=== PATIENT | male | born 1955 | race African-American/Black ===

== ENCOUNTER 2016-08-24 07:17 | Emergency (ER) | payer BC ==
[~2016-08-24 07:17] MED LIST: ZOFR8TAB4 SL
[2016-08-24 07:21] VITALS: BP 137/89; PULSE 130; RESP 24; TEMP 99.8; O2SAT 94
[2016-08-24 07:42] VITALS: BP 185/85; PULSE 98; RESP 18; O2SAT 99
[2016-08-24 07:59] VITALS: RESP 18; O2SAT 98
--- NOTE | 2016-08-24 08:03 | PD ---
HPI Chief Complaint: GI Complaint Time Seen by Provider: 07:42 Travel History International Travel<30 days: No Contact w/Intl Traveler<30days: No Traveled to known affect area: No History of Present Illness HPI The patient was seen and examined in the presence of the nurse. This patient's chief complaint is pain in the right testicle area. Duration 2 days. Symptoms are moderately severe. No injury. He has a temp of 99.8 but denies known fever. He reports that he was getting dialyzed in [place] up to 1 month ago when he just quit on his own. He does produce a reasonable amount of urine through self-catheterization for the last 2 months. He says due to insurance changes he could continue dialyzing. No alleviating factors. PFSH Past Medical History Anemia: Yes Cardiovascular Problems: Yes Dialysis: Yes (PT STATES STOP TREATMENT IN JULY FOR ISSUES WITH INSURANCE) Diminished Hearing: No Hypertension: Yes Medical other: Yes (ESRD ) Tetanus Vaccination: < 5 Years Influenza Vaccination: Yes Past Surgical History Abdominal Surgery: Yes (HERNIA REPAIR) Other Surgery: Yes (DYALISIS CATHETER RIGHT SIDE OF CHEST) Social History Alcohol Use: No Tobacco Use: No Substance Use: No Allergies-Medications (Allergen,Severity, Reaction): Coded Allergies: No Known Allergies (Unverified , 08/24/16) Reported Meds & Prescriptions Reported Meds & Active Scripts Active Cipro (Ciprofloxacin HCl) 250 Mg Tab 750 Mg PO BID 5 Days Review of Systems General / Constitutional: Positive: Fever Eyes: No: Visual changes HENT: No: Headaches Cardiovascular: Positive: Tachycardia, No: Chest Pain or Discomfort Respiratory: No: Shortness of Breath Gastrointestinal: Positive: Nausea, Vomiting, No: Abdominal Pain Genitourinary: No: Dysuria Musculoskeletal: Positive: Pain Skin: No Rash Neurologic: No: Weakness Psychiatric: No: Depression Endocrine: No: Polydipsia Hematologic/Lymphatic: No: Easy Bruising Physical Exam Narrative GENERAL: Thin well-developed patient with low-grade temperature and tachycardia and right testicular pain. SKIN: Focused skin assessment reveals no rash and nodules. Skin is Warm and dry. HEAD: Atraumatic. Normocephalic. EYES: Pupils equal and round. No scleral icterus. No injection or drainage. ENT: No nasal bleeding or discharge. Mucous membranes pink and moist. Throat clear NECK: Trachea midline. No JVD. No meningeal signs CARDIOVASCULAR: Regular rate and rhythm. No murmur appreciated. RESPIRATORY: No accessory muscle use. Clear to auscultation. Breath sounds equal bilaterally. GASTROINTESTINAL: Abdomen soft, non-tender, nondistended. Hepatic and splenic margins not palpable. MUSCULOSKELETAL: No obvious deformities. No clubbing. No cyanosis. No edema. Has a Vas-Cath in right upper chest NEUROLOGICAL: Awake and alert. No obvious cranial nerve deficits. Motor grossly within normal limits. Normal speech. PSYCHIATRIC: Appropriate mood and affect; insight and judgment normal. : Has large tender right scrotal masslike area. No warmth or erythema. No obvious hernia noted. Data Data Last Documented VS Vital Signs Date Time Temp Pulse Resp B/P Pulse Ox O2 Delivery O2 Flow Rate FiO2 08/24/16 07:59 18 98 Room Air 08/24/16 07:42 98 185/85 08/24/16 07:21 99.8 Orders Complete Blood Count With Diff (08/24/16 07:53) Comprehensive Metabolic Panel (08/24/16 07:53) Urinalysis - C+S If Indicated (08/24/16 07:53) Blood Culture (08/24/16 07:53) Chest, Single Ap (08/24/16 07:53) Ecg Monitoring (08/24/16 07:53) Iv Access Insert/Monitor (08/24/16 07:53) Cath For Specimen (08/24/16 07:53) Oximetry (08/24/16 07:53) Us Testicles W Doppler (08/24/16 ) Arterial Blood Gas (Abg) (08/24/16 ) Urine Culture (08/24/16 08:05) Labs Laboratory Tests Test 08/24/16 08/24/16 08:05 09:05 White Blood Count 20.1 TH/MM3 Red Blood Count 3.23 MIL/MM3 Hemoglobin 10.0 GM/DL Hematocrit 29.6 % Mean Corpuscular Volume 91.6 FL Mean Corpuscular Hemoglobin 31.1 PG Mean Corpuscular Hemoglobin 34.0 % Concent Red Cell Distribution Width 13.8 % Platelet Count 249 TH/MM3 Mean Platelet Volume 7.5 FL Neutrophils (%) (Auto) 87.4 % Lymphocytes (%) (Auto) 3.9 % Monocytes (%) (Auto) 7.9 % Eosinophils (%) (Auto) 0.5 % Basophils (%) (Auto) 0.3 % Neutrophils # (Auto) 17.5 TH/MM3 Lymphocytes # (Auto) 0.8 TH/MM3 Monocytes # (Auto) 1.6 TH/MM3 Eosinophils # (Auto) 0.1 TH/MM3 Basophils # (Auto) 0.1 TH/MM3 CBC Comment DIFF FINAL Differential Comment Urine Color LIGHT-YELLOW Urine Turbidity HAZY Urine pH 5.5 Urine Specific [place] 1.011 Urine Protein 30 mg/dL Urine Glucose (UA) NEG mg/dL Urine Ketones NEG mg/dL Urine Occult Blood SMALL Urine Nitrite NEG Urine Bilirubin NEG Urine Urobilinogen LESS THAN 2.0 MG/DL Urine Leukocyte Esterase LARGE Urine RBC 5 /hpf Urine WBC 123 /hpf Urine WBC Clumps FEW Urine Bacteria MOD /hpf Urine Mucus FEW /lpf Microscopic Urinalysis Comment CATH-CULTURE IND Sodium Level 131 MEQ/L Potassium Level 5.5 MEQ/L Chloride Level 105 MEQ/L Carbon Dioxide Level 17.0 MEQ/L Anion Gap 9 MEQ/L Blood Urea Nitrogen 76 MG/DL Creatinine 5.75 MG/DL Estimat Glomerular Filtration 12 ML/MIN Rate Random Glucose 135 MG/DL Calcium Level 8.4 MG/DL Total Bilirubin 0.3 MG/DL Aspartate Amino Transf 6 U/L (AST/SGOT) Alanine Aminotransferase 25 U/L (ALT/SGPT) Alkaline Phosphatase 67 U/L Total Protein 9.0 GM/DL Albumin 3.0 GM/DL Blood Gas Puncture Site RT RADIAL Blood Gas Patient Temperature 98.6 Blood Gas HCO3 13 mmol/L Blood Gas Base Excess -11.1 mmol/L Blood Gas Oxygen Saturation 96 % Arterial Blood pH 7.38 Arterial Blood Partial 23 mmHg Pressure CO2 Arterial Blood Partial 99 mmHG Pressure O2 Arterial Blood Oxygen Content 12.6 Vol % Arterial Blood 1.4 % Carboxyhemoglobin Arterial Blood Methemoglobin 0.6 % Blood Gas Hemoglobin 9.2 G/DL Oxygen Delivery Device ROOM AIR Blood Gas Inspired Oxygen 21 % [facility] Medical Decision Making Medical Screen Exam Complete: Yes Emergency Medical Condition: Yes Medical Record Reviewed: Yes Differential Diagnosis Torsion, varicocele, scrotal mass, acidemia, sepsis Narrative Course I have reviewed the patient's electronic medical record. Reviewed an outpatient visit from May 2016. There are no inpatient stays or ER visits IV placed Blood cultures obtained 2 CBC shows leukocytosis of 20,000 Metabolic profile shows a lot of abnormalities with creatinine of 5.75 and potassium of 5.5 LFTs are normal ABG shows pH is reasonably normal Catheterized urine shows infection with a lot of pyuria and leukocyte esterase I reviewed his chest x-ray which is negative Ultrasound of the testicles was done revealing hydrocele but no evidence of torsion or solid mass Patient decided he wanted to sign out AGAINST MEDICAL ADVICE. Instead I suggested he may need dialyzing today and started to discuss my rationale but he spoke over many normal and didn't want to listen. He says he just wanted to leave. He said he would take a prescription for antibiotics but nothing else. He was already pulling off his leads and getting dressed when I got to the room. His mental status was normal but he was very frustrated and adamant. He was not confused at all. I advised him to return if he worsens or changes his mind. He was advised that he can get very sick and due to cardiac arrhythmia from hyperkalemia or other things. He may also have some degree of sepsis. He has low-grade temp but is tachycardic and has urinary infection. Patient has critical illness but normal mental status and signing out against advice Critical Care Narrative Aggregate critical care time was 32 minutes. Time to perform other separately billable procedures was not included in the critical care time. My time did not include minutes spent treating any other patients simultaneously or on activities that did not directly contribute to the patient's treatment. The services I provided to this patient were to treat and/or prevent clinically significant deterioration that could result in: Cardiac arrhythmia, cardiopulmonary arrest, septic shock I provided critical care services requiring my management, as noted below: Chart data review, documentation time, medication orders and management, vital sign assessments/reviewing monitor data, ordering and reviewing lab tests, ordering and interpreting/reviewing x-rays and diagnostic studies, care of the patient and discussion of the patient with the admitting physicians. Sepsis Criteria SIRS Criteria (2 or more): Heart rate over 90, WBC > 67950, < 4000 or > 10% bands Sepsis Criteria (SIRS+source): Infect source susp/known Severe Sepsis (+one): Acute Oliguria/Renal Failure Criteria Outcome: Meets severe sepsis criteria Diagnosis Primary Impression: Renal failure Qualified Code: N17.9 - Acute renal failure superimposed on chronic kidney disease, unspecified CKD stage, unspecified acute renal failure type Additional Impressions: Hyperkalemia Cystitis Sepsis Qualified Code: A41.9 - Sepsis, due to unspecified organism Med/Other Pt SpecificInfo: Prescription(s) given Scripts Ciprofloxacin (Cipro)250 Mg [id number] Mg PO BID 5 Days Ref 0 Prov:Iron Reynoso MD 08/24/16 Disposition: 07 AGAINST MEDICAL ADVICE Condition: Serious Iron Reynoso MD August 24, 2016 08:03
--- NOTE | 2016-08-24 08:13 | RADRPT ---
EXAM DATE/TIME: 08/24/2016 08:00 [facility] COMPARISON: No previous studies available for comparison. INDICATIONS : Fever MEDICAL HISTORY : None. SURGICAL HISTORY : Infusaport ENCOUNTER: Initial ACUITY: 1 day PAIN SCORE: 0/10 LOCATION: Bilateral chest FINDINGS: A single view of the chest demonstrates the lungs to be symmetrically aerated without evidence of mas s, infiltrate or effusion. The cardiomediastinal contours are unremarkable. Osseous structures are intact. There is a right-sided double lumen central venous catheter with the tip projected over the v jenelle cava. CONCLUSION: 1. Right-sided double-lumen central venous catheter in place. 2. The lungs are clear with no evidence of pneumonia. Rodrigo Paris MD on August 24, 2016 at 8:10 Board Certified Radiologist. This report was verified electronically.
[2016-08-24 08:22] LABS: AUTOMATED NEUTROPHIL # 17.5 TH/MM3 (1.8-7.7); BASOPHIL # 0.1 TH/MM3 (0-0.2); BASOPHIL % 0.3 % (0.0-2.0); EOSINOPHIL # 0.1 TH/MM3 (0-0.4); EOSINOPHIL % 0.5 % (0.0-4.0); HEMATOCRIT 29.6 % (39.0-51.0); HEMO FLAGS DIFF FINAL; LYMPH % 3.9 % (9.0-44.0); LYMPHOCYTE # 0.8 TH/MM3 (1.0-4.8); MEAN CELL VOLUME 91.6 FL (80.0-100.0); MEAN CORPUSCULAR HEMOGLOBIN 31.1 PG (27.0-34.0); MONO % 7.9 % (0.0-8.0); NEUT % 87.4 % (16.0-70.0); PLATELET COUNT 249 TH/MM3 (150-450); RED BLOOD COUNT 3.23 MIL/MM3 (4.50-5.90); RED CELL DISTRIBUTION WIDTH 13.8 % (11.6-17.2); WHITE BLOOD COUNT 20.1 TH/MM3 (4.0-11.0)
[2016-08-24 08:26] LABS: BACTERIA, URINE MOD /hpf; BLOOD, URINE SMALL (NEG); COMMENT (UR) CATH-CULTURE IND; CULTURE IF INDICATED CATH CULTURE IND; GLUCOSE,URINE NEG (NEG); KETONE, URINE NEG (NEG); MUCUS URINE FEW /lpf (OCC); NITRITE,URINE NEG (NEG); PH, URINE 5.5 (5.0-8.5); URINE COLOR LIGHT-YELLOW (YELLW/STRAW)
[2016-08-24 09:10] LABS: BLOOD GAS BASE EXCESS -11.1 mmol/L (-2-2); BLOOD GAS CARBOXYHEMOGLOBIN 1.4 % (0-4); BLOOD GAS HCO3 13 mmol/L (22-26); BLOOD GAS METHEMOGLOBIN 0.6 % (0-2); BLOOD GAS O2 HGB SATURATION 96 % (90-100); BLOOD GAS OXYGEN CONTENT 12.6 Vol % (12.0-20.0); BLOOD GAS PCO2 23 mmHg (38-42); BLOOD GAS PO2 99 mmHG (61-120); BLOOD GAS TOTAL HGB 9.2 G/DL (12.0-16.0); TEMP CORR TO 98.6
[2016-08-24 09:11] LABS: CRITICAL VALUE YES; DRAW SITE RT RADIAL; FIO2 21 %; NUMBER OF ARTERIAL PUNCTURES 2; OXYGEN DEVICE ROOM AIR; STAT YES; ULNAR PULSE Y
[2016-08-24 09:24] LABS: ANION GAP 9 MEQ/L (5-15); AST (GOT) 6 U/L (15-37); BLOOD UREA NITROGEN 76 MG/DL (7-18); CHLORIDE 105 MEQ/L (98-107); GLOMERULAR FILTRATION RATE 12 ML/MIN (>89); POTASSIUM 5.5 MEQ/L (3.5-5.1); SODIUM (NA) 131 MEQ/L (136-145)
[2016-08-24 09:27] LABS: ALKALINE PHOSPHATASE 67 U/L (45-117); ALT (GPT) 25 U/L (12-78); TOTAL BILIRUBIN ADULT 0.3 MG/DL (0.2-1.0)
--- NOTE | 2016-08-24 09:55 | RADRPT ---
EXAM DATE/TIME: 08/24/2016 09:13 [facility] COMPARISON: No previous studies available for comparison. INDICATIONS : Testicular pain. MEDICAL HISTORY : Cardiac disorders. HTN. Anemia. ESRD. SURGICAL HISTORY : Hernia repair. Dialysis. ENCOUNTER: Initial ACUITY: 3 days PAIN SCORE: 10/10 LOCATION: Bilateral scrotum. MEASUREMENTS: RIGHT TESTICLE: 3.5 x 3.1 x 2.4cm LEFT TESTICLE: 2.3 x 3.5 x 2.0cm FINDINGS: RIGHT TESTICLE: Homogeneous echotexture without intra or extratesticular mass. There are multiple small echogenic foc i throughout the testicle without shadowing. Blood flow is symmetric and within normal limits. There is a complex small to moderate size hydrocele containing multiple septations. No varicocele. Echogen ic material is visualized extending into the right inguinal canal. Epididymis is within normal limits . LEFT TESTICLE: Homogeneous echotexture without intra or extratesticular mass. There are multiple small echogenic fo ci throughout the testicle without shadowing. Blood flow is symmetric and within normal limits. No h ydrocele or varicocele. Epididymis is within normal limits. SCROTUM: Within normal limits. CONCLUSION: 1. No definite abnormality is identified to explain the patient's pain. There is a complex small-to-m oderate size right hydrocele. 2. Possible right inguinal hernia is identified. 3. Bilateral testicular microlithiasis. Luc Angel MD on August 24, 2016 at 9:50 Board Certified Radiologist. This report was verified electronically.
[2016-08-24] MEDS ORDERED: CIPR250T52 PO (10:08)
== END 2016-08-24 10:30 | disposition left against medical advice (07) ==
LOC: NEPC 07:17
DX: N17.9 Acute kidney failure, unspecified (principal); E87.5 Hyperkalemia; N30.90 Cystitis, unspecified without hematuria; A41.9 Sepsis, unspecified organism; B96.5 Pseudomonas (aeruginosa) (mallei) (pseudomallei) as the cause of diseases classified elsewhere; B96.89 Other specified bacterial agents as the cause of diseases classified elsewhere; I12.0 Hypertensive chronic kidney disease with stage 5 chronic kidney disease or end stage renal disease
CPT/HCPCS: 36600; 71010; 76870; 80053; 81001; 82805; 85025; 87040; 87077; 87086; 87186; 93975; 99291; P9612

== ENCOUNTER 2016-08-28 05:11 | Inpatient (IN) | payer BC ==
[~2016-08-28] VITALS: Ht 175.3 cm; Wt 57.1 kg
[2016-08-28] VITALS (11 sets, daily range): BP systolic 100–137; BP diastolic 59–79; PULSE 88–109; RESP 18–24; TEMP 97.6–99.3; O2SAT 91–100
[~2016-08-28 05:11] MED LIST changes: +CIPR250T52 PO; -ZOFR8TAB4 SL
[2016-08-28] MEDS ORDERED: SODIUM CHLORIDE 0.9% FLUSH 5 ML FLUSH IV FLUSH PRN (05:30)
--- NOTE | 2016-08-28 05:32 | PD ---
HPI Chief Complaint: General Weakness Time Seen by Provider: 05:14 Travel History International Travel<30 days: No Contact w/Intl Traveler<30days: No Traveled to known affect area: No History of Present Illness HPI The patient is a 61-year-old [place] male who presents to the emergency department for generalized malaise. According to EMS the patient called because he was having generalized malaise and generalized weakness. The patient was seen in the emergency department several days ago, June 24, bruise noted at acute renal failure. It was recommended that the patient be admitted, however, he signed out AGAINST MEDICAL ADVICE. The patient has a permacath located in the right internal jugular, states he was receiving dialysis in [place], however, cannot give me the name of his comb capper. The patient states he recently moved back to the area and does not have a local primary physician. The patient appears somewhat confused, cannot give me a straight story in regards to his history of dialysis, reason for dialysis, or previous place where he received dialysis. The patient appears confused and is a somewhat poor historian. PFSH Past Medical History Anemia: Yes Cardiovascular Problems: Yes Dialysis: Yes (PT STATES STOP TREATMENT IN JULY FOR ISSUES WITH INSURANCE) Diminished Hearing: No Hypertension: Yes Past Surgical History Abdominal Surgery: Yes (HERNIA REPAIR) Other Surgery: Yes (DYALISIS CATHETER RIGHT SIDE OF CHEST) Social History Alcohol Use: No Tobacco Use: No Substance Use: No Allergies-Medications (Allergen,Severity, Reaction): Coded Allergies: No Known Allergies (Unverified , 08/28/16) Reported Meds & Prescriptions Reported Meds & Active Scripts Active Cipro (Ciprofloxacin HCl) 250 Mg Tab 750 Mg PO BID 5 Days Review of Systems ROS Limitations: Altered Mental Status Except as stated in HPI: all other systems reviewed are Neg HENT: No: Lightheadedness Cardiovascular: No: Chest Pain or Discomfort Respiratory: No: Shortness of Breath Gastrointestinal: No: Nausea, Vomiting, Abdominal Pain Genitourinary: Positive: Decreased Urinary Output Musculoskeletal: Positive: Weakness Neurologic: Positive: Weakness, Change in Mentation Physical Exam Narrative GENERAL: Awake, alert, somewhat confused 61-year-old male who appears his stated age and is in no acute respiratory distress. SKIN: Focused skin assessment warm/dry. HEAD: Atraumatic. Normocephalic. EYES: Pupils equal and round. No scleral icterus. No injection or drainage. ENT: No nasal bleeding or discharge. Mucous membranes pink and moist. NECK: Trachea midline. No JVD. Permacath in place right internal jugular. CARDIOVASCULAR: Regular rate and rhythm. No murmur appreciated. RESPIRATORY: No accessory muscle use. Clear to auscultation. Breath sounds equal bilaterally. GASTROINTESTINAL: Abdomen soft, non-tender, nondistended. MUSCULOSKELETAL: No obvious deformities. No clubbing. No cyanosis. No edema. NEUROLOGICAL: Awake and alert. No obvious cranial nerve deficits. Motor grossly within normal limits. Normal speech. Nonfocal. Patient is oriented to year, president [employer], took him several gases to get the correct month. PSYCHIATRIC: Odd affect. Data Data Last Documented VS Vital Signs Date Time Temp Pulse Resp B/P Pulse Ox O2 Delivery O2 Flow Rate FiO2 08/28/16 05:28 18 100 Nasal Cannula 2 08/28/16 05:26 102 08/28/16 05:22 97.6 131/79 Orders Electrocardiogram (08/28/16 05:25) Complete Blood Count With Diff (08/28/16 05:25) Comprehensive Metabolic Panel (08/28/16 05:25) Creatine Kinase (Cpk) (08/28/16 05:25) Prothrombin Time / Inr (Pt) (08/28/16 05:25) Act Partial Throm Time (Ptt) (08/28/16 05:25) Thyroid Stimulating Hormone (08/28/16 05:25) Urinalysis - C+S If Indicated (08/28/16 05:25) Chest, Single Ap (08/28/16 05:25) Blood Glucose (08/28/16 05:25) Ecg Monitoring (08/28/16 05:25) Iv Access Insert/Monitor (08/28/16 05:25) Oximetry (08/28/16 05:25) Sodium Chloride 0.9% Flush (Ns Flush) (08/28/16 05:30) Sodium Chlor 0.9% 1000 Ml Inj (Ns 1000 M (08/28/16 05:25) Magnesium (Mg) (08/28/16 05:25) Phosphorus (Po4) (08/28/16 05:25) Cefepime Inj (Maxipime Inj) (08/28/16 06:00) Blood Culture (08/28/16 06:01) Lactic Acid (08/28/16 06:01) Piperacil-Tazo 4.5 Gm Premix (Zosyn 4.5 (08/28/16 06:15) Potassium, Serum (K) (08/28/16 09:17) Insulin Human Regular Inj (Novolin R Inj (08/28/16 06:30) Dextrose 50% In Gadiel (Vial) Inj (D50w (Vi (08/28/16 06:30) Sodium Bicarbonate 8.4% Inj (Sodium Bica (08/28/16 06:30) Sodium Chlor 0.9% 1000 Ml Inj (Ns 1000 M (08/28/16 06:30) Consult Nephrology (08/28/16 ) (Hub Use Only)Inp Phy Cons/Ref (08/28/16 ) Labs Laboratory Tests Test 08/28/16 05:15 White Blood Count 31.9 TH/MM3 Red Blood Count 2.76 MIL/MM3 Hemoglobin 8.2 GM/DL Hematocrit 25.3 % Mean Corpuscular Volume 91.6 FL Mean Corpuscular Hemoglobin 29.9 PG Mean Corpuscular Hemoglobin 32.6 % Concent Red Cell Distribution Width 14.1 % Platelet Count 129 TH/MM3 Mean Platelet Volume 8.6 FL Neutrophils (%) (Auto) 89.7 % Lymphocytes (%) (Auto) 4.0 % Monocytes (%) (Auto) 5.2 % Eosinophils (%) (Auto) 0.7 % Basophils (%) (Auto) 0.4 % Neutrophils # (Auto) 28.6 TH/MM3 Lymphocytes # (Auto) 1.3 TH/MM3 Monocytes # (Auto) 1.7 TH/MM3 Eosinophils # (Auto) 0.2 TH/MM3 Basophils # (Auto) 0.1 TH/MM3 CBC Comment AUTO DIFF Prothrombin Time 12.8 SEC Prothromb Time International 1.2 RATIO Ratio Activated Partial 22.0 SEC Thromboplast Time Sodium Level 128 MEQ/L Potassium Level 6.8 MEQ/L Chloride Level 95 MEQ/L Carbon Dioxide Level 15.4 MEQ/L Anion Gap 18 MEQ/L Blood Urea Nitrogen 130 MG/DL Creatinine 7.19 MG/DL Estimat Glomerular Filtration 9 ML/MIN Rate Random Glucose 85 MG/DL Calcium Level 9.1 MG/DL Phosphorus Level 5.0 MG/DL Magnesium Level 2.2 MG/DL Total Bilirubin 0.4 MG/DL Aspartate Amino Transf 20 U/L (AST/SGOT) Alanine Aminotransferase 20 U/L (ALT/SGPT) Alkaline Phosphatase 77 U/L Total Creatine Kinase 206 U/L Total Protein 9.4 GM/DL Albumin 3.2 GM/DL Thyroid Stimulating Hormone 1.730 uIU/ML 3rd Gen [facility] Medical Decision Making Medical Screen Exam Complete: Yes Emergency Medical Condition: Yes Medical Record Reviewed: Yes Interpretation(s) EKG reveals sinus tachycardia with a heart rate of 108. Left ventricular hypertrophy. Laboratory Tests Test 08/28/16 05:15 White Blood Count 31.9 TH/MM3 Red Blood Count 2.76 MIL/MM3 Hemoglobin 8.2 GM/DL Hematocrit 25.3 % Mean Corpuscular Volume 91.6 FL Mean Corpuscular Hemoglobin 29.9 PG Mean Corpuscular Hemoglobin 32.6 % Concent Red Cell Distribution Width 14.1 % Platelet Count 129 TH/MM3 Mean Platelet Volume 8.6 FL Neutrophils (%) (Auto) 89.7 % Lymphocytes (%) (Auto) 4.0 % Monocytes (%) (Auto) 5.2 % Eosinophils (%) (Auto) 0.7 % Basophils (%) (Auto) 0.4 % Neutrophils # (Auto) 28.6 TH/MM3 Lymphocytes # (Auto) 1.3 TH/MM3 Monocytes # (Auto) 1.7 TH/MM3 Eosinophils # (Auto) 0.2 TH/MM3 Basophils # (Auto) 0.1 TH/MM3 CBC Comment AUTO DIFF Prothrombin Time 12.8 SEC Prothromb Time International 1.2 RATIO Ratio Activated Partial 22.0 SEC Thromboplast Time Sodium Level 128 MEQ/L Potassium Level 6.8 MEQ/L Chloride Level 95 MEQ/L Carbon Dioxide Level 15.4 MEQ/L Anion Gap 18 MEQ/L Blood Urea Nitrogen 130 MG/DL Creatinine 7.19 MG/DL Estimat Glomerular Filtration 9 ML/MIN Rate Random Glucose 85 MG/DL Calcium Level 9.1 MG/DL Phosphorus Level 5.0 MG/DL Magnesium Level 2.2 MG/DL Total Bilirubin 0.4 MG/DL Aspartate Amino Transf 20 U/L (AST/SGOT) Alanine Aminotransferase 20 U/L (ALT/SGPT) Alkaline Phosphatase 77 U/L Total Creatine Kinase 206 U/L Total Protein 9.4 GM/DL Albumin 3.2 GM/DL Thyroid Stimulating Hormone 1.730 uIU/ML 3rd Gen Chest x-ray reveals central line catheter placement in place, no significant oral effusion or edema. Differential Diagnosis Differential diagnosis includes acute renal failure, chronic renal failure, hyperkalemia, electrolyte abnormality, encephalopathy, uremia, UTI, sepsis. Narrative Course IV was established, labs are drawn and sent, and the patient was placed on cardiac telemetry monitoring and continuous pulse oximetry monitoring. EKG was ordered and interpreted. IV fluids were started. Chest x-ray was obtained. The patient's white count was noted be 31.8, higher than a white count from 5 days ago that was 20.1. The patient was noted to have a UTI at that time, therefore, was administered Zosyn intravenously, after I evaluated his culture results from the UA that was performed on the . Lactic acid and blood cultures were ordered. The patient was not immediately administered 30 ML's per kilogram of IV fluids as he is a dialysis patient that is no longer getting a dialysis and makes very little urine, via straight catheter. The patient appears to have sepsis, ongoing chronic renal failure and may need dialysis. Lab called at 6:15 AM stated the patient's potassium was 6.8, therefore, patient was treated with insulin, amp of D50, bicarbonate, and 1 L of IV fluids. The on-call decision support analyst and comb capper were paged for admission. I discussed the patient the decision support analyst who also recommends 1 g of calcium gluconate, therefore, 1 g of calcium gluconate was ordered. The patient will be [place] [facility] and will need dialysis. A consult was placed to the on-call comb capper. Critical Care Narrative Aggregate critical care time was 40 minutes. Time to perform other separately billable procedures was not included in the critical care time. My time did not include minutes spent treating any other patients simultaneously or on activities that did not directly contribute to the patient's treatment. The services I provided to this patient were to treat and/or prevent clinically significant deterioration that could result in: Arrhythmia, acute on chronic renal failure, pulmonary edema, . I provided critical care services requiring my management, as noted below: Chart data review, documentation time, medication orders and management, vital sign assessments/reviewing monitor data, ordering and reviewing lab tests, ordering and interpreting/reviewing x-rays and diagnostic studies, care of the patient and discussion of the patient with the admitting physicians. Sepsis Criteria SIRS Criteria (2 or more): Heart rate over 90, WBC > 20469, < 4000 or > 10% bands Sepsis Criteria (SIRS+source): Infect source susp/known Physician Communication Physician Communication The on-call decision support analyst was paged for admission. I discussed the patient with Dr. Velasquez who agrees with admission. Diagnosis Primary Impression: Renal failure Qualified Code: N17.9 - Acute renal failure superimposed on chronic kidney disease, unspecified CKD stage, unspecified acute renal failure type Additional Impressions: Hyperkalemia Sepsis Qualified Code: A41.52 - Sepsis due to Pseudomonas species Admitting Information Admitting Physician Requests: Admit Condition: Serious Nilson Vee MD August 28, 2016 05:32
[2016-08-28 05:39] LABS: AUTOMATED NEUTROPHIL # 28.6 TH/MM3 (1.8-7.7); BASOPHIL # 0.1 TH/MM3 (0-0.2); BASOPHIL % 0.4 % (0.0-2.0); EOSINOPHIL # 0.2 TH/MM3 (0-0.4); EOSINOPHIL % 0.7 % (0.0-4.0); HEMATOCRIT 25.3 % (39.0-51.0); LYMPHOCYTE # 1.3 TH/MM3 (1.0-4.8); MEAN CELL VOLUME 91.6 FL (80.0-100.0); MEAN CORPUSCULAR HEMOGLOBIN 29.9 PG (27.0-34.0); MEAN CORPUSCULAR HGB CONC 32.6 % (32.0-36.0); MONO % 5.2 % (0.0-8.0); NEUT % 89.7 % (16.0-70.0); PLATELET COUNT 129 TH/MM3 (150-450); RED BLOOD COUNT 2.76 MIL/MM3 (4.50-5.90); RED CELL DISTRIBUTION WIDTH 14.1 % (11.6-17.2); WHITE BLOOD COUNT 31.9 TH/MM3 (4.0-11.0)
[2016-08-28 05:42] LABS: HEMO FLAGS AUTO DIFF
[2016-08-28 05:53] LABS: INTERNATIONAL NORMALIZED RATIO 1.2 RATIO; PROTHROMBIN TIME - PATIENT 12.8 SEC (9.8-11.6)
[2016-08-28] MEDS ORDERED: CEFEPIME INJ 2,000 MG in SODIUM CHLORIDE 0.9% INJ 100 ML IV ONE (06:00)
[2016-08-28] MEDS: SODIUM CHLOR 0.9% 1000 ML INJ 1,000 ML IV SCH ×2 (06:04→08:40)
[2016-08-28 06:13] LABS: ALT (GPT) 20 U/L (12-78); ANION GAP 18 MEQ/L (5-15); AST (GOT) 20 U/L (15-37); BICARBONATE 15.4 MEQ/L (21.0-32.0); BLOOD UREA NITROGEN 130 MG/DL (7-18); CHLORIDE 95 MEQ/L (98-107); GLOMERULAR FILTRATION RATE 9 ML/MIN (>89); MAGNESIUM 2.2 MG/DL (1.5-2.5); SODIUM (NA) 128 MEQ/L (136-145)
[2016-08-28 06:15] LABS: POTASSIUM 6.8 MEQ/L (3.5-5.1)
[2016-08-28] MEDS ORDERED: PIPERACIL-TAZO 4.5 GM PREMIX 100 ML IV ONE (06:15)
[2016-08-28 06:23] LABS: ALKALINE PHOSPHATASE 77 U/L (45-117); CREATINE KINASE 206 U/L (39-308); TOTAL BILIRUBIN ADULT 0.4 MG/DL (0.2-1.0)
[2016-08-28] MEDS ORDERED: SODIUM CHLOR 0.9% 1000 ML INJ 1,000 ML IV ONE (06:30)
[2016-08-28] MEDS ORDERED: INSULIN HUMAN REGULAR 1,000 UNITS/10 ML VIAL IV PUSH ONE (06:30)
[2016-08-28] MEDS ORDERED: DEXTROSE 50% IN WATER 50 ML VIAL(D50) IV PUSH ONE (06:30)
[2016-08-28] MEDS ORDERED: SODIUM BICARBONATE 8.4% SOLN 50 MEQ/50 ML VIAL SLOW IVP ONE (06:30)
--- NOTE | 2016-08-28 06:39 | RADRPT ---
EXAM DATE/TIME: 08/28/2016 06:03 [facility] COMPARISON: CHEST SINGLE AP, August 24, 2016, 8:00. INDICATIONS : Short of breath. MEDICAL HISTORY : Hypertension. SURGICAL HISTORY : Hernia repair. Dialysis port. ENCOUNTER: Subsequent ACUITY: 1 day PAIN SCORE: 0/10 LOCATION: Bilateral chest FINDINGS: Right chest dialysis catheters present in satisfactory position. Lungs are clear. No pleural effusion evident. Cardiac contours are satisfactory. CONCLUSION: No acute disease Luc Obando MD on August 28, 2016 at 6:37 Board Certified Radiologist. This report was verified electronically.
[2016-08-28] MEDS ORDERED: CALCIUM GLUCONATE INJ 1 GM in DEXTROSE 5% IN WATER 100ML INJ 100 ML IV ONE ×2 (06:45)
[2016-08-28 06:55] LABS: BANDS 2 % (0-6); METAMYELOCYTES 1 % (0-1); POLYS (SEG NEUTROPHILS) 88 % (16-70); WBC DIFF SAMPLE 100
[2016-08-28 06:56] LABS: PLATELET ESTIMATE SMEAR LOW (NORMAL); PLATELET MORPHOLOGY NORMAL (NORMAL); ROULEAUX PRESENT (NORMAL)
[2016-08-28 06:57] LABS: SCAN/DIFF FINAL DIFF MANUAL
[2016-08-28 07:03] LABS: BACTERIA, URINE MANY /hpf; BLOOD, URINE SMALL (NEG); GLUCOSE,URINE NEG (NEG); HYALINE CAST, URINE 2 /lpf (RARE); KETONE, URINE NEG (NEG); NITRITE,URINE NEG (NEG); PH, URINE 5.5 (5.0-8.5); SQUAMOUS EPITHELIAL CELL URINE <1 /hpf (0-5); URINE COLOR YELLOW (YELLW/STRAW)
[2016-08-28 07:11] LABS: COMMENT (UR) CATH-CULTURE IND; CULTURE IF INDICATED CATH CULTURE IND
[2016-08-28] MEDS ORDERED: MISCELLANEOUS NURSING INFORMATION XX SCH (07:30)
[2016-08-28] MEDS ORDERED: MAGNESIUM HYDROXIDE SUSP 30 ML CUP PO PRN (07:30)
[2016-08-28] MEDS ORDERED: PIPERACIL-TAZO 2.25 GM PREMIX 50 ML IV SCH (07:30)
[2016-08-28] MEDS ORDERED: SENNOSIDES 8.6 MG TAB PO PRN (07:30)
[2016-08-28] MEDS ORDERED: CHLORHEXIDINE GLUCONATE 2 % 1 PACK (2 CLOTHS) TOP PRN (07:30)
[2016-08-28] MEDS ORDERED: MORPHINE SULFATE 4 MG/ML INJ IV PUSH PRN (08:00)
[2016-08-28] MEDS ORDERED: BISACODYL 10 MG SUPP RECTAL PRN (08:00)
[2016-08-28] MEDS ORDERED: LACTULOSE SYRUP 20 GM/30 ML CUP PO PRN (08:00)
--- NOTE | 2016-08-28 08:09 | HHI.HP ---
HPI Service Critical Care Medicine Primary Care Physician Unknown Admission Diagnosis acute on chronic renal failure, uremia, hyperkalemia, UTI, sepsis Diagnosis: Chief Complaint: Bladder pain Travel History International Travel<30 Days: No Contact w/Intl Traveler <30 Da: No Traveled to Known Affected Are: No History of Present Illness 61 y/o noncompliant man presents again having missed dialysis for several days. He was seen several days ago in our ED with the same complaint of bladder spasm and missed dialysis. Arrangements were made for HD and antibiotics, neither of which he complied with and left AMA. He presents today with worse leukocytosis and dehydration. Urine grew Pseudomonas and Enterobacter. Admitted now for treatment of sepsis and hyperkalemia 6.8. He takes no medicine. Review of Systems Constitutional: COMPLAINS OF: Fatigue Endocrine: DENIES: Heat/cold intolerance, Polydipsia, Polyuria, Polyphagia Ears, nose, mouth, throat: DENIES: Tinnitus, Hearing loss, Vertigo, Nasal discharge, Oral lesions, Throat pain, Hoarseness, Ear Pain, Running Nose, Epistaxis, Sinus Pain, Toothache, Odynophagia Respiratory: DENIES: Apneas, Cough, Snoring, Wheezing, Hemoptysis, Sputum production, Shortness of breath Cardiovascular: DENIES: Chest pain, Palpitations, Syncope, Dyspnea on Exertion , PND, Lower Extremity Edema, Orthopnea, Claudication Genitourinary: COMPLAINS OF: Urgency Immunologic/allergic: DENIES: Eczema, Urticaria Neurologic: DENIES: Abnormal gait, Headache, Localized weakness, Paresthesias, Seizures, Speech Problems, Tremor, Poor Balance Past Family Social History Allergies: Coded Allergies: No Known Allergies (Unverified , 08/28/16) Past Medical History Past Medical History Anemia: Yes Cardiovascular Problems: Yes Dialysis: Yes (PT STATES STOP TREATMENT IN JULY FOR ISSUES WITH INSURANCE) Diminished Hearing: No Hypertension: Yes Past Surgical History Abdominal Surgery: Yes (HERNIA REPAIR) Other Surgery: Yes (DYALISIS CATHETER RIGHT SIDE OF CHEST) Social History Alcohol Use: No Tobacco Use: No Substance Use: No Allergies-Medications Allergies-Medications (Allergen,Severity, Reaction): Coded Allergies: No Known Allergies (Unverified , 08/28/16) Reported Meds & Prescriptions Reported Meds & Active Scripts Active Cipro (Ciprofloxacin HCl) 250 Mg Tab 750 Mg PO BID 5 Days Physical Exam Vital Signs Vital Signs Date Time Temp Pulse Resp B/P Pulse Ox O2 Delivery O2 Flow Rate FiO2 08/28/16 05:28 18 100 Nasal Cannula 2 08/28/16 05:26 102 18 99 Nasal Cannula 2 08/28/16 05:22 97.6 102 18 131/79 91 Physical Exam P 102, BP 136/77, R 17, T 99.0, sats 100% Head: Normal. Neck: Supple. Lungs: Clear, no wheezes or crackles. Heart: RRR, NL S1S2, freq PMB. Neck veins are flat. Abdomen: Soft, no guarding, BS active. Extremities: Warm, well perfused. Neuro: Talkative, O X 3, alert. M/S grossly intact. Laboratory Laboratory Tests Test 08/28/16 08/28/16 08/28/16 05:15 06:16 06:35 White Blood Count 31.9 Red Blood Count 2.76 Hemoglobin 8.2 Hematocrit 25.3 Mean Corpuscular Volume 91.6 Mean Corpuscular Hemoglobin 29.9 Mean Corpuscular Hemoglobin 32.6 Concent Red Cell Distribution Width 14.1 Platelet Count 129 Mean Platelet Volume 8.6 Neutrophils (%) (Auto) 89.7 Lymphocytes (%) (Auto) 4.0 Monocytes (%) (Auto) 5.2 Eosinophils (%) (Auto) 0.7 Basophils (%) (Auto) 0.4 Neutrophils # (Auto) 28.6 Lymphocytes # (Auto) 1.3 Monocytes # (Auto) 1.7 Eosinophils # (Auto) 0.2 Basophils # (Auto) 0.1 CBC Comment AUTO DIFF Differential Total Cells 100 Counted Neutrophils % (Manual) 88 Band Neutrophils % 2 Lymphocytes % 5 Monocytes % 4 Neutrophils # (Manual) 29.0 Metamyelocytes 1 Differential Comment FINAL DIFF MANUAL Platelet Estimate LOW Platelet Morphology Comment NORMAL Rouleau PRESENT Prothrombin Time 12.8 Prothromb Time International 1.2 Ratio Activated Partial 22.0 Thromboplast Time Sodium Level 128 Potassium Level 6.8 Chloride Level 95 Carbon Dioxide Level 15.4 Anion Gap 18 Blood Urea Nitrogen 130 Creatinine 7.19 Estimat Glomerular Filtration 9 Rate Random Glucose 85 Calcium Level 9.1 Phosphorus Level 5.0 Magnesium Level 2.2 Total Bilirubin 0.4 Aspartate Amino Transf 20 (AST/SGOT) Alanine Aminotransferase 20 (ALT/SGPT) Alkaline Phosphatase 77 Total Creatine Kinase 206 Total Protein 9.4 Albumin 3.2 Thyroid Stimulating Hormone 1.730 3rd Gen Lactic Acid Level 1.3 Urine Color YELLOW Urine Turbidity HAZY Urine pH 5.5 Urine Specific [place] 1.012 Urine Protein 30 Urine Glucose (UA) NEG Urine Ketones NEG Urine Occult Blood SMALL Urine Nitrite NEG Urine Bilirubin NEG Urine Urobilinogen LESS THAN 2.0 Urine Leukocyte Esterase LARGE Urine RBC 3 Urine WBC Urine WBC Clumps FEW Urine Squamous Epithelial <1 Cells Urine Bacteria MANY Urine Hyaline Casts 2 Microscopic Urinalysis Comment CATH-CULTURE IND Date/Time Procedure Status Source Growth 08/28/16 06:35 Urine Culture Received Urine Catheterized Urine Pending 08/28/16 06:10 Aerobic Blood Culture Received Blood Peripheral Pending 08/28/16 06:10 Anaerobic Blood Culture Received Blood Peripheral Pending Result Diagram: 08/28/1615 08/28/1615 Imaging CXR clear 08/28 Assessment and Plan Assessment and Plan Assessment: 1. Hyperkalemia. 2. Dehydration. 3. Severe sepsis with UTI (Pseudomonas, Enterobacter) 4. Chronic noncompliance. Plan: 1. Calcium, bicarb stat. 2. Levaquin. 3. Gentamicin X 1. 4. Pepcid. 5. Heparin sq bid. 6. Urgent dialysis. 7. Education re HD compliance. Overall impression: This man presents critically ill with two potentially life- threatening illnesses. He is unstable and requires immediate correction of his electrolyte disarray and treatment for sepsis. Critical Care 40 mins Reginaldo Umanzor MD August 28, 2016 08:09
--- NOTE | 2016-08-28 08:11 | EKG ---
Date Performed: 08/28/2016 Time Performed: 05:25:43 PTAGE: 61 years EKG: Baseline artifact is present. SINUS TACHYCARDIA MINIMAL VOLTAGE CRITERIA FOR LVH, CONSIDER NORMAL VARIANT ABNORMAL RHYTHM ECG NO PREVIOUS TRACING DOCTOR: Antelmo Edwards Interpretating Date/Time 08/28/2016 08:11:09
[2016-08-28] MEDS ORDERED: SODIUM CHLOR 0.9% 1000 ML INJ 1,000 ML IV PRN ×2 (08:20)
[2016-08-28] MEDS ORDERED: HEPARIN SODIUM - IV 10,000 UNITS/10 ML VIAL IVF PRN (08:30)
[2016-08-28] MEDS ORDERED: ACETAMINOPHEN 325 MG TAB PO PRN (08:30)
[2016-08-28] MEDS ORDERED: GELATIN 12 MM/7 MM FOAM TOP PRN (08:30)
[2016-08-28] MEDS ORDERED: cloNIDine HCL 0.1 MG TAB PO PRN (08:30)
[2016-08-28] MEDS ORDERED: ALBUMIN HUMAN 25% 25 GM/100 ML BAGP IV PRN (08:30)
[2016-08-28] MEDS ORDERED: ONDANSETRON HCL 4 MG/2 ML VIAL IV PRN (08:30)
[2016-08-28] MEDS ORDERED: NITROGLYCERIN 0.4 MG SL 25 TABS/BTL SL PRN (08:30)
[2016-08-28] MEDS ORDERED: MANNITOL 12.5 GM/50 ML VIAL IV PRN (08:30)
[2016-08-28] MEDS ORDERED: diphenhydrAMINE HCL 25 MG CAP PO PRN (08:30)
[2016-08-28] MEDS: HEPARIN SODIUM - SQ 10,000 UNITS/ML VIAL SQ SCH ×2 (09:00→15:16)
[2016-08-28] MEDS: DOCUSATE SODIUM 50 MG/SENNA 8.6 MG TAB PO SCH ×2 (09:00→21:35)
[2016-08-28] MEDS: LEVOFLOXACIN 500 MG PREMIX INJ 100 ML IV SCH ×2 (09:00→15:15)
--- NOTE | 2016-08-28 10:39 | PD.CONS ---
HPI Service Nephrology Consult Requested By Dr. Vee Reason for Consult ESRD need hemodialysis Primary Care Physician Unknown History of Present Illness Patient is a 61-year-old black male with history of end-stage renal disease, he stated he started dialysis about a month ago at [facility], he had only PermCath on the right side of the chest but he states he got suspicious as he had good urine output and the facility did not provide information why he was on dialysis, he stopped going to the dialysis center end july, he presented earlier to the emergency on 24 of August he was advised to do dialysis and they were concerned about urinary tract infection, he decided to leave AGAINST MEDICAL ADVICE, and again he had similar symptoms with nausea, vomiting, confusion and this time he had worsening of his creatinine along with the hyperkalemia 6.8 he states that he has taken orange juice . He was growing Pseudomonas and Enterobacter in the urine. Review of Systems Constitutional: COMPLAINS OF: Fatigue Gastrointestinal: COMPLAINS OF: Nausea, Vomiting Psychiatric: COMPLAINS OF: Anxiety, Confusion Past Family Social History Allergies: Coded Allergies: No Known Allergies (Unverified , 08/28/16) Past Medical History History of hypertension recently diagnosed in May Acute renal failure in May End-stage renal disease Benign prostatic enlargement Anemia self catheterization UTI Past Surgical History He has a PermCath on the right side Hernia repair Reported Medications Reported Meds & Active Scripts Active Cipro (Ciprofloxacin HCl) 250 Mg Tab 750 Mg PO BID 5 Days Active Ordered Medications Current Medications Medications (Trade) Dose Ordered Sig/Tiffany Route Start Time Stop Time Status Last Admin IV Flush 2 ml 2 ml UNSCH PRN IV FLUSH 08/28/16 05:30 (NS 1000 ml Inj) 1,000 ml @ 50 mls/hr Q20H IV 08/28/16 05:25 08/28/16 08:40 Miscellaneous Information 1 Q361D XX 08/28/16 07:30 08/28/16 07:30 (Chlorhexidine 2% Cloth) 3 pack Taper DAILY@04 TOP 08/29/16 04:00 08/25/17 03:59 (Chlorhexidine 2% Cloth) 3 pack UNSCH PRN TOP 08/28/16 07:30 (Charissa-Colace) 1 tab BID PO 08/28/16 09:00 (Milk Of Magnesia Liq) 30 ml Q12H PRN PO 08/28/16 07:30 (Senokot) 17.2 mg Q12H PRN PO 08/28/16 07:30 (Dulcolax Supp) 10 mg DAILY PRN RECTAL 08/28/16 08:00 (Lactulose Liq) 30 ml DAILY PRN PO 08/28/16 08:00 (Morphine Inj) 2 mg Q3H PRN IV PUSH 08/28/16 08:00 Famotidine 20 mg 20 mg HS PO 08/28/16 21:00 (Levaquin 500 Mg Premix Inj) 100 ml @ 100 mls/hr Q48H IV 08/28/16 09:00 Heparin Sodium (Porcine) 5000 units 5,000 units Q12HR SQ 08/28/16 09:00 (NS 1000 ml Inj) 1,000 ml @ 0 mls/hr Q0M PRN IV 08/28/16 08:20 Heparin Sodium (Porcine) 8000 units 8,000 units UNSCH PRN IVF 08/28/16 08:30 Sodium Chloride 1,000 ml @ 200 mls/hr Q5H PRN IV 08/28/16 08:20 (NS 1000 ml Inj) 1,000 ml @ 0 mls/hr Q0M PRN IV 08/28/16 08:20 (Mannitol Inj) 12.5 gm UNSCH PRN IV 08/28/16 08:30 (Albumin 25% Inj) 25 gm UNSCH PRN IV 08/28/16 08:30 (NS Flush) 5 ml UNSCH PRN IV FLUSH 08/28/16 08:30 (Heparin Inj) UNSCH PRN .XX 08/28/16 08:30 (Gentamicin (Dialysis) Inj) 20 mg UNSCH PRN IV 08/28/16 08:30 (Zofran Inj) 4 mg UNSCH PRN IV 08/28/16 08:30 (Tylenol) 650 mg UNSCH PRN PO 08/28/16 08:30 (Benadryl) 25 mg UNSCH PRN PO 08/28/16 08:30 (Nitrostat Sl) 0.4 mg UNSCH PRN SL 08/28/16 08:30 (Catapres) 0.1 mg UNSCH PRN PO 08/28/16 08:30 (Epogen Inj) 10,000 units UNSCH PRN IV 08/28/16 08:30 (Gelfoam 12 Mm/7 Mm Top) 1 foam UNSCH PRN TOP 08/28/16 08:30 Family History Noncontributory Social History He denies smoking or alcohol use Physical Exam Vital Signs Vital Signs Date Time Temp Pulse Resp B/P Pulse Ox O2 Delivery O2 Flow Rate FiO2 08/28/16 08:50 100 Nasal Cannula 2.00 08/28/16 08:00 98.2 98 24 137/79 100 08/28/16 08:00 100 08/28/16 05:28 18 100 Nasal Cannula 2 08/28/16 05:26 102 18 99 Nasal Cannula 2 08/28/16 05:22 97.6 102 18 131/79 91 Physical Exam GENERAL: Well-nourished, well-developed patient. SKIN: Warm and dry. HEAD: Normocephalic. EYES: No scleral icterus. No injection or drainage. NECK: Supple, trachea midline. No JVD or lymphadenopathy. CARDIOVASCULAR: Tachycardia RESPIRATORY: Breath sounds equal bilaterally. No accessory muscle use. GASTROINTESTINAL: Abdomen soft, non-tender, nondistended. EXTREMITIES: No cyanosis, or edema. NEUROLOGICAL: Awake, alert, and oriented x 3. Non-focal. Laboratory Laboratory Tests Test 08/28/16 08/28/16 08/28/16 08/28/16 05:15 06:16 06:35 09:20 White Blood Count 31.9 Red Blood Count 2.76 Hemoglobin 8.2 Hematocrit 25.3 Mean Corpuscular Volume 91.6 Mean Corpuscular Hemoglobin 29.9 Mean Corpuscular Hemoglobin 32.6 Concent Red Cell Distribution Width 14.1 Platelet Count 129 Mean Platelet Volume 8.6 Neutrophils (%) (Auto) 89.7 Lymphocytes (%) (Auto) 4.0 Monocytes (%) (Auto) 5.2 Eosinophils (%) (Auto) 0.7 Basophils (%) (Auto) 0.4 Neutrophils # (Auto) 28.6 Lymphocytes # (Auto) 1.3 Monocytes # (Auto) 1.7 Eosinophils # (Auto) 0.2 Basophils # (Auto) 0.1 CBC Comment AUTO DIFF Differential Total Cells 100 Counted Neutrophils % (Manual) 88 Band Neutrophils % 2 Lymphocytes % 5 Monocytes % 4 Neutrophils # (Manual) 29.0 Metamyelocytes 1 Differential Comment FINAL DIFF MANUAL Platelet Estimate LOW Platelet Morphology Comment NORMAL Rouleau PRESENT Prothrombin Time 12.8 Prothromb Time International 1.2 Ratio Activated Partial 22.0 Thromboplast Time Sodium Level 128 Potassium Level 6.8 5.0 Chloride Level 95 Carbon Dioxide Level 15.4 Anion Gap 18 Blood Urea Nitrogen 130 Creatinine 7.19 Estimat Glomerular Filtration 9 Rate Random Glucose 85 Calcium Level 9.1 Phosphorus Level 5.0 Magnesium Level 2.2 Total Bilirubin 0.4 Aspartate Amino Transf 20 (AST/SGOT) Alanine Aminotransferase 20 (ALT/SGPT) Alkaline Phosphatase 77 Total Creatine Kinase 206 Total Protein 9.4 Albumin 3.2 Thyroid Stimulating Hormone 1.730 3rd Gen Lactic Acid Level 1.3 Urine Color YELLOW Urine Turbidity HAZY Urine pH 5.5 Urine Specific [place] 1.012 Urine Protein 30 Urine Glucose (UA) NEG Urine Ketones NEG Urine Occult Blood SMALL Urine Nitrite NEG Urine Bilirubin NEG Urine Urobilinogen LESS THAN 2.0 Urine Leukocyte Esterase LARGE Urine RBC 3 Urine WBC Urine WBC Clumps FEW Urine Squamous Epithelial <1 Cells Urine Bacteria MANY Urine Hyaline Casts 2 Microscopic Urinalysis Comment CATH-CULTURE IND Date/Time Procedure Status Source Growth 08/28/16 06:35 Urine Culture Received Urine Catheterized Urine Pending 08/28/16 06:10 Aerobic Blood Culture Received Blood Peripheral Pending 08/28/16 06:10 Anaerobic Blood Culture Received Blood Peripheral Pending Result Diagram: 08/28/16 0515 08/28/16 0920 Assessment and Plan Problem List: (1) ESRD (end stage renal disease) on dialysis Plan: Patient has a PermCath which has not been used and it is difficult to maintain blood flow, dialysis was tried the and I have ordered Activase to see if the blood flow gets better and reattempt dialysis later on His potassium was treated then latest potassium is 5 He has uremia from lack of dialysis It is unclear whether long-term plan for dialysis has been made according to the patient he used to live in [facility] and he came back as he has social issues. 1448 PM seen at hemodialysis via Rt groin Vascath tolerating it UF 2 L (2) Hyperkalemia Plan: This has been treated medically and dialysis will be attempted (3) Sepsis Plan: On Levaquin has received Zosyn. (4) UTI (lower urinary tract infection) Plan: obtain renal U/S as has BPH possible hydronephrosis Problem Qualifiers (1) Sepsis: Qualified Code: A41.52 - Sepsis due to Pseudomonas species Charles Fong MD August 28, 2016 10:39
[2016-08-28] MEDS ORDERED: ALTEPLASE RECOMBINANT 2 MG VIAL INTRACATH ONE (11:00)
[2016-08-28] MEDS ORDERED: ALTEPLASE RECOMBINANT 2 MG VIAL INTRACATH SCH (11:00)
[2016-08-28] MEDS ORDERED: VITAMIN B CMPLX/VITC/FOLIC AC CAP PO ONE (12:00)
--- NOTE | 2016-08-28 12:37 | RADRPT ---
EXAM DATE/TIME: 08/28/2016 11:23 [place] COMPARISON: No previous studies available for comparison. INDICATIONS : Increased BUN/creatinine. MEDICAL HISTORY : Hypertension. Osteoporosis. Renal disease and failure. Anemia. Anxiety. SURGICAL HISTORY : Hernia repair. Dialysis. Stents placed ureters. Catheter right side chest. ENCOUNTER: Initial ACUITY: 1 day PAIN SCORE: 2/10 LOCATION: Bilateral flank MEASUREMENTS: RIGHT KIDNEY: 9.9 x 5.7 x 4.4 cm LEFT KIDNEY: 9.8 x 5.7 x 4.1 cm FINDINGS: RIGHT KIDNEY: Renal cortex demonstrates normal echotexture but mild cortical thinning. No mass or stone is visualiz ed. There is an anechoic avascular lesion at the lower pole measuring 12 mm representing a simple cys t. There is moderate to severe hydronephrosis. LEFT KIDNEY: Renal cortex demonstrates normal echotexture with mild cortical thinning. There is moderate to severe hydronephrosis. No mass or stone is visualized. BLADDER: Urinary bladder is very distended with non-masslike wall thickening along the posterior aspect. CONCLUSION: 1. Distended urinary bladder with bilateral hydronephrosis. Question whether this could be related to bladder outlet obstruction or neurogenic bladder. 2. There is wall thickening along the posterior bladder wall but does not appear definitively masslik e. Again, this could be related to chronic change related to chronic bladder outlet obstruction or ne urogenic bladder. Depending on his clinical history, it would be reasonable to perform cross-sectiona l imaging to evaluate for an obstructing process. Luc Angel MD on August 28, 2016 at 12:32 Board Certified Radiologist. This report was verified electronically.
[2016-08-28] MEDS ORDERED: MIDAZOLAM HCL 5 MG/ML VIAL (1 ML) ONE (13:18)
--- NOTE | 2016-08-28 13:56 | PD.PROCEDR ---
Procedure Note Procedure DX: ESRD, Hyperkalemia, Poor Venous Access OP: 1. Insertion 2-lumen Hemodialysis Catheter ([id number]) 2. Insertion Triple Lumen Central Venous Line ([id number]) Procedure: A nonfunctioning HD catheter is in the right internal jugular position. I will save the left internal jugular vein for the replacement PermaCath. The right groin was prepped and drapped. The right common femoral vein was cannulated and a wire was easily advanced. A second puncture was made and a second wire advanced north as well. Both with ultrasound guidance. A 3 mm skin incision was made at the medial wire, dilators passed and the hemodialysis catheter was inserted over the wire to 24 cm. Lumens aspirated and flushed. A dilator was passed over the lateral wire next and the central venous line was passed over the wire to 18 cm. Lumens aspirated and flushed. Dressings applied. Reginaldo Umanzor MD August 28, 2016 13:56
[2016-08-28] MEDS ORDERED: MIDAZOLAM HCL 5 MG/5 ML VIAL IV ONE (14:00)
[2016-08-28] MEDS: EPOETIN ALFA 10,000 UNITS/ML VIAL IV PRN (14:25)
[2016-08-28] MEDS: CALCIUM ACETATE 667 MG CAP PO SCH ×2 (15:15→17:08)
[2016-08-28] MEDS: FAMOTIDINE 20 MG TAB PO SCH (21:35)
[2016-08-29] VITALS (11 sets, daily range): BP systolic 115–132; BP diastolic 56–82; PULSE 60–100; RESP 13–26; TEMP 97–98.2; O2SAT 90–100
[2016-08-29 03:40] LABS: AUTOMATED NEUTROPHIL # 13.4 TH/MM3 (1.8-7.7); BASOPHIL % 0.2 % (0.0-2.0); EOSINOPHIL % 0.3 % (0.0-4.0); HEMO FLAGS DIFF FINAL; LYMPHOCYTE # 1.5 TH/MM3 (1.0-4.8); MEAN CELL VOLUME 91.4 FL (80.0-100.0); MEAN CORPUSCULAR HEMOGLOBIN 29.9 PG (27.0-34.0); MEAN CORPUSCULAR HGB CONC 32.7 % (32.0-36.0); MONO % 10.7 % (0.0-8.0); NEUT % 79.8 % (16.0-70.0); PLATELET COUNT 199 TH/MM3 (150-450); RED CELL DISTRIBUTION WIDTH 13.7 % (11.6-17.2); WHITE BLOOD COUNT 16.7 TH/MM3 (4.0-11.0)
[2016-08-29 04:05] LABS: BICARBONATE 26.8 MEQ/L (21.0-32.0); POTASSIUM 4.7 MEQ/L (3.5-5.1)
[2016-08-29 04:17] LABS: CALCIUM-PROTEIN CORRECTED 7.9 MG/DL (8.5-10.1)
[2016-08-29] MEDS: CHLORHEXIDINE GLUCONATE 2 % 1 PACK (2 CLOTHS) TOP SCH (05:22)
[2016-08-29] MEDS: DOCUSATE SODIUM 50 MG/SENNA 8.6 MG TAB PO SCH ×2 (09:19→20:56)
[2016-08-29] MEDS: HEPARIN SODIUM - SQ 10,000 UNITS/ML VIAL SQ SCH ×2 (09:19→09:22)
[2016-08-29] MEDS: CALCIUM ACETATE 667 MG CAP PO SCH ×3 (09:19→16:54)
[2016-08-29] MEDS ORDERED: VANCOMYCIN INJ 1,000 MG in SODIUM CHLOR 0.9% 250 ML INJ 250 ML IV SCH (11:15)
[2016-08-29] MEDS ORDERED: ceFAZolin 2 GM PREMIX 50 ML IV SCH (11:15)
[2016-08-29] MEDS: VITAMIN B CMPLX/VITC/FOLIC AC CAP PO SCH (12:09)
--- NOTE | 2016-08-29 12:55 | HHI.NPPN ---
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 old BM with Renal failure on hemodialysis Additional Remarks bilateral hydronephrosis Objective Data Data 08/28/16 08/29/16 19:00 07:00 Intake Total 1043 ml 478 ml Output Total 3400 ml 900 ml Balance -2357 ml -422 ml Intake Oral 440 ml 240 ml IV Total 603 ml 238 ml Output Urine Total 1800 ml 900 ml Hemodialysis 1600 ml # Bowel Movements 0 Vital Signs Date Time Temp Pulse Resp B/P Pulse Ox O2 Delivery O2 Flow Rate FiO2 08/29/16 12:00 97.6 83 20 125/60 100 08/29/16 12:00 83 08/29/16 09:05 21 08/29/16 08:00 93 08/29/16 08:00 97.0 93 26 116/59 100 08/29/16 07:00 98 Room Air 08/29/16 06:00 83 08/29/16 04:00 97.9 84 13 115/56 99 08/29/16 04:00 84 08/29/16 02:00 85 08/29/16 00:00 98.2 96 23 124/60 99 08/29/16 00:00 96 08/28/16 22:00 102 08/28/16 20:00 88 08/28/16 20:00 98.3 88 19 100/59 100 08/28/16 19:00 96 Room Air 08/28/16 18:00 109 08/28/16 16:00 99.1 92 19 113/63 100 08/28/16 16:00 93 08/28/16 14:00 97 -: 08/29/16 0324 08/29/16 0324 Physical Exam General Appearance: Well Developed, Well Nourished Neck Neck Exam: Neck Supple Pulmonary Resp Exam: Clear Bilaterally, Breath Sounds Equal Cardiology CV Exam: Regular, Normal Sinus Rhythm Gastrointestinal/Abdomen GI Exam: Soft, Non-Tender Extremeties Extremities Exam: No Edema Neurologic Neuro Exam: Alert, Awake Assessment/Plan Problem List: (1) ESRD (end stage renal disease) on dialysis Plan: Patient is doing well he has bilateral Hydronephrosis moderate to severe uremia improved await Urology consult next HD in am PermCath to be changed follow Urology advice (2) Hyperkalemia Plan: This has been treated medically and dialysis will be attempted (3) Sepsis Plan: On Levaquin has received Zosyn. (4) UTI (lower urinary tract infection) Plan: BPH with hydronephrosis Problem Qualifiers (1) Sepsis: Qualified Code: A41.52 - Sepsis due to Pseudomonas species Charles Fong MD August 29, 2016 12:55
--- NOTE | 2016-08-29 13:22 | HHI.PR ---
Subjective Remarks Patient seen in follow-up for sepsis secondary to UTI, end-stage renal disease noncompliant with hemodialysis, hyperkalemia, BPH with hydronephrosis Patient reports he is feeling better. He denies any fevers or chills. He reports he has a new outlook on life and will be compliant with medical treatments. He has been doing self cath. Objective Vitals Vital Signs Date Time Temp Pulse Resp B/P Pulse Ox O2 Delivery O2 Flow Rate FiO2 08/29/16 12:00 97.6 83 20 125/60 100 08/29/16 12:00 83 08/29/16 09:05 21 08/29/16 08:00 93 08/29/16 08:00 97.0 93 26 116/59 100 08/29/16 07:00 98 Room Air 08/29/16 06:00 83 08/29/16 04:00 97.9 84 13 115/56 99 08/29/16 04:00 84 08/29/16 02:00 85 08/29/16 00:00 98.2 96 23 124/60 99 08/29/16 00:00 96 08/28/16 22:00 102 08/28/16 20:00 88 08/28/16 20:00 98.3 88 19 100/59 100 08/28/16 19:00 96 Room Air 08/28/16 18:00 109 08/28/16 16:00 99.1 92 19 113/63 100 08/28/16 16:00 93 08/28/16 14:00 97 I/O 08/28/16 08/28/16 08/28/16 08/29/16 08/29/16 08/29/16 07:00 15:00 23:00 07:00 15:00 23:00 Intake Total 506 ml 1015 ml 800 ml Output Total 1550 ml 2450 ml 300 ml Balance -1044 ml -1435 ml -300 ml 800 ml Intake Oral 240 ml 440 ml 800 ml IV Total 266 ml 575 ml Output Urine Total 1550 ml 850 ml 300 ml Hemodialysis 1600 ml # Bowel Movements 0 1 Result Diagram: 08/29/16 0324 08/29/16 0324 Imaging Last Impressions Chest X-Ray 08/28/16 0525 Signed Impressions: Service Date/Time: Sunday, August 28, 2016 06:03 - CONCLUSION: No acute disease Luc Obando MD Renal Ultrasound 08/28/16 0000 Signed Impressions: Service Date/Time: Sunday, August 28, 2016 11:23 - CONCLUSION: 1. Distended urinary bladder with bilateral hydronephrosis. Question whether this could be related to bladder outlet obstruction or neurogenic bladder. 2. There is wall thickening along the posterior bladder wall but does not appear definitively masslike. Again, this could be related to chronic change related to chronic bladder outlet obstruction or neurogenic bladder. Depending on his clinical history, it would be reasonable to perform cross-sectional imaging to evaluate for an obstructing process. Luc Angel MD Objective Remarks GENERAL: This is a well-nourished, well-developed patient, in no apparent distress. CARDIOVASCULAR: Normal rate and regular rhythm without murmurs, gallops, or rubs. RESPIRATORY: Good respiratory efforts. Breath sounds equal and clear to auscultation bilaterally. GASTROINTESTINAL: Abdomen soft, non-tender, non-distended. Normal active bowel sounds MUSCULOSKELETAL: Extremities without cyanosis, or edema. NEURO: Alert & Oriented x4 to person, place, time, situation. Moves all ext x4 PSYCH: Appropriate mood and affect. A/P Assessment and Plan 61-year-old male who has been noncompliant with medical treatment presents to the hospital after missing several dialysis sessions. He was seen several days ago in our ED prior to admission with complaint of bladder spasm and missed dialysis. Arrangements were made for HD and antibiotics, neither of which he complied with and left AMA. He presented with obvious sepsis secondary to UTI Urine grew Pseudomonas and Enterobacter. Patient also had hypokalemia and was admitted to the intensive care unit under the business objects service. He has since had dialysis and transferred to the hospitalist service. Sepsis secondary to UTI: Urine culture grew Pseudomonas and Enterobacter. Sensitive to Levaquin Continue Levaquin Patient has been doing self catheterization but still has evidence of hydronephrosis on imaging. At risk of recurrent UTI if obstruction is not properly treated. Urology consulted End-stage renal disease on dialysis: - Appreciate nephrology following. Next dialysis tomorrow morning. - Permacath to be changed. Patient has bilateral hydronephrosis. Awaiting urology consultation. Hyperkalemia: Corrected with hemodialysis. Obstructive uropathy: Renal ultrasound revealed distended urinary bladder bladder with bilateral hydronephrosis. Patient reports he was seen by a urologist in [place] but it does not appear that he never followed up. Has been doing and self catheter. Urology consulted. Follow I's/O. May need a [place] Normocytic anemia: Likely secondary to chronic disease Follow H&H. Currently asymptomatic. Transfuse for hemoglobin less than 7. Chronic noncompliance: Patient reports that for a time he did not care about leaving but now has a good outlook on life and seeking treatment.States he will be compliant. GI prophylaxis: Pepcid. Stool softener PRN constipation. DVT PPx: SCDs Discharge Planning Stable to transfer to floor. Mehreen Zeng MD August 29, 2016 13:22
[2016-08-29] MEDS: SODIUM CHLOR 0.9% 1000 ML INJ 1,000 ML IV SCH (16:54)
[2016-08-29] MEDS: FAMOTIDINE 20 MG TAB PO SCH (20:56)
[2016-08-29] MEDS: SODIUM CHLORIDE 0.9% FLUSH 10 ML FLUSH IV FLUSH PRN (20:56)
--- NOTE | 2016-08-29 21:10 | PD.CONS ---
HPI Service Urology Consult Requested By Reason for Consult Bilateral hydronephrosis Primary Care Physician Unknown Diagnosis: History of Present Illness 61-year-old gentleman with history of BPH and end-stage renal disease who was started on hemodialysis a proximally 1 month ago in [place] admitted now for management of a urinary tract infection and to resume hemodialysis. Patient reports a long-standing history of urinary retention and has been performing clean intermittent catheterization at least 4 times daily. Interestingly, he reports that since being admitted to the hospital he has been spontaneously voiding. A nephrology consult was placed and a renal ultrasound study was ordered that demonstrated severe bladder wall thickening and bilateral hydroureteronephrosis of probable long-standing nature. Urine was sent for culture which grew out Pseudomonas species. I discussed placing a leaving a Elmore catheter indwelling to facilitate bladder drainage and improve resolution of his UTI however the patient would not like to have a catheter at this time. Review of Systems Constitutional: COMPLAINS OF: Fatigue, DENIES: Fever, Night Sweats Gastrointestinal: COMPLAINS OF: Nausea, Vomiting, DENIES: Abdominal pain Genitourinary: DENIES: Hematuria Psychiatric: COMPLAINS OF: Confusion Except as stated in HPI: all other systems reviewed are Neg Past Family Social History Past Medical History End-stage renal disease BPH Anemia Past Surgical History Status post herniorrhaphy Reported Medications Refer to EMR Allergies: Coded Allergies: No Known Allergies (Unverified , 08/28/16) Active Ordered Medications Refer to EMR Family History Reviewed and noncontributory Social History Denies tobacco or alcohol abuse history Physical Exam Vital Signs Date Time Temp Pulse Resp B/P Pulse Ox O2 Delivery O2 Flow Rate FiO2 08/29/16 16:00 97.6 60 18 132/82 94 08/29/16 12:45 97.6 67 20 128/64 90 08/29/16 12:00 97.6 83 20 125/60 100 08/29/16 12:00 83 08/29/16 09:05 21 08/29/16 08:00 93 08/29/16 08:00 97.0 93 26 116/59 100 08/29/16 07:00 98 Room Air 08/29/16 06:00 83 08/29/16 04:00 97.9 84 13 115/56 99 08/29/16 04:00 84 08/29/16 02:00 85 08/29/16 00:00 98.2 96 23 124/60 99 08/29/16 00:00 96 08/28/16 22:00 102 Physical Exam GENERAL: This is a well-nourished, well-developed patient, in no apparent distress. SKIN: No rashes, ecchymoses or lesions. Cool and dry. HEAD: Atraumatic. Normocephalic. No temporal or scalp tenderness. EYES: Pupils equal round and reactive. Extraocular motions intact. No scleral icterus. No injection or drainage. ENT: Nose without bleeding, purulent drainage or septal hematoma. Throat without erythema, tonsillar hypertrophy or exudate. Uvula midline. Airway patent. NECK: Trachea midline. No JVD or lymphadenopathy. Supple, nontender, no meningeal signs. GASTROINTESTINAL: Abdomen soft, non-tender, nondistended. No hepato-splenomegaly , or palpable masses. No guarding. GENITOURINARY: No CVA tenderness MUSCULOSKELETAL: Extremities without clubbing, cyanosis, or edema. No joint tenderness, effusion, or edema noted. No calf tenderness. Negative Homans sign bilaterally. NEUROLOGICAL: Awake and alert. Cranial nerves II through XII intact. Motor and sensory grossly within normal limits. Five out of 5 muscle strength in all muscle groups. Normal speech. Laboratory Tests Test 08/29/16 03:24 White Blood Count 16.7 Red Blood Count 2.40 Hemoglobin 7.2 Hematocrit 22.0 Mean Corpuscular Volume 91.4 Mean Corpuscular Hemoglobin 29.9 Mean Corpuscular Hemoglobin 32.7 Concent Red Cell Distribution Width 13.7 Platelet Count 199 Mean Platelet Volume 7.6 Neutrophils (%) (Auto) 79.8 Lymphocytes (%) (Auto) 9.0 Monocytes (%) (Auto) 10.7 Eosinophils (%) (Auto) 0.3 Basophils (%) (Auto) 0.2 Neutrophils # (Auto) 13.4 Lymphocytes # (Auto) 1.5 Monocytes # (Auto) 1.8 Eosinophils # (Auto) 0.0 Basophils # (Auto) 0.0 CBC Comment DIFF FINAL Differential Comment Sodium Level 140 Potassium Level 4.7 Chloride Level 104 Carbon Dioxide Level 26.8 Anion Gap 9 Blood Urea Nitrogen 70 Creatinine 4.57 Estimat Glomerular Filtration 16 Rate Random Glucose 110 Calcium Level 7.4 Protein Corrected Calcium 7.9 Phosphorus Level 3.8 Total Protein 6.1 Parathyroid Hormone (Intact) 216.9 Date/Time Procedure Status Source Growth 08/28/16 06:35 Urine Culture - Preliminary Resulted Urine Catheterized Urine Pseudomonas Species 08/28/16 06:10 Aerobic Blood Culture - Preliminary Resulted Blood Peripheral NO GROWTH IN 1 DAY 08/28/16 06:10 Anaerobic Blood Culture - Preliminary Resulted Blood Peripheral NO GROWTH IN 1 DAY Result Diagram: 08/29/16 0324 08/29/16 0324 Imaging Last Impressions Chest X-Ray 08/28/16 0525 Signed Impressions: Service Date/Time: Sunday, August 28, 2016 06:03 - CONCLUSION: No acute disease Luc Obando MD Renal Ultrasound 08/28/16 0000 Signed Impressions: Service Date/Time: Sunday, August 28, 2016 11:23 - CONCLUSION: 1. Distended urinary bladder with bilateral hydronephrosis. Question whether this could be related to bladder outlet obstruction or neurogenic bladder. 2. There is wall thickening along the posterior bladder wall but does not appear definitively masslike. Again, this could be related to chronic change related to chronic bladder outlet obstruction or neurogenic bladder. Depending on his clinical history, it would be reasonable to perform cross-sectional imaging to evaluate for an obstructing process. Luc Angel MD Assessment and Plan Assessment and Plan UROLOGIC IMPRESSION: #1 ESRD on Hemodialysis #2 Bilateral Hydronephrosis / Thickened bladder wall of probable chronic nature #3 Pseudomonas UTI RECOMMENDATION: #1 Agree with present management of UTI #2 Outpatient w/u to include cystoscopy with bilateral retrograde pyelograms and urodynamics after UTI resolved. #3 Consider Elmore to gravity drainage (Pt not interested in this option at present) #4 Office f/u after hospital discharge Duke Elizondo MD August 29, 2016 21:10
[2016-08-30] VITALS (10 sets, daily range): BP systolic 103–142; BP diastolic 60–73; PULSE 55–104; RESP 16–18; TEMP 97.4–98.2; O2SAT 95–100
[2016-08-30] MEDS: SODIUM CHLOR 0.9% 1000 ML INJ 1,000 ML IV SCH (03:58)
[2016-08-30] MEDS: CHLORHEXIDINE GLUCONATE 2 % 1 PACK (2 CLOTHS) TOP SCH (04:00)
[2016-08-30] MEDS ORDERED: MIDAZOLAM HCL 5 MG/5 ML VIAL ONE (09:41)
[2016-08-30] MEDS ORDERED: fentaNYL CITRATE 250 MCG/5 ML AMP ONE (09:42)
[2016-08-30] MEDS ORDERED: LIDOCAINE 1%/EPINEPHrine 1:100,000 SOLN 20 ML VIAL ONE (10:16)
[2016-08-30] MEDS ORDERED: SODIUM CHLORIDE 0.9% FLUSH 10 ML FLUSH IVF PRN (12:00)
[2016-08-30] MEDS ORDERED: HEPARIN SODIUM - IV 2,000 UNITS/2 ML VIAL IV FLUSH PRN (12:00)
--- NOTE | 2016-08-30 13:44 | HHI.NPPN ---
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 old BM with Renal failure on hemodialysis Objective Data Data 08/29/16 08/30/16 19:00 07:00 Intake Total 1366 ml 782 ml Output Total 2100 ml Balance 1366 ml -1318 ml Intake Oral 800 ml 240 ml IV Total 566 ml 542 ml Output Urine Total 2100 ml # Voids 1 0 # Bowel Movements 2 1 Vital Signs Date Time Temp Pulse Resp B/P Pulse Ox O2 Delivery O2 Flow Rate FiO2 08/30/16 11:45 66 17 130/67 96 08/30/16 11:30 98.2 65 18 142/71 95 08/30/16 10:26 76 08/30/16 08:00 98.1 86 18 127/69 98 08/30/16 04:00 98.1 61 16 119/61 99 08/30/16 00:00 97.9 58 16 103/60 98 08/29/16 20:15 76 08/29/16 20:00 Room Air 08/29/16 20:00 98.0 81 18 116/61 98 08/29/16 16:00 97.6 60 18 132/82 94 -: 08/29/16 0324 08/29/16 0324 Physical Exam General Appearance: Well Developed, Well Nourished Neck Neck Exam: Neck Supple Pulmonary Resp Exam: Clear Bilaterally, Breath Sounds Equal Cardiology CV Exam: Regular, Normal Sinus Rhythm Gastrointestinal/Abdomen GI Exam: Soft, Non-Tender Extremeties Extremities Exam: No Edema Neurologic Neuro Exam: Alert, Awake Assessment/Plan Problem List: (1) ESRD (end stage renal disease) on dialysis Plan: Patient is doing well Urology consult appreciated out pt follow up HD proceedings noted 2 L UF PermCath Changed follow Urology advice need out pt dialysis set up [id number] called in PermCath pulling clots not running Activase order retry tomorrow (2) Hyperkalemia Plan: This has been treated medically and dialysis will be attempted (3) Sepsis Plan: On Levaquin has received Zosyn. (4) UTI (lower urinary tract infection) Plan: BPH with hydronephrosis Problem Qualifiers (1) Sepsis: Qualified Code: A41.52 - Sepsis due to Pseudomonas species Charles Fong MD August 30, 2016 13:43
--- NOTE | 2016-08-30 14:15 | HHI.PR ---
Subjective Remarks Patient seen during dialysis. He states he is feeling okay. DW RN, patient is not doing straight catheter in a sterile manner. Urine culture growing multiple organisms. Discussed possible complications and Elmore catheter with the patient, he is agreeable. Objective Vitals Vital Signs Date Time Temp Pulse Resp B/P Pulse Ox O2 Delivery O2 Flow Rate FiO2 08/30/16 11:45 66 17 130/67 96 08/30/16 11:30 98.2 65 18 142/71 95 08/30/16 10:26 76 08/30/16 08:00 98.1 86 18 127/69 98 08/30/16 04:00 98.1 61 16 119/61 99 08/30/16 00:00 97.9 58 16 103/60 98 08/29/16 20:15 76 08/29/16 20:00 Room Air 08/29/16 20:00 98.0 81 18 116/61 98 08/29/16 16:00 97.6 60 18 132/82 94 I/O 08/29/16 08/29/16 08/29/16 08/30/16 08/30/16 08/30/16 07:00 15:00 23:00 07:00 15:00 23:00 Intake Total 1366 ml 203 ml 579 ml Output Total 300 ml 950 ml 1150 ml Balance -300 ml 1366 ml -747 ml -571 ml Intake Oral 800 ml 240 ml IV Total 566 ml 203 ml 339 ml Output Urine Total 300 ml 950 ml 1150 ml # Voids 1 0 # Bowel Movements 2 1 Result Diagram: 08/29/16 0324 08/29/16 0324 Objective Remarks GENERAL: Thin appearing male in no apparent distress. CARDIOVASCULAR: Normal rate and regular rhythm without murmurs, gallops, or rubs. RESPIRATORY: Permacath on the right side of the chest. Good respiratory efforts. Breath sounds equal and clear to auscultation bilaterally. GASTROINTESTINAL: Abdomen soft, non-tender, non-distended. Normal active bowel sounds MUSCULOSKELETAL: Extremities without cyanosis, or edema. NEURO: Alert & Oriented x4 to person, place, time, situation. Moves all ext x4 PSYCH: Appropriate mood and affect. Procedures Permacath exchange A/P Assessment and Plan 61-year-old male who has been noncompliant with medical treatment presents to the hospital after missing several dialysis sessions. He was seen several days ago in our ED prior to admission with complaint of bladder spasm and missed dialysis. Arrangements were made for HD and antibiotics, neither of which he complied with and left AMA. He presented with obvious sepsis secondary to UTI, Urine grew Pseudomonas and Enterobacter. Patient also had hyperkalemia and was admitted to the intensive care unit under the vault teller service. He has since had dialysis and transferred to the hospitalist service. Sepsis secondary to UTI: Urine culture grew Pseudomonas and Enterobacter. Sensitive to Levaquin. Repeat urine culture still in multiple organisms. Patient is not practicing sterile technique for straight catheter. He was reluctant to have Elmore. Agree with urology, given obstruction he would do better with a Elmore catheter. Patient is now agreeable. Continue Levaquin Patient has been doing self catheterization but still has evidence of hydronephrosis on imaging. - Place Elmore. Will need outpatient follow up with Urology once infection is treated. End-stage renal disease on dialysis: - Appreciate nephrology following. Dialysis today. CM following for arrangement of outpatient dialysis - Permacath exchanged Hyperkalemia: Corrected with hemodialysis. Obstructive uropathy: Renal ultrasound revealed distended urinary bladder bladder with bilateral hydronephrosis. - See above. Place Elmore catheter. Normocytic anemia: Likely secondary to chronic disease Follow H&H. Currently asymptomatic. Transfuse for hemoglobin less than 7. Labs pending Chronic noncompliance: Patient reports that he will try to comply more but he appears to still questioning whether or not he will need to continue dialysis. Judgment may be clouded somewhat by uremia. The patient was counseled extensively. GI prophylaxis: Pepcid. Stool softener PRN constipation. DVT PPx: SCDs Discharge Planning Need outpatient dialysis set up. Follow urine cultures. Mehreen Zeng MD August 30, 2016 14:15
[2016-08-30] MEDS ORDERED: ALTEPLASE RECOMBINANT 2 MG VIAL INTRACATH PRN (14:45)
[2016-08-30] MEDS: LEVOFLOXACIN 500 MG PREMIX INJ 100 ML IV SCH (16:14)
[2016-08-30] MEDS: DOCUSATE SODIUM 50 MG/SENNA 8.6 MG TAB PO SCH ×2 (16:14→21:00)
[2016-08-30] MEDS: VITAMIN B CMPLX/VITC/FOLIC AC CAP PO SCH (16:14)
[2016-08-30] MEDS: CALCIUM ACETATE 667 MG CAP PO SCH (16:15)
[2016-08-30] MEDS: FAMOTIDINE 20 MG TAB PO SCH (21:00)
[2016-08-31] VITALS: BP 143/73; PULSE 91; RESP 18; TEMP 99; O2SAT 99
[2016-08-31 04:00] VITALS: BP 156/77; PULSE 62; RESP 18; TEMP 98; O2SAT 95
[2016-08-31] MEDS: CHLORHEXIDINE GLUCONATE 2 % 1 PACK (2 CLOTHS) TOP SCH (04:00)
[2016-08-31 08:00] VITALS: BP 122/68; PULSE 99; RESP 20; TEMP 98.2; O2SAT 94
[2016-08-31 09:03] LABS: HEMATOCRIT 22.5 % (39.0-51.0); MEAN CELL VOLUME 92.7 FL (80.0-100.0); MEAN CORPUSCULAR HEMOGLOBIN 29.8 PG (27.0-34.0); MEAN CORPUSCULAR HGB CONC 32.2 % (32.0-36.0); PLATELET COUNT 220 TH/MM3 (150-450); RED BLOOD COUNT 2.43 MIL/MM3 (4.50-5.90); RED CELL DISTRIBUTION WIDTH 13.7 % (11.6-17.2); REVIEW FLAG FINAL; WHITE BLOOD COUNT 17.3 TH/MM3 (4.0-11.0)
[2016-08-31] MEDS: CALCIUM ACETATE 667 MG CAP PO SCH ×3 (09:19→17:27)
[2016-08-31] MEDS: DOCUSATE SODIUM 50 MG/SENNA 8.6 MG TAB PO SCH ×2 (09:19→20:54)
[2016-08-31] MEDS: VITAMIN B CMPLX/VITC/FOLIC AC CAP PO SCH (09:19)
[2016-08-31] MEDS: SODIUM CHLORIDE 0.9% FLUSH 10 ML FLUSH IV FLUSH PRN (09:20)
[2016-08-31 09:29] LABS: BICARBONATE 25.8 MEQ/L (21.0-32.0); POTASSIUM 4.3 MEQ/L (3.5-5.1)
--- NOTE | 2016-08-31 11:08 | RADRPT ---
EXAM DATE/TIME: 08/30/2016 11:07 INDICATIONS : Patient with chronic kidney disease in need of permcath replacement. MEDICAL HISTORY : 1.Anemia 2.Chronic kidney disease 3.HTN 4.NOATAK SURGICAL HISTORY : 1.Hernia Repair 2.Dialysis catheter placement ENCOUNTER: Initial ACUITY: > 1 year PAIN SCORE: 2/10 LOCATION: Pelvic. FLUORO TIME: 2.4 minutes IMAGE SERIES: 1 SEDATION TIME: 60minutes MEDICATION(S): 1.) 2.5 mg midazolam (Versed) IV 2.) 125 mcg fentanyl (Sublimaze) IV 3.) 5000 units Heparin DEVICE(S): 1.) 15 Nepali dual lumen 27 cm Walter II Plus catheter PROCEDURE: CENTRAL VENOUS CATHETER REPLACEMENT, RT 1. Fluoroscopically guided central venous catheter exchange. The risks, benefits and alternatives to the procedure were explained and verbal and written consent w as obtained. The site was prepped in sterile fashion. Full sterile technique was used, including ca p, mask, sterile gloves and gown and a large sterile sheet. Hand hygiene and 2% chlorhexidine and/or betadine/alcohol prep was utilized per protocol for cutaneous antisepsis. The skin and subcutaneous tissues were infiltrated with local anesthetic solution. With fluoroscopic guidance the previously placed central venous catheter was exchanged for the prescr ibed catheter as above. Of note, the anchoring cuff was very deeply into the subcutaneous tunnel and a cutdown over the cuff had been performed to facilitate removal. The new catheter was a different brand from the outside placed device and had a 24 cm cuff to tip [facility]. Our devices are either 23 or 27 cm, cuff to tip. As the previous device function poorly, I fille d it was necessary to advance the catheter further into the central venous system and therefore, the 27 cm device was selected. However, the existing dermatotomy was too short to accommodate the new dev ice and the subcutaneous tunnel had to be extended peripherally. This was performed after appropriate local anesthetic. The new catheter was then advanced over the wire and into the central venous syste m. The old dermatotomy site was closed with interrupted 3-0 Vicryl sutures and Dermabond adhesive. Th e incision over the cuff was closed simply with Dermabond adhesive Post procedure image demonstrates satisfactory position of the tube. The catheter was sutured in plac e. CONCLUSION: Uncomplicated venous catheter change as above. Ry Suresh MD on August 31, 2016 at 11:02 Board Certified Radiologist. This report was verified electronically.
--- NOTE | 2016-08-31 11:21 | HHI.NPPN ---
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 old BM with Renal failure on hemodialysis Objective Data Data 08/30/16 08/31/16 19:00 07:00 Intake Total 840 ml Output Total 200 ml Balance 640 ml Intake Oral 720 ml IV Total 120 ml Output Urine Total 200 ml # Voids 1 # Bowel Movements 0 Vital Signs Date Time Temp Pulse Resp B/P Pulse Ox O2 Delivery O2 Flow Rate FiO2 08/31/16 08:00 98.2 99 20 122/68 94 08/31/16 07:25 Room Air 08/31/16 04:00 98.0 62 18 156/77 95 08/31/16 00:00 99.0 91 18 143/73 99 08/30/16 20:00 97.4 55 18 138/63 95 08/30/16 19:30 100 08/30/16 18:00 Room Air 08/30/16 17:58 99 21 08/30/16 16:00 97.6 104 18 123/73 100 08/30/16 15:30 Room Air 08/30/16 11:45 66 17 130/67 96 08/30/16 11:30 98.2 65 18 142/71 95 -: 08/31/16 0818 08/31/16 0818 Physical Exam General Appearance: Well Developed, Well Nourished Neck Neck Exam: Neck Supple Pulmonary Resp Exam: Clear Bilaterally, Breath Sounds Equal Cardiology CV Exam: Regular, Normal Sinus Rhythm Gastrointestinal/Abdomen GI Exam: Soft, Non-Tender Extremeties Extremities Exam: No Edema Neurologic Neuro Exam: Alert, Awake Assessment/Plan Problem List: (1) ESRD (end stage renal disease) on dialysis Plan: Patient is doing well Urology consult appreciated out pt follow up PermCath Changed follow Urology advice need out pt dialysis set up PermCath works well [facility] seen during Hemodialysis UF 1.5 L (2) Hyperkalemia Plan: This has been treated medically and dialysis will be attempted (3) Sepsis Plan: On Levaquin has received Zosyn. (4) UTI (lower urinary tract infection) Plan: BPH with hydronephrosis Problem Qualifiers (1) Sepsis: Qualified Code: A41.52 - Sepsis due to Pseudomonas species Charles Fong MD Aug 31, 2016 11:21
[2016-08-31] MEDS: HEPARIN SODIUM - IV 10,000 UNITS/10 ML VIAL PRN (11:53)
[2016-08-31] MEDS: SODIUM CHLOR 0.9% 1000 ML INJ 1,000 ML IV PRN (11:54)
[2016-08-31] MEDS: EPOETIN ALFA 10,000 UNITS/ML VIAL IV PRN (11:54)
[2016-08-31] MEDS: GENTAMICIN SULFATE (DIALYSIS USE ONLY) 20 MG/2 ML VIAL IV PRN (11:54)
[2016-08-31 14:20] VITALS: PULSE 107
[2016-08-31 16:00] VITALS: BP 122/66; PULSE 109; RESP 20; TEMP 100; O2SAT 98
--- NOTE | 2016-08-31 16:09 | HHI.PR ---
Subjective Remarks Patient seen in follow-up for sepsis secondary to UTI, end-stage renal disease noncompliant with hemodialysis, hyperkalemia, BPH with hydronephrosis. Pt denied fever, nausea, vomiting, body aches, chest pain. When asked about cough or shortness of breath, he did not provide a direct answer and said "I could have a cough" and alluded to events of his youth. Pt was asked about seeing or hearing things other people don't see and he said "I have done that, but I don't want to go down that road right now." Pt spoke of having an IQ of "181." Nursing reported pt has stated "he has said he is not of this planet." Pt noted urine is generally "yellowish" yet had "white coming out a few days ago." Pt questioned how long he needed to be in the hospital as "I want to leave now. " Discussed his infection and need for antibiotics. He accepted the need to stay and be treated. No other issues noted or reported. Objective Vitals Vital Signs Date Time Temp Pulse Resp B/P Pulse Ox O2 Delivery O2 Flow Rate FiO2 08/31/16 14:20 107 08/31/16 08:00 98.2 99 20 122/68 94 08/31/16 07:25 Room Air 08/31/16 04:00 98.0 62 18 156/77 95 08/31/16 00:00 99.0 91 18 143/73 99 08/30/16 20:00 97.4 55 18 138/63 95 08/30/16 19:30 100 08/30/16 18:00 Room Air 08/30/16 17:58 99 21 08/30/16 16:00 97.6 104 18 123/73 100 I/O 08/30/16 08/30/16 08/30/16 08/31/16 08/31/16 08/31/16 07:00 15:00 23:00 07:00 15:00 23:00 Intake Total 579 ml 360 ml 480 ml Output Total 1150 ml 200 ml 1000 ml Balance -571 ml 160 ml 480 ml -1000 ml Intake Oral 240 ml 240 ml 480 ml IV Total 339 ml 120 ml Output Urine Total 1150 ml 200 ml Hemodialysis 1000 ml # Voids 0 1 # Bowel Movements 1 0 Result Diagram: 08/31/1618 6/1/17 0818 Imaging Last Impressions Catheter Placement X-Ray 08/30/16 0600 Signed Impressions: Service Date/Time: Tuesday, August 30, 2016 11:07 - CONCLUSION: Uncomplicated venous catheter change as above. Ry Suresh MD Chest X-Ray 08/28/16 0525 Signed Impressions: Service Date/Time: Sunday, August 28, 2016 06:03 - CONCLUSION: No acute disease Luc Obando MD Renal Ultrasound 08/28/16 0000 Signed Impressions: Service Date/Time: Sunday, August 28, 2016 11:23 - CONCLUSION: 1. Distended urinary bladder with bilateral hydronephrosis. Question whether this could be related to bladder outlet obstruction or neurogenic bladder. 2. There is wall thickening along the posterior bladder wall but does not appear definitively masslike. Again, this could be related to chronic change related to chronic bladder outlet obstruction or neurogenic bladder. Depending on his clinical history, it would be reasonable to perform cross-sectional imaging to evaluate for an obstructing process. Luc Angel MD Objective Remarks GENERAL: Slender male encountered sitting in rolling chair at doorway to his room, wearing white gloves and hooded sweat shirt with white over his head. SKIN: Warm and dry. Port noted in upper right chest. HEAD: Normocephalic. EYES: No scleral icterus. No injection or drainage. NECK: Supple, trachea midline. No lymphadenopathy. CARDIOVASCULAR: Regular rate and rhythm without murmurs, gallops, or rubs. RESPIRATORY: Breath sounds equal bilaterally. No accessory muscle use. GASTROINTESTINAL: Abdomen soft, non-tender, nondistended. MUSCULOSKELETAL: No cyanosis, or edema. PSYCHIATRIC: Pt alert and oriented, affect flat, not evidencing overt signs of depression/anxiety. He would, at times, avoid answering questions with "That may have happened". Other comments as noted in subjective comments. Procedures Permacath exchange Medications and IVs Current Medications Medications (Trade) Dose Ordered Sig/Tiffany Route Start Time Stop Time Status Last Admin (NS Flush) 2 ml UNSCH PRN IV FLUSH 08/28/16 05:30 Miscellaneous Information 1 Q361D XX 08/28/16 07:30 08/28/16 07:30 (Chlorhexidine 2% Cloth) 3 pack Taper DAILY@04 TOP 08/29/16 04:00 08/25/17 03:59 08/30/16 04:00 (Chlorhexidine 2% Cloth) 3 pack UNSCH PRN TOP 08/28/16 07:30 (Charissa-Colace) 1 tab BID PO 08/28/16 09:00 08/31/16 09:19 (Milk Of Magnesia Liq) 30 ml Q12H PRN PO 08/28/16 07:30 (Senokot) 17.2 mg Q12H PRN PO 08/28/16 07:30 (Dulcolax Supp) 10 mg DAILY PRN RECTAL 08/28/16 08:00 (Lactulose Liq) 30 ml DAILY PRN PO 08/28/16 08:00 (Morphine Inj) 2 mg Q3H PRN IV PUSH 08/28/16 08:00 Famotidine 20 mg 20 mg HS PO 08/28/16 21:00 08/29/16 20:56 (Levaquin 500 Mg Premix Inj) 100 ml @ 100 mls/hr Q48H IV 08/28/16 09:00 08/30/16 16:14 Heparin Sodium (Porcine) 5000 units 5,000 units Q12HR SQ 08/28/16 09:00 Hold 08/28/16 15:16 (NS 1000 ml Inj) 1,000 ml @ 0 mls/hr Q0M PRN IV 08/28/16 08:20 08/31/16 11:54 Heparin Sodium (Porcine) 8000 units 8,000 units UNSCH PRN IVF 08/28/16 08:30 Sodium Chloride 1,000 ml @ 200 mls/hr Q5H PRN IV 08/28/16 08:20 (NS 1000 ml Inj) 1,000 ml @ 0 mls/hr Q0M PRN IV 08/28/16 08:20 (Mannitol Inj) 12.5 gm UNSCH PRN IV 08/28/16 08:30 (Albumin 25% Inj) 25 gm UNSCH PRN IV 08/28/16 08:30 (NS Flush) 5 ml UNSCH PRN IV FLUSH 08/28/16 08:30 08/31/16 09:20 (Heparin Inj) UNSCH PRN .XX 08/28/16 08:30 08/31/16 11:53 (Gentamicin (Dialysis) Inj) 20 mg UNSCH PRN IV 5/29/17 08:30 08/31/16 11:54 (Zofran Inj) 4 mg UNSCH PRN IV 08/28/16 08:30 (Tylenol) 650 mg UNSCH PRN PO 08/28/16 08:30 (Benadryl) 25 mg UNSCH PRN PO 08/28/16 08:30 (Nitrostat Sl) 0.4 mg UNSCH PRN SL 08/28/16 08:30 (Catapres) 0.1 mg UNSCH PRN PO 08/28/16 08:30 (Epogen Inj) 10,000 units UNSCH PRN IV 08/28/16 08:30 08/31/16 11:54 (Gelfoam 12 Mm/7 Mm Top) 1 foam UNSCH PRN TOP 08/28/16 08:30 (Phoslo) 667 mg TID PO 08/28/16 13:00 08/31/16 14:09 (Nephrocaps) 1 cap DAILY PO 08/29/16 09:00 08/31/16 09:19 (NS Flush) UNSCH PRN IVF 08/30/16 12:00 (Heparin Inj) UNSCH PRN IV FLUSH 08/30/16 12:00 (Cathflo Activase Inj) 2 mg Q2H PRN INTRACATH 08/30/16 14:45 08/30/16 15:40 Urinary Catheter: No Vascular Central Line Catheter: Yes Assessment to: Continue Line: Central Venous Catheter Side: Right Location: Subclavian Reason for Continuation dialysis A/P Assessment and Plan 61-year-old male who has been noncompliant with medical treatment presents to the hospital after missing several dialysis sessions. He was seen several days ago in our ED prior to admission with complaint of bladder spasm and missed dialysis. Arrangements were made for HD and antibiotics, neither of which he complied with and left AMA. He presented with obvious sepsis secondary to UTI, Urine grew Pseudomonas and Enterobacter. Patient also had hyperkalemia and was admitted to the intensive care unit under the cabinet installer service. He has since had dialysis and transferred to the hospitalist service. Sepsis secondary to UTI: Urine culture grew Pseudomonas and Enterobacter. Sensitive to Levaquin. Repeat urine culture still in multiple organisms. Patient is not practicing sterile technique for straight catheter. He was reluctant to have Elmore. Agree with urology, given obstruction he would do better with a Elmore catheter. Patient is now agreeable. Continue Levaquin Patient has been doing self catheterization but still has evidence of hydronephrosis on imaging. - Place Elmore. Will need outpatient follow up with Urology once infection is treated. End-stage renal disease on dialysis: - Appreciate nephrology following. Dialysis today. CM following for arrangement of outpatient dialysis - Permacath exchanged Hyperkalemia: Corrected with hemodialysis. Obstructive uropathy: Renal ultrasound revealed distended urinary bladder bladder with bilateral hydronephrosis. - See above. Place Elmore catheter. Normocytic anemia: Likely secondary to chronic disease Follow H&H. Currently asymptomatic. Transfuse for hemoglobin less than 7. Labs pending Chronic noncompliance: Patient reports that he will try to comply more but he appears to still questioning whether or not he will need to continue dialysis. Judgment may be clouded somewhat by uremia. The patient was counseled extensively. Delusions: -Psychiatric consult placed 08/31/16. GI prophylaxis: Pepcid. Stool softener PRN constipation. DVT PPx: SCDs Case discussed with pt, RN, and Dr. Garcia. Discharge Planning Need outpatient dialysis set up. Follow urine cultures. Jovanni Richter Jr. Aug 31, 2016 16:09
[2016-08-31 20:00] VITALS: BP 93/52; PULSE 83; PULSE 93; RESP 16; TEMP 98; O2SAT 98
[2016-08-31] MEDS: FAMOTIDINE 20 MG TAB PO SCH (20:54)
[2016-09-01] VITALS (9 sets, daily range): BP systolic 104–142; BP diastolic 58–70; PULSE 71–120; RESP 16–20; TEMP 97.6–99.2; O2SAT 96–100
[2016-09-01] MEDS: CHLORHEXIDINE GLUCONATE 2 % 1 PACK (2 CLOTHS) TOP SCH (04:00)
[2016-09-01 08:48] LABS: AUTOMATED NEUTROPHIL # 9.5 TH/MM3 (1.8-7.7); BASOPHIL % 0.1 % (0.0-2.0); EOSINOPHIL # 0.2 TH/MM3 (0-0.4); EOSINOPHIL % 1.7 % (0.0-4.0); LYMPH % 12.5 % (9.0-44.0); LYMPHOCYTE # 1.6 TH/MM3 (1.0-4.8); MEAN CELL VOLUME 92.5 FL (80.0-100.0); MEAN CORPUSCULAR HEMOGLOBIN 30.8 PG (27.0-34.0); MEAN CORPUSCULAR HGB CONC 33.3 % (32.0-36.0); MONO % 10.5 % (0.0-8.0); NEUT % 75.2 % (16.0-70.0); PLATELET COUNT 195 TH/MM3 (150-450); RED BLOOD COUNT 2.23 MIL/MM3 (4.50-5.90); RED CELL DISTRIBUTION WIDTH 13.8 % (11.6-17.2); WHITE BLOOD COUNT 12.6 TH/MM3 (4.0-11.0)
[2016-09-01 08:58] LABS: HEMATOCRIT 20.7 % (39.0-51.0); HEMO FLAGS AUTO DIFF
[2016-09-01] MEDS: DOCUSATE SODIUM 50 MG/SENNA 8.6 MG TAB PO SCH ×2 (09:11→21:42)
[2016-09-01] MEDS: LEVOFLOXACIN 500 MG PREMIX INJ 100 ML IV SCH (09:12)
[2016-09-01] MEDS: CALCIUM ACETATE 667 MG CAP PO SCH ×3 (09:12→17:29)
[2016-09-01] MEDS: VITAMIN B CMPLX/VITC/FOLIC AC CAP PO SCH (09:12)
[2016-09-01 09:25] LABS: BICARBONATE 30.4 MEQ/L (21.0-32.0); POTASSIUM 4.5 MEQ/L (3.5-5.1)
--- NOTE | 2016-09-01 09:33 | HHI.PR ---
Subjective Remarks Patient seen in follow-up for sepsis secondary to UTI, end-stage renal disease noncompliant with hemodialysis, hyperkalemia, BPH with hydronephrosis. 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 I thought there was a bomb under the bed. I could see a sniper on the roof over there. And I thought the medications were poison." Pt reported being "clearer today" and said he has trouble expressing how he feels, physically, emotionally, and cognitively. Pt denied fever, nausea, vomiting, body aches, chest pain. When asked about cough or shortness of breath. Nursing reported pt has been apologetic for behaviors of yesterday. No other issues noted or reported. Objective Vitals Vital Signs Date Time Temp Pulse Resp B/P Pulse Ox O2 Delivery O2 Flow Rate FiO2 09/01/16 08:59 Room Air 09/01/16 08:02 97.6 71 18 109/65 98 09/01/16 04:00 98.1 103 20 104/66 96 09/01/16 00:03 99.2 79 16 117/66 98 08/31/16 20:00 98.0 93 16 93/52 98 08/31/16 20:00 83 08/31/16 19:30 Room Air 08/31/16 16:00 100.0 109 20 122/66 98 08/31/16 14:20 107 I/O 08/31/16 08/31/16 08/31/16 09/01/16 09/01/16 09/01/16 07:00 15:00 23:00 07:00 15:00 23:00 Intake Total 480 ml 0 ml 360 ml 360 ml Output Total 1000 ml 1375 ml 1125 ml Balance 480 ml -1000 ml -1015 ml -765 ml Intake Oral 480 ml 0 ml 360 ml 360 ml Output Urine Total 0 ml 1375 ml 1125 ml Hemodialysis 1000 ml # Bowel Movements 0 0 0 Result Diagram: 09/01/16 0719 08/31/16 0818 Imaging Last Impressions Catheter Placement X-Ray 08/30/16 0600 Signed Impressions: Service Date/Time: Tuesday, August 30, 2016 11:07 - CONCLUSION: Uncomplicated venous catheter change as above. Ry Suresh MD Chest X-Ray 08/28/16 0525 Signed Impressions: Service Date/Time: Sunday, August 28, 2016 06:03 - CONCLUSION: No acute disease Luc Obando MD Renal Ultrasound 08/28/16 0000 Signed Impressions: Service Date/Time: Sunday, August 28, 2016 11:23 - CONCLUSION: 1. Distended urinary bladder with bilateral hydronephrosis. Question whether this could be related to bladder outlet obstruction or neurogenic bladder. 2. There is wall thickening along the posterior bladder wall but does not appear definitively masslike. Again, this could be related to chronic change related to chronic bladder outlet obstruction or neurogenic bladder. Depending on his clinical history, it would be reasonable to perform cross-sectional imaging to evaluate for an obstructing process. Luc Angel MD Objective Remarks GENERAL: Slender male encountered sitting in rolling chair at doorway to his room, wearing white gloves and hooded sweat shirt with white over his head. SKIN: Warm and dry. Port noted in upper right chest. HEAD: Normocephalic. EYES: No scleral icterus. No injection or drainage. NECK: Supple, trachea midline. No lymphadenopathy. CARDIOVASCULAR: Regular rate and rhythm without murmurs, gallops, or rubs. RESPIRATORY: Breath sounds equal bilaterally. No accessory muscle use. GASTROINTESTINAL: Abdomen soft, non-tender, nondistended. MUSCULOSKELETAL: No cyanosis, or edema. PSYCHIATRIC: Pt alert and oriented, affect flat, not evidencing overt signs of depression/anxiety. He would, at times, avoid answering questions with "That may have happened". Other comments as noted in subjective comments. Procedures Permacath exchange Medications and IVs Current Medications Medications (Trade) Dose Ordered Sig/Tiffany Route Start Time Stop Time Status Last Admin (NS Flush) 2 ml UNSCH PRN IV FLUSH 08/28/16 05:30 Miscellaneous Information 1 Q361D XX 08/28/16 07:30 08/28/16 07:30 (Chlorhexidine 2% Cloth) 3 pack Taper DAILY@04 TOP 08/29/16 04:00 08/25/17 03:59 08/30/16 04:00 (Chlorhexidine 2% Cloth) 3 pack UNSCH PRN TOP 08/28/16 07:30 (Charissa-Colace) 1 tab BID PO 08/28/16 09:00 09/01/16 09:11 (Milk Of Magnesia Liq) 30 ml Q12H PRN PO 08/28/16 07:30 (Senokot) 17.2 mg Q12H PRN PO 08/28/16 07:30 (Dulcolax Supp) 10 mg DAILY PRN RECTAL 08/28/16 08:00 (Lactulose Liq) 30 ml DAILY PRN PO 08/28/16 08:00 (Morphine Inj) 2 mg Q3H PRN IV PUSH 08/28/16 08:00 Famotidine 20 mg 20 mg HS PO 08/28/16 21:00 08/31/16 20:54 (Levaquin 500 Mg Premix Inj) 100 ml @ 100 mls/hr Q48H IV 08/28/16 09:00 09/01/16 09:12 Heparin Sodium (Porcine) 5000 units 5,000 units Q12HR SQ 08/28/16 09:00 Hold 08/28/16 15:16 (NS 1000 ml Inj) 1,000 ml @ 0 mls/hr Q0M PRN IV 08/28/16 08:20 08/31/16 11:54 Heparin Sodium (Porcine) 8000 units 8,000 units UNSCH PRN IVF 08/28/16 08:30 Sodium Chloride 1,000 ml @ 200 mls/hr Q5H PRN IV 08/28/16 08:20 (NS 1000 ml Inj) 1,000 ml @ 0 mls/hr Q0M PRN IV 08/28/16 08:20 (Mannitol Inj) 12.5 gm UNSCH PRN IV 08/28/16 08:30 (Albumin 25% Inj) 25 gm UNSCH PRN IV 08/28/16 08:30 (NS Flush) 5 ml UNSCH PRN IV FLUSH 08/28/16 08:30 08/31/16 09:20 (Heparin Inj) UNSCH PRN .XX 08/28/16 08:30 08/31/16 11:53 (Gentamicin (Dialysis) Inj) 20 mg UNSCH PRN IV 08/28/16 08:30 08/31/16 11:54 (Zofran Inj) 4 mg UNSCH PRN IV 08/28/16 08:30 (Tylenol) 650 mg UNSCH PRN PO 08/28/16 08:30 (Benadryl) 25 mg UNSCH PRN PO 08/28/16 08:30 (Nitrostat Sl) 0.4 mg UNSCH PRN SL 08/28/16 08:30 (Catapres) 0.1 mg UNSCH PRN PO 08/28/16 08:30 (Epogen Inj) 10,000 units UNSCH PRN IV 08/28/16 08:30 08/31/16 11:54 (Gelfoam 12 Mm/7 Mm Top) 1 foam UNSCH PRN TOP 08/28/16 08:30 (Phoslo) 667 mg TID PO 08/28/16 13:00 09/01/16 09:12 (Nephrocaps) 1 cap DAILY PO 08/29/16 09:00 09/01/16 09:12 (NS Flush) UNSCH PRN IVF 08/30/16 12:00 (Heparin Inj) UNSCH PRN IV FLUSH 08/30/16 12:00 (Cathflo Activase Inj) 2 mg Q2H PRN INTRACATH 08/30/16 14:45 08/30/16 15:40 Urinary Catheter: Yes Assessment to: Continue Vascular Central Line Catheter: Yes Assessment to: Continue Line: Central Venous Catheter Side: Right Location: Subclavian Reason for Continuation Dialysis A/P Assessment and Plan 61-year-old male who has been noncompliant with medical treatment presents to the hospital after missing several dialysis sessions. He was seen several days ago in our ED prior to admission with complaint of bladder spasm and missed dialysis. Arrangements were made for HD and antibiotics, neither of which he complied with and left AMA. He presented with obvious sepsis secondary to UTI, Urine grew Pseudomonas and Enterobacter. Patient also had hyperkalemia and was admitted to the intensive care unit under the manager food [employer] service. He has since had dialysis and transferred to the hospitalist service. Sepsis secondary to UTI: Urine culture grew Pseudomonas and Enterobacter. Sensitive to Levaquin. Repeat urine culture still in multiple organisms. Patient is not practicing sterile technique for straight catheter. He was reluctant to have Elmore. Agree with urology, given obstruction he would do better with a Elmore catheter. Patient is now agreeable. Continue Levaquin Patient has been doing self catheterization but still has evidence of hydronephrosis on imaging. - Place Elmore. Will need outpatient follow up with Urology once infection is treated. -Transition pt to oral Levaquin 500 mg q 48 hrs, to start on 09/03/16 as he received IV dosing today (09/01/16). Continue for a total of 14 doses. End-stage renal disease on dialysis: - Appreciate nephrology following. Dialysis today. CM following for arrangement of outpatient dialysis - Permacath exchanged -Pt dialysis schedule is Sunday, , Sunday. Hyperkalemia: Corrected with hemodialysis. Obstructive uropathy: Renal ultrasound revealed distended urinary bladder bladder with bilateral hydronephrosis. - See above. Place Elmore catheter. -Continue Elmore catheter. Normocytic anemia: Likely secondary to chronic disease Follow H&H. Currently asymptomatic. Transfuse for hemoglobin less than 7. Labs pending -09/01/16: hgb is 6.9. Nephrology has ordered transfusion of 1 unit. Chronic noncompliance: Patient reports that he will try to comply more but he appears to still questioning whether or not he will need to continue dialysis. Judgment may be clouded somewhat by uremia. The patient was counseled extensively. Delusions: -Psychiatric consult placed 08/31/16. -Dr. Antoine has seen pt and pt is to be discharged to med-psych after blood transfusion. Concern delusions are interfering with medical care. GI prophylaxis: Pepcid. Stool softener PRN constipation. DVT PPx: SCDs Case discussed with pt, RN, and Drs. Garcia and Arash. Discharge Planning Need outpatient dialysis set up. Follow urine cultures. Jovanni Richter Jr. Sep 01, 2016 09:33
[2016-09-01 09:42] LABS: SCAN/DIFF AUTO DIFF CONFIRMED
[2016-09-01] MEDS ORDERED: ACETAMINOPHEN 325 MG TAB PO PRN ×2 (09:45→17:00)
--- NOTE | 2016-09-01 10:32 | HHI.DS ---
Discharge Summary Admission Date August 28, 2016 at 06:42 Discharge Date: Sep 01, 2016 Admitting Diagnosis acute on chronic renal failure, uremia, hyperkalemia, UTI, sepsis (1) UTI (lower urinary tract infection) ICD Code: N39.0 Diagnosis: Principal (2) Renal failure ICD Code: N19 Diagnosis: Principal (3) Unspecified psychosis ICD Code: F29 Diagnosis: Principal (4) ESRD (end stage renal disease) on dialysis ICD Code: N18.6 Diagnosis: Secondary Procedures Permacath exchange Hemodialysis (x2) Brief History - From Admission 61 y/o noncompliant man presents again having missed dialysis for several days. He was seen several days ago in our ED with the same complaint of bladder spasm and missed dialysis. Arrangements were made for HD and antibiotics, neither of which he complied with and left AMA. He presents today with worse leukocytosis and dehydration. Urine grew Pseudomonas and Enterobacter. Admitted now for treatment of sepsis and hyperkalemia 6.8. He takes no medicine. CBC/BMP: 09/01/16 0719 09/01/16 0719 Significant Findings Laboratory Tests Test 08/31/16 09/01/16 08:18 07:19 White Blood Count 17.3 TH/MM3 12.6 TH/MM3 (4.0-11.0) (4.0-11.0) Red Blood Count 2.43 MIL/MM3 2.23 MIL/MM3 (4.50-5.90) (4.50-5.90) Hemoglobin 7.3 GM/DL 6.9 GM/DL (13.0-17.0) (13.0-17.0) Hematocrit 22.5 % 20.7 % (39.0-51.0) (39.0-51.0) Blood Urea Nitrogen 64 MG/DL (7-18) 38 MG/DL (7-18) Creatinine 5.05 MG/DL 4.13 MG/DL (0.60-1.30) (0.60-1.30) Estimat Glomerular Filtration 14 ML/MIN (>89) 18 ML/MIN (>89) Rate Random Glucose 124 MG/DL (74-106) Calcium Level 8.3 MG/DL 7.9 MG/DL (8.5-10.1) (8.5-10.1) Neutrophils (%) (Auto) 75.2 % (16.0-70.0) Monocytes (%) (Auto) 10.5 % (0.0-8.0) Neutrophils # (Auto) 9.5 TH/MM3 (1.8-7.7) Monocytes # (Auto) 1.3 TH/MM3 (0-0.9) Imaging Last Impressions Catheter Placement X-Ray 08/30/16 0600 Signed Impressions: Service Date/Time: Tuesday, August 30, 2016 11:07 - CONCLUSION: Uncomplicated venous catheter change as above. Ry Suresh MD Chest X-Ray 08/28/16 0525 Signed Impressions: Service Date/Time: Sunday, August 28, 2016 06:03 - CONCLUSION: No acute disease Luc Obando MD Renal Ultrasound 08/28/16 0000 Signed Impressions: Service Date/Time: Sunday, August 28, 2016 11:23 - CONCLUSION: 1. Distended urinary bladder with bilateral hydronephrosis. Question whether this could be related to bladder outlet obstruction or neurogenic bladder. 2. There is wall thickening along the posterior bladder wall but does not appear definitively masslike. Again, this could be related to chronic change related to chronic bladder outlet obstruction or neurogenic bladder. Depending on his clinical history, it would be reasonable to perform cross-sectional imaging to evaluate for an obstructing process. Luc Angel MD PE at Discharge GENERAL: Slender male encountered at bedside, pleasant. cooperative, apologetic for behavior of yesterday. SKIN: Warm and dry. Port noted in upper right chest. HEAD: Normocephalic. EYES: No scleral icterus. No injection or drainage. NECK: Supple, trachea midline. No lymphadenopathy. CARDIOVASCULAR: Regular rate and rhythm without murmurs, gallops, or rubs. RESPIRATORY: Breath sounds equal bilaterally. No accessory muscle use. GASTROINTESTINAL: Abdomen soft, non-tender, nondistended. Elmore catheter evident , noted to be on floor with yellow colored urine. MUSCULOSKELETAL: No cyanosis, or edema. PSYCHIATRIC: Pt alert and oriented, affect flat, not evidencing overt signs of depression/anxiety. Pt with some pressured speech. Delusional thinking evidenced. Pt update on day of discharge Pt received one unit of packed red blood cells before being transferred. Hospital Course Pt admitted to [facility] on 08/28/16 for ESRD and found to be septic with Pseudomonas and Enterobacter infection of his urine; species were sensitive to Levaquin. Dr. Fong (nephrology) was consulted and was involved in pt's care from 08/28-09/01. He oversaw pt hemodialysis needs and renal issues.Dr. Fong requested urology consult on 08/28. Dr. Elizondo (urology) saw pt on 08/29 and discussed placing indwelling Elmore catheter, which was initially declined by pt. However, pt changed his mind and one was subsequently placed. Pt was noted to have psychiatric issues on 08/31 resulting in consult being placed. Dr. Antoine saw pt on 09/01 and advised pt would benefit from psychiatric care. It was at this time pt was discharged to the care of medical-psychiatric unit. Pt had lab values that needed to be treated. Upon admission he evidenced hyperkalemia (6.8). Medication and dialysis lowered his lever; which was 4.5 upon discharge. Normocytic anemia (hgb 8.2) was noted upon admission and was trended over the course of his stay. On 09/01, his hgb 6.9. Given the downward trend it was decided to transfuse 1 unit of packed red blood cells. Discharge plan is for pt to receive concomitant medical treatment for his urinary tract infection as well as psychiatric care. Length of time for the latter is to be determined by Psychiatry. Pt Condition on Discharge: Stable Discharge Disposition: Disc to Psych Care Fac Discharge Time: > 30 minutes Discharge Instructions DIET: Follow Instructions for: Renal Failure Diet Jovanni Richter Jr. Sep 01, 2016 10:32 Reyna Garcia MD Sep 02, 2016 12:24 Sepsis secondary to UTI: Urine culture grew Pseudomonas and Enterobacter. Sensitive to ciprofloxacin. Agree with urology, given obstruction he would do better with a Elmore catheter. Continue ciprofloxacin for 10 more days. End-stage renal disease on dialysis: - Appreciate nephrology following. Dialysis today. CM following for arrangement of outpatient dialysis - Permacath exchanged -Pt dialysis schedule is Sunday, , Sunday. Hyperkalemia: Corrected with hemodialysis. Obstructive uropathy: Renal ultrasound revealed distended urinary bladder bladder with bilateral hydronephrosis. - See above. Place Elmore catheter. -Continue Elmore catheter. Normocytic anemia: Likely secondary to chronic disease Follow H&H. Currently asymptomatic. Transfuse for hemoglobin less than 7. Labs pending -09/01/16: hgb is 6.9. Nephrology has ordered transfusion of 1 unit. Chronic noncompliance: Patient reports that he will try to comply more but he appears to still questioning whether or not he will need to continue dialysis. Judgment may be clouded somewhat by uremia. The patient was counseled extensively. Delusions: -Psychiatric consult placed 08/31/16. -Dr. Antoine has seen pt and pt is to be discharged to [facility] after blood transfusion. Concern delusions are interfering with medical care. Pt Condition on Discharge: Stable Discharge Disposition: Disc to Psych Care Fac Discharge Time: > 30 minutes Discharge Instructions DIET: Follow Instructions for: Renal Failure Diet Jovanni Richter Jr. Sep 01, 2016 10:32 Reyna Garcia MD Sep 02, 2016 12:24
--- NOTE | 2016-09-01 10:39 | PD.CONS ---
Provisional Diagnosis Admission Date August 28, 2016 at 06:42 [place] I. Unspecified psychosis, delirium due to underlying medical conditions [place] II. Deferred [place] III. 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 He was seen several days ago in our ED prior to admission with complaint of bladder spasm and missed dialysis. Arrangements were made for HD and antibiotics, neither of which he complied with and left AMA. He presented with obvious sepsis secondary to UTI, Urine grew Pseudomonas and Enterobacter. Patient also had hyperkalemia and was admitted to the intensive care unit under the cigar making supervisor service. He has since had dialysis and transferred to the hospitalist service. As per previous Medical follow up note : "Pt was asked about seeing or hearing things other people don't see and he said "I have done that, but I don't want to go down that road right now." Pt spoke of having an IQ of "181." Nursing reported pt has stated "he has said he is not of this planet." Patient was consulted to psychiatry to evaluate delusions. On psychiatric evaluation today patient is found calm and cooperative and pleasant in his room. Patient says that he is happy to see a psychiatrist "because something is not going well inside my head". Patient says that yesterday he was having frequent visual and auditory hallucinations. He says that for many hours he thought that there were snipers around the hospital pointing to him to kill him. He also says that the whole day yesterday he thought the nurses were trying to poison him. He so several different people coming to his room and talking to him "and I know that they would not real". Patient says that he has been having difficulty sleeping in the last days due to vivid dreams. Sometime is difficult to him to define the reality from perceptual disturbances. Patient reports good mood, he denies suicidal or homicidal ideation, he denies current visual and auditory hallucinations. Patient is fully oriented 3, with good attention span, no fluctuation of consciousness at this moment, no gross cognitive impairment present. 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 Patient says that "I recently became legal in this country, after owning a lot of money I decided to become illegal". He sort of become disorganized and seems to lose contact with reality, but is easily redirectable, no agitated. Patient denies the use of illicit drugs and alcohol. I got some collateral information from his , Alicia Anne. She says that they're now, but she has been a little more involved in his life since he is in the hospital. She says that she is surprised about "how illogical and disorganized he is, he does not make sense to me". 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 She says that as far she knows he doesn't have any psychiatric history. As far as she knows he has been taking to care of himself. She is surprised that he has been noncompliant and self neglecting himself. She is concerned that most probably he has been "having mental problems and maybe for this reason he is not taking good care of himself". Review of Systems Constitutional: DENIES: Diaphoretic episodes, Fatigue, Fever, Weight gain, Weight loss, Chills, Dizziness, Change in appetite, Night Sweats Endocrine: DENIES: Heat/cold intolerance, Polydipsia, Polyuria, Polyphagia Eyes: DENIES: Blurred vision, Diplopia, Eye inflammation, Eye pain, Vision loss , Photosensitivity, Double Vision Ears, nose, mouth, throat: DENIES: Tinnitus, Hearing loss, Vertigo, Nasal discharge, Oral lesions, Throat pain, Hoarseness, Ear Pain, Running Nose, Epistaxis, Sinus Pain, Toothache, Odynophagia Respiratory: DENIES: Apneas, Cough, Snoring, Wheezing, Hemoptysis, Sputum production, Shortness of breath Cardiovascular: DENIES: Chest pain, Palpitations, Syncope, Dyspnea on Exertion , PND, Lower Extremity Edema, Orthopnea, Claudication Genitourinary: DENIES: Sexual dysfunction, Urinary frequency, Urinary incontinence, Urgency, Hematuria, Dysuria, Nocturia, Penile Discharge, Testicular Pain, Testicular Swelling Musculoskeletal: DENIES: Joint pain, Muscle aches, Stiffness, Joint Swelling, Back pain, Neck pain Immunologic/allergic: DENIES: Eczema, Urticaria Neurologic: DENIES: Abnormal gait, Headache, Localized weakness, Paresthesias, Seizures, Speech Problems, Tremor, Poor Balance Psychiatric: COMPLAINS OF: Confusion, Hallucinations, Delusions, DENIES: Anxiety, Mood changes, Depression, Agitation, Suicidal Ideation, Homicidal Ideation Past Family Social History Coded Allergies: No Known Allergies (Unverified , 08/28/16) Active Scripts Ciprofloxacin (Cipro)250 Mg Nsa258 Mg PO BID 5 Days Ref 0 Prov:Iron Reynoso MD 08/24/16 Current Medications Medications (Trade) Dose Ordered Sig/Tiffany Route Start Time Stop Time Status Last Admin (NS Flush) 2 ml UNSCH PRN IV FLUSH 08/28/16 05:30 Miscellaneous Information 1 Q361D XX 08/28/16 07:30 08/28/16 07:30 (Chlorhexidine 2% Cloth) 3 pack Taper DAILY@04 TOP 08/29/16 04:00 08/25/17 03:59 08/30/16 04:00 (Chlorhexidine 2% Cloth) 3 pack UNSCH PRN TOP 08/28/16 07:30 (Charissa-Colace) 1 tab BID PO 08/28/16 09:00 09/01/16 09:11 (Milk Of Magnesia Liq) 30 ml Q12H PRN PO 08/28/16 07:30 (Senokot) 17.2 mg Q12H PRN PO 08/28/16 07:30 (Dulcolax Supp) 10 mg DAILY PRN RECTAL 08/28/16 08:00 (Lactulose Liq) 30 ml DAILY PRN PO 08/28/16 08:00 (Morphine Inj) 2 mg Q3H PRN IV PUSH 08/28/16 08:00 Famotidine 20 mg 20 mg HS PO 08/28/16 21:00 08/31/16 20:54 (Levaquin 500 Mg Premix Inj) 100 ml @ 100 mls/hr Q48H IV 08/28/16 09:00 09/01/16 09:12 Heparin Sodium (Porcine) 5000 units 5,000 units Q12HR SQ 08/28/16 09:00 Hold 08/28/16 15:16 (NS 1000 ml Inj) 1,000 ml @ 0 mls/hr Q0M PRN IV 08/28/16 08:20 08/31/16 11:54 Heparin Sodium (Porcine) 8000 units 8,000 units UNSCH PRN IVF 08/28/16 08:30 Sodium Chloride 1,000 ml @ 200 mls/hr Q5H PRN IV 08/28/16 08:20 (NS 1000 ml Inj) 1,000 ml @ 0 mls/hr Q0M PRN IV 08/28/16 08:20 (Mannitol Inj) 12.5 gm UNSCH PRN IV 08/28/16 08:30 (Albumin 25% Inj) 25 gm UNSCH PRN IV 08/28/16 08:30 (NS Flush) 5 ml UNSCH PRN IV FLUSH 08/28/16 08:30 08/31/16 09:20 (Heparin Inj) UNSCH PRN .XX 08/28/16 08:30 08/31/16 11:53 (Gentamicin (Dialysis) Inj) 20 mg UNSCH PRN IV 08/28/16 08:30 08/31/16 11:54 (Zofran Inj) 4 mg UNSCH PRN IV 08/28/16 08:30 (Tylenol) 650 mg UNSCH PRN PO 08/28/16 08:30 (Benadryl) 25 mg UNSCH PRN PO 08/28/16 08:30 (Nitrostat Sl) 0.4 mg UNSCH PRN SL 08/28/16 08:30 (Catapres) 0.1 mg UNSCH PRN PO 08/28/16 08:30 (Epogen Inj) 10,000 units UNSCH PRN IV 08/28/16 08:30 08/31/16 11:54 (Gelfoam 12 Mm/7 Mm Top) 1 foam UNSCH PRN TOP 08/28/16 08:30 (Phoslo) 667 mg TID PO 08/28/16 13:00 09/01/16 09:12 (Nephrocaps) 1 cap DAILY PO 08/29/16 09:00 09/01/16 09:12 (NS Flush) UNSCH PRN IVF 08/30/16 12:00 (Heparin Inj) UNSCH PRN IV FLUSH 08/30/16 12:00 (Cathflo Activase Inj) 2 mg Q2H PRN INTRACATH 08/30/16 14:45 08/30/16 15:40 (Tylenol) 650 mg Q4H PRN PO 09/01/16 09:45 09/01/16 13:46 Family History Patient denies psychiatric family history Social History Patient was born and raised in [facility], he lived for a long time in [place], now lives in [place], he is but , his highest level of education is high school, 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 2) Insight of perceptual disturbances Physical Exam On physical examination, no psychomotor agitation or retardation, no EPS, no tremors, no stiffness, present Vital Signs Vital Signs Date Time Temp Pulse Resp B/P Pulse Ox O2 Delivery O2 Flow Rate FiO2 09/01/16 08:59 Room Air 09/01/16 08:02 97.6 71 18 109/65 98 08/30/16 17:58 21 08/28/16 08:50 2.00 I/O 08/31/16 08/31/16 09/01/16 08:00 16:00 00:00 Intake Total 480 ml 0 ml 360 ml Output Total 1000 ml 1375 ml Balance 480 ml -1000 ml -1015 ml Lab Results Imaging Last Impressions Catheter Placement X-Ray 08/30/16 0600 Signed Impressions: Service Date/Time: Tuesday, August 30, 2016 11:07 - CONCLUSION: Uncomplicated venous catheter change as above. Ry Suresh MD Chest X-Ray 08/28/16 0525 Signed Impressions: Service Date/Time: Sunday, August 28, 2016 06:03 - CONCLUSION: No acute disease Luc Obando MD Renal Ultrasound 08/28/16 0000 Signed Impressions: Service Date/Time: Sunday, August 28, 2016 11:23 - CONCLUSION: 1. Distended urinary bladder with bilateral hydronephrosis. Question whether this could be related to bladder outlet obstruction or neurogenic bladder. 2. There is wall thickening along the posterior bladder wall but does not appear definitively masslike. Again, this could be related to chronic change related to chronic bladder outlet obstruction or neurogenic bladder. Depending on his clinical history, it would be reasonable to perform cross-sectional imaging to evaluate for an obstructing process. Luc Angel MD Objective Remarks Mental Status Examination Appearance man, who appears younger than his stated age, street clothes, good hygiene, calm, cooperative and pleasant Speech: Unremarkable Orientation: x3 Memory: Impaired (describe) Thought Process: Linear, Loose Association Thought Content: Bizarre thinking, Derealization, Paranoid Language Fluent and spontaneous Fund of Knowledge Seems to be adequate for the level of education Hallucination Type: Visual Attention and Concentration: Good Suicidal Ideation: No Previous Suicide Attempts: No Homicidal Ideation: No Previous Homicide Attempts: No Insight: Good Judgment: WNL Affect: Good Mood: Appropriate Motor Activity: Normal gait Assessment & Plan Problem List: (1) Unspecified psychosis Assessment & Plan: On psychiatric evaluation today the patient is calm, cooperative, no agitation or aggressive behavior present. Patient reports episodic visual and auditory hallucinations, he has been seeing people coming inside his room, and snipers in the street trying to kill him. He also has been having paranoid ideation, yesterday he thought that the nurses wanted to poison him. Primary care team on reported that patient has been disorganized, with very bizarre ideas. Patient seems to be insightful about some of these perceptual disturbances. However, today in my evaluation even though he denies visual and auditory hallucinations, he denies paranoia, patient presents insightlesss delusions of grandiosity and loosening of associations. As per is very possible that ongoing psychosis have been interference with functionality and self-care of the patient and could be the cause of noncompliance with medication, medical decompensation, and self- neglect. There are some characteristics of current psychosis that seems to be secondary to delirium most probably related with underlying medical condition, but he is well organized and structured delusions might be secondary to an underlying, undiagnosed major primary psychiatric illness. Patient would benefit of psychiatric admission for close monitoring of psychosis and treatment. This possibility was discussed with patient and primary team. Patient agreed with been transferred to psychiatry voluntarily. We'll start Risperdal 1 mg twice a day. Continue his medical treatment as needed. Extensive support, motivation psycho education provided. ICD Code: F29 Assessment & Plan Estimated LOS: Anup Brito MD Sep 01, 2016 10:39
[2016-09-01] MEDS: risperiDONE 1 MG TAB PO SCH ×2 (10:43→21:42)
--- NOTE | 2016-09-01 12:33 | HHI.NPPN ---
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 old BM with Renal failure on hemodialysis Additional Remarks had paranoia about been killed yesterday, he states he feels better Objective Data Data 08/31/16 09/01/16 19:00 07:00 Intake Total 0 ml 720 ml Output Total 1000 ml 2500 ml Balance -1000 ml -1780 ml Intake Oral 0 ml 720 ml Output Urine Total 0 ml 2500 ml Hemodialysis 1000 ml # Bowel Movements 0 0 Vital Signs Date Time Temp Pulse Resp B/P Pulse Ox O2 Delivery O2 Flow Rate FiO2 09/01/16 12:02 98.0 103 19 109/59 98 09/01/16 08:59 Room Air 09/01/16 08:02 97.6 71 18 109/65 98 09/01/16 07:00 80 09/01/16 04:00 98.1 103 20 104/66 96 09/01/16 00:03 99.2 79 16 117/66 98 08/31/16 20:00 98.0 93 16 93/52 98 08/31/16 20:00 83 08/31/16 19:30 Room Air 08/31/16 16:00 100.0 109 20 122/66 98 08/31/16 14:20 107 -: 09/01/16 0719 09/01/16 0719 Physical Exam General Appearance: Well Developed, Well Nourished Neck Neck Exam: Neck Supple Pulmonary Resp Exam: Clear Bilaterally, Breath Sounds Equal Cardiology CV Exam: Regular, Normal Sinus Rhythm Gastrointestinal/Abdomen GI Exam: Soft, Non-Tender Extremeties Extremities Exam: No Edema Neurologic Neuro Exam: Alert, Awake Assessment/Plan Problem List: (1) ESRD (end stage renal disease) on dialysis Plan: Patient is doing well Urology consult appreciated out pt follow up PermCath Changed follow Urology advice need out pt dialysis set up has psychosis Psych recommend in patient admission H/H low 1 unit PRBC Given Epogen (2) Hyperkalemia Plan: This has been treated medically and dialysis will be attempted (3) Sepsis Plan: On Levaquin has received Zosyn. (4) UTI (lower urinary tract infection) Plan: BPH with hydronephrosis Problem Qualifiers (1) Sepsis: Qualified Code: A41.52 - Sepsis due to Pseudomonas species Charles Fong MD Sep 01, 2016 12:33
[2016-09-01] MEDS: SODIUM CHLORIDE 0.9% FLUSH 10 ML FLUSH IV FLUSH PRN (21:42)
[2016-09-01] MEDS: FAMOTIDINE 20 MG TAB PO SCH (21:42)
[2016-09-02] VITALS: BP 152/83; PULSE 68; RESP 16; TEMP 98.1; O2SAT 94
[2016-09-02 04:00] VITALS: BP 105/58; PULSE 84; RESP 16; TEMP 97.6; O2SAT 100
[2016-09-02] MEDS: CHLORHEXIDINE GLUCONATE 2 % 1 PACK (2 CLOTHS) TOP SCH (04:00)
[2016-09-02 08:03] VITALS: BP 139/77; PULSE 73; RESP 18; TEMP 98.2; O2SAT 100
[2016-09-02 09:00] VITALS: PULSE 88
[2016-09-02] MEDS: CALCIUM ACETATE 667 MG CAP PO SCH ×2 (09:00→11:45)
[2016-09-02] MEDS: DOCUSATE SODIUM 50 MG/SENNA 8.6 MG TAB PO SCH (09:00)
--- NOTE | 2016-09-02 09:02 | HHI.NPPN ---
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 Coherent. 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 On 3K, UF: 800 ml. BFR is 350 ml/min. Tolerating it well. He has right sided IJ PermCath for dialysis. Objective Data Data 09/01/16 09/02/16 19:00 07:00 Intake Total 840 ml 450 ml Output Total 1200 ml 2400 ml Balance -360 ml -1950 ml Intake Oral 840 ml 200 ml Packed Cells 250 ml Output Urine Total 1200 ml 2400 ml # Voids 2 # Bowel Movements 0 0 Vital Signs Date Time Temp Pulse Resp B/P Pulse Ox O2 Delivery O2 Flow Rate FiO2 09/02/16 08:03 98.2 73 18 139/77 100 09/02/16 04:00 97.6 84 16 105/58 100 09/02/16 00:00 98.1 68 16 152/83 94 09/01/16 20:00 120 09/01/16 20:00 97.6 79 16 106/58 100 09/01/16 19:00 98.6 87 18 117/58 100 09/01/16 18:45 98.5 100 18 142/70 100 09/01/16 16:07 98.6 97 18 120/69 99 09/01/16 15:56 Room Air 09/01/16 12:02 98.0 103 19 109/59 98 09/01/16 12:00 Room Air 09/01/16 08:59 Room Air -: 09/01/16 0719 09/01/16 0719 Physical Exam General Appearance: Well Developed, Well Nourished Neck Neck Exam: Neck Supple Pulmonary Resp Exam: Clear Bilaterally, Breath Sounds Equal Cardiology CV Exam: Regular, Normal Sinus Rhythm Gastrointestinal/Abdomen GI Exam: Soft, Non-Tender Musculoskeletal MS Exam: Joints Intact Extremeties Extremities Exam: No Edema Neurologic Neuro Exam: Alert, Awake Assessment/Plan Problem List: (1) ESRD (end stage renal disease) on dialysis Plan: Seen during dialysis. PermCath Changed He has bilateral hydronephrosis, seen by Urology, note was reviewed, outpatient cystoscopy with retrograde pyelogram has been advised. Has been seen by psychiatry as well. (2) Hyperkalemia Plan: This has been treated medically and dialysis will be attempted (3) Sepsis Plan: On Levaquin has received Zosyn. (4) UTI (lower urinary tract infection) Plan: BPH with hydronephrosis (5) Anemia Plan: patient is on Epogen. Received blood transfusion. Monitor Hemoglobin. Problem Qualifiers (1) Sepsis: Qualified Code: A41.52 - Sepsis due to Pseudomonas species Beau Cason MD Sep 02, 2016 09:02
[2016-09-02] MEDS: HEPARIN SODIUM - IV 10,000 UNITS/10 ML VIAL PRN (10:38)
[2016-09-02] MEDS: EPOETIN ALFA 10,000 UNITS/ML VIAL IV PRN (10:38)
[2016-09-02] MEDS: GENTAMICIN SULFATE (DIALYSIS USE ONLY) 20 MG/2 ML VIAL IV PRN (10:38)
[2016-09-02] MEDS: SODIUM CHLOR 0.9% 1000 ML INJ 1,000 ML IV PRN (10:39)
[2016-09-02] MEDS: risperiDONE 1 MG TAB PO SCH (11:44)
[2016-09-02] MEDS: VITAMIN B CMPLX/VITC/FOLIC AC CAP PO SCH (11:45)
[2016-09-02 12:04] VITALS: BP 131/62; PULSE 132; RESP 18; TEMP 98.4; O2SAT 100
[2016-09-02] MEDS ORDERED: CALC667C PO (12:18)
[2016-09-02] MEDS ORDERED: RISP1 PO (12:18)
[2016-09-02] MEDS ORDERED: SENN1TAB PO (12:18)
[2016-09-02] MEDS ORDERED: CIPR500T2 PO (12:18)
[2016-09-03] MEDS ORDERED: LEVOFLOXACIN 500 MG TAB PO SCH (09:00)
== END 2016-09-02 13:04 | DRG 871 ==
LOC: NEPC 05:11 → NEDA 06:42 → N03B 07:45 → N03A 20:02 → N04A 08-29 12:25 → N04B 08-30 11:57
PROVIDERS: ADMIT Family Medicine; ATTEND Hospitalist
PROC: 06HM33Z Insertion of Infusion Device into Right Femoral Vein, Percutaneous Approach (ICD-10-PCS; principal; 2016-08-28)
PROC: 5A1D60Z (ICD-10-PCS; 2016-08-28)
DX: A41.52 Sepsis due to Pseudomonas (principal); N18.6 End stage renal disease; R65.20 Severe sepsis without septic shock; F05 Delirium due to known physiological condition; N17.9 Acute kidney failure, unspecified; I12.0 Hypertensive chronic kidney disease with stage 5 chronic kidney disease or end stage renal disease; N13.30 Unspecified hydronephrosis; N39.0 Urinary tract infection, site not specified; E87.5 Hyperkalemia; Z91.14 Patient's other noncompliance with medication regimen; E86.0 Dehydration; B96.5 Pseudomonas (aeruginosa) (mallei) (pseudomallei) as the cause of diseases classified elsewhere; F29 Unspecified psychosis not due to a substance or known physiological condition; D63.8 Anemia in other chronic diseases classified elsewhere; Z91.19 Patient's noncompliance with other medical treatment and regimen; Z99.2 Dependence on renal dialysis; N40.1 Benign prostatic hyperplasia with lower urinary tract symptoms
CPT/HCPCS: 36430; 36556; 36581; 36593; 71010; 76775; 76937; 80048; 80053; 80074; 81001; 82550; 83605; 83735; 83970; 84100; 84132; 84155; 84443; 85007; 85025; 85027; 85610; 85730; 86403; 86850; 86900; 86901; 86920; 87040; 87077; 87086; 87186; 87641; 90935; 93005; 96374; 96375; 99152; 99153; C1750; C1769; C1887; J0610; J1580; J1644; J1815; J1956; J2250; J2543; J2997; J3010; J7030; P9016; Q4081

== ENCOUNTER 2016-09-02 13:38 | Inpatient (IN) | payer BC ==
[~2016-09-02] VITALS: Ht 172.7 cm; Wt 56.6 kg
[2016-09-02 13:05] VITALS: BP 116/66; PULSE 112; RESP 20; TEMP 98.6; O2SAT 98
[~2016-09-02 13:38] MED LIST changes: +CALC667C PO; +CIPR500T2 PO; +RISP1 PO; +SENN1TAB PO
[2016-09-02] MEDS ORDERED: LORazepam 2 MG/ML VIAL IM PRN (14:00)
[2016-09-02] MEDS ORDERED: diphenhydrAMINE HCL 50 MG CAP PO PRN (14:00)
[2016-09-02] MEDS ORDERED: MAGNESIUM HYDROXIDE SUSP 30 ML CUP PO PRN (14:00)
[2016-09-02] MEDS ORDERED: ACETAMINOPHEN 325 MG TAB PO PRN (14:00)
[2016-09-02] MEDS ORDERED: LORazepam 0.5 MG TAB PO PRN (14:00)
[2016-09-02] MEDS ORDERED: ALUMINUM/MAGNESIUM/SIMETH 30 ML CUP PO PRN (14:00)
[2016-09-02] MEDS ORDERED: diphenhydrAMINE HCL 50 MG/ML VIAL IM PRN (14:00)
--- NOTE | 2016-09-02 16:37 | PD.CONS ---
HPI Service [facility] Hospitalists Consult Requested By Psychiatry Reason for Consult Medical management Primary Care Physician No Primary Care Physician Diagnoses: History of Present Illness 61-year-old male with a past medical history of end-stage renal disease on hemodialysis and noncompliant with medical care was recently admitted to [facility] initially under the care of critical care medicine secondary to sepsis due to UTI- Pseudomonas and Enterobacter for which patient was treated with IV antibiotic and subsequently switched to by mouth Levaquin. Nephrology was also consulted and patient continued to receive hemodialysis scheduled Sunday and Sunday. Secondary to acute psychosis and mood disorder, psychiatry was consulted. Patient was medically stable and transferred to med/psych. [facility] has been consulted for medical management. Patien denies any chest pain or shortness of breath however he is quite delusional. He denies any suicidal or homicidal ideations. Review of Systems Except as stated in HPI: all other systems reviewed are Neg Past Family Social History Allergies: Coded Allergies: No Known Allergies (Unverified , 08/28/16) Past Medical History Anemia: Yes End-stage renal disease on hemodialysis Hypertension: Yes Past Surgical History Abdominal Surgery: Yes (HERNIA REPAIR) Other Surgery: Yes (DYALISIS CATHETER RIGHT SIDE OF CHEST) Family History Father from complication of Alcoholism Social History Alcohol Use: No Tobacco Use: No Substance Use: No Physical Exam Vital Signs Vital Signs Date Time Temp Pulse Resp B/P Pulse Ox O2 Delivery O2 Flow Rate FiO2 09/02/16 13:05 98.6 112 20 116/66 98 Physical Exam GENERAL: This is a well-nourished, well-developed patient, in no apparent distress. SKIN: No rashes, ecchymoses or lesions. Cool and dry. HEAD: Atraumatic. Normocephalic. No temporal or scalp tenderness. EYES: Pupils equal round and reactive. Extraocular motions intact. No scleral icterus. No injection or drainage. ENT: Nose without bleeding, purulent drainage or septal hematoma. Throat without erythema, tonsillar hypertrophy or exudate. Uvula midline. Airway patent. NECK: Trachea midline. No JVD or lymphadenopathy. Supple, nontender, no meningeal signs. CARDIOVASCULAR: Regular rate and rhythm with II/ PEREZ. RESPIRATORY: Clear to auscultation. Breath sounds equal bilaterally. No wheezes , rales, or rhonchi. GASTROINTESTINAL: Abdomen soft, non-tender, nondistended. No hepato-splenomegaly , or palpable masses. No guarding. MUSCULOSKELETAL: Extremities without clubbing, cyanosis, or edema. No joint tenderness, effusion, or edema noted. No calf tenderness. Negative Homans sign bilaterally. NEUROLOGICAL: Awake and alert. Cranial nerves II through XII intact. Motor and sensory grossly within normal limits. Five out of 5 muscle strength in all muscle groups. Normal speech. Assessment and Plan Assessment and Plan 61-year-old man with Acute mood disorder Acute psychosis Management per psychiatry Recent history of sepsis secondary to UTI UTI-Pseudomonas and Enterobacter To Complete oral antibiotic Cipro 500 mg by mouth twice a day 7 days Obstructive uropathy Urinary obstruction Status post evaluation by urology Continue [place] care Normocytic anemia 2/2 chronic disease Monitor H&H and transfuse accordingly GI prophylaxis: Pepcid. Stool softener PRN constipation. DVT PPx: SCDs Thank you for this consultation Code Status Full code Discussed Condition With Patient Ishmael Pearl MD Sep 02, 2016 16:37 Ishmael Pearl MD Sep 02, 2016 16:37
[2016-09-02] MEDS: CALCIUM ACETATE 667 MG CAP PO SCH (18:03)
[2016-09-02 20:00] VITALS: BP 138/73; PULSE 98; O2SAT 98
[2016-09-02] MEDS: DOCUSATE SODIUM 50 MG/SENNA 8.6 MG TAB PO SCH (21:00)
[2016-09-02] MEDS: risperiDONE 1 MG TAB PO SCH (21:00)
[2016-09-03 06:00] LABS: BLOOD UREA NITROGEN 32 MG/DL (7-18)
[2016-09-03 06:01] LABS: ANION GAP 7 MEQ/L (5-15); BICARBONATE 30.8 MEQ/L (21.0-32.0); CHLORIDE 97 MEQ/L (98-107); GLOMERULAR FILTRATION RATE 19 ML/MIN (>89); POTASSIUM 4.3 MEQ/L (3.5-5.1); SODIUM (NA) 135 MEQ/L (136-145)
[2016-09-03 06:04] LABS: HDL CHOLESTEROL 25.3 MG/DL (40.0-60.0); LDL CHOLESTEROL 67 MG/DL (0-99)
[2016-09-03 06:37] VITALS: BP 135/71; PULSE 106; RESP 18; TEMP 98.7; O2SAT 97
[2016-09-03] MEDS: CIPROFLOXACIN 500 MG TAB PO SCH (08:28)
[2016-09-03] MEDS: CALCIUM ACETATE 667 MG CAP PO SCH ×3 (08:28→17:42)
[2016-09-03] MEDS: DOCUSATE SODIUM 50 MG/SENNA 8.6 MG TAB PO SCH ×2 (08:28→20:54)
[2016-09-03] MEDS: risperiDONE 1 MG TAB PO SCH ×2 (08:28→20:53)
--- NOTE | 2016-09-03 09:01 | HHI.PR ---
Subjective Remarks Patient seen and examined Vitals stable and no acute event overnight Case discussed with PIPE Sarah Objective Vitals Vital Signs Date Time Temp Pulse Resp B/P Pulse Ox O2 Delivery O2 Flow Rate FiO2 09/03/16 06:37 98.7 106 18 135/71 97 09/02/16 20:00 98 138/73 98 09/02/16 13:05 98.6 112 20 116/66 98 I/O 09/02/16 09/02/16 09/02/16 09/03/16 09/03/16 09/03/16 07:00 15:00 23:00 07:00 15:00 23:00 Intake Total 840 ml 360 ml Output Total 900 ml 2200 ml Balance -900 ml -1360 ml 360 ml Intake Oral 840 ml 360 ml Output Urine Total 900 ml 2200 ml Result Diagram: 09/03/16 0322 Objective Remarks GENERAL: NAD SKIN: Warm and dry. HEAD: Normocephalic. EYES: No scleral icterus. No injection or drainage. NECK: Supple, trachea midline. No JVD or lymphadenopathy. CARDIOVASCULAR: Regular rate and rhythm without murmurs, gallops, or rubs. RESPIRATORY: Breath sounds equal bilaterally. No accessory muscle use. GASTROINTESTINAL: Abdomen soft, non-tender, nondistended. MUSCULOSKELETAL: No cyanosis, or edema. BACK: Nontender without obvious deformity. No CVA tenderness. A/P Assessment and Plan 61-year-old man with Acute mood disorder Acute psychosis Management per psychiatry Recent history of sepsis secondary to UTI UTI-Pseudomonas and Enterobacter To Complete oral antibiotic Cipro 500 mg by mouth twice a day 7 days total Obstructive uropathy Urinary obstruction Status post evaluation by urology Continue [place] care Normocytic anemia 2/2 chronic disease Monitor H&H and transfuse accordingly CBC pending this AM GI prophylaxis: Pepcid. Stool softener PRN constipation. DVT PPx: Encourage ambulation Ishmael Pearl MD Sep 03, 2016 09:01
[2016-09-03 09:18] LABS: AUTOMATED NEUTROPHIL # 16.8 TH/MM3 (1.8-7.7); BASOPHIL % 0.2 % (0.0-2.0); EOSINOPHIL # 0.4 TH/MM3 (0-0.4); EOSINOPHIL % 1.9 % (0.0-4.0); HEMATOCRIT 26.4 % (39.0-51.0); LYMPH % 7.1 % (9.0-44.0); LYMPHOCYTE # 1.4 TH/MM3 (1.0-4.8); MEAN CELL VOLUME 92.9 FL (80.0-100.0); MEAN CORPUSCULAR HEMOGLOBIN 29.9 PG (27.0-34.0); MEAN CORPUSCULAR HGB CONC 32.2 % (32.0-36.0); MONO % 7.3 % (0.0-8.0); NEUT % 83.5 % (16.0-70.0); PLATELET COUNT 185 TH/MM3 (150-450); RED BLOOD COUNT 2.84 MIL/MM3 (4.50-5.90); RED CELL DISTRIBUTION WIDTH 15.8 % (11.6-17.2); WHITE BLOOD COUNT 20.1 TH/MM3 (4.0-11.0)
[2016-09-03 09:22] LABS: HEMO FLAGS AUTO DIFF
[2016-09-03 10:02] LABS: BANDS 1 % (0-6); EOSINOPHILS 2 % (0-4); METAMYELOCYTES 1 % (0-1); NEUTROPHIL # MANUAL DIFF 16.7 TH/MM3 (1.8-7.7); POLYS (SEG NEUTROPHILS) 81 % (16-70); WBC DIFF SAMPLE 100
[2016-09-03 10:05] LABS: TOXIC VACUOLATION PRESENT (NONE SEEN)
[2016-09-03 10:13] LABS: HEMOGLOBIN A1a 1.3 %; HEMOGLOBIN A1b 1.8 %; HEMOGLOBIN Ao 84.6 %; HEMOGLOBIN LA1C 2.4 %; HEMOGLOBIN P3 5.8 %; SCAN/DIFF FINAL DIFF MANUAL
--- NOTE | 2016-09-03 18:52 | HHI.HP ---
Provisional Diagnosis Admission Date Sep 02, 2016 at 13:38 [place] I. Brief psychotic disorder Certification of Person's Competence To Provide Express and Informed Consent I have personally examined Héctor Anne , a person being served at [facility] on, Sep 03, 2016 18:42. Express and informed consent means consent voluntarily given in writing, by a competent person, after sufficient explanation and disclosure of the subject matter involved to enable the person to make a knowing and willful decision without any element of force, fraud, deceit, duress, or other form of constraint or coercion. This person is 18 years of age or older, is not now known to be incompetent to consent to treatment with a guardian advocate, and does not have a health care surrogate or proxy currently making medical treatment decisions. I have found this person to be one of the following: [X] Competent to provide express and informed consent, as defined above, for voluntary admission to this facility and is competent to provide express and informed consent for treatment. He/she has the consistent capacity to make well reasoned, willful, and knowing decisions concerning his or her medical or mental health treatment. The person fully and consistently understands the purpose of the admission for examination/placement and is fully capable of personally exercising all rights [place] Incompetent to provide express and informed consent to voluntary admission, and this is incompetent to provide express and informed consent to treatment. The person must be transferred to involuntary status and a petition for a guardian advocate filed with the Circuit Court. [] Refusing to provide express and informed consent to voluntary admission but is competent to provide express and informed consent for treatment. The person must be discharged or transferred to involuntary status. Form shall be completed within 24 hours of a person's arrival at the receiving facility and filed in the clinical record of each person: 1. Admitted on a voluntary basis 2. Permitted to provide express and informed consent to his/her own treatment 3. Allowed to transfer from involuntary to voluntary status 4. Prior to permitting a person to consent to his or her own treatment after having been previously found incompetent to consent to treatment. History of Present Illness Capacity: Has Capacity HPI Patient was apparently admitted to the medicine service several days ago with no previous psychiatric history, demonstrating end-stage renal disease. He had reportedly been noncompliant with medical treatment and had missed several dialysis sessions. He had also been seen in the emergency department with complaints of bladder spasms and missed dialysis. As a result, he was admitted with sepsis secondary to a urinary tract infection. He was also noted to have electrolyte disturbances. He was admitted to intensive care and eventually transferred to a hospitalist service. The patient was evaluated in consult by Dr. Stallings. During the consult he said that he had seen things and heard things that other people could not see or hear. He also reportedly described himself as having an IQ of [address]. [address] Stallings he is [place] of the [place]. He was found to be delusional and indicating that something was not right inside of his head. He admitted to thinking there were snipers around the hospital attempting to kill him and that there were different people trying to harm him or poison him. At the time of this interview, the patient is more calm and cooperative. 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 He understands he has been neglecting his medical conditions. He recognizes he has experienced auditory and visual hallucinations and he has been paranoid in the recent past. Review of Systems Except as stated in HPI: all other systems reviewed are Neg Past Psych History Psychological trauma history Patient reports he has no history of previous psychiatric illness or treatment. He denies any history of psychological trauma. Violence risk - others (6 mos) Minimal Violence risk - self (6 mos) Minimal Substance Abuse History Drugs/Alcohol past 12 months Denied for alcoholism and drug abuse. Past Family Social History Coded Allergies: No Known Allergies (Unverified , 08/28/16) Active Scripts Sennosides-Docusate Sodium (Senna Plus 8.6-50 mg)1 Tab Tab1 Tab PO BID #60 TAB Prov:Radha,Thendrex 09/02/16 Risperidone (Risperdal)1 Mg Tab1 Mg PO Q12HR #60 TAB Prov:Radha,Thendrex 09/02/16 Calcium Acetate (Phosphate Bin (Calcium Acetate)667 Mg Tis196 Mg PO TID #90 CAP Prov:Radha,Thendrex 09/02/16 Ciprofloxacin 500 Mg [id number] Mg PO DAILY #12 TAB Ref 0 After dialysis Prov:Radha,Thendrex 09/02/16 Discontinued Scripts Ciprofloxacin (Cipro)250 Mg Mpw250 Mg PO BID 5 Days Ref 0 Prov:Kocisko,Iron J. MD 08/24/16 Current Medications Medications (Trade) Dose Ordered Sig/Tiffany Route Start Time Stop Time Status Last Admin (Ativan) 0.5 mg Q12H PRN PO 09/02/16 14:00 09/03/16 02:13 (Ativan Inj) 0.5 mg Q12H PRN IM 09/02/16 14:00 (Benadryl) 25 mg Q6H PRN PO 09/02/16 14:00 (Benadryl Inj) 25 mg Q6H PRN IM 09/02/16 14:00 (Tylenol) 650 mg Q4H PRN PO 09/02/16 14:00 (Milk Of Magnesia Liq) 30 ml DAILY PRN PO 09/02/16 14:00 (Mag-Al Plus Susp Liq) 30 ml Q6H PRN PO 09/02/16 14:00 (Phoslo) 667 mg TID PO 09/02/16 18:00 09/03/16 17:42 (Cipro) 500 mg DAILY PO 09/03/16 09:00 09/03/16 08:28 (risperDAL) 1 mg Q12HR PO 09/02/16 21:00 09/03/16 08:28 (Charissa-Colace) 1 tab BID PO 09/02/16 21:00 Family History Denied for mental illness, alcoholism and drug abuse. Social History Patient is from his , Domonique nAne. Mrs. Anne indicated he did not having past history of psychiatric illness but that his comments and behavior have become strange in the last weeks. Patient's Strengths (min. 2) Verbal and resilient. Physical Exam GENERAL: SKIN: Warm and dry. HEAD: Normocephalic. EYES: No scleral icterus. No injection or drainage. NECK: Supple, trachea midline. No JVD or lymphadenopathy. CARDIOVASCULAR: Regular rate and rhythm without murmurs, gallops, or rubs. RESPIRATORY: Breath sounds equal bilaterally. No accessory muscle use. GASTROINTESTINAL: Abdomen soft, non-tender, nondistended. MUSCULOSKELETAL: No cyanosis, or edema. BACK: Nontender without obvious deformity. No CVA tenderness. Vital Signs Vital Signs Date Time Temp Pulse Resp B/P Pulse Ox O2 Delivery O2 Flow Rate FiO2 09/03/16 06:37 98.7 106 18 135/71 97 I/O 09/02/16 09/02/16 09/03/16 08:00 16:00 00:00 Output Total 900 ml Balance -900 ml Mental Status Examination Speech: Unremarkable Orientation: x3 Memory: Unremarkable Thought Process: Organized, Tangential Thought Content: Paranoid, Ideas of Reference Hallucination Type: Auditory, Visual Attention and Concentration: Good Suicidal Ideation: No Previous Suicide Attempts: No Homicidal Ideation: No Previous Homicide Attempts: No Insight: Fair Judgment: WNL Affect: Good Mood: Appropriate Motor Activity: Normal gait Assessment & Plan Problem List: (1) Brief psychotic disorder ICD Code: F23 Assessment & Plan Estimated LOS: 3-7 days patient will be evaluated for underlying psychotic disorder versus delirium. At this point it appears that his thought process and thought content difficulties are improving. He is oriented to person place and time. He is also oriented to situation. Hospitalist consult has been ordered and the patient will continue to be followed by them to entry his sepsis with antibiotics. This physician will observe and evaluate the patient over the next 24 hours. If he continues to resolve he may not need antipsychotic medication. However if he shows behavioral disturbances and psychosis he may be started on antipsychotics. At this point he remains somewhat dangerous to himself because he has demonstrated a pattern of not caring for himself with life-threatening results of sepsis and delirium. This physician spoke with the patient's nurse regarding his recent behavior, which was also described as delirious. This physician will ask the manager skilled to contact family members for future treatment options as well as past psychiatric history. Neo Cam MD Sep 03, 2016 18:52
[2016-09-03 19:12] VITALS: BP 121/69; PULSE 130; RESP 18; TEMP 98.2
[2016-09-04] MEDS: DOCUSATE SODIUM 50 MG/SENNA 8.6 MG TAB PO SCH ×2 (10:11→20:42)
[2016-09-04] MEDS: CIPROFLOXACIN 500 MG TAB PO SCH (10:11)
[2016-09-04] MEDS: CALCIUM ACETATE 667 MG CAP PO SCH ×3 (10:11→18:26)
[2016-09-04] MEDS: risperiDONE 1 MG TAB PO SCH ×2 (10:12→20:42)
[2016-09-04 13:25] LABS: AUTOMATED NEUTROPHIL # 16.6 TH/MM3 (1.8-7.7); BASOPHIL % 0.2 % (0.0-2.0); EOSINOPHIL # 0.4 TH/MM3 (0-0.4); EOSINOPHIL % 2.1 % (0.0-4.0); HEMATOCRIT 27.3 % (39.0-51.0); HEMO FLAGS DIFF FINAL; LYMPH % 9.4 % (9.0-44.0); LYMPHOCYTE # 1.9 TH/MM3 (1.0-4.8); MEAN CELL VOLUME 92.8 FL (80.0-100.0); MEAN CORPUSCULAR HEMOGLOBIN 30.7 PG (27.0-34.0); MONO % 6.2 % (0.0-8.0); NEUT % 82.1 % (16.0-70.0); PLATELET COUNT 210 TH/MM3 (150-450); RED BLOOD COUNT 2.94 MIL/MM3 (4.50-5.90); RED CELL DISTRIBUTION WIDTH 15.3 % (11.6-17.2); WHITE BLOOD COUNT 20.2 TH/MM3 (4.0-11.0)
--- NOTE | 2016-09-04 13:41 | HHI.NPPN ---
Subjective History of Present Illness patient seen as transferred to this unit on weekend Additional Remarks Nurse reports PVC Elmore catheter drained 2 L Review of Systems General Constitutional: Fatigue Objective Data Data 09/03/16 09/04/16 19:00 07:00 Intake Total 1080 ml Balance 1080 ml Intake Oral 1080 ml Vital Signs Date Time Temp Pulse Resp B/P Pulse Ox O2 Delivery O2 Flow Rate FiO2 09/03/16 19:12 98.2 130 18 121/69 -: 09/04/16 1230 09/03/16 0322 Physical Exam General Appearance: Well Developed, Well Nourished Neck Neck Exam: Neck Supple Pulmonary Resp Exam: Clear Bilaterally, Breath Sounds Equal Cardiology CV Exam: Tachycardia Gastrointestinal/Abdomen GI Exam: Soft, Non-Tender Genitourinary Exam: Clear Urine Extremeties Extremities Exam: No Edema Assessment/Plan Problem List: (1) ESRD (end stage renal disease) on dialysis Plan: Patient is on dialysis TTS notified dialysis Nurse he may get readmitted to medical unit again as lots of PVC HD in am (2) Unspecified psychosis Plan: Psych obs (3) Cystitis Plan: recently treated now has a catheter Charles Fong MD Sep 04, 2016 13:41
--- NOTE | 2016-09-04 13:44 | HHI.PR ---
Subjective Remarks Deferred entry, patient seen at 10:15 AM. As per RN, the patient is tachycardic at complaining of palpitations Patient denies chest pain or shortness of breath. States has episodic palpitations Heart rate noted to be elevated after the 130s. WBC trending up now 20 K. Vital signs stable. Objective Vitals Vital Signs Date Time Temp Pulse Resp B/P Pulse Ox O2 Delivery O2 Flow Rate FiO2 09/03/16 19:12 98.2 130 18 121/69 I/O 09/03/16 09/03/16 09/03/16 09/04/16 09/04/16 09/04/16 07:00 15:00 23:00 07:00 15:00 23:00 Intake Total 840 ml 1080 ml Output Total 2200 ml Balance -1360 ml 1080 ml Intake Oral 840 ml 1080 ml Output Urine Total 2200 ml Result Diagram: 09/04/16 1230 09/03/16 0322 Objective Remarks GENERAL: AAOx3, NAD SKIN: Warm and dry. HEAD: Normocephalic. EYES: No scleral icterus. No injection or drainage. NECK: Supple, trachea midline. No JVD or lymphadenopathy. CARDIOVASCULAR: Regular rate and rhythm without murmurs, gallops, or rubs. RESPIRATORY: Breath sounds equal bilaterally. No accessory muscle use. GASTROINTESTINAL: Abdomen soft, non-tender, nondistended. MUSCULOSKELETAL: No cyanosis, or edema. BACK: Nontender without obvious deformity. No CVA tenderness. Medications and IVs Current Medications Medications (Trade) Dose Ordered Sig/Tiffany Route Start Time Stop Time Status Last Admin (Ativan) 0.5 mg Q12H PRN PO 09/02/16 14:00 09/03/16 02:13 (Ativan Inj) 0.5 mg Q12H PRN IM 09/02/16 14:00 (Benadryl) 25 mg Q6H PRN PO 09/02/16 14:00 (Benadryl Inj) 25 mg Q6H PRN IM 09/02/16 14:00 (Tylenol) 650 mg Q4H PRN PO 09/02/16 14:00 (Milk Of Magnesia Liq) 30 ml DAILY PRN PO 09/02/16 14:00 (Mag-Al Plus Susp Liq) 30 ml Q6H PRN PO 09/02/16 14:00 (Phoslo) 667 mg TID PO 09/02/16 18:00 09/04/16 10:11 (Cipro) 500 mg DAILY PO 09/03/16 09:00 09/04/16 10:11 (risperDAL) 1 mg Q12HR PO 09/02/16 21:00 09/04/16 10:12 (Charissa-Colace) 1 tab BID PO 09/02/16 21:00 09/04/16 10:11 Urinary Catheter: Yes Assessment to: Remove Vascular Central Line Catheter: No A/P Problem List: (1) Brief psychotic disorder ICD Code: F23 Status: Acute Plan: Patient's psychosis seems to be resolving. Suspect there is some component of delirium and possible metabolic encephalopathy. Continue management as per psychiatry, continue Risperdal. (2) Sepsis ICD Code: A41.9 Status: Acute Plan: Patient has recent history of sepsis secondary to UTI. Urine culture on 08/28 grew Enterobacter Cloacae, Pseudomonas aeruginosa, group B strep. Patient to complete treatment with ciprofloxacin 100 mg by mouth daily. Given persistence of tachycardia, and recent increase in white blood cell count up to 20 K [place] will repeat urinalysis, check blood cultures. (3) UTI (lower urinary tract infection) ICD Code: N39.0 Status: Acute Plan: Continue ciprofloxacin. (4) Obstructive uropathy ICD Code: N13.9 Status: Acute Plan: Patient seen by urology in previous admission. Apparently the patient has been having long-standing urinary problems, however states that he was voiding very well in the hospital. Patient seen by urology, Dr Elizondo on 08/29. Dr. Elizondo recommends treatment of UTI. He also recommends outpatient workup to include cystoscopy with bilateral retrograde pyelograms and urodynamics. Continue beard catheter. (5) Anemia ICD Code: D64.9 Status: Acute Plan: Normocytic anemia. I will order iron studies. Suspect anemia of chronic disease secondary to renal disease. (6) Tachycardia ICD Code: R00.0 Status: Acute Plan: EKG ordered stat, it showed sinus rhythm with multiple PVCs, no ST-T changes suggestive of active ischemia. Reviewed by me. Given complaints of palpitations and multiple PVCs, I will place patient on telemetry after being transferred to the medical floor. (7) Leukocytosis ICD Code: D72.829 Status: Acute Plan: Patient's WBC was trending down, now trending up. WBC now 20 K at from 12.6 on 09/01. Recent denies diarrhea, cough Assessment and Plan GI prophylaxis: Pepcid, senna/Colace to prevent constipation. DVT prophylaxis: SCDs. Problem Qualifiers (1) Sepsis: Qualified Code: A41.9 - Sepsis, due to unspecified organism (2) Anemia: Qualified Code: D64.9 - Anemia, unspecified type (3) Leukocytosis: Qualified Code: D72.829 - Leukocytosis, unspecified type John Fatima MD Sep 04, 2016 13:44
[2016-09-04 13:57] LABS: ALT (GPT) 110 U/L (12-78); ANION GAP 8 MEQ/L (5-15); AST (GOT) 38 U/L (15-37); BICARBONATE 25.6 MEQ/L (21.0-32.0); BLOOD UREA NITROGEN 52 MG/DL (7-18); CHLORIDE 102 MEQ/L (98-107); GLOMERULAR FILTRATION RATE 16 ML/MIN (>89); MAGNESIUM 2.1 MG/DL (1.5-2.5); POTASSIUM 4.7 MEQ/L (3.5-5.1); SODIUM (NA) 136 MEQ/L (136-145)
[2016-09-04 14:05] LABS: ALKALINE PHOSPHATASE 82 U/L (45-117); TOTAL BILIRUBIN ADULT 0.3 MG/DL (0.2-1.0)
[2016-09-04 16:00] VITALS: BP 117/77; PULSE 145; RESP 20; TEMP 97.7; O2SAT 99
[2016-09-04 20:00] VITALS: BP 120/74; PULSE 141; RESP 16; TEMP 98.7; O2SAT 99
[2016-09-04] MEDS ORDERED: METOPROLOL TARTRATE 25 MG TAB PO ONE (23:30)
[2016-09-05] VITALS (8 sets, daily range): BP systolic 113–132; BP diastolic 52–76; PULSE 98–139; RESP 16–20; TEMP 97.5–99.5; O2SAT 95–100
[2016-09-05] MEDS ORDERED: CEFEPIME INJ 2,000 MG in SODIUM CHLORIDE 0.9% INJ 100 ML IV ONE (01:15)
[2016-09-05] MEDS ORDERED: CEFEPIME INJ 2,000 MG in SODIUM CHLORIDE 0.9% INJ 100 ML IV PRN (01:15)
[2016-09-05 08:01] LABS: AUTOMATED NEUTROPHIL # 12.5 TH/MM3 (1.8-7.7); BASOPHIL # 0.1 TH/MM3 (0-0.2); BASOPHIL % 0.6 % (0.0-2.0); EOSINOPHIL # 0.5 TH/MM3 (0-0.4); EOSINOPHIL % 2.7 % (0.0-4.0); HEMATOCRIT 24.2 % (39.0-51.0); HEMO FLAGS DIFF FINAL; LYMPH % 12.2 % (9.0-44.0); LYMPHOCYTE # 2.1 TH/MM3 (1.0-4.8); MEAN CELL VOLUME 92.2 FL (80.0-100.0); MEAN CORPUSCULAR HEMOGLOBIN 30.2 PG (27.0-34.0); MEAN CORPUSCULAR HGB CONC 32.7 % (32.0-36.0); NEUT % 73.5 % (16.0-70.0); PLATELET COUNT 186 TH/MM3 (150-450); RED BLOOD COUNT 2.62 MIL/MM3 (4.50-5.90); RED CELL DISTRIBUTION WIDTH 15.2 % (11.6-17.2)
[2016-09-05 08:37] LABS: ALKALINE PHOSPHATASE 71 U/L (45-117); ALT (GPT) 83 U/L (12-78); ANION GAP 6 MEQ/L (5-15); AST (GOT) 14 U/L (15-37); BICARBONATE 25.5 MEQ/L (21.0-32.0); BLOOD UREA NITROGEN 63 MG/DL (7-18); CHLORIDE 104 MEQ/L (98-107); GLOMERULAR FILTRATION RATE 15 ML/MIN (>89); MAGNESIUM 2.2 MG/DL (1.5-2.5); POTASSIUM 5.1 MEQ/L (3.5-5.1); SODIUM (NA) 135 MEQ/L (136-145); TOTAL BILIRUBIN ADULT 0.3 MG/DL (0.2-1.0)
[2016-09-05] MEDS ORDERED: SODIUM CHLOR 0.9% 1000 ML INJ 1,000 ML IV PRN ×3 (09:22)
[2016-09-05] MEDS ORDERED: GENTAMICIN SULFATE (DIALYSIS USE ONLY) 20 MG/2 ML VIAL IV PRN (09:30)
[2016-09-05] MEDS ORDERED: cloNIDine HCL 0.1 MG TAB PO PRN (09:30)
[2016-09-05] MEDS ORDERED: GELATIN 12 MM/7 MM FOAM TOP PRN (09:30)
[2016-09-05] MEDS ORDERED: EPOETIN ALFA 10,000 UNITS/ML VIAL IV PRN (09:30)
[2016-09-05] MEDS ORDERED: ONDANSETRON HCL 4 MG/2 ML VIAL IV PRN (09:30)
[2016-09-05] MEDS ORDERED: SODIUM CHLORIDE 0.9% FLUSH 10 ML FLUSH IV FLUSH PRN (09:30)
[2016-09-05] MEDS ORDERED: HEPARIN SODIUM - IV 10,000 UNITS/10 ML VIAL PRN (09:30)
[2016-09-05] MEDS ORDERED: ACETAMINOPHEN 325 MG TAB PO PRN (09:30)
[2016-09-05] MEDS ORDERED: MANNITOL 12.5 GM/50 ML VIAL IV PRN (09:30)
[2016-09-05] MEDS ORDERED: NITROGLYCERIN 0.4 MG SL 25 TABS/BTL SL PRN (09:30)
[2016-09-05] MEDS ORDERED: HEPARIN SODIUM - IV 10,000 UNITS/10 ML VIAL IVF PRN (09:30)
[2016-09-05] MEDS ORDERED: ALBUMIN HUMAN 25% 25 GM/100 ML BAGP IV PRN (09:30)
[2016-09-05] MEDS ORDERED: diphenhydrAMINE HCL 25 MG CAP PO PRN (09:30)
[2016-09-05] MEDS: risperiDONE 1 MG TAB PO SCH ×2 (10:02→20:28)
[2016-09-05] MEDS: DOCUSATE SODIUM 50 MG/SENNA 8.6 MG TAB PO SCH ×2 (10:02→20:28)
[2016-09-05] MEDS: CALCIUM ACETATE 667 MG CAP PO SCH ×3 (10:02→17:56)
--- NOTE | 2016-09-05 11:37 | HHI.NPPN ---
Subjective History of Present Illness patient seen as transferred to this unit on weekend Additional Remarks has Tachycardia Review of Systems General Constitutional: Fatigue Objective Data Data 09/04/16 09/05/16 19:00 07:00 Intake Total 0 ml 2 ml Output Total 750 ml Balance 0 ml -748 ml IV Total 0 ml 2 ml Output Urine Total 750 ml # Bowel Movements 2 Vital Signs Date Time Temp Pulse Resp B/P Pulse Ox O2 Delivery O2 Flow Rate FiO2 09/05/16 08:00 97.5 120 20 113/64 95 09/05/16 06:13 133 09/05/16 04:42 104 09/05/16 04:00 98.3 110 20 132/52 99 09/05/16 00:00 98.5 125 16 118/64 98 09/04/16 20:00 98.7 141 16 120/74 99 09/04/16 16:00 97.7 145 20 117/77 99 -: 09/05/16 0702 09/05/16 0702 Microbiology 09/04/16 Aerobic Blood Culture - Preliminary, Resulted NO GROWTH IN 1 DAY 09/04/16 Anaerobic Blood Culture - Preliminary, Resulted NO GROWTH IN 1 DAY 09/04/16 Aerobic Blood Culture - Preliminary, Resulted NO GROWTH IN 1 DAY 09/04/16 Anaerobic Blood Culture - Preliminary, Resulted NO GROWTH IN 1 DAY Physical Exam General Appearance: Well Developed, Well Nourished Neck Neck Exam: Neck Supple Pulmonary Resp Exam: Clear Bilaterally, Breath Sounds Equal Cardiology CV Exam: Tachycardia Gastrointestinal/Abdomen GI Exam: Soft, Non-Tender Genitourinary Exam: Clear Urine Extremeties Extremities Exam: No Edema Assessment/Plan Problem List: (1) ESRD (end stage renal disease) on dialysis Plan: Patient is on dialysis TTS HD proceedings 2 L UF has Tachycardia trying to go back to dialysis unit at [facility] (2) Unspecified psychosis Plan: Psych obs (3) Cystitis Plan: recently treated now has a catheter Charles Fong MD Sep 05, 2016 11:37
--- NOTE | 2016-09-05 11:57 | PD.CONS ---
Provisional Diagnosis Admission Date Sep 02, 2016 at 13:38 [place]oleen I. Brief psychotic disorder History of Present Illness Service Psychiatry Consult Requested By Primary Care Physician No Primary Care Physician HPI Patient was apparently admitted to the medicine service several days ago with no previous psychiatric history, demonstrating end-stage renal disease. He had reportedly been noncompliant with medical treatment and had missed several dialysis sessions. He had also been seen in the emergency department with complaints of bladder spasms and missed dialysis. As a result, he was admitted with sepsis secondary to a urinary tract infection. He was also noted to have electrolyte disturbances. He was admitted to intensive care and eventually transferred to a hospitalist service. The patient was evaluated in consult by Dr. Stallings. During the consult he said that he had seen things and heard things that other people could not see or hear. He also reportedly described himself as having an IQ of [address]. [address] Stallings he is [place] of the [place]. He was found to be delusional and indicating that something was not right inside of his head. He admitted to thinking there were snipers around the hospital attempting to kill him and that there were different people trying to harm him or poison him. At the time of this interview, the patient is more calm and cooperative. 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 He understands he has been neglecting his medical conditions. He recognizes he has experienced auditory and visual hallucinations and he has been paranoid in the recent past. Past Family Social History Coded Allergies: No Known Allergies (Unverified , 08/28/16) Active Scripts Sennosides-Docusate Sodium (Senna Plus 8.6-50 mg)1 Tab Tab1 Tab PO BID #60 TAB Prov:Reyna Garcia MD 09/02/16 Risperidone (Risperdal)1 Mg Tab1 Mg PO Q12HR #60 TAB Prov:Reyna Garcia MD 09/02/16 Calcium Acetate (Phosphate Bin (Calcium Acetate)667 Mg Unn601 Mg PO TID #90 CAP Prov:Reyna Garcia MD 09/02/16 Ciprofloxacin 500 Mg Zex030 Mg PO DAILY #12 TAB Ref 0 After dialysis Prov:Reyna Garcia MD 09/02/16 Discontinued Scripts Ciprofloxacin (Cipro)250 Mg [id number] Mg PO BID 5 Days Ref 0 Prov:Iron Reynoso MD 08/24/16 Current Medications Medications (Trade) Dose Ordered Sig/Tiffany Route Start Time Stop Time Status Last Admin (Ativan) 0.5 mg Q12H PRN PO 09/02/16 14:00 09/03/16 02:13 (Ativan Inj) 0.5 mg Q12H PRN IM 09/02/16 14:00 (Benadryl) 25 mg Q6H PRN PO 09/02/16 14:00 (Benadryl Inj) 25 mg Q6H PRN IM 09/02/16 14:00 (Tylenol) 650 mg Q4H PRN PO 09/02/16 14:00 (Milk Of Magnesia Liq) 30 ml DAILY PRN PO 09/02/16 14:00 (Mag-Al Plus Susp Liq) 30 ml Q6H PRN PO 09/02/16 14:00 (Phoslo) 667 mg TID PO 09/02/16 18:00 09/05/16 10:02 (risperDAL) 1 mg Q12HR PO 09/02/16 21:00 09/05/16 10:02 Senna/Docusate Sodium 1 tab 1 tab BID PO 09/02/16 21:00 09/05/16 10:02 Cefepime HCl 2000 mg/Sodium Chloride 100 ml @ 200 mls/hr Q48H PRN IV 09/05/16 01:15 (NS 1000 ml Inj) 1,000 ml @ 0 mls/hr Q0M PRN IV 09/05/16 09:22 Heparin Sodium (Porcine) 8000 units 8,000 units UNSCH PRN IVF 09/05/16 09:30 Sodium Chloride 1,000 ml @ 200 mls/hr Q5H PRN IV 09/05/16 09:22 (NS 1000 ml Inj) 1,000 ml @ 0 mls/hr Q0M PRN IV 09/05/16 09:22 (Mannitol Inj) 12.5 gm UNSCH PRN IV 09/05/16 09:30 (Albumin 25% Inj) 25 gm UNSCH PRN IV 09/05/16 09:30 (NS Flush) 5 ml UNSCH PRN IV FLUSH 09/05/16 09:30 (Heparin Inj) UNSCH PRN .XX 09/05/16 09:30 (Gentamicin (Dialysis) Inj) 20 mg UNSCH PRN IV 09/05/16 09:30 (Zofran Inj) 4 mg UNSCH PRN IV 09/05/16 09:30 (Tylenol) 650 mg UNSCH PRN PO 09/05/16 09:30 (Benadryl) 25 mg UNSCH PRN PO 09/05/16 09:30 (Nitrostat Sl) 0.4 mg UNSCH PRN SL 09/05/16 09:30 (Catapres) 0.1 mg UNSCH PRN PO 09/05/16 09:30 (Epogen Inj) 10,000 units UNSCH PRN IV 09/05/16 09:30 (Gelfoam 12 Mm/7 Mm Top) 1 foam UNSCH PRN TOP 09/05/16 09:30 Patient's Strengths (min. 2) Verbal and resilient. Physical Exam Vital Signs Vital Signs Date Time Temp Pulse Resp B/P Pulse Ox O2 Delivery O2 Flow Rate FiO2 09/05/16 08:00 97.5 120 20 113/64 95 I/O 09/04/16 09/04/16 09/05/16 08:00 16:00 00:00 Intake Total 2 ml Balance 2 ml Mental Status Examination Speech: Unremarkable Orientation: x3 Memory: Unremarkable Thought Process: Organized, Tangential Thought Content: Paranoid, Ideas of Reference Hallucination Type: Auditory, Visual Attention and Concentration: Good Suicidal Ideation: No Previous Suicide Attempts: No Homicidal Ideation: No Previous Homicide Attempts: No Insight: Fair Judgment: WNL Affect: Good Mood: Appropriate Motor Activity: Normal gait Assessment & Plan Problem List: (1) Brief psychotic disorder ICD Code: F23 Assessment & Plan Estimated LOS: ? days Pt well known to this physician. Patient has resolving delirium with psychotic features. Spoke with his nurse regarding the improvement in his condition although she reports he is still demanding and unreasonable at times. Patient apparently met with his and had a similar experience. This is felt to be at least in part due to his personality. Therefore medication management is not warranted for that problem. Neo Cam MD Sep 05, 2016 11:57
--- NOTE | 2016-09-05 18:46 | HHI.PR ---
Subjective Remarks Patient states he feels better denies cp/sob denies fevers/chills denies cough WBC trending down heart rate improving Objective Vitals Vital Signs Date Time Temp Pulse Resp B/P Pulse Ox O2 Delivery O2 Flow Rate FiO2 09/05/16 17:25 95 21 09/05/16 16:00 98.0 98 20 120/62 95 09/05/16 08:00 97.5 120 20 113/64 95 09/05/16 06:13 133 09/05/16 04:42 104 09/05/16 04:00 98.3 110 20 132/52 99 09/05/16 00:00 98.5 125 16 118/64 98 09/04/16 20:00 98.7 141 16 120/74 99 I/O 09/04/16 09/04/16 09/04/16 09/05/16 09/05/16 09/05/16 07:00 15:00 23:00 07:00 15:00 23:00 Intake Total 2 ml 120 ml Output Total 750 ml 850 ml Balance 2 ml -750 ml -730 ml Intake Oral 120 ml IV Total 2 ml Output Urine Total 750 ml 850 ml # Bowel Movements 2 Result Diagram: 09/05/16 0702 09/05/16 0702 Objective Remarks GENERAL: AAOx3, NAD SKIN: Warm and dry. HEAD: Normocephalic. EYES: No scleral icterus. No injection or drainage. NECK: Supple, trachea midline. No JVD or lymphadenopathy. CARDIOVASCULAR: Regular rate and rhythm without murmurs, gallops, or rubs. RESPIRATORY: Breath sounds equal bilaterally. No accessory muscle use. GASTROINTESTINAL: Abdomen soft, non-tender, nondistended. MUSCULOSKELETAL: No cyanosis, or edema. BACK: Nontender without obvious deformity. No CVA tenderness. Medications and IVs Current Medications Medications (Trade) Dose Ordered Sig/Tiffany Route Start Time Stop Time Status Last Admin (Ativan) 0.5 mg Q12H PRN PO 09/02/16 14:00 09/03/16 02:13 (Ativan Inj) 0.5 mg Q12H PRN IM 09/02/16 14:00 (Benadryl) 25 mg Q6H PRN PO 09/02/16 14:00 (Benadryl Inj) 25 mg Q6H PRN IM 09/02/16 14:00 (Tylenol) 650 mg Q4H PRN PO 09/02/16 14:00 (Milk Of Magnesia Liq) 30 ml DAILY PRN PO 09/02/16 14:00 (Mag-Al Plus Susp Liq) 30 ml Q6H PRN PO 09/02/16 14:00 (Phoslo) 667 mg TID PO 09/02/16 18:00 09/05/16 17:56 (risperDAL) 1 mg Q12HR PO 09/02/16 21:00 09/05/16 10:02 Senna/Docusate Sodium 1 tab 1 tab BID PO 09/02/16 21:00 09/05/16 10:02 Cefepime HCl 2000 mg/Sodium Chloride 100 ml @ 200 mls/hr Q48H PRN IV 09/05/16 01:15 (NS 1000 ml Inj) 1,000 ml @ 0 mls/hr Q0M PRN IV 09/05/16 09:22 Heparin Sodium (Porcine) 8000 units 8,000 units UNSCH PRN IVF 09/05/16 09:30 Sodium Chloride 1,000 ml @ 200 mls/hr Q5H PRN IV 09/05/16 09:22 (NS 1000 ml Inj) 1,000 ml @ 0 mls/hr Q0M PRN IV 09/05/16 09:22 (Mannitol Inj) 12.5 gm UNSCH PRN IV 09/05/16 09:30 (Albumin 25% Inj) 25 gm UNSCH PRN IV 09/05/16 09:30 (NS Flush) 5 ml UNSCH PRN IV FLUSH 09/05/16 09:30 (Heparin Inj) UNSCH PRN .XX 09/05/16 09:30 (Gentamicin (Dialysis) Inj) 20 mg UNSCH PRN IV 09/05/16 09:30 (Zofran Inj) 4 mg UNSCH PRN IV 09/05/16 09:30 (Tylenol) 650 mg UNSCH PRN PO 09/05/16 09:30 (Benadryl) 25 mg UNSCH PRN PO 09/05/16 09:30 (Nitrostat Sl) 0.4 mg UNSCH PRN SL 09/05/16 09:30 (Catapres) 0.1 mg UNSCH PRN PO 09/05/16 09:30 (Epogen Inj) 10,000 units UNSCH PRN IV 09/05/16 09:30 (Gelfoam 12 Mm/7 Mm Top) 1 foam UNSCH PRN TOP 09/05/16 09:30 Urinary Catheter: No Vascular Central Line Catheter: No A/P Problem List: (1) Brief psychotic disorder ICD Code: F23 Status: Acute Plan: Patient's psychosis seems to be resolving. Suspect there is some component of delirium and possible metabolic encephalopathy. Continue management as per psychiatry, continue Risperdal. (2) Sepsis ICD Code: A41.9 Status: Acute Plan: Patient has recent history of sepsis secondary to UTI. Urine culture on 08/28 grew Enterobacter Cloacae, Pseudomonas aeruginosa, group B strep. Patient place on oral ciprofloxacin Given persistence of tachycardia, and recent increase in white blood cell count up to 20 K [place] will repeat urinalysis, check blood cultures. 09/05 WBC trending down, tachycardia improving. Ua pending. Consult infectious disease (3) UTI (lower urinary tract infection) ICD Code: N39.0 Status: Acute Plan: Dc Ciprofloxacin. Start IV Cefepime. (4) Obstructive uropathy ICD Code: N13.9 Status: Acute Plan: Patient seen by urology in previous admission. Apparently the patient has been having long-standing urinary problems, however states that he was voiding very well in the hospital. Patient seen by urology, Dr Elizondo on 08/29. Dr. Elizondo recommends treatment of UTI. He also recommends outpatient workup to include cystoscopy with bilateral retrograde pyelograms and urodynamics. Continue beard catheter. (5) Anemia ICD Code: D64.9 Status: Acute Plan: Normocytic anemia. I will order iron studies. Suspect anemia of chronic disease secondary to renal disease. (6) Tachycardia ICD Code: R00.0 Status: Acute Plan: EKG ordered stat, it showed sinus rhythm with multiple PVCs, no ST-T changes suggestive of active ischemia. Reviewed by me. Given complaints of palpitations and multiple PVCs on EKG I will check a 2 D echocardiogram. TSH is within normal range. (7) Leukocytosis ICD Code: D72.829 Status: Acute Plan: Patient denies diarrhea, cough. WBC initially trending up to 20k, now down to 17K Continue to monitor cbc w diff. Assessment and Plan GI prophylaxis: Pepcid, senna/Colace to prevent constipation. DVT prophylaxis: SCDs. Problem Qualifiers (1) Sepsis: Qualified Code: A41.9 - Sepsis, due to unspecified organism (2) Anemia: Qualified Code: D64.9 - Anemia, unspecified type (3) Leukocytosis: Qualified Code: D72.829 - Leukocytosis, unspecified type John Fatima MD Sep 05, 2016 18:46
[2016-09-05 19:54] LABS: TRANSFERRIN IRON PROFILE 115 MG/DL (200-360)
[2016-09-05 19:57] LABS: FERRITIN 1445 NG/ML (26-388)
--- NOTE | 2016-09-05 21:51 | EKG ---
Date Performed: 09/04/2016 Time Performed: 11:05:30 PTAGE: 61 years EKG: SINUS TACHYCARDIA WITH FREQUENT VENTRICULAR PREMATURE COMPLEXES Since previous tracing, no significant change noted ABNORMAL RHYTHM ECG PREVIOUS TRACING : 08/28/2016 05.25 DOCTOR: Roverto Monterroso Interpretating Date/Time 09/05/2016 21:49:34
[2016-09-06] VITALS (11 sets, daily range): BP systolic 100–133; BP diastolic 58–83; PULSE 53–124; RESP 18–20; TEMP 97.9–99.3; O2SAT 96–100
[2016-09-06 00:06] LABS: BACTERIA, URINE RARE /hpf; BLOOD, URINE TRACE (NEG); GLUCOSE,URINE NEG (NEG); KETONE, URINE NEG (NEG); MUCUS URINE FEW /lpf (OCC); NITRITE,URINE NEG (NEG); URINE COLOR LIGHT-YELLOW (YELLW/STRAW)
[2016-09-06 00:08] LABS: COMMENT (UR) CATH-CULTURE IND; CULTURE IF INDICATED CATH CULTURE IND
[2016-09-06 02:47] LABS: AUTOMATED NEUTROPHIL # 8.3 TH/MM3 (1.8-7.7); BASOPHIL # 0.1 TH/MM3 (0-0.2); BASOPHIL % 0.6 % (0.0-2.0); EOSINOPHIL # 0.3 TH/MM3 (0-0.4); EOSINOPHIL % 2.8 % (0.0-4.0); HEMATOCRIT 22.7 % (39.0-51.0); LYMPH % 14.1 % (9.0-44.0); LYMPHOCYTE # 1.7 TH/MM3 (1.0-4.8); MEAN CELL VOLUME 91.1 FL (80.0-100.0); MEAN CORPUSCULAR HEMOGLOBIN 30.5 PG (27.0-34.0); MEAN CORPUSCULAR HGB CONC 33.4 % (32.0-36.0); MONO % 13.4 % (0.0-8.0); NEUT % 69.1 % (16.0-70.0); PLATELET COUNT 158 TH/MM3 (150-450); RED BLOOD COUNT 2.49 MIL/MM3 (4.50-5.90); RED CELL DISTRIBUTION WIDTH 15.7 % (11.6-17.2); WHITE BLOOD COUNT 12.1 TH/MM3 (4.0-11.0)
[2016-09-06 02:48] LABS: HEMO FLAGS AUTO DIFF
[2016-09-06 03:15] LABS: ALKALINE PHOSPHATASE 73 U/L (45-117); ALT (GPT) 76 U/L (12-78); ANION GAP 11 MEQ/L (5-15); AST (GOT) 17 U/L (15-37); BICARBONATE 29.2 MEQ/L (21.0-32.0); BLOOD UREA NITROGEN 46 MG/DL (7-18); CHLORIDE 100 MEQ/L (98-107); GLOMERULAR FILTRATION RATE 17 ML/MIN (>89); MAGNESIUM 1.9 MG/DL (1.5-2.5); POTASSIUM 4.5 MEQ/L (3.5-5.1); SODIUM (NA) 140 MEQ/L (136-145); TOTAL BILIRUBIN ADULT 0.3 MG/DL (0.2-1.0)
[2016-09-06 03:16] LABS: SCAN/DIFF AUTO DIFF CONFIRMED
[2016-09-06] MEDS: CALCIUM ACETATE 667 MG CAP PO SCH ×3 (09:20→17:15)
[2016-09-06] MEDS: risperiDONE 1 MG TAB PO SCH ×2 (09:20→20:52)
[2016-09-06] MEDS: DOCUSATE SODIUM 50 MG/SENNA 8.6 MG TAB PO SCH ×2 (09:20→20:52)
[2016-09-06] MEDS: PANTOPRAZOLE SOD 40 MG DELAYED RELEASE TAB PO SCH (09:21)
--- NOTE | 2016-09-06 09:27 | PD.PN.STU ---
Subjective Remarks Patient is feeling better today. No acute changes overnight. Denies chest pain, SOB, abdominal or flank pain, N/V. He has a good appetite. Objective Vitals Vital Signs Date Time Temp Pulse Resp B/P Pulse Ox O2 Delivery O2 Flow Rate FiO2 09/06/16 04:00 98.4 111 18 116/64 97 09/06/16 00:00 98.8 60 20 103/58 99 09/05/16 20:00 99.5 139 16 122/76 100 09/05/16 20:00 123 09/05/16 17:25 95 21 09/05/16 16:00 98.0 98 20 120/62 95 I/O 09/05/16 09/05/16 09/05/16 09/06/16 09/06/16 09/06/16 07:00 15:00 23:00 07:00 15:00 23:00 Intake Total 120 ml 0 ml 2 ml Output Total 750 ml 850 ml 450 ml 900 ml Balance -750 ml -730 ml -450 ml -898 ml Intake Oral 120 ml IV Total 0 ml 2 ml Output Urine Total 750 ml 850 ml 450 ml 900 ml # Bowel Movements 2 1 Result Diagram: 09/06/1622409/06/16 022 Objective Remarks CARDIOVASCULAR: Regular rate and rhythm without murmurs, gallops, or rubs. RESPIRATORY: Breath sounds equal bilaterally. No accessory muscle use. GASTROINTESTINAL: Abdomen soft, non-tender, nondistended. BACK: Nontender without obvious deformity. No CVA tenderness. A/P Assessment and Plan 1. Urinary tract infection: Currently on IV Cefepime. Recheck of urine still highly positive for leukocyte esterase, urine WBC-17. 2. Sepsis: WBC count is trending down, now at 12.1. Tachycardia improving, pulse 111. Tachycardia may be due to anemia status. 3. Anemia: Hemoglobin still decreasing, currently at 7.6. Consider 1 unit blood transfusion. Stool guaiac. 4. ESRD: patient currently on dialysis and monitored by nephrology. Earline Corcoran Sep 06, 2016 09:27
--- NOTE | 2016-09-06 10:06 | RADRPT ---
EXAM DATE/TIME: 09/06/2016 07:53 [facility] COMPARISON: US KIDNEY/RENAL/BLADDER, August 28, 2016, 11:23. INDICATIONS : Increased lab values. MEDICAL HISTORY : Hypertension. Benign prostatic hyperplasia, (BPH) Osteoporosis. Bilateral hydronephrosis. ESRD. UTI. Anxiety. Anemia. SURGICAL HISTORY : Hernia repair. Dialysis. Right side chest catheter. ENCOUNTER: Initial ACUITY: 1 month PAIN SCORE: 0/10 LOCATION: Bilateral upper quadrant MEASUREMENTS: LIVER: 17.0 cm length COMMON DUCT: 6 mm RIGHT KIDNEY: 8.4 x 3.9 x 3.6 cm SPLEEN: 9.4 cm length FINDINGS: LIVER: The echotexture is within normal limits. There is a 6 mm simple cyst in the left lobe. There is no bi liary ductal dilation. COMMON DUCT: No intraluminal mass or stone visualized. GALLBLADDER: Contains no stones, demonstrates no wall thickening or pericholecystic fluid. PANCREAS: The visualized portions are within normal limits. RIGHT KIDNEY: There is no hydronephrosis. No stone is seen. The exam does demonstrate a 1.8 x 1.5 cm simple cyst. SPLEEN: No focal lesion. CONCLUSION: 1. Small simple cysts within the liver and right kidney. 2. No gallstones identified. No findings to indicate biliary obstruction. Yo Thomas MD on September 06, 2016 at 10:02 Board Certified Radiologist. This report was verified electronically.
[2016-09-06] MEDS ORDERED: diphenhydrAMINE HCL 25 MG CAP PO PRN (10:30)
[2016-09-06] MEDS ORDERED: ACETAMINOPHEN 325 MG TAB PO PRN (10:30)
[2016-09-06] MEDS ORDERED: SODIUM CHLOR 0.9% 250 ML INJ 250 ML IV ONE (10:30)
[2016-09-06] MEDS ORDERED: FUROSEMIDE 20 MG/2 ML VIAL IV ONE (11:00)
--- NOTE | 2016-09-06 12:31 | HHI.NPPN ---
Subjective History of Present Illness patient seen as transferred to this unit on weekend Review of Systems General Constitutional: Fatigue Objective Data Data 09/05/16 09/06/16 19:00 07:00 Intake Total 120 ml 2 ml Output Total 850 ml 1350 ml Balance -730 ml -1348 ml Intake Oral 120 ml IV Total 0 ml 2 ml Output Urine Total 850 ml 1350 ml # Bowel Movements 1 Vital Signs Date Time Temp Pulse Resp B/P Pulse Ox O2 Delivery O2 Flow Rate FiO2 09/06/16 11:30 99.3 124 18 100/66 98 09/06/16 10:15 98.1 123 18 112/63 100 09/06/16 10:02 97.9 113 18 118/71 100 09/06/16 08:00 98.6 98 20 133/60 98 09/06/16 04:00 98.4 111 18 116/64 97 09/06/16 00:00 98.8 60 20 103/58 99 09/05/16 20:00 99.5 139 16 122/76 100 09/05/16 20:00 123 09/05/16 17:25 95 21 09/05/16 16:00 98.0 98 20 120/62 95 -: 09/06/16 0225 09/06/16 0225 Microbiology 09/05/16 Urine Culture, Received Pending 09/06/16 Stool Occult Blood (YULY) - Final, Complete HEMOCCULT NEGATIVE Physical Exam General Appearance: Well Developed, Well Nourished Neck Neck Exam: Neck Supple Pulmonary Resp Exam: Clear Bilaterally, Breath Sounds Equal Cardiology CV Exam: Tachycardia Gastrointestinal/Abdomen GI Exam: Soft, Non-Tender Genitourinary Exam: Clear Urine Extremeties Extremities Exam: No Edema Assessment/Plan Problem List: (1) ESRD (end stage renal disease) on dialysis Plan: Patient is on dialysis TTS HD yesterday on T,T,S dialysis out pt HD set up getting 1 Unit PRBC (2) Unspecified psychosis Plan: Psych obs (3) Cystitis Plan: recently treated now has a catheter Charles Fong MD Sep 06, 2016 12:31
--- NOTE | 2016-09-06 14:14 | HHI.PR ---
Subjective Remarks Patient feels much better denies cp/sob denies fevers or chills denies nausea or vomiting wbc is trending down Objective Vitals Vital Signs Date Time Temp Pulse Resp B/P Pulse Ox O2 Delivery O2 Flow Rate FiO2 09/06/16 11:30 99.3 124 18 100/66 98 09/06/16 10:15 98.1 123 18 112/63 100 09/06/16 10:02 97.9 113 18 118/71 100 09/06/16 09:14 100 21 09/06/16 08:00 98.6 98 20 133/60 98 09/06/16 04:00 98.4 111 18 116/64 97 09/06/16 00:00 98.8 60 20 103/58 99 09/05/16 20:00 99.5 139 16 122/76 100 09/05/16 20:00 123 09/05/16 17:25 95 21 09/05/16 16:00 98.0 98 20 120/62 95 I/O 09/05/16 09/05/16 09/05/16 09/06/16 09/06/16 09/06/16 07:00 15:00 23:00 07:00 15:00 23:00 Intake Total 120 ml 0 ml 2 ml Output Total 750 ml 850 ml 450 ml 900 ml 500 ml Balance -750 ml -730 ml -450 ml -898 ml -500 ml Intake Oral 120 ml IV Total 0 ml 2 ml Output Urine Total 750 ml 850 ml 450 ml 900 ml 500 ml # Bowel Movements 2 1 1 Result Diagram: 09/06/16 0225 09/06/16 0225 Imaging Last Impressions Liver Ultrasound 09/06/16 0000 Signed Impressions: Service Date/Time: Tuesday, September 06, 2016 07:53 - CONCLUSION: 1. Small simple cysts within the liver and right kidney. 2. No gallstones identified. No findings to indicate biliary obstruction. Yo Thomas MD Objective Remarks GENERAL: AAOx3, NAD SKIN: Warm and dry. HEAD: Normocephalic. EYES: No scleral icterus. No injection or drainage. NECK: Supple, trachea midline. No JVD or lymphadenopathy. CARDIOVASCULAR: Regular rate and rhythm without murmurs, gallops, or rubs. RESPIRATORY: Breath sounds equal bilaterally. No accessory muscle use. GASTROINTESTINAL: Abdomen soft, non-tender, nondistended. MUSCULOSKELETAL: No cyanosis, or edema. BACK: Nontender without obvious deformity. No CVA tenderness. Procedures None Medications and IVs Current Medications Medications (Trade) Dose Ordered Sig/Tiffany Route Start Time Stop Time Status Last Admin (Ativan) 0.5 mg Q12H PRN PO 09/02/16 14:00 09/03/16 02:13 (Ativan Inj) 0.5 mg Q12H PRN IM 09/02/16 14:00 (Benadryl) 25 mg Q6H PRN PO 09/02/16 14:00 (Benadryl Inj) 25 mg Q6H PRN IM 09/02/16 14:00 (Tylenol) 650 mg Q4H PRN PO 09/02/16 14:00 (Milk Of Magnesia Liq) 30 ml DAILY PRN PO 09/02/16 14:00 (Mag-Al Plus Susp Liq) 30 ml Q6H PRN PO 09/02/16 14:00 (Phoslo) 667 mg TID PO 09/02/16 18:00 09/06/16 13:03 (risperDAL) 1 mg Q12HR PO 09/02/16 21:00 09/06/16 09:20 Senna/Docusate Sodium 1 tab 1 tab BID PO 09/02/16 21:00 09/06/16 09:20 Cefepime HCl 2000 mg/Sodium Chloride 100 ml @ 200 mls/hr Q48H PRN IV 09/05/16 01:15 (NS 1000 ml Inj) 1,000 ml @ 0 mls/hr Q0M PRN IV 09/05/16 09:22 Heparin Sodium (Porcine) 8000 units 8,000 units UNSCH PRN IVF 09/05/16 09:30 Sodium Chloride 1,000 ml @ 200 mls/hr Q5H PRN IV 09/05/16 09:22 (NS 1000 ml Inj) 1,000 ml @ 0 mls/hr Q0M PRN IV 09/05/16 09:22 (Mannitol Inj) 12.5 gm UNSCH PRN IV 09/05/16 09:30 (Albumin 25% Inj) 25 gm UNSCH PRN IV 09/05/16 09:30 (NS Flush) 5 ml UNSCH PRN IV FLUSH 09/05/16 09:30 (Heparin Inj) UNSCH PRN .XX 09/05/16 09:30 (Gentamicin (Dialysis) Inj) 20 mg UNSCH PRN IV 09/05/16 09:30 (Zofran Inj) 4 mg UNSCH PRN IV 09/05/16 09:30 (Tylenol) 650 mg UNSCH PRN PO 09/05/16 09:30 (Benadryl) 25 mg UNSCH PRN PO 09/05/16 09:30 (Nitrostat Sl) 0.4 mg UNSCH PRN SL 09/05/16 09:30 (Catapres) 0.1 mg UNSCH PRN PO 09/05/16 09:30 (Epogen Inj) 10,000 units UNSCH PRN IV 09/05/16 09:30 (Gelfoam 12 Mm/7 Mm Top) 1 foam UNSCH PRN TOP 09/05/16 09:30 Pantoprazole Sodium 40 mg 40 mg DAILY PO 09/05/16 19:00 09/06/16 09:21 (NS 250 ml Inj) 250 ml @ 15 mls/hr ONCE ONCE IV 09/06/16 10:30 09/07/16 03:09 09/06/16 10:30 Urinary Catheter: No Vascular Central Line Catheter: No A/P Problem List: (1) Brief psychotic disorder ICD Code: F23 Status: Acute Plan: Patient's psychosis seems to be resolving. Suspect there is some component of delirium and possible metabolic encephalopathy. Continue management as per psychiatry, continue Risperdal. (2) Sepsis ICD Code: A41.9 Status: Acute Plan: Patient has recent history of sepsis secondary to UTI. Urine culture on 08/28 grew Enterobacter Cloacae, Pseudomonas aeruginosa, group B strep. Patient place on oral ciprofloxacin Given persistence of tachycardia, and recent increase in white blood cell count up to 20 K [place] will repeat urinalysis, check blood cultures. 09/05 WBC trending down, tachycardia improving. Ua pending. Consult infectious disease - pending (3) UTI (lower urinary tract infection) ICD Code: N39.0 Status: Acute Plan: Continue IV Cefepime. (4) Obstructive uropathy ICD Code: N13.9 Status: Acute Plan: Patient seen by urology in previous admission. Apparently the patient has been having long-standing urinary problems, however states that he was voiding very well in the hospital. Patient seen by urology, Dr Elizondo on 08/29. Dr. Elizondo recommends treatment of UTI. He also recommends outpatient workup to include cystoscopy with bilateral retrograde pyelograms and urodynamics. Continue [place] catheter. (5) Anemia ICD Code: D64.9 Status: Acute Plan: Normocytic anemia. Iron studies are consistent with anemia of chronic disease. Patient's hemoglobin noted to be trended down from 9.0 on 09/04 to 7.9 on 09/05 to 7.6 on 09/06. - sp transfusion of 1 unit of PRBC ordered earlier - Continue to monitor CBC - Stool to Hemoccult test negative (6) Tachycardia ICD Code: R00.0 Status: Acute Plan: EKG ordered stat, it showed sinus rhythm with multiple PVCs, no ST-T changes suggestive of active ischemia. Reviewed by me. Given complaints of palpitations and multiple PVCs on EKG 2 D echocardiogram has been ordered and is still pending. TSH is within normal range. (7) Leukocytosis ICD Code: D72.829 Status: Acute Plan: Patient denies diarrhea, cough. Likely due to UTI - WBC trending down, now 12 K Continue to monitor CBC w diff Assessment and Plan GI prophylaxis: Pepcid, senna/Colace to prevent constipation. DVT prophylaxis: SCDs. Problem Qualifiers (1) Sepsis: Qualified Code: A41.9 - Sepsis, due to unspecified organism (2) Anemia: Qualified Code: D64.9 - Anemia, unspecified type (3) Leukocytosis: Qualified Code: D72.829 - Leukocytosis, unspecified type John Fatima MD Sep 06, 2016 14:13
--- NOTE | 2016-09-06 14:45 | PD.ID.CON ---
History of Present Illness Service ID Consult Requested By Dr Luna Reason for Consult Leukocytosis Primary Care Physician No Primary Care Physician Diagnoses: History of Present Illness 61-year-old male with a past medical history of end-stage renal disease on hemodialysis for 1-2 mos and noncompliant withHD was recently admitted to [facility] initially under the care of critical care medicine secondary to sepsis due to UTI- Pseudomonas and Enterobacter for which patient was treated with IV antibiotic and subsequently switched tooral Levaquin. Nephrology was also consulted and patient continued to receive hemodialysis scheduled Sunday and Sunday. Pt apparetly devleopped acute psychosis and mood disorder, psychiatry was consulted and was transferred to med /psych. He was on ciproflaoxacine between September 03 and and levaquine between and September 01 Now he is not derelious and according to his nurse was appropriate all day Pt reports having " prostate problem" not w/uy done yet 2/2 insurance issues He was instructed to do self caths and statess compliance with q 4-6 hrs self caths He denies urine changes (blood, cloudiness, odor) or back pain prior to preenttation He missed at least 1 week of HD, developped progressive weakness and malaise x 2 weeks, then he developped fever, chills, nausea and vomiting x 1 day and lightheadedness that prompted him to seek medical attention He has beard inserted on admission He was diagnosed with acute on chronic neel failure His URINE CULTURE From 08/31 was positive for guerrero S PSEUDOMONAS AERUGINOSA, ENTEROBACTER CLOACAE and GROUP B BETA STREP , repeat urine clx from no growth @ 1 day Blood clx from 08/28 are negative and blood clx from 08/28 are negative and repeat blood clx also negative at 2 days so far WBC was 20 3 days ago, down to 12 now Review of Systems Except as stated in HPI: all other systems reviewed are Neg Past Family Social History Allergies: Coded Allergies: No Known Allergies (Unverified , 08/28/16) Past Medical History ESRD/HD Past Surgical History Permac cath placement Active Ordered Medications Medications where reviewed in EMR Antibiotics Include: cefepime Family History Non-Contributory. Social History No Tobacco. No ETOH. No Illicit Drugs. Physical Exam Vital Signs Vital Signs Date Time Temp Pulse Resp B/P Pulse Ox O2 Delivery O2 Flow Rate FiO2 09/06/16 11:30 99.3 124 18 100/66 98 09/06/16 10:15 98.1 123 18 112/63 100 09/06/16 10:02 97.9 113 18 118/71 100 09/06/16 09:14 100 21 09/06/16 08:00 98.6 98 20 133/60 98 09/06/16 04:00 98.4 111 18 116/64 97 09/06/16 00:00 98.8 60 20 103/58 99 09/05/16 20:00 99.5 139 16 122/76 100 09/05/16 20:00 123 09/05/16 17:25 95 21 09/05/16 16:00 98.0 98 20 120/62 95 Physical Exam CONSTITUTIONAL/GENERAL: This is a thin elderly male patient, in no apparent distress. TUBES/LINES/DRAINS: R chest with Permacath in place, site looks wo e/o infx SKIN: No jaundice, rashes, or lesions. Skin temperature appropriate. Not diaphoretic. HEAD: Atraumatic. Normocephalic. EYES: Pupils equal and round and reactive. Extraocular motions intact. No scleral icterus. No injection or drainage. Fundi not examined. ENT: Hearing grossly normal. Nose without bleeding or purulent drainage. Oral muicosae moist without visible erythema, exudates, masses, or lesions. Edentilous , dentures inn place NECK: Trachea midline. Supple, nontender. CARDIOVASCULAR: Regular rate and rhythm without murmurs, gallops, or rubs. No JVD. Peripheral pulses symmetric. RESPIRATORY/CHEST: Symmetric, unlabored respirations. Clear to auscultation. Breath sounds equal bilaterally. No wheezes, rales, or rhonchi. GASTROINTESTINAL: Abdomen soft, non-tender, nondistended. No hepato-splenomegaly , or palpable masses. No guarding. Bowel sounds present. GENITOURINARY: Without palpable bladder distension. Beard catheter in place with clear light yellow urine MUSCULOSKELETAL: Extremities without clubbing, cyanosis, or edema. No joint tenderness or effusion noted. No calf tenderness. No mottling or clubbing. LYMPHATICS: No palpable cervical or supraclavicular adenopathy. NEUROLOGICAL: Awake and alert. Motor and sensory grossly within normal limits. Follows commands. Clear speech. Moves all extremities. PSYCHIATRIC: No obvious anxiety/depression. no apparent hallucinations or other psychotic thought process.No delusions Laboratory Laboratory Tests Test 09/05/16 09/05/16 09/06/16 09/06/16 20:29 23:45 02:25 06:59 Hepatitis A IgM Antibody NEGATIVE Hepatitis B Surface Antigen NEGATIVE Hepatitis B Core IgM Antibody NEGATIVE Hepatitis C Antibody NEGATIVE Urine Color LIGHT-YELLOW Urine Turbidity CLEAR Urine pH 8.0 Urine Specific [place] 1.009 Urine Protein 30 Urine Glucose (UA) NEG Urine Ketones NEG Urine Occult Blood TRACE Urine Nitrite NEG Urine Bilirubin NEG Urine Urobilinogen LESS THAN 2.0 Urine Leukocyte Esterase LARGE Urine RBC 3 Urine WBC 17 Urine Bacteria RARE Urine Mucus FEW Microscopic Urinalysis Comment CATH-CULTURE IND White Blood Count 12.1 Red Blood Count 2.49 Hemoglobin 7.6 Hematocrit 22.7 Mean Corpuscular Volume 91.1 Mean Corpuscular Hemoglobin 30.5 Mean Corpuscular Hemoglobin 33.4 Concent Red Cell Distribution Width 15.7 Platelet Count 158 Mean Platelet Volume 7.5 Neutrophils (%) (Auto) 69.1 Lymphocytes (%) (Auto) 14.1 Monocytes (%) (Auto) 13.4 Eosinophils (%) (Auto) 2.8 Basophils (%) (Auto) 0.6 Neutrophils # (Auto) 8.3 Lymphocytes # (Auto) 1.7 Monocytes # (Auto) 1.6 Eosinophils # (Auto) 0.3 Basophils # (Auto) 0.1 CBC Comment AUTO DIFF Differential Comment AUTO DIFF CONFIRMED Sodium Level 140 Potassium Level 4.5 Chloride Level 100 Carbon Dioxide Level 29.2 Anion Gap 11 Blood Urea Nitrogen 46 Creatinine 4.36 Estimat Glomerular Filtration 17 Rate Random Glucose 108 Calcium Level 7.8 Phosphorus Level 2.7 Magnesium Level 1.9 Total Bilirubin 0.3 Aspartate Amino Transf 17 (AST/SGOT) Alanine Aminotransferase 76 (ALT/SGPT) Alkaline Phosphatase 73 Total Protein 6.4 Albumin 2.3 Blood Type O POSITIVE O POSITIVE Antibody Screen NEGATIVE Crossmatch Leukocyte-Reduced Red Blood Cells Blood Bank Comment Test 09/06/16 11:46 Blood Type O POSITIVE Crossmatch Leukocyte-Reduced Red Blood Cells Blood Bank Comment Date/Time Procedure Status Source Growth 09/06/16 02:45 Stool Occult Blood (YULY) - Final Complete Stool Stool HEMOCCULT NEGATIVE 09/05/16 23:45 Urine Culture - Preliminary Resulted Urine Catheterized Urine No growth. 09/04/16 19:55 Aerobic Blood Culture - Preliminary Resulted Blood Peripheral NO GROWTH IN 2 DAYS 09/04/16 19:55 Anaerobic Blood Culture - Preliminary Resulted Blood Peripheral NO GROWTH IN 2 DAYS Result Diagram: 09/06/16 0225 09/06/16 0225 Imaging Last Impressions Liver Ultrasound 09/06/16 0000 Signed Impressions: Service Date/Time: Tuesday, September 06, 2016 07:53 - CONCLUSION: 1. Small simple cysts within the liver and right kidney. 2. No gallstones identified. No findings to indicate biliary obstruction. Yo Thomas MD Assessment and Plan Assessment and Plan ARF/CKD, non compliance with HD Obstructive uropahty 2/2 prostatc disaes (NOS, urological brown was postponed 2/2 insurance issues) sp beard Patient seen by urology, Dr Elizondo on 08/29. Dr. Elizondo recommends treatment of UTI. He also recommends outpatient workup to include cystoscopy with bilateral retrograde pyelograms and urodynamics. UTI, PSAE, Enterobacter, GBS - S to levaquine Leukocytosis - improving Acute psychosis - resolved - cont cefepime for now - can be switched to quinolones if it does not feel that levaquine/cipro could have precipitated his psychosis (FQ ae rarely aw pshyciatriac side effects < 1 %) - monitor wbc, clinically Discussed Condition With family @ b/s Connie Benitez MD Sep 06, 2016 14:45
--- NOTE | 2016-09-06 17:19 | ECHRPT ---
Indication: Cardiac arrhythmia, unspecified CONCLUSIONS Normal left ventricular size. Mild LVH. The left ventricular systolic function is normal with an estimated ejection fraction of 60%. BP: 113 / 64 HR: 120 Rhythm: Sinus tachycardia MEASUREMENTS (Male / Female) Normal Values Technical Quality:Good 2D ECHO LV Diastolic Diameter PLAX 4.5 cm 4.2 - 5.9 / 3.9 - 5.3 cm LV Systolic Diameter PLAX 3.3 cm IVS Diastolic Thickness 1.1 cm 0.6 - 1.0 / 0.6 - 0.9 cm LVPW Diastolic Thickness 1.0 cm 0.6 - 1.0 / 0.6 - 0.9 cm LV Relative Wall Thickness 0.5 M-MODE Aortic Root Diameter MM 3.3 cm LA Systolic Diameter MM 3.1 cm LA Ao Ratio MM 0.9 AV Cusp Separation MM 1.9 cm DOPPLER Mitral E Point Velocity 45.4 cm/s Mitral A Point Velocity 70.1 cm/s Mitral E to A Ratio 0.6 FINDINGS Left Ventricle Normal left ventricular size. Mild LVH. The left ventricular systolic function is normal with an estimated ejection fraction of 60%. Left ventricular diastolic function parameters are normal. Right Ventricle Normal right ventricular size and systolic function. Left Atrium The left atrial size is normal. Right Atrium The right atrial size is normal. Atrial Septum Normal atrial septal thickness without atrial level shunting by limited color doppler interrogation. Aorta The aortic root and proximal ascending aorta are normal in size on limited imaging. Mitral Valve Structurally normal mitral valve. No mitral valve stenosis or regurgitation. Aortic Valve Trileaflet aortic valve. No aortic valve stenosis or regurgitation. Tricuspid Valve Structurally normal tricuspid valve. No tricuspid valve stenosis or regurgitation. Vessels The inferior vena cava is normal in size. Pericardium No pericardial effusion. Barrett Yung MD, FACC Edited by: [employer] Commissioner (Electronically Signed) Final Date:06 September 2016 17:18 Amended: 07 September 2016 13:46 GUNJAN
--- NOTE | 2016-09-06 19:18 | EKG ---
Date Performed: 09/05/2016 Time Performed: 17:52:04 PTAGE: 61 years EKG: SINUS TACHYCARDIA WITH OCCASIONAL VENTRICULAR PREMATURE COMPLEXES MINIMAL VOLTAGE CRITERIA FOR LVH, CONSIDER NORMAL VARIANT ABNORMAL RHYTHM ECG PREVIOUS TRACING : 09/04/2016 11.05 Compared to the previous tracing, PVCs are less frequent DOCTOR: Stepan Maddox Interpretating Date/Time 09/06/2016 19:16:28
[2016-09-07] VITALS (9 sets, daily range): BP systolic 102–124; BP diastolic 59–66; PULSE 64–127; RESP 18–20; TEMP 97.8–98.7; O2SAT 95–100
[2016-09-07] MEDS: DOCUSATE SODIUM 50 MG/SENNA 8.6 MG TAB PO SCH ×2 (08:44→20:07)
[2016-09-07] MEDS: risperiDONE 1 MG TAB PO SCH ×2 (08:47→20:08)
[2016-09-07] MEDS: CALCIUM ACETATE 667 MG CAP PO SCH ×3 (08:47→16:41)
[2016-09-07] MEDS: PANTOPRAZOLE SOD 40 MG DELAYED RELEASE TAB PO SCH (08:47)
[2016-09-07 10:36] LABS: AUTOMATED NEUTROPHIL # 16.6 TH/MM3 (1.8-7.7); BASOPHIL # 0.2 TH/MM3 (0-0.2); BASOPHIL % 0.7 % (0.0-2.0); EOSINOPHIL # 0.3 TH/MM3 (0-0.4); EOSINOPHIL % 1.5 % (0.0-4.0); HEMATOCRIT 29.1 % (39.0-51.0); LYMPH % 13.5 % (9.0-44.0); LYMPHOCYTE # 3.1 TH/MM3 (1.0-4.8); MEAN CELL VOLUME 89.1 FL (80.0-100.0); MEAN CORPUSCULAR HEMOGLOBIN 29.7 PG (27.0-34.0); MEAN CORPUSCULAR HGB CONC 33.3 % (32.0-36.0); MONO % 12.3 % (0.0-8.0); PLATELET COUNT 156 TH/MM3 (150-450); RED BLOOD COUNT 3.27 MIL/MM3 (4.50-5.90); RED CELL DISTRIBUTION WIDTH 17.4 % (11.6-17.2); WHITE BLOOD COUNT 23.1 TH/MM3 (4.0-11.0)
[2016-09-07 10:39] LABS: HEMO FLAGS AUTO DIFF
[2016-09-07 10:56] LABS: ALKALINE PHOSPHATASE 78 U/L (45-117); ALT (GPT) 58 U/L (12-78); ANION GAP 9 MEQ/L (5-15); AST (GOT) 21 U/L (15-37); BICARBONATE 22.6 MEQ/L (21.0-32.0); BLOOD UREA NITROGEN 60 MG/DL (7-18); CHLORIDE 103 MEQ/L (98-107); GLOMERULAR FILTRATION RATE 16 ML/MIN (>89); POTASSIUM 4.6 MEQ/L (3.5-5.1); SODIUM (NA) 135 MEQ/L (136-145); TOTAL BILIRUBIN ADULT 0.2 MG/DL (0.2-1.0)
[2016-09-07 11:12] LABS: SCAN/DIFF AUTO DIFF CONFIRMED
--- NOTE | 2016-09-07 13:22 | HHI.NPPN ---
Subjective History of Present Illness patient seen as transferred to this unit on weekend Review of Systems General Constitutional: Fatigue Objective Data Data 09/06/16 09/07/16 19:00 07:00 Intake Total 360 ml 364 ml Output Total 850 ml 2300 ml Balance -490 ml -1936 ml Intake Oral 360 ml 360 ml IV Total 4 ml Output Urine Total 850 ml 2300 ml # Bowel Movements 3 0 Vital Signs Date Time Temp Pulse Resp B/P Pulse Ox O2 Delivery O2 Flow Rate FiO2 09/07/16 12:09 97.8 121 20 112/64 99 09/07/16 11:30 98 09/07/16 08:15 Room Air 09/07/16 08:02 98.2 110 20 116/66 100 09/07/16 07:43 115 09/07/16 04:00 98.6 64 18 124/59 99 09/07/16 00:00 98.7 104 18 104/62 97 09/06/16 21:52 97 21 09/06/16 20:01 118 09/06/16 20:00 98.6 109 18 111/60 96 09/06/16 16:00 98.1 53 20 116/83 97 -: 09/07/16 0931 09/07/16 0931 Physical Exam General Appearance: Well Developed, Well Nourished Neck Neck Exam: Neck Supple Pulmonary Resp Exam: Clear Bilaterally, Breath Sounds Equal Cardiology CV Exam: Tachycardia Gastrointestinal/Abdomen GI Exam: Soft, Non-Tender Genitourinary Exam: Clear Urine Extremeties Extremities Exam: No Edema Assessment/Plan Problem List: (1) ESRD (end stage renal disease) on dialysis Plan: Patient is on dialysis TTS HD yesterday on T,T,S dialysis out pt HD set up seen during hemodialysis 2 L UF tolerating it well (2) Unspecified psychosis Plan: Psych obs (3) Cystitis Plan: recently treated now has a catheter Charles Fong MD Sep 07, 2016 13:22
--- NOTE | 2016-09-07 18:33 | HHI.PR ---
Subjective Remarks c/o diarrhea and abdominal pain denies fevers/chills worsened leukocytosis Objective Vitals Vital Signs Date Time Temp Pulse Resp B/P Pulse Ox O2 Delivery O2 Flow Rate FiO2 09/07/16 16:00 Room Air 09/07/16 12:09 97.8 121 20 112/64 99 09/07/16 11:30 98 09/07/16 08:15 Room Air 09/07/16 08:02 98.2 110 20 116/66 100 09/07/16 07:43 115 09/07/16 04:00 98.6 64 18 124/59 99 09/07/16 00:00 98.7 104 18 104/62 97 09/06/16 21:52 97 21 09/06/16 20:01 118 09/06/16 20:00 98.6 109 18 111/60 96 I/O 09/06/16 09/06/16 09/06/16 09/07/16 09/07/16 09/07/16 07:00 15:00 23:00 07:00 15:00 23:00 Intake Total 2 ml 360 ml 244 ml 120 ml 242 ml Output Total 900 ml 850 ml 600 ml 1700 ml 2700 ml Balance -898 ml -490 ml -356 ml -1580 ml -2458 ml Intake Oral 360 ml 240 ml 120 ml 240 ml IV Total 2 ml 4 ml 2 ml Output Urine Total 900 ml 850 ml 600 ml 1700 ml 700 ml Hemodialysis 2000 ml # Bowel Movements 1 3 0 0 0 Result Diagram: 09/07/16 0931 09/07/16 0931 Imaging Last Impressions Liver Ultrasound 09/06/16 0000 Signed Impressions: Service Date/Time: Tuesday, September 06, 2016 07:53 - CONCLUSION: 1. Small simple cysts within the liver and right kidney. 2. No gallstones identified. No findings to indicate biliary obstruction. Yo Thomas MD Objective Remarks GENERAL: AAOx3, NAD SKIN: Warm and dry. HEAD: Normocephalic. EYES: No scleral icterus. No injection or drainage. NECK: Supple, trachea midline. No JVD or lymphadenopathy. CARDIOVASCULAR: Regular rate and rhythm without murmurs, gallops, or rubs. RESPIRATORY: Breath sounds equal bilaterally. No accessory muscle use. GASTROINTESTINAL: Abdomen soft, non-tender, nondistended. MUSCULOSKELETAL: No cyanosis, or edema. BACK: Nontender without obvious deformity. No CVA tenderness. Procedures None Medications and IVs Current Medications Medications (Trade) Dose Ordered Sig/Tiffany Route Start Time Stop Time Status Last Admin (Ativan) 0.5 mg Q12H PRN PO 09/02/16 14:00 09/03/16 02:13 (Ativan Inj) 0.5 mg Q12H PRN IM 09/02/16 14:00 (Benadryl) 25 mg Q6H PRN PO 09/02/16 14:00 (Benadryl Inj) 25 mg Q6H PRN IM 09/02/16 14:00 (Tylenol) 650 mg Q4H PRN PO 09/02/16 14:00 (Milk Of Magnesia Liq) 30 ml DAILY PRN PO 09/02/16 14:00 (Mag-Al Plus Susp Liq) 30 ml Q6H PRN PO 09/02/16 14:00 (Phoslo) 667 mg TID PO 09/02/16 18:00 09/07/16 16:41 (risperDAL) 1 mg Q12HR PO 09/02/16 21:00 09/07/16 08:47 Senna/Docusate Sodium 1 tab 1 tab BID PO 09/02/16 21:00 09/06/16 09:20 Cefepime HCl 2000 mg/Sodium Chloride 100 ml @ 200 mls/hr Q48H PRN IV 09/05/16 01:15 09/07/16 13:56 (NS 1000 ml Inj) 1,000 ml @ 0 mls/hr Q0M PRN IV 09/05/16 09:22 Heparin Sodium (Porcine) 8000 units 8,000 units UNSCH PRN IVF 09/05/16 09:30 Sodium Chloride 1,000 ml @ 200 mls/hr Q5H PRN IV 09/05/16 09:22 (NS 1000 ml Inj) 1,000 ml @ 0 mls/hr Q0M PRN IV 09/05/16 09:22 (Mannitol Inj) 12.5 gm UNSCH PRN IV 09/05/16 09:30 (Albumin 25% Inj) 25 gm UNSCH PRN IV 09/05/16 09:30 (NS Flush) 5 ml UNSCH PRN IV FLUSH 09/05/16 09:30 (Heparin Inj) UNSCH PRN .XX 09/05/16 09:30 09/07/16 14:37 (Gentamicin (Dialysis) Inj) 20 mg UNSCH PRN IV 09/05/16 09:30 09/07/16 14:36 (Zofran Inj) 4 mg UNSCH PRN IV 09/05/16 09:30 (Tylenol) 650 mg UNSCH PRN PO 09/05/16 09:30 (Benadryl) 25 mg UNSCH PRN PO 09/05/16 09:30 (Nitrostat Sl) 0.4 mg UNSCH PRN SL 09/05/16 09:30 (Catapres) 0.1 mg UNSCH PRN PO 09/05/16 09:30 (Epogen Inj) 10,000 units UNSCH PRN IV 09/05/16 09:30 09/07/16 11:49 (Gelfoam 12 Mm/7 Mm Top) 1 foam UNSCH PRN TOP 09/05/16 09:30 (Protonix) 40 mg DAILY PO 09/05/16 19:00 09/07/16 08:47 A/P Problem List: (1) Brief psychotic disorder ICD Code: F23 Status: Acute Plan: Patient's psychosis seems to be resolving. Suspect there is some component of delirium and possible metabolic encephalopathy. Continue management as per psychiatry, continue Risperdal. (2) Sepsis ICD Code: A41.9 Status: Acute Plan: Patient has recent history of sepsis secondary to UTI. Urine culture on 08/28 grew Enterobacter Cloacae, Pseudomonas aeruginosa, group B strep. Patient place on oral ciprofloxacin Given persistence of tachycardia, and recent increase in white blood cell count up to 20 K [place] will repeat urinalysis, check blood cultures. WBC now up - patient has diarrhea check c diff appreciate ID recommendations (3) UTI (lower urinary tract infection) ICD Code: N39.0 Status: Acute Plan: Continue IV Cefepime. repat ua (+) - urine culture no growth. (4) Obstructive uropathy ICD Code: N13.9 Status: Acute Plan: Patient seen by urology in previous admission. Apparently the patient has been having long-standing urinary problems, however states that he was voiding very well in the hospital. Patient seen by urology, Dr Elizondo on 08/29. Dr. Elizondo recommends treatment of UTI. He also recommends outpatient workup to include cystoscopy with bilateral retrograde pyelograms and urodynamics. Continue Elmore catheter. (5) Anemia ICD Code: D64.9 Status: Acute Plan: Normocytic anemia. Iron studies are consistent with anemia of chronic disease. Patient's hemoglobin noted to be trended down from 9.0 on 09/04 to 7.9 on 09/05 to 7.6 on 09/06. - sp transfusion of 1 unit of PRBC - Continue to monitor CBC - Stool to Hemoccult test negative (6) Tachycardia ICD Code: R00.0 Status: Acute Plan: EKG ordered stat, it showed sinus rhythm with multiple PVCs, no ST-T changes suggestive of active ischemia. Reviewed by me. Given complaints of palpitations and multiple PVCs on EKG 2 D echocardiogram has been ordered and is still pending. TSH is within normal range. 09/07 Echo Ef 60% w mild LVH (7) Leukocytosis ICD Code: D72.829 Status: Acute Plan: Initially diarrhea trending down. WBC up to 23 K form 12 k on 09/07 - Patient c/o diarrhea and abdominal pain Will check C diff toxin pcr and place on contact isolation Assessment and Plan GI prophylaxis: Pepcid, senna/Colace to prevent constipation. DVT prophylaxis: SCDs. Problem Qualifiers (1) Sepsis: Qualified Code: A41.9 - Sepsis, due to unspecified organism (2) Anemia: Qualified Code: D64.9 - Anemia, unspecified type (3) Leukocytosis: Qualified Code: D72.829 - Leukocytosis, unspecified type John Fatima MD Sep 07, 2016 18:33
--- NOTE | 2016-09-07 18:54 | HHI.IDPN ---
Subjective Subjective Remarks states he feels well co diarrhea started today - had 3 liquid BMs denies abd cramps sp HD today WBC jumped to 23 K Antibiotics cefepime Allergies: Coded Allergies: No Known Allergies (Unverified , 08/28/16) Objective . Vital Signs Date Time Temp Pulse Resp B/P Pulse Ox O2 Delivery O2 Flow Rate FiO2 09/07/16 16:00 Room Air 09/07/16 12:09 97.8 121 20 112/64 99 09/07/16 11:30 98 09/07/16 08:15 Room Air 09/07/16 08:02 98.2 110 20 116/66 100 09/07/16 07:43 115 09/07/16 04:00 98.6 64 18 124/59 99 09/07/16 00:00 98.7 104 18 104/62 97 09/06/16 21:52 97 21 09/06/16 20:01 118 09/06/16 20:00 98.6 109 18 111/60 96 09/06/16 09/06/16 09/07/16 14:59 22:59 06:59 Intake Total 360 ml 244 ml 120 ml Output Total 850 ml 600 ml 1700 ml Balance -490 ml -356 ml -1580 ml Intake Oral 360 ml 240 ml 120 ml IV Total 4 ml Output Urine Total 850 ml 600 ml 1700 ml # Bowel Movements 3 0 0 . Laboratory Tests Test 09/06/16 09/07/16 02:25 09:31 White Blood Count 12.1 TH/MM3 23.1 TH/MM3 Red Blood Count 2.49 MIL/MM3 3.27 MIL/MM3 Hemoglobin 7.6 GM/DL 9.7 GM/DL Hematocrit 22.7 % 29.1 % Mean Corpuscular Volume 91.1 FL 89.1 FL Mean Corpuscular Hemoglobin 30.5 PG 29.7 PG Mean Corpuscular Hemoglobin 33.4 % 33.3 % Concent Red Cell Distribution Width 15.7 % 17.4 % Platelet Count 158 TH/MM3 156 TH/MM3 Mean Platelet Volume 7.5 FL 8.0 FL Neutrophils (%) (Auto) 69.1 % 72.0 % Lymphocytes (%) (Auto) 14.1 % 13.5 % Monocytes (%) (Auto) 13.4 % 12.3 % Eosinophils (%) (Auto) 2.8 % 1.5 % Basophils (%) (Auto) 0.6 % 0.7 % Neutrophils # (Auto) 8.3 TH/MM3 16.6 TH/MM3 Lymphocytes # (Auto) 1.7 TH/MM3 3.1 TH/MM3 Monocytes # (Auto) 1.6 TH/MM3 2.8 TH/MM3 Eosinophils # (Auto) 0.3 TH/MM3 0.3 TH/MM3 Basophils # (Auto) 0.1 TH/MM3 0.2 TH/MM3 CBC Comment AUTO DIFF AUTO DIFF Differential Comment AUTO DIFF AUTO DIFF CONFIRMED CONFIRMED Laboratory Tests Test 09/06/16 09/06/16 09/07/16 02:25 15:09 09:31 Sodium Level 140 MEQ/L 135 MEQ/L Potassium Level 4.5 MEQ/L 4.6 MEQ/L Chloride Level 100 MEQ/L 103 MEQ/L Carbon Dioxide Level 29.2 MEQ/L 22.6 MEQ/L Anion Gap 11 MEQ/L 9 MEQ/L Blood Urea Nitrogen 46 MG/DL 60 MG/DL Creatinine 4.36 MG/DL 4.66 MG/DL Estimat Glomerular Filtration 17 ML/MIN 16 ML/MIN Rate Random Glucose 108 MG/DL 104 MG/DL Calcium Level 7.8 MG/DL 8.6 MG/DL Phosphorus Level 2.7 MG/DL Magnesium Level 1.9 MG/DL Total Bilirubin 0.3 MG/DL 0.2 MG/DL Aspartate Amino Transf 17 U/L 21 U/L (AST/SGOT) Alanine Aminotransferase 76 U/L 58 U/L (ALT/SGPT) Alkaline Phosphatase 73 U/L 78 U/L Total Protein 6.4 GM/DL 7.1 GM/DL Albumin 2.3 GM/DL 2.5 GM/DL Prostate Specific Antigen 1.29 NG/ML Screen Microbiology Date/Time Procedure Status Source Growth 09/04/16 19:45 Aerobic Blood Culture - Preliminary Resulted Blood Peripheral NO GROWTH IN 3 DAYS 09/04/16 19:45 Anaerobic Blood Culture - Preliminary Resulted Blood Peripheral NO GROWTH IN 3 DAYS 09/04/16 19:55 Aerobic Blood Culture - Preliminary Resulted Blood Peripheral NO GROWTH IN 3 DAYS 09/04/16 19:55 Anaerobic Blood Culture - Preliminary Resulted Blood Peripheral NO GROWTH IN 3 DAYS 09/05/16 23:45 Urine Culture - Final Complete Urine Catheterized Urine NO GROWTH IN 48 HOURS. 09/06/16 02:45 Stool Occult Blood (YULY) - Final Complete Stool Stool HEMOCCULT NEGATIVE Imaging Last Impressions Liver Ultrasound 09/06/16 0000 Signed Impressions: Service Date/Time: Tuesday, September 06, 2016 07:53 - CONCLUSION: 1. Small simple cysts within the liver and right kidney. 2. No gallstones identified. No findings to indicate biliary obstruction. Yo Thomas MD Physical Exam CONSTITUTIONAL/GENERAL: This is a thin elderly male patient, in no apparent distress. TUBES/LINES/DRAINS: R chest with Permacath in place, site looks wo e/o infx SKIN: No jaundice, rashes, or lesions. Skin temperature appropriate. Not diaphoretic. HEAD: Atraumatic. Normocephalic. EYES: Pupils equal and round and reactive. Extraocular motions intact. No scleral icterus. No injection or drainage. Fundi not examined. ENT: Hearing grossly normal. Nose without bleeding or purulent drainage. Oral muicosae moist without visible erythema, exudates, masses, or lesions. Edentilous , dentures inn place CARDIOVASCULAR: Regular rate and rhythm without murmurs, gallops, or rubs. No JVD. Peripheral pulses symmetric. RESPIRATORY/CHEST: Symmetric, unlabored respirations. Clear to auscultation. Breath sounds equal bilaterally. No wheezes, rales, or rhonchi. GASTROINTESTINAL: Abdomen soft, slightlyu tender in RLQ w/o guarding or rebound , nondistended. No hepato-splenomegaly, or palpable masses. No guarding. Bowel sounds present. GENITOURINARY: Without palpable bladder distension. Beard catheter in place with clear light yellow urine MUSCULOSKELETAL: Extremities without clubbing, cyanosis, or edema. No joint tenderness or effusion noted. No calf tenderness. No mottling or clubbing. LYMPHATICS: No palpable cervical or supraclavicular adenopathy. NEUROLOGICAL: Awake and alert. Motor and sensory grossly within normal limits. Follows commands. Clear speech. Moves all extremities. PSYCHIATRIC: No obvious anxiety/depression. no apparent hallucinations or other psychotic thought process.No delusions Assessment & Plan Remarks ARF/CKD, non compliance with HD Obstructive uropahty 2/2 prostatc disaes (NOS, urological brown was postponed 2/2 insurance issues) sp beard Patient seen by urology, Dr Elizondo on 08/29. Dr. Elizondo recommends treatment of UTI. He also recommends outpatient workup to include cystoscopy with bilateral retrograde pyelograms and urodynamics. UTI, PSAE, Enterobacter, GBS - S to levaquine Leukocytosis - much worse today New onset abx -associated diarrhea Acute psychosis - resolved - ro C.diff - dc cefepime for now - start levaquine to [place] and observe for any neuro/pshych changes - monitor wbc, clinically Discussed Condition With Connie Bnyum MD Sep 07, 2016 18:54
[2016-09-08] VITALS: BP 116/66; PULSE 113; RESP 20; TEMP 98.9; O2SAT 100
[2016-09-08 04:00] VITALS: BP 128/60; PULSE 99; RESP 20; TEMP 98.7; O2SAT 99
[2016-09-08 08:00] VITALS: BP 121/64; PULSE 122; RESP 20; TEMP 98.8; O2SAT 100
--- NOTE | 2016-09-08 08:03 | PD.PN.STU ---
Subjective Remarks Patient states he is doing well and has no acute complaints. No changes overnight. He explained that he does not have diarrhea and he does not remember telling me that he had abdominal pain and diarrhea yesterday. He is denying any accounts of diarrhea. He denies chest pain, SOB, abdominal pain. Objective Vitals Vital Signs Date Time Temp Pulse Resp B/P Pulse Ox O2 Delivery O2 Flow Rate FiO2 09/08/16 04:00 98.7 99 20 128/60 99 09/08/16 00:00 98.9 113 20 116/66 100 09/07/16 20:07 109 09/07/16 20:04 98.3 121 18 102/64 95 09/07/16 19:59 Room Air 09/07/16 16:00 97.8 127 20 112/64 99 09/07/16 16:00 Room Air 09/07/16 12:09 97.8 121 20 112/64 99 09/07/16 11:30 98 09/07/16 08:15 Room Air 09/07/16 08:02 98.2 110 20 116/66 100 I/O 09/07/16 09/07/16 09/07/16 09/08/16 09/08/16 09/08/16 07:00 15:00 23:00 07:00 15:00 23:00 Intake Total 120 ml 242 ml 320 ml 360 ml Output Total 1700 ml 2700 ml 260 ml 400 ml Balance -1580 ml -2458 ml 60 ml -40 ml Intake Oral 120 ml 240 ml 320 ml 360 ml IV Total 2 ml Output Urine Total 1700 ml 700 ml 260 ml 400 ml Hemodialysis 2000 ml # Bowel Movements 0 0 0 0 Result Diagram: 09/07/1693009/07/16930 Objective Remarks GENERAL: pleasant AA male. SKIN: Warm and dry. HEAD: Normocephalic. EYES: No scleral icterus. No injection or drainage. NECK: No JVD or lymphadenopathy. CARDIOVASCULAR: Regular rate and rhythm without murmurs, gallops, or rubs. RESPIRATORY: Clear to auscultation bilaterally. No accessory muscle use. GASTROINTESTINAL: Abdomen soft, non-tender, nondistended. +BS. MUSCULOSKELETAL: No cyanosis, or edema. BACK: Nontender without obvious deformity. No CVA tenderness. A/P Assessment and Plan 1. Urinary tract infection: - - 2. Sepsis: - Secondary to UTI. - Urine culture on 08/28 grew Enterobacter Cloacae, Pseudomonas aeruginosa, group B strep. - Patient placed on oral ciprofloxacin - WBC was up yesterday but back down to 12.6 this morning. Stool studies for C. Diff infection pending for history of diarrhea. 3. Anemia: - Hemoglobin moderately improved, HgB= 9.1 - Blood transfusion administered on 09/06 - Stool guaiac was negative 4. ESRD: - Patient currently on dialysis and monitored by nephrology. Earline Corcoran M3 Sep 08, 2016 08:03
[2016-09-08 08:27] LABS: AUTOMATED NEUTROPHIL # 9.5 TH/MM3 (1.8-7.7); BASOPHIL # 0.1 TH/MM3 (0-0.2); BASOPHIL % 0.7 % (0.0-2.0); EOSINOPHIL # 0.2 TH/MM3 (0-0.4); EOSINOPHIL % 1.5 % (0.0-4.0); HEMATOCRIT 28.4 % (39.0-51.0); HEMO FLAGS DIFF FINAL; LYMPH % 12.1 % (9.0-44.0); LYMPHOCYTE # 1.5 TH/MM3 (1.0-4.8); MEAN CELL VOLUME 89.4 FL (80.0-100.0); MEAN CORPUSCULAR HEMOGLOBIN 28.8 PG (27.0-34.0); MEAN CORPUSCULAR HGB CONC 32.2 % (32.0-36.0); MONO % 10.4 % (0.0-8.0); NEUT % 75.3 % (16.0-70.0); PLATELET COUNT 134 TH/MM3 (150-450); RED BLOOD COUNT 3.18 MIL/MM3 (4.50-5.90); RED CELL DISTRIBUTION WIDTH 16.9 % (11.6-17.2); WHITE BLOOD COUNT 12.6 TH/MM3 (4.0-11.0)
[2016-09-08] MEDS: CALCIUM ACETATE 667 MG CAP PO SCH ×2 (08:29→13:00)
[2016-09-08] MEDS: PANTOPRAZOLE SOD 40 MG DELAYED RELEASE TAB PO SCH (08:29)
[2016-09-08] MEDS: DOCUSATE SODIUM 50 MG/SENNA 8.6 MG TAB PO SCH (08:29)
[2016-09-08] MEDS: risperiDONE 1 MG TAB PO SCH (08:30)
[2016-09-08 08:54] LABS: BICARBONATE 28.1 MEQ/L (21.0-32.0); POTASSIUM 4.2 MEQ/L (3.5-5.1)
[2016-09-08] MEDS ORDERED: LEVOFLOXACIN 500 MG TAB PO SCH (09:00)
[2016-09-08 12:00] VITALS: BP 125/80; PULSE 72; RESP 20; TEMP 97.9
--- NOTE | 2016-09-08 12:20 | HHI.NPPN ---
Subjective History of Present Illness patient seen anxious wants to go get out Review of Systems General Constitutional: Fatigue Objective Data Data 09/07/16 09/08/16 19:00 07:00 Intake Total 242 ml 680 ml Output Total 2700 ml 660 ml Balance -2458 ml 20 ml Intake Oral 240 ml 680 ml IV Total 2 ml Output Urine Total 700 ml 660 ml Hemodialysis 2000 ml # Bowel Movements 0 0 Vital Signs Date Time Temp Pulse Resp B/P Pulse Ox O2 Delivery O2 Flow Rate FiO2 09/08/16 08:00 98.8 122 20 121/64 100 09/08/16 04:00 98.7 99 20 128/60 99 09/08/16 00:00 98.9 113 20 116/66 100 09/07/16 20:07 109 09/07/16 20:04 98.3 121 18 102/64 95 09/07/16 19:59 Room Air 09/07/16 16:00 97.8 127 20 112/64 99 09/07/16 16:00 Room Air -: 09/08/16 0744 09/08/16 0744 Physical Exam General Appearance: Well Developed, Well Nourished Neck Neck Exam: Neck Supple Pulmonary Resp Exam: Clear Bilaterally, Breath Sounds Equal Cardiology CV Exam: Tachycardia Gastrointestinal/Abdomen GI Exam: Soft, Non-Tender Genitourinary Exam: Clear Urine Extremeties Extremities Exam: No Edema Assessment/Plan Problem List: (1) ESRD (end stage renal disease) on dialysis Plan: Patient is on dialysis TTS HD yesterday on T,T,S dialysis out pt HD set up Tachycardia denies diarrhea WBC better (2) Unspecified psychosis Plan: Psych obs (3) Cystitis Plan: recently treated now has a catheter hCarles Fong MD Sep 08, 2016 12:20
[2016-09-08] MEDS ORDERED: LEVA500T20 PO (13:13)
--- NOTE | 2016-09-08 13:23 | HHI.PR ---
Objective Vitals Vital Signs Date Time Temp Pulse Resp B/P Pulse Ox O2 Delivery O2 Flow Rate FiO2 09/08/16 08:00 98.8 122 20 121/64 100 09/08/16 04:00 98.7 99 20 128/60 99 09/08/16 00:00 98.9 113 20 116/66 100 09/07/16 20:07 109 09/07/16 20:04 98.3 121 18 102/64 95 09/07/16 19:59 Room Air 09/07/16 16:00 97.8 127 20 112/64 99 09/07/16 16:00 Room Air I/O 09/07/16 09/07/16 09/07/16 09/08/16 09/08/16 09/08/16 07:00 15:00 23:00 07:00 15:00 23:00 Intake Total 120 ml 242 ml 320 ml 360 ml Output Total 1700 ml 2700 ml 260 ml 400 ml Balance -1580 ml -2458 ml 60 ml -40 ml Intake Oral 120 ml 240 ml 320 ml 360 ml IV Total 2 ml Output Urine Total 1700 ml 700 ml 260 ml 400 ml Hemodialysis 2000 ml # Bowel Movements 0 0 0 0 Result Diagram: 09/08/1644 09/08/16743 Objective Remarks GENERAL: AAOx3, NAD SKIN: Warm and dry. HEAD: Normocephalic. EYES: No scleral icterus. No injection or drainage. NECK: Supple, trachea midline. No JVD or lymphadenopathy. CARDIOVASCULAR: Regular rate and rhythm without murmurs, gallops, or rubs. RESPIRATORY: Breath sounds equal bilaterally. No accessory muscle use. GASTROINTESTINAL: Abdomen soft, non-tender, nondistended. MUSCULOSKELETAL: No cyanosis, or edema. BACK: Nontender without obvious deformity. No CVA tenderness. Procedures None A/P Problem List: (1) Brief psychotic disorder ICD Code: F23 Status: Acute (2) Sepsis ICD Code: A41.9 Status: Acute (3) UTI (lower urinary tract infection) ICD Code: N39.0 Status: Acute (4) Obstructive uropathy ICD Code: N13.9 Status: Acute (5) Anemia ICD Code: D64.9 Status: Acute (6) Tachycardia ICD Code: R00.0 Status: Acute (7) Leukocytosis ICD Code: D72.829 Status: Acute Assessment and Plan GI prophylaxis: Pepcid, senna/Colace to prevent constipation. DVT prophylaxis: SCDs. Problem Qualifiers (1) Sepsis: Qualified Code: A41.9 - Sepsis, due to unspecified organism (2) Anemia: Qualified Code: D64.9 - Anemia, unspecified type (3) Leukocytosis: Qualified Code: D72.829 - Leukocytosis, unspecified type John Fatima MD Sep 08, 2016 13:23 (1) Sepsis: Qualified Code: A41.9 - Sepsis, due to unspecified organism (2) Anemia: Qualified Code: D64.9 - Anemia, unspecified type (3) Leukocytosis: Qualified Code: D72.829 - Leukocytosis, unspecified type John Fatima MD Sep 08, 2016 13:23
--- NOTE | 2016-09-08 13:37 | PD.AMA ---
Against Medical Advice Note Discharge Disposition: Against Medical Advice Pt Condition on Discharge: Guarded AMA Statement Patient Héctor Anne has decided to leave the hospital against medical advice. This patient has the capacity to refuse care and understands the risks of leaving, including permanent disability and/or , and has had an opportunity to ask questions about his condition. The patient has been informed that he may return for care at any time, and follow up has been arranged/ advised. I was called to see the patient by the nurse. As per nurse report the patient has been acting strange this morning. Patient is outside of the room, dressed up, refuses to talk to me or to be examined. He states that he's leaving. On Actonel and Aleve he gets very agitated and starts yelling at me that I have been reviewed since he got here. In fact I've had very pleasant conversations with him in the previous days. Medical student who saw patient earlier reports that patient was paranoid and did not remember telling me that he had diarrhea the previous day. Hospital course (1) Brief psychotic disorder Patient psychosis seemed to be resolving initially. There is a suspected component of delirium and possible metabolic encephalopathy. Patient was seen by psychiatry who placed the patient on Risperdal. As per consultation by Dr. Cam, the patient has some personality problems and stated that no psychiatric admission was warranted. (2) Sepsis Patient has recent history of sepsis secondary to UTI. Urine culture on 08/28 grew Enterobacter Cloacae, Pseudomonas aeruginosa, group B strep. Patient was placed on oral ciprofloxacin, however persisted to be tachycardic. Because of jump off a blood cell count to 20 K urinalysis was repeated and it was still positive however her cultures were negative. WBC started to trend down and Jumped up to 23 K on 09/07, the patient on that day complained of having had diarrhea that day. C diff was ordered however patient did not have a bowel movement until he decided to leave AGAINST MEDICAL ADVICE. (3) UTI (lower urinary tract infection) Patient treated with IV cefepime which has been switched to Levaquin. repat ua (+) - urine culture no growth. (4) Obstructive uropathy Patient seen by urology in previous admission. Apparently the patient has been having long-standing urinary problems, however states that he was voiding very well in the hospital. Patient seen by urology, Dr Elizondo on 08/29. Dr. Elizondo recommends treatment of UTI. He also recommends outpatient workup to include cystoscopy with bilateral retrograde pyelograms and urodynamics. Continue Elmore catheter. Patient recommended to follow up with urology as an outpatient. (5) Anemia Normocytic anemia. Iron studies are consistent with anemia of chronic disease. Patient's hemoglobin noted to be trended down from 9.0 on 09/04 to 7.9 on 09/05 to 7.6 on 09/06. - sp transfusion of 1 unit of PRBC - Continue to monitor CBC - Stool to Hemoccult test negative (6) Tachycardia EKG ordered stat, it showed sinus rhythm with multiple PVCs, no ST-T changes suggestive of active ischemia. Reviewed by me. Given complaints of palpitations and multiple PVCs on EKG 2 D echocardiogram has been ordered and is still pending. TSH is within normal range. 09/07 Echo Ef 60% w mild LVH (7) Leukocytosis Initially diarrhea trending down. WBC up to 23 K form 12 k on 09/07 - Patient c/o diarrhea and abdominal pain Will check C diff toxin pcr and place on contact isolation GI prophylaxis: Pepcid, senna/Colace to prevent constipation. DVT prophylaxis: SCDs. John Fatima MD Sep 08, 2016 13:37
[2016-09-09] MEDS ORDERED: MONT10TA4 PO (08:25)
== END 2016-09-08 13:30 | disposition left against medical advice (07) | DRG 885 ==
LOC: H4EA 13:38 → N04B 09-04 16:01
PROVIDERS: ADMIT Hospitalist; ATTEND Hospitalist
PROC: 5A1D60Z (ICD-10-PCS; 2016-09-05)
PROC: 30233N1 Transfusion of Nonautologous Red Blood Cells into Peripheral Vein, Percutaneous Approach (ICD-10-PCS; principal; 2016-09-06)
DX: F23 Brief psychotic disorder (principal); I12.0 Hypertensive chronic kidney disease with stage 5 chronic kidney disease or end stage renal disease; N18.6 End stage renal disease; N39.0 Urinary tract infection, site not specified; N13.9 Obstructive and reflux uropathy, unspecified; D63.1 Anemia in chronic kidney disease; R19.7 Diarrhea, unspecified; B96.5 Pseudomonas (aeruginosa) (mallei) (pseudomallei) as the cause of diseases classified elsewhere; R00.2 Palpitations; Z99.2 Dependence on renal dialysis; Z91.15 Patient's noncompliance with renal dialysis
CPT/HCPCS: 36430; 76705; 80048; 80053; 80061; 80074; 81001; 82272; 82728; 83036; 83540; 83550; 83735; 84100; 84443; 85007; 85025; 85027; 86850; 86900; 86901; 86920; 87040; 87086; 90935; 93005; 93306; 96374; 96375; G0103; J0692; J1580; J1644; J1940; J7050; P9016; Q4081

== ENCOUNTER 2016-09-09 07:57 | Inpatient (IN) | payer BC ==
[2016-09-09] VITALS (7 sets, daily range): BP systolic 109–121; BP diastolic 63–75; PULSE 101–113; RESP 18–22; TEMP 97.9–98.9; O2SAT 94–100
[~2016-09-09] VITALS: Ht 175.3 cm; Wt 55.3 kg
[~2016-09-09 07:57] MED LIST changes: -CIPR250T52 PO
[2016-09-09] MEDS ORDERED: MONT10TA4 PO (08:25)
--- NOTE | 2016-09-09 08:37 | PD ---
HPI Chief Complaint: Medical Clearance Time Seen by Provider: 08:13 Travel History International Travel<30 days: No Contact w/Intl Traveler<30days: No Traveled to known affect area: No History of Present Illness HPI This is a 61-year-old male who signed out AGAINST MEDICAL ADVICE yesterday, who presents today stating he wishes to be readmitted. The patient states he signed out AGAINST MEDICAL ADVICE because of his "mental illness". The patient is currently being treated for a urinary tract infection. The patient's also a renal failure/dialysis patient. He was scheduled to have dialysis today. The patient denies any fevers, chills. He is somewhat difficult to obtain a history as he is very guarded and continuous as "I have whatever you think I have ". He states he signed out AGAINST MEDICAL ADVICE because of his mental illness. He is fixated on the thought that he feels the physician caring form stated to him that he gave him the wrong medication. When I asked him to elaborate, he would not just stating that he he does not wish to be treated by him. When I asked who the physician was, he reported Dr. Medeiros". There are no other complaints or history of the time my examination. PFSH Past Medical History Anemia: Yes Arthritis: No Autoimmune Disease: No Anxiety: Yes Depression: No Cancer: No Cardiovascular Problems: Yes Cerebrovascular Accident: No Dialysis: Yes (PT STATES STOP TREATMENT IN JULY FOR ISSUES WITH INSURANCE) Diminished Hearing: No Endocrine: No Genitourinary: Yes Hypertension: Yes Immune Disorder: No Musculoskeletal: No Neurologic: No Psychiatric: No Reproductive: No Respiratory: No Migraines: No Renal Failure: Yes (Pt has end stage renal disease) Seizures: No Tetanus Vaccination: < 5 Years Past Surgical History Abdominal Surgery: Yes (Hernia repair ) Body Medical Devices: Pt has right sided IJ PermCath for dialysis Cardiac Surgery: No Genitourinary Surgery: Yes (Yes - stents placed ureters) Neurologic Surgery: No Other Surgery: Yes (Dialysis CATHETER RIGHT SIDE OF CHEST, Hernia repair ) Social History Alcohol Use: No Tobacco Use: No Substance Use: No Allergies-Medications (Allergen,Severity, Reaction): Coded Allergies: No Known Allergies (Unverified , 09/09/16) Reported Meds & Prescriptions Reported Meds & Active Scripts Active Senna Plus 8.6-50 mg (Sennosides-Docusate Sodium) 1 Tab Tab 1 Tab PO BID Risperdal (Risperidone) 1 Mg Tab 1 Mg PO Q12HR Calcium Acetate (Calcium Acetate (Phosphate Bin) 667 Mg Cap 667 Mg PO TID Ciprofloxacin (Ciprofloxacin HCl) 500 Mg Tab 500 Mg PO DAILY After dialysis Reported Montelukast (Montelukast Sodium) 10 Mg Tab 10 Mg PO HS Review of Systems ROS Limitations: Uncooperative (somewhat uncooperative in that he does not give true answers to a lot of questions and states that he suffers from what ever we think he has.), Psychotic Except as stated in HPI: all other systems reviewed are Neg HENT: No: Headaches, Neck Pain Cardiovascular: No: Chest Pain or Discomfort, Palpitations Respiratory: No: Cough Gastrointestinal: Positive: Abdominal Pain (earlier, none now), No: Nausea, Vomiting Genitourinary: No: Frequency, Dysuria Musculoskeletal: No: Weakness, Pain Neurologic: No: Weakness, Headache, Change in Mentation Psychiatric: Positive: Disorder of Thought, Mood Disorder, No: Substance Abuse (denies) Physical Exam Narrative GENERAL: Well-developed well-nourished male who laughs inappropriately when I am to the room. The patient appears to be in no acute respiratory distress. SKIN: Focused skin assessment warm/dry. HEAD: Atraumatic. Normocephalic. EYES: No scleral icterus. No injection or drainage. ENT: No nasal bleeding or discharge. Mucous membranes pink and moist. NECK: Trachea midline. Supple. CARDIOVASCULAR: Regular rate and rhythm. No murmur appreciated. RESPIRATORY: No accessory muscle use. Clear to auscultation. Breath sounds equal bilaterally. On examination of the chest wall, there is a Vas-Cath in his right upper chest. It does not appear to be any drainage or infectious appearance. GASTROINTESTINAL: Abdomen soft, thin, non-tender, nondistended. MUSCULOSKELETAL: No obvious deformities. No clubbing. No cyanosis. No edema. NEUROLOGICAL: Awake and alert. No obvious cranial nerve deficits. Motor grossly within normal limits. Normal speech. PSYCHIATRIC: Inappropriate laughs with some tangential thoughts. Data Data Last Documented VS Vital Signs Date Time Temp Pulse Resp B/P Pulse Ox O2 Delivery O2 Flow Rate FiO2 09/09/16 08:22 103 18 115/72 98 Room Air 09/09/16 07:59 97.9 Orders Complete Blood Count With Diff (09/09/16 08:13) Comprehensive Metabolic Panel (09/09/16 08:13) Iv Access Insert/Monitor (09/09/16 08:13) Ecg Monitoring (09/09/16 08:13) Oximetry (09/09/16 08:13) Drug Screen, Random Urine (09/09/16 08:13) Admit To Inpatient (09/09/16 ) Code Status (09/09/16 09:49) Vital Signs (Adult) Q4H (09/09/16 09:49) Activity Oob With Assistance (09/09/16 09:49) Diet Heart Healthy (09/09/16 Breakfast) Sodium Chloride 0.9% Flush (Ns Flush) (09/09/16 10:00) Sodium Chloride 0.9% Flush (Ns Flush) (09/09/16 21:00) Acetaminophen (Tylenol) (09/09/16 10:00) Ondansetron Inj (Zofran Inj) (09/09/16 10:00) Basic Metabolic Panel (Bmp) (09/10/16 06:00) Comprehensive Metabolic Panel (09/10/16 06:00) Pt Request For Service (09/09/16 09:49) Case Management Consult (09/09/16 09:49) Scd Bilateral/Knee High KRISTA.BID (09/09/16 09:49) Osmar Bilateral/Knee High KRISTA.QSHIFT (09/09/16 09:49) Acetaminophen (Tylenol) (09/09/16 10:00) Naloxone Inj (Narcan Inj) (09/09/16 10:00) Magnesium Hydroxide Liq (Milk Of Magnesi (09/09/16 10:00) Inpatient Certification (09/09/16 ) Admit Order (Ed Use Only) (09/09/16 09:49) Labs Laboratory Tests Test 09/09/16 09/09/16 08:40 08:45 White Blood Count 16.2 TH/MM3 Red Blood Count 3.27 MIL/MM3 Hemoglobin 9.7 GM/DL Hematocrit 29.5 % Mean Corpuscular Volume 90.1 FL Mean Corpuscular Hemoglobin 29.5 PG Mean Corpuscular Hemoglobin 32.8 % Concent Red Cell Distribution Width 16.6 % Platelet Count 162 TH/MM3 Mean Platelet Volume 8.4 FL Neutrophils (%) (Auto) 80.2 % Lymphocytes (%) (Auto) 6.6 % Monocytes (%) (Auto) 12.0 % Eosinophils (%) (Auto) 0.6 % Basophils (%) (Auto) 0.6 % Neutrophils # (Auto) 13.0 TH/MM3 Lymphocytes # (Auto) 1.1 TH/MM3 Monocytes # (Auto) 1.9 TH/MM3 Eosinophils # (Auto) 0.1 TH/MM3 Basophils # (Auto) 0.1 TH/MM3 CBC Comment AUTO DIFF Differential Total Cells 100 Counted Neutrophils % (Manual) 79 % Band Neutrophils % 3 % Lymphocytes % 7 % Monocytes % 9 % Neutrophils # (Manual) 13.6 TH/MM3 Metamyelocytes 2 % Differential Comment FINAL DIFF MANUAL Platelet Estimate NORMAL Platelet Morphology Comment NORMAL Sodium Level 135 MEQ/L Potassium Level 4.0 MEQ/L Chloride Level 97 MEQ/L Carbon Dioxide Level 24.2 MEQ/L Anion Gap 14 MEQ/L Blood Urea Nitrogen 52 MG/DL Creatinine 4.60 MG/DL Estimat Glomerular Filtration 16 ML/MIN Rate Random Glucose 99 MG/DL Calcium Level 8.7 MG/DL Total Bilirubin 0.3 MG/DL Aspartate Amino Transf 16 U/L (AST/SGOT) Alanine Aminotransferase 111 U/L (ALT/SGPT) Alkaline Phosphatase 72 U/L Total Protein 7.4 GM/DL Albumin 2.6 GM/DL Urine Opiates Screen NEG Urine Barbiturates Screen NEG Urine Amphetamines Screen NEG Urine Benzodiazepines Screen NEG Urine Cocaine Screen NEG Urine Cannabinoids Screen NEG MDM Medical Decision Making Medical Screen Exam Complete: Yes Emergency Medical Condition: Yes Differential Diagnosis UTI versus renal failure versus psychosis Narrative Course 61 year-old gentleman who signed out AGAINST MEDICAL ADVICE yesterday, presents today wishing to be readmitted. The patient has a UTI with 3 organisms including Enterobacter and pseudomonas. The patient's white blood count has gone up from 12,000-16,000 since yesterday. He also scheduled to have hemodialysis today. The patient has a history of renal failure and has a Vas- Cath in place. The case was discussed with Dr. Ishmael Pearl, who will admit the patient back to the [facility] service. Diagnosis Primary Impression: persistent UTI Additional Impressions: ESRD (end stage renal disease) on dialysis Anemia Unspecified psychosis Reginaldo Villarreal MD Sep 09, 2016 08:37
[2016-09-09 09:10] LABS: BASOPHIL # 0.1 TH/MM3 (0-0.2); BASOPHIL % 0.6 % (0.0-2.0); EOSINOPHIL # 0.1 TH/MM3 (0-0.4); EOSINOPHIL % 0.6 % (0.0-4.0); HEMATOCRIT 29.5 % (39.0-51.0); LYMPH % 6.6 % (9.0-44.0); LYMPHOCYTE # 1.1 TH/MM3 (1.0-4.8); MEAN CELL VOLUME 90.1 FL (80.0-100.0); MEAN CORPUSCULAR HEMOGLOBIN 29.5 PG (27.0-34.0); MEAN CORPUSCULAR HGB CONC 32.8 % (32.0-36.0); NEUT % 80.2 % (16.0-70.0); PLATELET COUNT 162 TH/MM3 (150-450); RED BLOOD COUNT 3.27 MIL/MM3 (4.50-5.90); RED CELL DISTRIBUTION WIDTH 16.6 % (11.6-17.2); WHITE BLOOD COUNT 16.2 TH/MM3 (4.0-11.0)
[2016-09-09 09:12] LABS: HEMO FLAGS AUTO DIFF
[2016-09-09 09:22] LABS: AMPHETAMINE, URINE NEG (NEG); BARBITURATES, URINE NEG (NEG); COCAINE, URINE NEG (NEG)
[2016-09-09 09:38] LABS: ALKALINE PHOSPHATASE 72 U/L (45-117); ALT (GPT) 111 U/L (12-78); ANION GAP 14 MEQ/L (5-15); AST (GOT) 16 U/L (15-37); BICARBONATE 24.2 MEQ/L (21.0-32.0); BLOOD UREA NITROGEN 52 MG/DL (7-18); CHLORIDE 97 MEQ/L (98-107); GLOMERULAR FILTRATION RATE 16 ML/MIN (>89); SODIUM (NA) 135 MEQ/L (136-145); TOTAL BILIRUBIN ADULT 0.3 MG/DL (0.2-1.0)
[2016-09-09 09:47] LABS: BANDS 3 % (0-6); METAMYELOCYTES 2 % (0-1); NEUTROPHIL # MANUAL DIFF 13.6 TH/MM3 (1.8-7.7); POLYS (SEG NEUTROPHILS) 79 % (16-70); WBC DIFF SAMPLE 100
[2016-09-09 09:48] LABS: PLATELET ESTIMATE SMEAR NORMAL (NORMAL); PLATELET MORPHOLOGY NORMAL (NORMAL); SCAN/DIFF FINAL DIFF MANUAL
[2016-09-09] MEDS ORDERED: MAGNESIUM HYDROXIDE SUSP 30 ML CUP PO PRN (10:00)
[2016-09-09] MEDS ORDERED: ACETAMINOPHEN 325 MG TAB PO PRN ×3 (10:00→13:30)
[2016-09-09] MEDS ORDERED: NALOXONE HCL 0.4 MG/ML AMP IV PRN (10:00)
[2016-09-09] MEDS ORDERED: SODIUM CHLORIDE 0.9% FLUSH 10 ML FLUSH IV FLUSH PRN ×2 (10:00→13:30)
[2016-09-09] MEDS ORDERED: ONDANSETRON HCL 4 MG/2 ML VIAL IVP PRN (10:00)
[2016-09-09] MEDS ORDERED: SODIUM CHLOR 0.9% 1000 ML INJ 1,000 ML IV PRN ×3 (13:29)
[2016-09-09] MEDS ORDERED: NITROGLYCERIN 0.4 MG SL 25 TABS/BTL SL PRN (13:30)
[2016-09-09] MEDS ORDERED: ALBUMIN HUMAN 25% 25 GM/100 ML BAGP IV PRN (13:30)
[2016-09-09] MEDS ORDERED: cloNIDine HCL 0.1 MG TAB PO PRN (13:30)
[2016-09-09] MEDS ORDERED: GELATIN 12 MM/7 MM FOAM TOP PRN (13:30)
[2016-09-09] MEDS ORDERED: ONDANSETRON HCL 4 MG/2 ML VIAL IV PRN (13:30)
[2016-09-09] MEDS ORDERED: HEPARIN SODIUM - IV 10,000 UNITS/10 ML VIAL IVF PRN (13:30)
[2016-09-09] MEDS ORDERED: diphenhydrAMINE HCL 25 MG CAP PO PRN (13:30)
[2016-09-09] MEDS ORDERED: MANNITOL 12.5 GM/50 ML VIAL IV PRN (13:30)
[2016-09-09 14:04] LABS: BACTERIA, URINE RARE /hpf; BLOOD, URINE TRACE (NEG); GLUCOSE,URINE NEG (NEG); KETONE, URINE NEG (NEG); MUCUS URINE FEW /lpf (OCC); NITRITE,URINE NEG (NEG); SQUAMOUS EPITHELIAL CELL URINE <1 /hpf (0-5); TRANSITIONAL EPI CELLS, URINE <1 /hpf; URINE COLOR LIGHT-YELLOW (YELLW/STRAW)
[2016-09-09 14:05] LABS: COMMENT (UR) CATH-CULTURE IND; CULTURE IF INDICATED CATH CULTURE IND
--- NOTE | 2016-09-09 14:05 | HHI.HP ---
HPI Service [facility] Primary Care Physician Unknown Admission Diagnosis renal failure, urinary tract infection, recent pychotic episode. Diagnoses: (1) UTI (lower urinary tract infection) (2) ESRD (end stage renal disease) on dialysis (3) Brief psychotic disorder Chief Complaint: I came back to the hospital after signing AMA the prior day in order to complete treatment for UTI Travel History International Travel<30 Days: No Contact w/Intl Traveler <30 Da: No Traveled to Known Affected Are: No History of Present Illness 61-year-old male with a past medical history of end-stage renal disease on hemodialysis and noncompliant with medical care who has been treated for UTI- Pseudomonas and Enterobacter for which patient was treated with IV antibiotic but was switched to by mouth Levaquin, however signed AMA yesterday 09/08/16 according to the patient due to his "mental illness" returned to the ED today for readmission in order to complete his treatment. Over the past 24 hours, patient denies any febrile illness or acute change. He denies any chest pain or shortness of breath. He does not endorse any diarrheal episode Review of Systems Except as stated in HPI: all other systems reviewed are Neg Past Family Social History Past Medical History Anemia End-stage renal disease on hemodialysis Hypertension Mood disorder Past Surgical History HERNIA REPAIR Other Surgery: Yes (DYALISIS CATHETER RIGHT SIDE OF CHEST) Reported Medications Senna Plus 8.6-50 mg (Sennosides-Docusate Sodium) 1 Tab Tab 1 Tab PO BID Risperdal (Risperidone) 1 Mg Tab 1 Mg PO Q12HR Calcium Acetate (Calcium Acetate (Phosphate Bin) 667 Mg Cap 667 Mg PO TID Ciprofloxacin (Ciprofloxacin HCl) 500 Mg Tab 500 Mg PO DAILY After dialysis Montelukast (Montelukast Sodium) 10 Mg Tab 10 Mg PO HS Allergies: Coded Allergies: No Known Allergies (Unverified , 09/09/16) Family History Father from complication of Alcoholism Social History Alcohol Use: No Tobacco Use: No Substance Use: No Physical Exam Vital Signs Vital Signs Date Time Temp Pulse Resp B/P Pulse Ox O2 Delivery O2 Flow Rate FiO2 6/10/17 12:00 98.4 105 18 121/69 99 09/09/16 11:21 103 18 109/65 100 09/09/16 08:22 103 18 115/72 98 Room Air 09/09/16 08:14 109 18 115/72 100 Room Air 09/09/16 07:59 97.9 113 20 116/63 94 Room Air Physical Exam GENERAL: This is a well-nourished, well-developed patient, in no apparent distress. SKIN: No rashes, ecchymoses or lesions. Cool and dry. HEAD: Atraumatic. Normocephalic. No temporal or scalp tenderness. EYES: Pupils equal round and reactive. Extraocular motions intact. No scleral icterus. No injection or drainage. ENT: Nose without bleeding, purulent drainage or septal hematoma. Throat without erythema, tonsillar hypertrophy or exudate. Uvula midline. Airway patent. NECK: Trachea midline. No JVD or lymphadenopathy. Supple, nontender, no meningeal signs. CARDIOVASCULAR: Regular rate and rhythm without murmurs, gallops, or rubs. RESPIRATORY: Clear to auscultation. Breath sounds equal bilaterally. No wheezes , rales, or rhonchi. GASTROINTESTINAL: Abdomen soft, non-tender, nondistended. No hepato-splenomegaly , or palpable masses. No guarding. MUSCULOSKELETAL: Extremities without clubbing, cyanosis, or edema. No joint tenderness, effusion, or edema noted. No calf tenderness. Negative Homans sign bilaterally. NEUROLOGICAL: Awake and alert. Cranial nerves II through XII intact. Motor and sensory grossly within normal limits. Five out of 5 muscle strength in all muscle groups. Normal speech. Laboratory Laboratory Tests Test 09/09/16 09/09/16 08:40 08:45 White Blood Count 16.2 Red Blood Count 3.27 Hemoglobin 9.7 Hematocrit 29.5 Mean Corpuscular Volume 90.1 Mean Corpuscular Hemoglobin 29.5 Mean Corpuscular Hemoglobin 32.8 Concent Red Cell Distribution Width 16.6 Platelet Count 162 Mean Platelet Volume 8.4 Neutrophils (%) (Auto) 80.2 Lymphocytes (%) (Auto) 6.6 Monocytes (%) (Auto) 12.0 Eosinophils (%) (Auto) 0.6 Basophils (%) (Auto) 0.6 Neutrophils # (Auto) 13.0 Lymphocytes # (Auto) 1.1 Monocytes # (Auto) 1.9 Eosinophils # (Auto) 0.1 Basophils # (Auto) 0.1 CBC Comment AUTO DIFF Differential Total Cells 100 Counted Neutrophils % (Manual) 79 Band Neutrophils % 3 Lymphocytes % 7 Monocytes % 9 Neutrophils # (Manual) 13.6 Metamyelocytes 2 Differential Comment FINAL DIFF MANUAL Platelet Estimate NORMAL Platelet Morphology Comment NORMAL Sodium Level 135 Potassium Level 4.0 Chloride Level 97 Carbon Dioxide Level 24.2 Anion Gap 14 Blood Urea Nitrogen 52 Creatinine 4.60 Estimat Glomerular Filtration 16 Rate Random Glucose 99 Calcium Level 8.7 Total Bilirubin 0.3 Aspartate Amino Transf 16 (AST/SGOT) Alanine Aminotransferase 111 (ALT/SGPT) Alkaline Phosphatase 72 Total Protein 7.4 Albumin 2.6 Urine Opiates Screen NEG Urine Barbiturates Screen NEG Urine Amphetamines Screen NEG Urine Benzodiazepines Screen NEG Urine Cocaine Screen NEG Urine Cannabinoids Screen NEG Result Diagram: 09/09/1683909/09/16839 Assessment and Plan Problem List: (1) UTI (lower urinary tract infection) ICD Code: N39.0 Status: Acute (2) ESRD (end stage renal disease) on dialysis ICD Code: N18.6 Status: Acute (3) Leukocytosis ICD Code: D72.829 Status: Acute (4) Obstructive uropathy ICD Code: N13.9 Status: Acute (5) Normochromic normocytic anemia ICD Code: D64.9 Status: Acute (6) Brief psychotic disorder ICD Code: F23 Status: Acute Assessment and Plan 61-year-old man with UTI,PSAE, Enterobacter,GBS Resume Levaquin 500 mg by mouth every 8 hours Consult infectious disease specialist End-stage renal disease on hemodialysis Reconsult Nephrology Resume PhosLo Monitor BUN and creatinine Recent obstructive uropathy Seen by urology Dr. Elizondo 08/29/16 who recommended treatment for UTI Patient will need outpatient workup including cystoscopy with bilateral retrograde pyelograms and urodynamics Continue with Elmore care Recent diarrheal episode-antibiotic associated? Rule out C. difficile with C. difficile PCR and treat accordingly Start Lactinex when necessary Leukocytosis Monitor and treat as in above Acute psychosis Resume Risperdal and psychiatry consultation when necessary Normochromic normocytic anemia of chronic kidney disease H&H stable and continue to monitor Code Status Full code Discussed Condition With Patient, ED physician Physician Certification 2 Midnight Certification Type: Admission for Inpatient Services Order for Inpatient Services The services are ordered in accordance with Medicare regulations or non- Medicare payer requirements, as applicable. In the case of services not specified as inpatient-only, they are appropriately provided as inpatient services in accordance with the 2-midnight benchmark. Estimated LOS (days): 2 days is the estimated time the patient will need to remain in the hospital, assuming treatment plan goals are met and no additional complications. Post-Hospital Plan: Not yet determined Ishmael Pearl MD Sep 09, 2016 14:05
[2016-09-09] MEDS ORDERED: RESP: ALBUTEROL 2.5 MG/IPRATROPIUM 0.5 MG NEB (PRN) NEB (14:15)
[2016-09-09] MEDS: LEVOFLOXACIN 500 MG TAB PO SCH (14:46)
--- NOTE | 2016-09-09 16:52 | MB ---
cc: CAS STYLES MD DATE OF CONSULTATION 09/09/[address] Pearl REASON FOR CONSULTATION Patient known to service, resume care. HISTORY OF PRESENT ILLNESS This is a 61-year-old white male whom I have never seen before. The patient was recently admitted to the hospital on September 02 and was being treated with antibiotics for urinary tract infection. He also was noted to have psychosis. He is a patient who has end-stage renal disease and receives hemodialysis. The patient had leukocytosis while in the hospital. The patient left against medical advice and returned to the emergency department on September 09. The patient reportedly developed psychosis while in the hospital. He tells me that his mental status was clear and he had no difficulty with psychiatric illness prior to being admitted to the hospital. He reportedly was on dialysis and stopped dialysis in July. He tells me that he checked out of the hospital because he overheard discussion among his caregivers and "one physician stated that he had been given the wrong medication." The patient is awake and alert and his mentation is currently clear. The patient tells me that he was due to have his dialysis catheter checked in order to resume dialysis and he left the dialysis unit when there was a remark about his catheter having air in it. He tells me that he always makes his own decisions and is making decisions best for himself. The patient notes that he has diarrhea. He states that he had three loose stools today. He was also noted to have diarrhea before he left against medical advice from the hospital. PAST MEDICAL HISTORY End-stage renal disease, Perma-Cath placement. ALLERGIES NO KNOWN DRUG ALLERGIES. MEDICATIONS 1. Tylenol. 2. Zofran. 3. Narcan. SOCIAL HISTORY No tobacco. No alcohol. No illicit drugs. 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 REVIEW OF SYSTEMS The review of systems negative on 10-point review except for some pressured speech. FAMILY HISTORY Noncontributory. PHYSICAL EXAMINATION GENERAL: This is a thin frail-appearing male who is in no acute distress. He is awake and alert and oriented. VITAL SIGNS: Include temperature 97.9, BP 109/65, respirations 18, heart rate 103. HEENT: Head is atraumatic. Extraocular movements grossly intact, pupils reactive to light. No icterus. NECK: Supple without adenopathy. LUNGS: Clear breath sounds. CHEST: Right sided Perma-Cath appears intact. HEART: Regular rate and rhythm without murmurs, rubs or gallops. ABDOMEN: Bowel sounds present, soft, flat, nontender. : The patient has a Elmore catheter which has clear light yellow urine. RECTAL: Not performed. EXTREMITIES: No clubbing, cyanosis or edema. Diffuse muscle wasting. SKIN: No rash. NEURO: Nonfocal. LABORATORY DATA WBC 16.2, 80% neutrophils, platelet 162, hemoglobin 9.7, creatinine 4.60, BUN 52, sodium 135, AST 16, ALT 111. Toxicology screen negative. IMPRESSION 1. Recent urinary tract infection. Patient with indwelling Elmore catheter. Bacterial organisms including Enterobacter and Pseudomonas on last positive urine culture check. More recently urine culture on 09/05 had no growth. 2. End-stage renal disease. 3. Psychosis, probably secondary to medication. The patient apparently became psychotic after he was put on Levaquin and it appears that he had improved after Levaquin was discontinued. 4. Loose stools/diarrhea. Possible antibiotic associated diarrhea. Rule out C-difficile. RECOMMENDATIONS 1. Repeat the urine culture. 2. Obtain stool for C-difficile testing. 3. Withhold antibiotics. 4. Avoid Levaquin since it appears to be associated with the patient developing psychosis. 5. Continue the patient's dialysis. Thank you for this consultation. The patient's progress will be followed. Dr. Benitez had seen the patient previously and she will be notified of his admission and will follow him up on Sunday if no significant findings occurred over the next two days. Cas Styles MD FD/MIQUEL /12:48 PM /4:33 PM
[2016-09-09] MEDS: GENTAMICIN SULFATE (DIALYSIS USE ONLY) 20 MG/2 ML VIAL IV PRN (17:27)
[2016-09-09] MEDS: HEPARIN SODIUM - IV 10,000 UNITS/10 ML VIAL PRN (17:27)
[2016-09-09] MEDS: EPOETIN ALFA 2,000 UNITS/ML VIAL IV PRN (17:28)
--- NOTE | 2016-09-09 17:34 | MB ---
cc: JAYDA CHAN MD DATE OF CONSULTATION 09/09/16 REASON FOR CONSULTATION End-stage renal disease on hemodialysis for management. HISTORY OF PRESENT ILLNESS This is a 61-year-old male with past medical history of hypertension, chronic anemia, end-stage renal disease on hemodialysis who came to the hospital because he wanted to get situated for outpatient dialysis and wanted to continue the care here. I was called to see the patient for management of dialysis. The patient has been on hemodialysis since July of last year and he has been getting dialysis in [facility] and he has a Perma-Cath in the right side. The patient is not a very good historian. He keeps on forgetting things. I got some information from his previous admission when Dr. Fong saw him and he just signed against medical advice yesterday. The patient denies any nausea or vomiting. He does not have any shortness of breath. No chest pain. He currently has a Elmore catheter and he is telling me that he possibly has a urinary tract infection. There is no history of fever, no nausea or vomiting. No diarrhea. PAST MEDICAL HISTORY 1. Hypertension, 2. End-stage renal disease 3. Benign prostatic hypertrophy, 4. Chronic anemia, 5. History of recurrent urinary tract infection. PAST SURGICAL HISTORY 1. Hernia repair surgery, 2. History of Perma-Cath on the right side. REVIEW OF SYSTEMS Denies any history of fever. No sore throat. No headache, dizziness or blurring of vision. No chest pain. No palpitation. No nausea or vomiting. No abdominal pain. No history of diarrhea. SOCIAL HISTORY The patient is . He denies any history of smoking or alcoholism. FAMILY HISTORY Noncontributory. ALLERGIES NO KNOWN DRUG ALLERGIES. MEDICATIONS He was just given 1. Zofran p.r.n. 2. Narcan. PHYSICAL EXAMINATION GENERAL: The patient is awake, alert. He is not in acute distress. VITAL SIGNS: Last blood pressure 121/69, temperature is 98.4, oxygen saturation is 99-100. HEENT: Pupils equally reacting to light. Nonicteric sclerae, conjunctivae pale. NECK: Supple. JVD is not elevated. LUNGS: The patient has bilateral good air entry with occasional wheezing. HEART: S1, S2, regular rhythm. ABDOMEN: Soft, lax. There is no tenderness. Bowel sounds positive. EXTREMITIES: There is no pedal edema. LABORATORY DATA WBC 16.2, hemoglobin 9.5, platelet count of 162. Sodium 135. Potassium 4.0, chloride 97, bicarb 24.2, BUN 52, creatinine 4.6, AST 16, ALT is 111, total protein 7.4. Albumin is 2.6, INR is 1.2. Urinalysis showing large leukocyte esterase. This was done four days ago and his urine culture is showing Pseudomonas Enterobacter and group B strep. IMAGING STUDIES The patient had an ultrasound of kidneys done on August 28 and this shows that he has distended bladder with bilateral hydronephrosis. ASSESSMENT/PLAN 1. End-stage renal disease on hemodialysis. 2. Recurrent urinary tract infection. 3. History of Anemia. 4. Hypertension. Patient has history of non compliance, Signed AMA and now admitted again. HD today, to arrange out patient HD at [facility] in [facility]. Dr. Fong will follow from Sunday. MD JOSHUA Reyes/ /1:33 PM /5:19 PM MTDD
[2016-09-09] MEDS: CALCIUM ACETATE 667 MG CAP PO SCH (18:14)
[2016-09-09] MEDS: risperiDONE 1 MG TAB PO SCH (21:28)
[2016-09-09] MEDS: MONTELUKAST SODIUM 10 MG TAB PO SCH (21:28)
[2016-09-09] MEDS: SODIUM CHLORIDE 0.9% FLUSH 10 ML FLUSH IV FLUSH SCH (21:29)
[2016-09-10 00:20] VITALS: BP 110/78; PULSE 109; RESP 20; TEMP 98.7; O2SAT 100
[2016-09-10 04:22] VITALS: BP 115/90; PULSE 68; RESP 20; TEMP 97.8; O2SAT 100
[2016-09-10 08:09] LABS: ANION GAP 12 MEQ/L (5-15); AST (GOT) 14 U/L (15-37); BICARBONATE 25.9 MEQ/L (21.0-32.0); BLOOD UREA NITROGEN 37 MG/DL (7-18); CHLORIDE 97 MEQ/L (98-107); GLOMERULAR FILTRATION RATE 19 ML/MIN (>89); SODIUM (NA) 135 MEQ/L (136-145)
[2016-09-10 08:13] LABS: ALKALINE PHOSPHATASE 82 U/L (45-117); ALT (GPT) 80 U/L (12-78); TOTAL BILIRUBIN ADULT 0.3 MG/DL (0.2-1.0)
[2016-09-10 08:38] VITALS: BP 94/55; PULSE 95; RESP 20; TEMP 97.6; O2SAT 100
[2016-09-10] MEDS: risperiDONE 1 MG TAB PO SCH ×2 (09:45→21:56)
[2016-09-10] MEDS: CALCIUM ACETATE 667 MG CAP PO SCH ×3 (09:45→18:29)
[2016-09-10] MEDS: SODIUM CHLORIDE 0.9% FLUSH 10 ML FLUSH IV FLUSH SCH ×2 (09:45→21:56)
--- NOTE | 2016-09-10 10:52 | HHI.PR ---
Subjective Remarks Follow-up UTI/obstructive uropathy 09/10/16-patient seen and examined, he apologized for his actions regarding the fact he left AMA 2 days ago. Currently off antibiotic per infectious disease specialist. Afebrile. No diarrheal episode. Objective Vitals Vital Signs Date Time Temp Pulse Resp B/P Pulse Ox O2 Delivery O2 Flow Rate FiO2 09/10/16 08:38 97.6 95 20 94/55 100 09/10/16 04:22 97.8 68 20 115/90 100 09/10/16 00:20 98.7 109 20 110/78 100 09/09/16 20:16 98.9 101 22 119/75 97 09/09/16 17:43 99 21 09/09/16 12:00 98.4 105 18 121/69 99 09/09/16 11:21 103 18 109/65 100 I/O 09/09/16 09/09/16 09/09/16 09/10/16 09/10/16 09/10/16 07:00 15:00 23:00 07:00 15:00 23:00 Intake Total 240 ml 360 ml Output Total 650 ml 2000 ml 900 ml Balance -650 ml -1760 ml -540 ml Intake Oral 240 ml 360 ml Output Urine Total 650 ml 900 ml Hemodialysis 2000 ml # Voids 0 # Bowel Movements 0 0 Result Diagram: 09/09/16 0840 09/10/16 0702 Objective Remarks GENERAL: NAD SKIN: Warm and dry. HEAD: Normocephalic. EYES: No scleral icterus. No injection or drainage. NECK: Supple, trachea midline. No JVD or lymphadenopathy. CARDIOVASCULAR: Regular rate and rhythm without murmurs, gallops, or rubs. RESPIRATORY: Breath sounds equal bilaterally. No accessory muscle use. GASTROINTESTINAL: Abdomen soft, non-tender, nondistended. MUSCULOSKELETAL: No cyanosis, or edema. BACK: Nontender without obvious deformity. No CVA tenderness. A/P Problem List: (1) UTI (lower urinary tract infection) ICD Code: N39.0 Status: Acute (2) ESRD (end stage renal disease) on dialysis ICD Code: N18.6 Status: Acute (3) Leukocytosis ICD Code: D72.829 Status: Acute (4) Obstructive uropathy ICD Code: N13.9 Status: Acute (5) Normochromic normocytic anemia ICD Code: D64.9 Status: Acute (6) Brief psychotic disorder ICD Code: F23 Status: Acute Assessment and Plan 61-year-old man with UTI,PSAE, Enterobacter,GBS Levaquin 500 mg by mouth every 8 hours was discontinued yesterday by infectious disease specialist Continue to monitor off antibiotics End-stage renal disease on hemodialysis Appreciate input from Nephrology Continue PhosLo Monitor BUN and creatinine Recent obstructive uropathy Seen by urology Dr. Elizondo 08/29/16 who recommended treatment for UTI Patient will need outpatient workup including cystoscopy with bilateral retrograde pyelograms and urodynamics Continue with Elmore care Recent diarrheal episode-antibiotic associated? Rule out C. difficile with C. difficile PCR and treat accordingly Continue Lactinex when necessary Leukocytosis Monitor and treat as in above Acute psychosis Continue Risperdal and psychiatry consultation when necessary Normochromic normocytic anemia of chronic kidney disease H&H stable and continue to monitor Ishmael Pearl MD Sep 10, 2016 10:52
[2016-09-10 12:00] VITALS: BP 111/66; PULSE 100; RESP 20; TEMP 97.3; O2SAT 100
[2016-09-10 16:24] VITALS: BP 104/62; PULSE 105; RESP 20; TEMP 97.6; O2SAT 100
[2016-09-10 20:13] VITALS: BP 104/56; PULSE 84; RESP 22; TEMP 97.2; O2SAT 100
[2016-09-10] MEDS: MONTELUKAST SODIUM 10 MG TAB PO SCH (21:56)
[2016-09-11 01:04] VITALS: BP 109/60; PULSE 99; RESP 18; TEMP 99.5; O2SAT 99
[2016-09-11 06:19] VITALS: BP 96/50; PULSE 113; RESP 18; TEMP 99; O2SAT 100
[2016-09-11 08:27] VITALS: BP 98/62; PULSE 101; RESP 20; TEMP 97.7; O2SAT 100
--- NOTE | 2016-09-11 09:31 | HHI.PR ---
Subjective Remarks Follow-up UTI/obstructive uropathy 09/10/16-patient seen and examined, he apologized for his actions regarding the fact he left AMA 2 days ago. Currently off antibiotic per infectious disease specialist. Afebrile. No diarrheal episode. 09/11/16-patient seen and examined, stable and no complaint. Currently afebrile and denies any diarrhea. No acute event overnight Objective Vitals Vital Signs Date Time Temp Pulse Resp B/P Pulse Ox O2 Delivery O2 Flow Rate FiO2 09/11/16 08:27 97.7 101 20 98/62 100 09/11/16 06:19 99.0 113 18 96/50 100 09/11/16 01:04 99.5 99 18 109/60 99 09/10/16 20:13 97.2 84 22 104/56 100 09/10/16 16:24 97.6 105 20 104/62 100 09/10/16 12:00 97.3 100 20 111/66 100 I/O 09/10/16 09/10/16 09/10/16 09/11/16 09/11/16 09/11/16 07:00 15:00 23:00 07:00 15:00 23:00 Intake Total 360 ml 600 ml 480 ml Output Total 900 ml 1600 ml 200 ml 800 ml 900 ml Balance -540 ml -1000 ml 280 ml -800 ml -900 ml Intake Oral 360 ml 600 ml 480 ml Output Urine Total 900 ml 1600 ml 200 ml 800 ml 900 ml # Bowel Movements 0 1 1 Result Diagram: 09/09/16 0840 09/10/16 0702 Objective Remarks GENERAL: NAD SKIN: Warm and dry. HEAD: Normocephalic. EYES: No scleral icterus. No injection or drainage. NECK: Supple, trachea midline. No JVD or lymphadenopathy. CARDIOVASCULAR: Regular rate and rhythm without murmurs, gallops, or rubs. RESPIRATORY: Breath sounds equal bilaterally. No accessory muscle use. GASTROINTESTINAL: Abdomen soft, non-tender, nondistended. MUSCULOSKELETAL: No cyanosis, or edema. BACK: Nontender without obvious deformity. No CVA tenderness. A/P Problem List: (1) UTI (lower urinary tract infection) ICD Code: N39.0 Status: Acute (2) ESRD (end stage renal disease) on dialysis ICD Code: N18.6 Status: Acute (3) Leukocytosis ICD Code: D72.829 Status: Acute (4) Obstructive uropathy ICD Code: N13.9 Status: Acute (5) Normochromic normocytic anemia ICD Code: D64.9 Status: Acute (6) Brief psychotic disorder ICD Code: F23 Status: Acute Assessment and Plan 61-year-old man with UTI,PSAE, Enterobacter,GBS off Levaquin 500 mg by mouth every 8 hours since 09/09/16 per infectious disease specialist Continue to monitor off antibiotics End-stage renal disease on hemodialysis Appreciate input from Nephrology Continue PhosLo Monitor BUN and creatinine Recent obstructive uropathy Seen by urology Dr. Elizondo 08/29/16 who recommended treatment for UTI Patient will need outpatient workup including cystoscopy with bilateral retrograde pyelograms and urodynamics Continue with Elmore care Recent diarrheal episode-antibiotic associated? Rule out C. difficile with C. difficile PCR and treat accordingly Continue Lactinex when necessary Leukocytosis Monitor and treat as in above Acute psychosis Continue Risperdal and psychiatry consultation when necessary Normochromic normocytic anemia of chronic kidney disease H&H stable and continue to monitor Ishmael Pearl MD Sep 11, 2016 09:30
[2016-09-11] MEDS: risperiDONE 1 MG TAB PO SCH ×2 (09:47→21:59)
[2016-09-11] MEDS: CALCIUM ACETATE 667 MG CAP PO SCH ×3 (09:47→17:04)
[2016-09-11] MEDS: SODIUM CHLORIDE 0.9% FLUSH 10 ML FLUSH IV FLUSH SCH ×2 (09:47→21:59)
[2016-09-11 10:49] LABS: AUTOMATED NEUTROPHIL # 10.8 TH/MM3 (1.8-7.7); BASOPHIL # 0.1 TH/MM3 (0-0.2); BASOPHIL % 0.5 % (0.0-2.0); EOSINOPHIL # 0.2 TH/MM3 (0-0.4); EOSINOPHIL % 1.2 % (0.0-4.0); HEMATOCRIT 32.2 % (39.0-51.0); HEMO FLAGS DIFF FINAL; LYMPH % 12.3 % (9.0-44.0); LYMPHOCYTE # 1.8 TH/MM3 (1.0-4.8); MEAN CELL VOLUME 89.9 FL (80.0-100.0); MEAN CORPUSCULAR HEMOGLOBIN 29.5 PG (27.0-34.0); MEAN CORPUSCULAR HGB CONC 32.8 % (32.0-36.0); MONO % 11.9 % (0.0-8.0); NEUT % 74.1 % (16.0-70.0); PLATELET COUNT 146 TH/MM3 (150-450); RED BLOOD COUNT 3.58 MIL/MM3 (4.50-5.90); RED CELL DISTRIBUTION WIDTH 16.9 % (11.6-17.2); WHITE BLOOD COUNT 14.5 TH/MM3 (4.0-11.0)
[2016-09-11 11:11] LABS: POTASSIUM 3.8 MEQ/L (3.5-5.1)
[2016-09-11 12:08] VITALS: BP 114/69; PULSE 103; RESP 20; TEMP 97.2; O2SAT 100
[2016-09-11] MEDS: LEVOFLOXACIN 500 MG TAB PO SCH (13:10)
--- NOTE | 2016-09-11 15:45 | HHI.IDPN ---
Subjective Subjective Remarks chart reviewed Known to me 61 yo M with ESRD/ostructive uropathy and UTI, PSAE, Enterobacter, GBS - all S to levaquine Developpe d acute psychosis Left AMA last admission He was on levaquin, cipro from 08/28 thru today Doing well denies fever, abnd pain, no diarrhea Antibiotics levaquine Allergies: Coded Allergies: No Known Allergies (Unverified , 09/09/16) Objective . Vital Signs Date Time Temp Pulse Resp B/P Pulse Ox O2 Delivery O2 Flow Rate FiO2 09/11/16 12:08 97.2 103 20 114/69 100 09/11/16 08:27 97.7 101 20 98/62 100 09/11/16 06:19 99.0 113 18 96/50 100 09/11/16 01:04 99.5 99 18 109/60 99 09/10/16 20:13 97.2 84 22 104/56 100 09/10/16 16:24 97.6 105 20 104/62 100 09/10/16 09/10/16 09/11/16 15:00 23:00 07:00 Intake Total 600 ml 480 ml Output Total 1600 ml 200 ml 800 ml Balance -1000 ml 280 ml -800 ml Intake Oral 600 ml 480 ml Output Urine Total 1600 ml 200 ml 800 ml # Bowel Movements 1 1 . Laboratory Tests Test 09/11/16 10:30 White Blood Count 14.5 TH/MM3 Red Blood Count 3.58 MIL/MM3 Hemoglobin 10.5 GM/DL Hematocrit 32.2 % Mean Corpuscular Volume 89.9 FL Mean Corpuscular Hemoglobin 29.5 PG Mean Corpuscular Hemoglobin 32.8 % Concent Red Cell Distribution Width 16.9 % Platelet Count 146 TH/MM3 Mean Platelet Volume 8.2 FL Neutrophils (%) (Auto) 74.1 % Lymphocytes (%) (Auto) 12.3 % Monocytes (%) (Auto) 11.9 % Eosinophils (%) (Auto) 1.2 % Basophils (%) (Auto) 0.5 % Neutrophils # (Auto) 10.8 TH/MM3 Lymphocytes # (Auto) 1.8 TH/MM3 Monocytes # (Auto) 1.7 TH/MM3 Eosinophils # (Auto) 0.2 TH/MM3 Basophils # (Auto) 0.1 TH/MM3 CBC Comment DIFF FINAL Differential Comment Laboratory Tests Test 09/10/16 09/11/16 07:02 10:30 Sodium Level 135 MEQ/L 136 MEQ/L Potassium Level 4.0 MEQ/L 3.8 MEQ/L Chloride Level 97 MEQ/L 101 MEQ/L Carbon Dioxide Level 25.9 MEQ/L 23.0 MEQ/L Anion Gap 12 MEQ/L 12 MEQ/L Blood Urea Nitrogen 37 MG/DL 44 MG/DL Creatinine 3.97 MG/DL 4.42 MG/DL Estimat Glomerular Filtration 19 ML/MIN 17 ML/MIN Rate Random Glucose 96 MG/DL 91 MG/DL Calcium Level 8.1 MG/DL 8.2 MG/DL Total Bilirubin 0.3 MG/DL Aspartate Amino Transf 14 U/L (AST/SGOT) Alanine Aminotransferase 80 U/L (ALT/SGPT) Alkaline Phosphatase 82 U/L Total Protein 7.5 GM/DL Albumin 2.6 GM/DL Microbiology Date/Time Procedure Status Source Growth 09/09/16 13:45 Urine Culture - Final Complete Urine Clean Catch NO GROWTH IN 48 HOURS. Physical Exam CONSTITUTIONAL/GENERAL: This is a thin patient, in no apparent distress. TUBES/LINES/DRAINS: SKIN: No jaundice, rashes, or lesions. Skin temperature appropriate. Not diaphoretic. EYES: Pupils equal and round and reactive. No scleral icterus. No injection or drainage. Fundi not examined. ENT: Hearing grossly normal. Throat without visible erythema, exudates, masses , or lesions. CARDIOVASCULAR: Regular rate and rhythm without murmurs, gallops, or rubs. No JVD. Peripheral pulses symmetric. RESPIRATORY/CHEST: Symmetric, unlabored respirations. Clear to auscultation. Breath sounds equal bilaterally. No wheezes, rales, or rhonchi. GASTROINTESTINAL: Abdomen soft, non-tender, nondistended. No hepato-splenomegaly , or palpable masses. No guarding. Bowel sounds present. GENITOURINARY: Without palpable bladder distension. Elmore catheter in placew tih clear yellow urine MUSCULOSKELETAL: Extremities without clubbing, cyanosis, or edema. No joint tenderness or effusion noted. No calf tenderness. No mottling or clubbing. NEUROLOGICAL: Awake and alert. Motor and sensory grossly within normal limits. Follows commands. Clear speech. Moves all extremities. PSYCHIATRIC: No obvious anxiety/depression. no apparent hallucinations or other psychotic thought process. Assessment & Plan Remarks UTI, PSAE, Enterobacter, GBS - sp 2 weeks of adequate abx coverage Obstructive uropathy ESRD/HD - OK to dc home on no abx - fu with urologist dw Connie Randle MD Sep 11, 2016 15:45
[2016-09-11 16:48] VITALS: BP 111/67; PULSE 103; RESP 20; TEMP 97.4; O2SAT 100
[2016-09-11 20:00] VITALS: BP 102/59; PULSE 98; RESP 18; TEMP 98.4; O2SAT 98
[2016-09-11] MEDS: MONTELUKAST SODIUM 10 MG TAB PO SCH (21:59)
[2016-09-12] VITALS: BP 100/58; PULSE 86; RESP 18; TEMP 98.3; O2SAT 99
[2016-09-12 04:00] VITALS: BP 115/70; PULSE 95; RESP 16; TEMP 96.3; O2SAT 99
[2016-09-12 08:00] VITALS: BP 112/54; PULSE 92; RESP 20; TEMP 98; O2SAT 99
[2016-09-12] MEDS: CALCIUM ACETATE 667 MG CAP PO SCH ×2 (08:04→12:18)
[2016-09-12] MEDS: risperiDONE 1 MG TAB PO SCH (08:04)
[2016-09-12] MEDS: SODIUM CHLORIDE 0.9% FLUSH 10 ML FLUSH IV FLUSH SCH (08:04)
[2016-09-12] MEDS: GENTAMICIN SULFATE (DIALYSIS USE ONLY) 20 MG/2 ML VIAL IV PRN (10:02)
[2016-09-12] MEDS: HEPARIN SODIUM - IV 10,000 UNITS/10 ML VIAL PRN (10:02)
[2016-09-12] MEDS: EPOETIN ALFA 2,000 UNITS/ML VIAL IV PRN (10:02)
--- NOTE | 2016-09-12 12:17 | HHI.PR ---
Subjective Remarks Follow-up UTI/obstructive uropathy 09/10/16-patient seen and examined, he apologized for his actions regarding the fact he left AMA 2 days ago. Currently off antibiotic per infectious disease specialist. Afebrile. No diarrheal episode. 09/11/16-patient seen and examined, stable and no complaint. Currently afebrile and denies any diarrhea. No acute event overnight 09/12/16-patient seen and examined in hemodialysis center, stable and no acute event. Currently afebrile. Case discussed this case worker regarding outpatient HD Objective Vitals Vital Signs Date Time Temp Pulse Resp B/P Pulse Ox O2 Delivery O2 Flow Rate FiO2 09/12/16 08:00 98.0 92 20 112/54 99 09/12/16 04:00 96.3 95 16 115/70 99 09/12/16 00:00 98.3 86 18 100/58 99 09/11/16 20:00 98.4 98 18 102/59 98 09/11/16 16:48 97.4 103 20 111/67 100 I/O 09/11/16 09/11/16 09/11/16 09/12/16 09/12/16 09/12/16 07:00 15:00 23:00 07:00 15:00 23:00 Intake Total 1080 ml Output Total 800 ml 900 ml 1350 ml 800 ml Balance -800 ml -900 ml -270 ml -800 ml Intake Oral 1080 ml Output Urine Total 800 ml 900 ml 1350 ml 800 ml # Bowel Movements 1 2 Result Diagram: 09/11/16 1030 09/11/16 1030 Objective Remarks GENERAL: NAD and bucket hooker to HD machine SKIN: Warm and dry. HEAD: Normocephalic. EYES: No scleral icterus. No injection or drainage. NECK: Supple, trachea midline. No JVD or lymphadenopathy. CARDIOVASCULAR: Regular rate and rhythm without murmurs, gallops, or rubs. RESPIRATORY: Breath sounds equal bilaterally. No accessory muscle use. GASTROINTESTINAL: Abdomen soft, non-tender, nondistended. MUSCULOSKELETAL: No cyanosis, or edema. BACK: Nontender without obvious deformity. No CVA tenderness. Procedures none A/P Problem List: (1) UTI (lower urinary tract infection) ICD Code: N39.0 Status: Resolved (2) ESRD (end stage renal disease) on dialysis ICD Code: N18.6 Status: Chronic (3) Leukocytosis ICD Code: D72.829 Status: Resolved (4) Obstructive uropathy ICD Code: N13.9 Status: Acute (5) Normochromic normocytic anemia ICD Code: D64.9 Status: Acute (6) Brief psychotic disorder ICD Code: F23 Status: Acute Assessment and Plan 61-year-old man with UTI,PSAE, Enterobacter,GBS off Levaquin 500 mg by mouth every 8 hours since 09/09/16 per infectious disease specialist Continue to monitor off antibiotics End-stage renal disease on hemodialysis Appreciate input from Nephrology. Patient will need outpatient hemodialysis set up prior to discharge Continue PhosLo Monitor BUN and creatinine Recent obstructive uropathy Seen by urology Dr. Elizondo 08/29/16 who recommended treatment for UTI Patient will need outpatient workup including cystoscopy with bilateral retrograde pyelograms and urodynamics. He understands the importance of follow- up with urology Continue with [facility] care Recent diarrheal episode-antibiotic associated? Resolved Rule out C. difficile with C. difficile PCR and treat accordingly Continue Lactinex when necessary Leukocytosis Monitor and treat as in above Acute psychosis Continue Risperdal and psychiatry consultation when necessary Normochromic normocytic anemia of chronic kidney disease H&H stable and continue to monitor Ishmael Pearl MD Sep 12, 2016 12:17
--- NOTE | 2016-09-12 12:22 | HHI.DS ---
Discharge Summary Admission Date Sep 09, 2016 at 09:52 Discharge Date: Sep 12, 2016 Admitting Diagnosis renal failure, urinary tract infection, recent pychotic episode. (1) UTI (lower urinary tract infection) ICD Code: N39.0 (2) ESRD (end stage renal disease) on dialysis ICD Code: N18.6 (3) Leukocytosis ICD Code: D72.829 (4) Obstructive uropathy ICD Code: N13.9 (5) Normochromic normocytic anemia ICD Code: D64.9 (6) Brief psychotic disorder ICD Code: F23 Procedures none Brief History - From Admission 61-year-old male with a past medical history of end-stage renal disease on hemodialysis and noncompliant with medical care who has been treated for UTI- Pseudomonas and Enterobacter for which patient was treated with IV antibiotic but was switched to by mouth Levaquin, however signed AMA yesterday 09/08/16 according to the patient due to his "mental illness" returned to the ED today for readmission in order to complete his treatment. Over the past 24 hours, patient denies any febrile illness or acute change. He denies any chest pain or shortness of breath. He does not endorse any diarrheal episode CBC/BMP: 09/11/16 1030 09/11/16 1030 Significant Findings Laboratory Tests Test 09/09/16 09/10/16 09/11/16 13:45 07:02 10:30 Urine Protein 30 mg/dL (NEG-TRACE) Urine Occult Blood TRACE (NEG) Urine Leukocyte Esterase SMALL (NEG) Urine WBC 6 /hpf (0-5) Urine Bacteria RARE /hpf (NONE) Urine Mucus FEW /lpf (OCC) Sodium Level 135 MEQ/L (136-145) Chloride Level 97 MEQ/L (98-107) Blood Urea Nitrogen 37 MG/DL (7-18) 44 MG/DL (7-18) Creatinine 3.97 MG/DL 4.42 MG/DL (0.60-1.30) (0.60-1.30) Estimat Glomerular Filtration 19 ML/MIN (>89) 17 ML/MIN (>89) Rate Calcium Level 8.1 MG/DL 8.2 MG/DL (8.5-10.1) (8.5-10.1) Aspartate Amino Transf 14 U/L (15-37) (AST/SGOT) Alanine Aminotransferase 80 U/L (12-78) (ALT/SGPT) Albumin 2.6 GM/DL (3.4-5.0) White Blood Count 14.5 TH/MM3 (4.0-11.0) Red Blood Count 3.58 MIL/MM3 (4.50-5.90) Hemoglobin 10.5 GM/DL (13.0-17.0) Hematocrit 32.2 % (39.0-51.0) Platelet Count 146 TH/MM3 (150-450) Neutrophils (%) (Auto) 74.1 % (16.0-70.0) Monocytes (%) (Auto) 11.9 % (0.0-8.0) Neutrophils # (Auto) 10.8 TH/MM3 (1.8-7.7) Monocytes # (Auto) 1.7 TH/MM3 (0-0.9) PE at Discharge GENERAL: NAD and hooker laster to HD machine SKIN: Warm and dry. HEAD: Normocephalic. EYES: No scleral icterus. No injection or drainage. NECK: Supple, trachea midline. No JVD or lymphadenopathy. CARDIOVASCULAR: Regular rate and rhythm without murmurs, gallops, or rubs. RESPIRATORY: Breath sounds equal bilaterally. No accessory muscle use. GASTROINTESTINAL: Abdomen soft, non-tender, nondistended. MUSCULOSKELETAL: No cyanosis, or edema. BACK: Nontender without obvious deformity. No CVA tenderness. Hospital Course Patient was readmitted to the hospital after signing AMA for treatment for UTI, PSAE, Enterobacter,GBS and was initially restarted on Levaquin 500 mg by mouth every 8 hours however, this was discontinued by infectious disease specialist and patient was monitored off antibiotics. Nephrology was consulted and patient was continued on hemodialysis. He will need outpatient hemodialysis set up. Patient also was advised to follow-up with urology outpatient workup including cystoscopy with bilateral retrograde pyelograms and urodynamics. He understands the importance of follow-up with urology. He was continued on Risperdal. Vitals remained stable prior to discharge. Pt Condition on Discharge: Stable Discharge Disposition: Discharge Home Discharge Time: > 30 minutes Discharge Instructions DIET: Follow Instructions for: Renal Failure Diet Activities you can perform: Regular-No Restrictions Follow up Referrals: Nephrology PCP Follow-up - 1 Week Urology - 1 Week with [facility] Elizondo MD Continued Medications: Calcium Acetate (Phosphate Bin (Calcium Acetate) 667 Mg Cap 667 MG PO TID kidneys #90 CAP Montelukast (Montelukast) 10 Mg Tab 10 MG PO HS #30 Ref 0 TAB Risperidone (Risperdal) 1 Mg Tab 1 MG PO Q12HR psych #60 TAB Discontinued Medications: Ciprofloxacin (Ciprofloxacin) 500 Mg Tab 500 MG PO DAILY After dialysis Infection #12 Ref 0 TAB Sennosides-Docusate Sodium (Senna Plus 8.6-50 mg) 1 Tab Tab 1 TAB PO BID constipation #60 TAB Ishmael Pearl MD Sep 12, 2016 12:22
--- NOTE | 2016-09-12 13:06 | HHI.NPPN ---
Subjective History of Present Illness 61 year old with ESRD, Obstructive uropathy, non compliance, readmitted after leaving AMA Review of Systems General Constitutional: Fatigue Objective Data Data 09/11/16 09/12/16 19:00 07:00 Intake Total 480 ml 600 ml Output Total 1650 ml 1400 ml Balance -1170 ml -800 ml Intake Oral 480 ml 600 ml Output Urine Total 1650 ml 1400 ml # Bowel Movements 2 Vital Signs Date Time Temp Pulse Resp B/P Pulse Ox O2 Delivery O2 Flow Rate FiO2 09/12/16 12:00 09/12/16 08:00 98.0 92 20 112/54 99 09/12/16 04:00 96.3 95 16 115/70 99 09/12/16 00:00 98.3 86 18 100/58 99 09/11/16 20:00 98.4 98 18 102/59 98 09/11/16 16:48 97.4 103 20 111/67 100 -: 09/11/16 1030 09/11/16 1030 Physical Exam General Appearance: Well Developed Neck Neck Exam: Neck Supple Pulmonary Resp Exam: Clear Bilaterally, Breath Sounds Equal Cardiology CV Exam: Tachycardia Gastrointestinal/Abdomen GI Exam: Soft, Non-Tender, Bowel Sounds Present Integumentary Skin Exam: Clear Extremeties Extremities Exam: No Edema Assessment/Plan Problem List: (1) ESRD (end stage renal disease) on dialysis Plan: hemodialysis done in am UF 1.8 L tolerated it well d/c plans to [facility] for T,T,S continue supportive care (2) Tachycardia Plan: HR 92 BP stable (3) Obstructive uropathy Plan: follow up with Urology Charles Fong MD Sep 12, 2016 13:06
== END 2016-09-12 14:21 | disposition home or self-care (01) | DRG 689 ==
LOC: NEPC 07:57 → NEDA 09:52 → N05A 11:34
PROVIDERS: ADMIT Hospitalist; ATTEND Hospitalist
PROC: 5A1D60Z (ICD-10-PCS; principal; 2016-09-09)
DX: N39.0 Urinary tract infection, site not specified (principal); N18.6 End stage renal disease; I12.0 Hypertensive chronic kidney disease with stage 5 chronic kidney disease or end stage renal disease; F23 Brief psychotic disorder; Z99.2 Dependence on renal dialysis; B96.89 Other specified bacterial agents as the cause of diseases classified elsewhere; B96.5 Pseudomonas (aeruginosa) (mallei) (pseudomallei) as the cause of diseases classified elsewhere; D63.1 Anemia in chronic kidney disease; F41.9 Anxiety disorder, unspecified; Z91.19 Patient's noncompliance with other medical treatment and regimen; R19.7 Diarrhea, unspecified; N40.1 Benign prostatic hyperplasia with lower urinary tract symptoms; N13.8 Other obstructive and reflux uropathy; Z87.440 Personal history of urinary (tract) infections
CPT/HCPCS: 80048; 80053; 80307; 81001; 82948; 85007; 85025; 85027; 87086; 90935; 96374; 96375; J1580; J1644; J7030; Q4081

== ENCOUNTER 2016-09-29 17:58 | Inpatient (IN) | payer BC ==
[~2016-09-29] VITALS: Ht 175.3 cm; Wt 62.6 kg
[~2016-09-29 17:58] MED LIST changes: -CIPR500T2 PO; +MONT10TA4 PO; -SENN1TAB PO
[2016-09-29 18:00] VITALS: BP 92/60; PULSE 110; RESP 16; TEMP 98.2; O2SAT 98
--- NOTE | 2016-09-29 18:07 | PD ---
Physical Exam Time Seen by Provider: 18:05 Narrative 61 y/o male with abdominal distention for one week. +Nausea/vomiting. Vital signs reviewed. Seen at triage desk. Awaiting bed placement. Data Data Last Documented VS Vital Signs Date Time Temp Pulse Resp B/P Pulse Ox O2 Delivery O2 Flow Rate FiO2 09/29/16 18:00 98.2 110 16 92/60 98 MDM Medical Record Reviewed: Yes Supervised Visit with LISA: Bakari Richardson Sep 29, 2016 18:07
[2016-09-29 18:59] VITALS: BP 97/59; PULSE 89; RESP 18; O2SAT 97
--- NOTE | 2016-09-29 19:19 | PD ---
HPI Chief Complaint: Abdominal Pain Time Seen by Provider: 19:18 Travel History International Travel<30 days: No Contact w/Intl Traveler<30days: No Traveled to known affect area: No History of Present Illness HPI 61-year-old male presents to the emergency department for evaluation of abdominal bloating, diarrhea, vomiting. Patient states that he drink and hold Gatorade on Sunday if symptoms started after. He states that he has not slept for diarrhea, states he has very little out each time. He states that he is also vomiting, has not vomited today. He reports diffuse abdominal pain. Patient has history of hypertension, UTI, end-stage renal disease. He is on dialysis Sunday, , Sunday. He states his cfo controller is Dr. Fong. Patient denies any fevers. No chest pain or shortness of breath. Patient does have indwelling Beard catheter due to prostate issues. Patient was on antibiotics earlier this month for UTI. PFSH Past Medical History Hx Anticoagulant Therapy: Yes (HEPARIN W/ DIALYSIS) Anemia: Yes Arthritis: No Asthma: No Autoimmune Disease: No Anxiety: Yes Depression: No Heart Rhythm Problems: No Cancer: No Cardiovascular Problems: Yes High Cholesterol: No Chemotherapy: No Chest Pain: No Congestive Heart Failure: No COPD: No Cerebrovascular Accident: No Diabetes: No Dialysis: Yes (PT STATES STOP TREATMENT IN JULY FOR ISSUES WITH INSURANCE) Diminished Hearing: No Endocrine: No GERD: No Genitourinary: Yes Hiatal Hernia: No Hypertension: Yes Immune Disorder: No Kidney Stones: No Musculoskeletal: No Neurologic: No Psychiatric: No Reproductive: No Respiratory: No Migraines: No Radiation Therapy: No Renal Failure: Yes (Pt has end stage renal disease) Seizures: No Sickle Cell Disease: No Sleep Apnea: No Thyroid Disease: No Ulcer: No Past Surgical History Abdominal Surgery: Yes (Hernia repair ) AICD: No Arteriovenous Shunt: No Body Medical Devices: Pt has right sided IJ PermCath for dialysis Cardiac Surgery: No Ear Surgery: No Endocrine Surgery: No Eye Surgery: No Genitourinary Surgery: Yes (Yes - stents placed ureters) Insulin Pump: No Joint Replacement: No Neurologic Surgery: No Oral Surgery: No Pacemaker: No Thoracic Surgery: No Other Surgery: Yes (Dialysis CATHETER RIGHT SIDE OF CHEST, Hernia repair ) Social History Alcohol Use: No Tobacco Use: No Substance Use: No Allergies-Medications (Allergen,Severity, Reaction): Coded Allergies: No Known Allergies (Unverified , 09/29/16) Reported Meds & Prescriptions Reported Meds & Active Scripts Active Risperdal (Risperidone) 1 Mg Tab 1 Mg PO Q12HR Calcium Acetate (Calcium Acetate (Phosphate Bin) 667 Mg Cap 667 Mg PO TID Reported Montelukast (Montelukast Sodium) 10 Mg Tab 10 Mg PO HS Review of Systems Except as stated in HPI: all other systems reviewed are Neg Physical Exam Narrative GENERAL: Well-nourished, well-developed male patient, afebrile. SKIN: Focused skin assessment warm/dry. Patient has dialysis catheter noted to right chest. HEAD: Normocephalic. Atraumatic. EYES: No scleral icterus. No injection or drainage. NECK: Supple, trachea midline. No JVD or lymphadenopathy. CARDIOVASCULAR: Regular rate and rhythm without murmurs, gallops, or rubs. RESPIRATORY: Breath sounds equal bilaterally. No accessory muscle use. Lung sounds are clear to auscultation throughout. GASTROINTESTINAL: Abdomen soft and nondistended. Patient has diffuse tenderness throughout. Patient has indwelling beard catheter. MUSCULOSKELETAL: No cyanosis, or edema. BACK: Nontender without obvious deformity. No CVA tenderness. Data Data Last Documented VS Vital Signs Date Time Temp Pulse Resp B/P Pulse Ox O2 Delivery O2 Flow Rate FiO2 09/29/16 19:55 18 96 Room Air 09/29/16 18:59 89 97/59 09/29/16 18:00 98.2 Orders Complete Blood Count With Diff (09/29/16 19:16) Comprehensive Metabolic Panel (09/29/16 19:16) Lipase (09/29/16 19:16) Urinalysis - C+S If Indicated (09/29/16 19:16) Ct Abd/Pel W/O Iv Contrast (09/29/16 19:16) Iv Access Insert/Monitor (09/29/16 19:16) Ecg Monitoring (09/29/16 19:16) Oximetry (09/29/16 19:16) Ondansetron Inj (Zofran Inj) (09/29/16 19:30) Sodium Chloride 0.9% Flush (Ns Flush) (09/29/16 19:30) C Diff Toxin Pcr (09/29/16 19:19) Urine Culture (09/29/16 19:38) Blood Culture (09/29/16 21:21) Lactic Acid Sepsis Protocol (09/29/16 21:21) Sodium Chlor 0.9% 250 Ml Inj (Ns 250 Ml (09/29/16 21:30) Metronidazole 500 Mg Inj (Flagyl 500 Mg (09/29/16 21:30) Ciprofloxacin 400 Mg Premix (Cipro 400 M (09/29/16 21:30) Labs Laboratory Tests Test 09/29/16 19:38 White Blood Count 15.3 TH/MM3 Red Blood Count 3.71 MIL/MM3 Hemoglobin 10.5 GM/DL Hematocrit 33.6 % Mean Corpuscular Volume 90.5 FL Mean Corpuscular Hemoglobin 28.2 PG Mean Corpuscular Hemoglobin 31.1 % Concent Red Cell Distribution Width 18.2 % Platelet Count 173 TH/MM3 Mean Platelet Volume 8.3 FL Neutrophils (%) (Auto) 74.7 % Lymphocytes (%) (Auto) 13.1 % Monocytes (%) (Auto) 11.8 % Eosinophils (%) (Auto) 0.2 % Basophils (%) (Auto) 0.2 % Neutrophils # (Auto) 11.5 TH/MM3 Lymphocytes # (Auto) 2.0 TH/MM3 Monocytes # (Auto) 1.8 TH/MM3 Eosinophils # (Auto) 0.0 TH/MM3 Basophils # (Auto) 0.0 TH/MM3 CBC Comment AUTO DIFF Differential Total Cells 100 Counted Neutrophils % (Manual) 75 % Band Neutrophils % 10 % Lymphocytes % 4 % Monocytes % 10 % Neutrophils # (Manual) 13.2 TH/MM3 Myelocytes 1 % Differential Comment FINAL DIFF MANUAL Toxic Granulation 1+ Toxic Vacuolation PRESENT Platelet Estimate NORMAL Platelet Morphology Comment NORMAL Ovalocytes 1+ Urine Color YELLOW Urine Turbidity HAZY Urine pH 7.5 Urine Specific [place] 1.014 Urine Protein 100 mg/dL Urine Glucose (UA) NEG mg/dL Urine Ketones NEG mg/dL Urine Occult Blood SMALL Urine Nitrite NEG Urine Bilirubin NEG Urine Urobilinogen LESS THAN 2.0 MG/DL Urine Leukocyte Esterase SMALL Urine RBC 6 /hpf Urine WBC 15 /hpf Urine Granular Casts 5 /lpf Urine Mucus FEW /lpf Microscopic Urinalysis Comment CULTURE INDICATED Sodium Level 136 MEQ/L Potassium Level 4.5 MEQ/L Chloride Level 103 MEQ/L Carbon Dioxide Level 25.9 MEQ/L Anion Gap 7 MEQ/L Blood Urea Nitrogen 26 MG/DL Creatinine 4.37 MG/DL Estimat Glomerular Filtration 17 ML/MIN Rate Random Glucose 84 MG/DL Calcium Level 8.1 MG/DL Total Bilirubin 0.4 MG/DL Aspartate Amino Transf 5 U/L (AST/SGOT) Alanine Aminotransferase 11 U/L (ALT/SGPT) Alkaline Phosphatase 48 U/L Total Protein 6.0 GM/DL Albumin 2.1 GM/DL Lipase 37 U/L MDM Medical Decision Making Medical Screen Exam Complete: Yes Emergency Medical Condition: Yes Medical Record Reviewed: Yes Interpretation(s) Last Impressions Abdomen/Pelvis CT 09/29/161915 Signed Impressions: Service Date/Time: Thursday, September 29, 2016 19:27 - CONCLUSION: 1. Abnormal bowel gas pattern with apparent diffuse colonic wall thickening and inflammatory change. There are multiple loops of nondilated air-containing small bowel with multiple air-fluid levels. The findings are most characteristic of colitis and are nonspecific. The sensitivity of this exam is limited by the lack of oral and intravenous contrast. 2. Small right pleural effusion. 3. Mild to moderate amount of ascitic fluid greatest in the right side of the abdomen and pelvis. Rodrigo Paris MD Differential Diagnosis UTI vs. gastroenteritis vs. c-diff vs. electrolyte abnormality vs. dehydration vs. bowel obstruction vs. diverticulitis Narrative Course 61 year old male presents to the emergency department for evaluation of abdominal bloating, diarrhea, vomiting since Sunday. CBC, CMP, lipase, UA are ordered and pending. C. difficile toxin is ordered and pending. Patient is given Zofran [address] abdomen/pelvis is ordered and pending. CBC shows leukocytosis of 15.3, hematemesis 5, hematocrit 33.6, 10 band neutrophils, toxic vacuolation. CMP shows BUN 26, creatinine 4.37. Lipase is 37. UA shows small leukocyte esterase, [address] abdomen/pelvis shows abnormal bowel gas pattern with apparent diffuse colonic wall thickening and inflammatory change. There are multiple loops of nondilated air-containing small bowel with multiple air-fluid levels. The findings are most characteristic of colitis and are nonspecific. The sensitivity of this exam is limited by the lack of oral and intravenous contrast; small right pleural effusion; mild to moderate amount of ascitic fluid greatest in the right side of the abdomen and pelvis. Blood cultures x2, lactic acid are ordered and pending. Patient is given normal saline 250 mL IV bolus due to blood pressure of 92 systolic. Patient is started on Flagyl and Cipro. [facility] is paged for admission. Dr. Luna accepted. Sepsis Criteria SIRS Criteria (2 or more): Heart rate over 90, WBC > 50180, < 4000 or > 10% bands Sepsis Criteria (SIRS+source): Infect source susp/known Diagnosis Primary Impression: Sepsis Qualified Code: A41.9 - Sepsis, due to unspecified organism Additional Impression: Colitis Admitting Information Admitting Physician Requests: Admit Liset Hardy Sep 29, 2016 19:19
[2016-09-29] MEDS ORDERED: ONDANSETRON HCL 4 MG/2 ML VIAL IVP ONE (19:30)
[2016-09-29] MEDS ORDERED: SODIUM CHLORIDE 0.9% FLUSH 10 ML FLUSH IV FLUSH PRN ×2 (19:30→22:00)
--- NOTE | 2016-09-29 19:46 | RADRPT ---
EXAM DATE/TIME: 09/29/2016 19:27 [facility] COMPARISON: No previous studies available for comparison. INDICATIONS : Lower quadrant abdominal pain x 6 days. ORAL CONTRAST: No oral contrast ingested. RADIATION DOSE: 4.52 CTDIvol (mGy) MEDICAL HISTORY : Cardiovascular disease. Hypertension. Renal failure. Dialysis. SURGICAL HISTORY : None. ENCOUNTER: Initial ACUITY: 4 - 6 days PAIN SCALE: 6/10 LOCATION: Bilateral lower quadrant TECHNIQUE: Volumetric scanning of the abdomen and pelvis was performed. Using automated exposure control and ad justment of the mA and/or kV according to patient size, radiation dose was kept as low as reasonably achievable to obtain optimal diagnostic quality images. DICOM format image data is available electro nically for review and comparison. FINDINGS: LOWER LUNGS: There is a small right pleural effusion. LIVER: Homogeneous density with small benign cystic structure in the left lobe. There is a small amount of s urrounding ascites. There is no dilation of the biliary tree. No calcified gallstones. SPLEEN: Normal size without lesion. PANCREAS: Within normal limits. KIDNEYS: Normal in size and shape. There is no mass, stone, or hydronephrosis. ADRENAL GLANDS: Within normal limits. VASCULAR: There is no aortic aneurysm. BOWEL/MESENTERY: No oral or IV contrast was given significantly limiting the sensitivity for detection of bowel pathol ogy. The colon appears diffusely abnormal with apparent wall thickening and surrounding inflammatory change. This appears greatest in the right side of the colon. There is small amount of ascitic fluid. There are multiple loops of nondilated air-containing small bowel with multiple air-fluid levels. Th ere is no definite free air. There is a mild to moderate amount of ascitic fluid. ABDOMINAL WALL: Within normal limits. RETROPERITONEUM: There is no lymphadenopathy. BLADDER: A [place] catheter is present. There is apparent mild bladder wall thickening without distinct mass. REPRODUCTIVE: Within normal limits. INGUINAL: There is no lymphadenopathy or hernia. MUSCULOSKELETAL: Within normal limits for patient age. CONCLUSION: 1. Abnormal bowel gas pattern with apparent diffuse colonic wall thickening and inflammatory change. There are multiple loops of nondilated air-containing small bowel with multiple air-fluid levels. The findings are most characteristic of colitis and are nonspecific. The sensitivity of this exam is ramirez ited by the lack of oral and intravenous contrast. 2. Small right pleural effusion. 3. Mild to moderate amount of ascitic fluid greatest in the right side of the abdomen and pelvis. Rodrigo Paris MD on September 29, 2016 at 19:38 Board Certified Radiologist. This report was verified electronically.
[2016-09-29 19:55] VITALS: RESP 18; O2SAT 96
[2016-09-29 20:25] LABS: AUTOMATED NEUTROPHIL # 11.5 TH/MM3 (1.8-7.7); BASOPHIL % 0.2 % (0.0-2.0); EOSINOPHIL % 0.2 % (0.0-4.0); HEMATOCRIT 33.6 % (39.0-51.0); LYMPH % 13.1 % (9.0-44.0); MEAN CELL VOLUME 90.5 FL (80.0-100.0); MEAN CORPUSCULAR HEMOGLOBIN 28.2 PG (27.0-34.0); MEAN CORPUSCULAR HGB CONC 31.1 % (32.0-36.0); MONO % 11.8 % (0.0-8.0); NEUT % 74.7 % (16.0-70.0); PLATELET COUNT 173 TH/MM3 (150-450); RED BLOOD COUNT 3.71 MIL/MM3 (4.50-5.90); RED CELL DISTRIBUTION WIDTH 18.2 % (11.6-17.2); WHITE BLOOD COUNT 15.3 TH/MM3 (4.0-11.0)
[2016-09-29 20:29] LABS: HEMO FLAGS AUTO DIFF
[2016-09-29 20:32] LABS: BLOOD, URINE SMALL (NEG); COMMENT (UR) CULTURE INDICATED; CULTURE IF INDICATED CULTURE INDICATED; GLUCOSE,URINE NEG (NEG); GRANULAR CAST, URINE 5 /lpf; KETONE, URINE NEG (NEG); MUCUS URINE FEW /lpf (OCC); NITRITE,URINE NEG (NEG); PH, URINE 7.5 (5.0-8.5); URINE COLOR YELLOW (YELLW/STRAW)
[2016-09-29 20:39] LABS: ALT (GPT) 11 U/L (12-78); ANION GAP 7 MEQ/L (5-15); AST (GOT) 5 U/L (15-37); BICARBONATE 25.9 MEQ/L (21.0-32.0); BLOOD UREA NITROGEN 26 MG/DL (7-18); CHLORIDE 103 MEQ/L (98-107); GLOMERULAR FILTRATION RATE 17 ML/MIN (>89); POTASSIUM 4.5 MEQ/L (3.5-5.1); SODIUM (NA) 136 MEQ/L (136-145)
[2016-09-29 20:42] LABS: ALKALINE PHOSPHATASE 48 U/L (45-117); TOTAL BILIRUBIN ADULT 0.4 MG/DL (0.2-1.0)
[2016-09-29 21:12] LABS: BANDS 10 % (0-6); MYELOCYTES 1 % (0-0); NEUTROPHIL # MANUAL DIFF 13.2 TH/MM3 (1.8-7.7); POLYS (SEG NEUTROPHILS) 75 % (16-70); WBC DIFF SAMPLE 100
[2016-09-29 21:13] LABS: TOXIC GRANULATION 1+ (NORMAL); TOXIC VACUOLATION PRESENT (NONE SEEN)
[2016-09-29 21:14] LABS: OVALOCYTES 1+ (NORMAL); PLATELET ESTIMATE SMEAR NORMAL (NORMAL); PLATELET MORPHOLOGY NORMAL (NORMAL); SCAN/DIFF FINAL DIFF MANUAL
[2016-09-29] MEDS ORDERED: SODIUM CHLOR 0.9% 250 ML INJ 250 ML IV ONE (21:30)
[2016-09-29] MEDS ORDERED: CIPROFLOXACIN 400 MG PREMIX 200 ML IV ONE (21:30)
[2016-09-29] MEDS ORDERED: metroNIDAZOLE 500 MG INJ 100 ML IV ONE (21:30)
[2016-09-29] MEDS ORDERED: ONDANSETRON HCL 4 MG/2 ML VIAL IVP PRN (22:00)
[2016-09-29] MEDS ORDERED: SENNOSIDES 8.6 MG TAB PO PRN (22:00)
[2016-09-29] MEDS ORDERED: MAGNESIUM HYDROXIDE SUSP 30 ML CUP PO PRN (22:00)
[2016-09-29] MEDS ORDERED: LACTULOSE SYRUP 20 GM/30 ML CUP PO PRN (22:00)
[2016-09-29] MEDS ORDERED: BISACODYL 10 MG SUPP RECTAL PRN (22:00)
[2016-09-29 22:45] VITALS: BP 93/55; PULSE 98; RESP 18; O2SAT 100
[2016-09-29] MEDS: SODIUM CHLOR 0.9% 1000 ML INJ 1,000 ML IV SCH (22:49)
[2016-09-29] MEDS ORDERED: ENOXAPARIN SODIUM 40 MG/0.4 ML SYRINGE SQ SCH (23:00)
[2016-09-29] MEDS ORDERED: ENOXAPARIN SODIUM 30 MG/0.3 ML SYRINGE SQ SCH (23:00)
[2016-09-29 23:55] VITALS: PULSE 100
[2016-09-30] VITALS (8 sets, daily range): BP systolic 99–113; BP diastolic 59–76; PULSE 50–91; RESP 18; TEMP 96.3–97.8; O2SAT 98–100
[2016-09-30 05:47] LABS: C. DIFF EPI 027 PRESUMPTIVE POSITIVE (NEGATIVE)
--- NOTE | 2016-09-30 06:18 | HHI.HP ---
[facility] Celena Chaudhary MD Admission Diagnosis sepsis, colitis Diagnoses: (1) Sepsis (2) C. difficile colitis Chief Complaint: Severe abdominal pain and nausea Travel History International Travel<30 Days: No Contact w/Intl Traveler <30 Da: No Traveled to Known Affected Are: No History of Present Illness Written by Shilpa Wakefield, acting as scribe for Dr. Luna on 09/30/16 at 06:12. The patient states he is here for a "tummy ache". He states that he drank a weight gain beverage and had bloating for the last 6 days - thought it would go away but it never did. He describes intermittent severe abdominal pain and nausea. Symptoms are worse with eating. Reports 3 episodes of diarrhea while here in the hospital. Denies fever or chills. Recently treated for UTI with both Levaquin and Ciprofloxacin. 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 . Past Surgical History Vas Cath placement Ports Stent from kidney to liver . Reported Medications Reported Meds & Active Scripts Active Risperdal (Risperidone) 1 Mg Tab 1 Mg PO Q12HR Calcium Acetate (Calcium Acetate (Phosphate Bin) 667 Mg Cap 667 Mg PO TID Reported Montelukast (Montelukast Sodium) 10 Mg Tab 10 Mg PO HS . Allergies: Coded Allergies: No Known Allergies (Unverified , 09/29/16) Active Ordered Medications Current Medications Ondansetron HCl (Zofran Inj) 4 mg ONCE ONCE IVP Last administered on t 19:54; Start 09/29/16 at 19:30; Stop 09/29/16 at 19:31; Status DC Sodium Chloride 2 ml 2 ml UNSCH PRN IV FLUSH FLUSH AFTER USING IV ACCESS; Start 09/29/16 at 19:30; Stop 09/29/16 at 22:05; Status DC Sodium Chloride 250 ml @ 250 mls/hr BOLUS ONCE IV Last administered on 21:49; Start 09/29/16 at 21:30; Stop 09/29/16 at 22:49; Status DC Metronidazole 100 ml @ 100 mls/hr ONCE ONCE IV Last administered on 21:49; Start 09/29/16 at 21:30; Stop 09/29/16 at 22:49; Status DC Ciprofloxacin/ Dextrose 200 ml @ 200 mls/hr ONCE ONCE IV Last administered on 09/29/16 22:48; Start 09/29/16 at 21:30; Stop 09/30/16 at 06:00; Status DC Sodium Chloride (NS 1000 ml Inj) 1,000 ml @ 100 mls/hr Q10H IV Last administered on 09/29/16 22:49; Start 09/29/16 at 22:00 Sodium Chloride (NS Flush) 2 ml UNSCH PRN IV FLUSH FLUSH AFTER USING IV ACCESS ; Start 09/29/16 at 22:00 Sodium Chloride (NS Flush) 2 ml BID IV FLUSH ; Start 09/30/16 at 09:00 Acetaminophen (Tylenol) 650 mg Q4H PRN PO TEMP > 100.4; Start 09/29/16 at 22:00 Ondansetron HCl (Zofran Inj) 4 mg Q6H PRN IVP NAUSEA OR VOMITING Last administered on 09/30/16 03:36; Start 09/29/16 at 22:00 Enoxaparin Sodium (Lovenox Inj) 40 mg Q24H SQ ; Start 09/29/16 at 23:00; Stop at 23:00; Status DC Senna/Docusate Sodium (Charissa-Colace) 1 tab BID PO ; Start 09/30/16 at 09:00 Magnesium Hydroxide (Milk Of Magnesia Liq) 30 ml Q12H PRN PO MILD - MODERATE CONSTIPATION; Start 09/29/16 at 22:00 Sennosides (Senokot) 17.2 mg Q12H PRN PO MODERATE - SEVERE CONSTIPATION; Start 09/29/16 at 22:00 Bisacodyl (Dulcolax Supp) 10 mg DAILY PRN RECTAL SEVERE CONSITIPATION; Start at 22:00 Lactulose (Lactulose Liq) 30 ml DAILY PRN PO SEVERE CONSITIPATION; Start at 22:00 Enoxaparin Sodium (Lovenox Inj) 30 mg Q24H SQ Last administered on 09/30/16t 00: 01; Start 09/29/16 at 23:00 Vancomycin HCl (VANCOMYCIN for oral use only) 250 mg QID PO ; Start 09/30/16 at 09:00 . Family History Father from complications related to alcoholism . Social History Tobacco: none Alcohol: none Illicit Drugs: none . Physical Exam Vital Signs Vital Signs Date Time Temp Pulse Resp B/P Pulse Ox O2 Delivery O2 Flow Rate FiO2 09/30/16 04:00 97.5 81 18 103/61 98 09/30/16 00:00 97.0 84 18 110/60 100 09/29/16 23:55 100 09/29/16 22:45 98 18 93/55 100 Room Air 09/29/16 19:55 18 96 Room Air 09/29/16 18:59 89 18 97/59 97 Room Air 09/29/16 18:00 98.2 110 16 92/60 98 Physical Exam GENERAL: This is a very thin older male patient, in no apparent distress. SKIN: No rashes, ecchymoses or lesions. Cool and dry. HEAD: Atraumatic. Normocephalic. EYES: No scleral icterus. No injection or drainage. ENT: Nose without bleeding, purulent drainage. NECK: Trachea midline. No JVD or lymphadenopathy. CARDIOVASCULAR: Regular rate and rhythm without murmurs, gallops, or rubs. RESPIRATORY: Clear to auscultation. Breath sounds equal bilaterally. No wheezes , rales, or rhonchi. GASTROINTESTINAL: Abdomen soft, non-tender, nondistended. No guarding. MUSCULOSKELETAL: Extremities without clubbing, cyanosis, or edema. No calf tenderness. NEUROLOGICAL: Awake and alert. Motor and sensory grossly within normal limits. Normal speech. . Laboratory Laboratory Tests Test 09/29/16 09/29/16 09/30/16 19:38 21:33 02:00 White Blood Count 15.3 Red Blood Count 3.71 Hemoglobin 10.5 Hematocrit 33.6 Mean Corpuscular Volume 90.5 Mean Corpuscular Hemoglobin 28.2 Mean Corpuscular Hemoglobin 31.1 Concent Red Cell Distribution Width 18.2 Platelet Count 173 Mean Platelet Volume 8.3 Neutrophils (%) (Auto) 74.7 Lymphocytes (%) (Auto) 13.1 Monocytes (%) (Auto) 11.8 Eosinophils (%) (Auto) 0.2 Basophils (%) (Auto) 0.2 Neutrophils # (Auto) 11.5 Lymphocytes # (Auto) 2.0 Monocytes # (Auto) 1.8 Eosinophils # (Auto) 0.0 Basophils # (Auto) 0.0 CBC Comment AUTO DIFF Differential Total Cells 100 Counted Neutrophils % (Manual) 75 Band Neutrophils % 10 Lymphocytes % 4 Monocytes % 10 Neutrophils # (Manual) 13.2 Myelocytes 1 Differential Comment FINAL DIFF MANUAL Toxic Granulation 1+ Toxic Vacuolation PRESENT Platelet Estimate NORMAL Platelet Morphology Comment NORMAL Ovalocytes 1+ Urine Color YELLOW Urine Turbidity HAZY Urine pH 7.5 Urine Specific Holly 1.014 Urine Protein 100 Urine Glucose (UA) NEG Urine Ketones NEG Urine Occult Blood SMALL Urine Nitrite NEG Urine Bilirubin NEG Urine Urobilinogen LESS THAN 2.0 Urine Leukocyte Esterase SMALL Urine RBC 6 Urine WBC 15 Urine Granular Casts 5 Urine Mucus FEW Microscopic Urinalysis Comment CULTURE INDICATED Sodium Level 136 Potassium Level 4.5 Chloride Level 103 Carbon Dioxide Level 25.9 Anion Gap 7 Blood Urea Nitrogen 26 Creatinine 4.37 Estimat Glomerular Filtration 17 Rate Random Glucose 84 Calcium Level 8.1 Total Bilirubin 0.4 Aspartate Amino Transf 5 (AST/SGOT) Alanine Aminotransferase 11 (ALT/SGPT) Alkaline Phosphatase 48 Total Protein 6.0 Albumin 2.1 Lipase 37 Lactic Acid Level 0.8 Stool C. difficile Toxin (PCR) POSITIVE Stl C. difficile Toxin PRESUMPTIVE Epiderm 027 POSITIVE Date/Time Procedure Status Source Growth 09/30/16 02:00 Stool Pus (YULY) Received Stool Stool Pending 09/30/16 02:00 Received Stool Stool Pending 09/29/16 21:33 Aerobic Blood Culture Received Blood Peripheral Pending 09/29/16 21:33 Anaerobic Blood Culture Received Blood Peripheral Pending 09/29/16 19:38 Urine Culture Received Urine Clean Catch Pending Result Diagram: 09/29/16193709/29/161937 Imaging Last Impressions Abdomen/Pelvis CT 09/29/161915 Signed Impressions: Service Date/Time: Thursday, September 29, 2016 19:27 - CONCLUSION: 1. Abnormal bowel gas pattern with apparent diffuse colonic wall thickening and inflammatory change. There are multiple loops of nondilated air-containing small bowel with multiple air-fluid levels. The findings are most characteristic of colitis and are nonspecific. The sensitivity of this exam is limited by the lack of oral and intravenous contrast. 2. Small right pleural effusion. 3. Mild to moderate amount of ascitic fluid greatest in the right side of the abdomen and pelvis. Rodrigo Paris MD Assessment and Plan Assessment and Plan Resistant C. difficile colitis - Toxin Epiderm 027 Sepsis - Vancomycin 250 mg by mouth 4 times a day - Special contact isolation - Continuous cardiac telemetry to monitor for cardiac arrhythmias - Clear liquid diet End-stage renal disease requiring hemodialysis - Consult nephrology, Dr. Fong - assistance appreciated - Monitor I's and O's strictly DVT prophylaxis - Heparin 5000 units subq q8h This note was transcribed by aram Wakefield. I, Dr. John Hallman personally performed the history, physical exam, and medical decision making; and confirmed the accuracy of the information in the transcribed note. Authenticated by Dr. John Hallman on 09/30/16 at 07:47. Discussed Condition With ER SUPERVISOR POWER REACTOR, patient, and RN Physician Certification 2 Midnight Certification Type: Admission for Inpatient Services Order for Inpatient Services The services are ordered in accordance with Medicare regulations or non- Medicare payer requirements, as applicable. In the case of services not specified as inpatient-only, they are appropriately provided as inpatient services in accordance with the 2-midnight benchmark. Estimated LOS (days): 3 days is the estimated time the patient will need to remain in the hospital, assuming treatment plan goals are met and no additional complications. Post-Hospital Plan: Home Problem Qualifiers (1) Sepsis: Qualified Code: A41.9 - Sepsis, due to unspecified organism Shilpa Wakefield Sep 30, 2016 06:18 John Fatima MD Sep 30, 2016 07:47
[2016-09-30 07:58] LABS: AUTOMATED NEUTROPHIL # 5.5 TH/MM3 (1.8-7.7); BASOPHIL % 0.2 % (0.0-2.0); EOSINOPHIL # 0.1 TH/MM3 (0-0.4); EOSINOPHIL % 0.8 % (0.0-4.0); HEMATOCRIT 28.2 % (39.0-51.0); HEMO FLAGS DIFF FINAL; LYMPH % 10.5 % (9.0-44.0); LYMPHOCYTE # 0.8 TH/MM3 (1.0-4.8); MEAN CELL VOLUME 90.8 FL (80.0-100.0); MEAN CORPUSCULAR HEMOGLOBIN 28.3 PG (27.0-34.0); MEAN CORPUSCULAR HGB CONC 31.2 % (32.0-36.0); MONO % 15.1 % (0.0-8.0); NEUT % 73.4 % (16.0-70.0); PLATELET COUNT 147 TH/MM3 (150-450); RED BLOOD COUNT 3.11 MIL/MM3 (4.50-5.90); RED CELL DISTRIBUTION WIDTH 18.7 % (11.6-17.2); WHITE BLOOD COUNT 7.4 TH/MM3 (4.0-11.0)
[2016-09-30] MEDS: SODIUM CHLOR 0.9% 1000 ML INJ 1,000 ML IV SCH ×2 (08:16→18:00)
[2016-09-30 08:18] LABS: BICARBONATE 24.1 MEQ/L (21.0-32.0); POTASSIUM 4.4 MEQ/L (3.5-5.1)
[2016-09-30 08:24] LABS: CALCIUM-PROTEIN CORRECTED 8.5 MG/DL (8.5-10.1); TOTAL BILIRUBIN ADULT 0.2 MG/DL (0.2-1.0)
[2016-09-30] MEDS: DOCUSATE SODIUM 50 MG/SENNA 8.6 MG TAB PO SCH ×2 (08:24→21:00)
[2016-09-30] MEDS: SODIUM CHLORIDE 0.9% FLUSH 10 ML FLUSH IV FLUSH SCH ×2 (08:24→21:45)
[2016-09-30] MEDS: VANCOMYCIN 500 MG VIAL (FOR ORAL USE ONLY) PO SCH ×4 (08:28→21:46)
[2016-09-30] MEDS ORDERED: SODIUM CHLOR 0.9% 1000 ML INJ 1,000 ML IV PRN ×3 (09:57)
[2016-09-30] MEDS ORDERED: diphenhydrAMINE HCL 25 MG CAP PO PRN (10:00)
[2016-09-30] MEDS ORDERED: SODIUM CHLORIDE 0.9% FLUSH 10 ML FLUSH IV FLUSH PRN (10:00)
[2016-09-30] MEDS ORDERED: ALBUMIN HUMAN 25% 25 GM/100 ML BAGP IV PRN (10:00)
[2016-09-30] MEDS ORDERED: cloNIDine HCL 0.1 MG TAB PO PRN (10:00)
[2016-09-30] MEDS ORDERED: ONDANSETRON HCL 4 MG/2 ML VIAL IV PRN (10:00)
[2016-09-30] MEDS ORDERED: MANNITOL 12.5 GM/50 ML VIAL IV PRN (10:00)
[2016-09-30] MEDS ORDERED: ACETAMINOPHEN 325 MG TAB PO PRN (10:00)
[2016-09-30] MEDS ORDERED: GELATIN 12 MM/7 MM FOAM TOP PRN (10:00)
[2016-09-30] MEDS ORDERED: HEPARIN SODIUM - IV 10,000 UNITS/10 ML VIAL IVF PRN (10:00)
[2016-09-30] MEDS ORDERED: NITROGLYCERIN 0.4 MG SL 25 TABS/BTL SL PRN (10:00)
[2016-09-30 14:27] LABS: C. DIFF TOXIN PCR POSITIVE (NEGATIVE)
[2016-09-30] MEDS: GENTAMICIN SULFATE (DIALYSIS USE ONLY) 20 MG/2 ML VIAL IV PRN (14:40)
[2016-09-30] MEDS: HEPARIN SODIUM - IV 10,000 UNITS/10 ML VIAL PRN (14:40)
--- NOTE | 2016-09-30 14:47 | HHI.IDPN ---
Note Infectious Disease Note Attempted to see patient. Off the floor. Chart reviewed. Clinically appears to be improving. Continue oral Vanco Avoid systemic antibiotics unless signs of bacterial infection. If any worsening consider CT A/P r/o Colitis, megacolon etc based on clinical findings. If clinically better ok to wait till further eval by ID. Will attempt to see patient in am Please call thru call center or my cell phone if any change in clinical condition or questions. Vital Signs Date Time Temp Pulse Resp B/P Pulse Ox O2 Delivery O2 Flow Rate FiO2 09/30/16 11:52 97.1 68 18 104/69 99 09/30/16 07:39 96.9 71 18 99/64 99 09/30/16 04:00 97.5 81 18 103/61 98 09/30/16 00:00 97.0 84 18 110/60 100 09/29/16 23:55 100 09/29/16 22:45 98 18 93/55 100 Room Air 09/29/16 19:55 18 96 Room Air 09/29/16 18:59 89 18 97/59 97 Room Air 09/29/16 18:00 98.2 110 16 92/60 98 Laboratory Tests Test 09/29/16 09/29/16 09/30/16 09/30/16 19:38 21:33 02:00 07:30 White Blood Count 15.3 TH/MM3 Red Blood Count 3.71 MIL/MM3 Hemoglobin 10.5 GM/DL Hematocrit 33.6 % Mean Corpuscular Volume 90.5 FL Mean Corpuscular Hemoglobin 28.2 PG Mean Corpuscular Hemoglobin 31.1 % Concent Red Cell Distribution Width 18.2 % Platelet Count 173 TH/MM3 Mean Platelet Volume 8.3 FL Neutrophils (%) (Auto) 74.7 % Lymphocytes (%) (Auto) 13.1 % Monocytes (%) (Auto) 11.8 % Eosinophils (%) (Auto) 0.2 % Basophils (%) (Auto) 0.2 % Neutrophils # (Auto) 11.5 TH/MM3 Lymphocytes # (Auto) 2.0 TH/MM3 Monocytes # (Auto) 1.8 TH/MM3 Eosinophils # (Auto) 0.0 TH/MM3 Basophils # (Auto) 0.0 TH/MM3 CBC Comment AUTO DIFF Differential Total Cells 100 Counted Neutrophils % (Manual) 75 % Band Neutrophils % 10 % Lymphocytes % 4 % Monocytes % 10 % Neutrophils # (Manual) 13.2 TH/MM3 Myelocytes 1 % Differential Comment FINAL DIFF MANUAL Toxic Granulation 1+ Toxic Vacuolation PRESENT Platelet Estimate NORMAL Platelet Morphology Comment NORMAL Ovalocytes 1+ Urine Color YELLOW Urine Turbidity HAZY Urine pH 7.5 Urine Specific [place] 1.014 Urine Protein 100 mg/dL Urine Glucose (UA) NEG mg/dL Urine Ketones NEG mg/dL Urine Occult Blood SMALL Urine Nitrite NEG Urine Bilirubin NEG Urine Urobilinogen LESS THAN 2.0 MG/DL Urine Leukocyte Esterase SMALL Urine RBC 6 /hpf Urine WBC 15 /hpf Urine Granular Casts 5 /lpf Urine Mucus FEW /lpf Microscopic Urinalysis Comment CULTURE INDICATED Sodium Level 136 MEQ/L 140 MEQ/L Potassium Level 4.5 MEQ/L 4.4 MEQ/L Chloride Level 103 MEQ/L 110 MEQ/L Carbon Dioxide Level 25.9 MEQ/L 24.1 MEQ/L Anion Gap 7 MEQ/L 6 MEQ/L Blood Urea Nitrogen 26 MG/DL 27 MG/DL Creatinine 4.37 MG/DL 4.25 MG/DL Estimat Glomerular Filtration 17 ML/MIN 17 ML/MIN Rate Random Glucose 84 MG/DL 98 MG/DL Calcium Level 8.1 MG/DL 7.1 MG/DL Total Bilirubin 0.4 MG/DL 0.2 MG/DL Aspartate Amino Transf 5 U/L 4 U/L (AST/SGOT) Alanine Aminotransferase 11 U/L 9 U/L (ALT/SGPT) Alkaline Phosphatase 48 U/L 36 U/L Total Protein 6.0 GM/DL 4.6 GM/DL Albumin 2.1 GM/DL 1.6 GM/DL Lipase 37 U/L Lactic Acid Level 0.8 mmol/L Stl C. difficile Toxin PRESUMPTIVE Epiderm 027 POSITIVE Protein Corrected Calcium 8.5 MG/DL Test 09/30/16 07:38 White Blood Count 7.4 TH/MM3 Red Blood Count 3.11 MIL/MM3 Hemoglobin 8.8 GM/DL Hematocrit 28.2 % Mean Corpuscular Volume 90.8 FL Mean Corpuscular Hemoglobin 28.3 PG Mean Corpuscular Hemoglobin 31.2 % Concent Red Cell Distribution Width 18.7 % Platelet Count 147 TH/MM3 Mean Platelet Volume 8.0 FL Neutrophils (%) (Auto) 73.4 % Lymphocytes (%) (Auto) 10.5 % Monocytes (%) (Auto) 15.1 % Eosinophils (%) (Auto) 0.8 % Basophils (%) (Auto) 0.2 % Neutrophils # (Auto) 5.5 TH/MM3 Lymphocytes # (Auto) 0.8 TH/MM3 Monocytes # (Auto) 1.1 TH/MM3 Eosinophils # (Auto) 0.1 TH/MM3 Basophils # (Auto) 0.0 TH/MM3 CBC Comment DIFF FINAL Differential Comment Shey Sánchez MD Sep 30, 2016 14:47
--- NOTE | 2016-09-30 15:28 | MB ---
cc: ALISSA FERGUSON MD DATE OF CONSULTATION: 09/30/2016 REASON FOR CONSULTATION End-stage renal disease management. HISTORY OF PRESENT ILLNESS This is a 61-year-old male with a history of end-stage renal disease. He has followed up as an outpatient with Dr. Fong and is on hemodialysis Tuesdays, and Saturdays. The patient was admitted overnight after he had complaints of abdominal nausea and vomiting with abdominal pains. The patient had recently drank a protein drink that he had left sitting on the counter for quite some time and he reports he was feeling sick after he drank this; this apparently went on several days prior to the admission. The patient was unsure of what the etiology for these symptoms was and he came to the emergency room for further evaluation of ongoing abdominal discomfort. The patient does have a recent history of C. diff and given the gastric symptoms as well as the concern of possible C. diff, the patient was admitted for further evaluation. The patient was admitted with the primary team and was started on vancomycin p.o. and contact isolation with a clear liquid diet. At this point, the patient reports he is feeling much better and feels back to baseline. He reports his abdominal symptoms have improved. He has been afebrile without any fevers or chills otherwise and no other nausea or vomiting symptoms here. A CT of the abdomen was done which showed diffuse colonic wall thickening with inflammatory changes with findings of nonspecific colitis. He had a mild to moderate amount of ascites fluid present as well. At this point, the patient is resting in bed comfortably and has no acute complaints. Nephrology was consulted for further dialysis management. REVIEW OF SYSTEMS No nausea, no vomiting, no diarrhea, no fevers, no chills. The patient did have abdominal pains initially which have improved. No headaches, no loss of consciousness, no dizziness. Otherwise, review of systems negative. PAST MEDICAL HISTORY 1. ESRD on hemodialysis Sunday, , Sunday, followed up with Dr. Fong. 2. Urosepsis. 3. Hypertension. 4. BPH. 5. UTI. 6. 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 PAST SURGICAL HISTORY 1. Right IJ tunnel catheter. 2. Previous port. 3. Apparent kidney and liver stents. ALLERGIES NO KNOWN DRUG ALLERGIES. FAMILY HISTORY Noncontributory. SOCIAL HISTORY No alcohol, tobacco or drug use. The patient lives at home with his family. PHYSICAL EXAMINATION VITAL SIGNS: At the time of evaluation temperature 97.1, pulse 68, respiratory rate 18, blood pressure 104/69, pulse ox 99% on room air. GENERAL: Awake, alert, oriented, in no apparent distress. HEENT/NECK: Neck soft, supple. No lymphadenopathy. CARDIAC: Regular rate and rhythm. PULMONARY: Lungs clear to auscultation bilaterally. ABDOMEN: Soft, nontender, nondistended. EXTREMITIES: No edema. LABORATORY FINDINGS Sodium 140, potassium 4.4, chloride 110, bicarb 24, BUN is 27, creatinine 4.25, glucose 98, calcium 7.1, however albumin of 1.6 and corrected calcium of 8.5. Urinalysis: 15 WBCs, 6 RBCs, granular casts. ASSESSMENT AND PLAN 1. End-stage renal disease. The patient is on hemodialysis Tuesdays, , Saturdays. He follows up as an outpatient with Dr. Fong. The patient is being seen for dialysis here today. We will do dialysis with ultrafiltration as tolerated. Otherwise electrolytes and volume status are stable. We will plan for next dialysis on Sunday. 2. Gastritis. The patient had an episode of abdominal discomfort and nausea after drinking a protein shake that had been sitting on the counter for some time. He reports these symptoms have fully resolved and he is feeling much better at this point. A CT of the abdomen did reveal signs of nonspecific colitis. It is unclear if this secondary to his recent C. Diff. Continue to monitor. At this time, the patient was started on p.o. vancomycin empirically. We will continue to follow stool cultures and blood cultures as the patient is otherwise afebrile without any signs of infection at this stage, continue to monitor. 3. Malnutrition. The patient has reported a significant weight loss after his recent C. diff infection. We will go ahead and order Nepro supplemental shakes and continue to monitor. MD MARIOLA Morales/FELIX /2:41 PM /2:58 PM GUNJAN
[2016-09-30] MEDS: ACETAMINOPHEN 325 MG TAB PO PRN (21:59)
[2016-10-01] VITALS (7 sets, daily range): BP systolic 93–108; BP diastolic 53–67; PULSE 77–108; RESP 17–18; TEMP 95.8–98.8; O2SAT 96–100
[2016-10-01] MEDS: HEPARIN SODIUM - SQ 10,000 UNITS/ML VIAL SQ SCH ×4 (00:26→23:23)
[2016-10-01] MEDS: SODIUM CHLOR 0.9% 1000 ML INJ 1,000 ML IV SCH ×3 (01:19→23:25)
[2016-10-01] MEDS: VANCOMYCIN 500 MG VIAL (FOR ORAL USE ONLY) PO SCH ×4 (08:21→20:21)
[2016-10-01] MEDS: DOCUSATE SODIUM 50 MG/SENNA 8.6 MG TAB PO SCH ×2 (09:00→20:22)
[2016-10-01] MEDS: SODIUM CHLORIDE 0.9% FLUSH 10 ML FLUSH IV FLUSH SCH ×2 (09:00→20:22)
--- NOTE | 2016-10-01 15:12 | PD.ID.CON ---
History of Present Illness Service ID Consult Requested By Reason for Consult Evaluation and Mment of Cdiff Primary Care Physician Celena Chaudhary MD Diagnoses: History of Present Illness is a 61 y/o CM with PMHx of ESRD on HD using AV fistula on , Sun. 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 The patient was admitted after he had complaints of abdominal pain, nausea and vomiting. The patient initially attributed his symptoms to a protein drink he had. He was unsure of what the etiology for these symptoms was and he came to the emergency room for further evaluation of ongoing abdominal discomfort. The patient does have a recent history of C. diff and given the gastric symptoms as well as the concern of possible C. diff, the patient was admitted for further evaluation. The patient was admitted with the primary team and was started on vancomycin p.o. and contact isolation with a clear liquid diet. At this point, the patient reports he is feeling much better and feels back to baseline. He reports his abdominal symptoms has improved. He has been afebrile without any fevers or chills otherwise. A CT of the abdomen was done which showed diffuse colonic wall thickening with inflammatory changes with findings of nonspecific colitis. He had a mild to moderate amount of ascites fluid present as well. At the time of my evaluation, the patient is resting in bed comfortably and has no acute complaints. ID consulted for mment of recurrent Cdiff. Review of Systems ROS Limitations: Poor Historian Past Family Social History Allergies: Coded Allergies: No Known Allergies (Unverified , 09/29/16) Past Medical History 1. ESRD on hemodialysis Sunday, , Sunday, followed up with Dr. Fong. 2. Urosepsis. 3. Hypertension. 4. BPH. 5. UTI. 6. 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 Past Surgical History 1. Right IJ tunnel catheter. 2. Previous port. 3. Apparent kidney and liver stents. Reported Medications Reported Meds & Active Scripts Active Risperdal (Risperidone) 1 Mg Tab 1 Mg PO Q12HR Calcium Acetate (Calcium Acetate (Phosphate Bin) 667 Mg Cap 667 Mg PO TID Reported Montelukast (Montelukast Sodium) 10 Mg Tab 10 Mg PO HS Active Ordered Medications Current Medications Medications (Trade) Dose Ordered Sig/Tiffany Route Start Time Stop Time Status Last Admin (NS 1000 ml Inj) 1,000 ml @ 100 mls/hr Q10H IV 09/29/16 22:00 10/01/16 14:00 (NS Flush) 2 ml UNSCH PRN IV FLUSH 09/29/16 22:00 (NS Flush) 2 ml BID IV FLUSH 09/30/16 09:00 10/01/16 20:22 (Tylenol) 650 mg Q4H PRN PO 09/29/16 22:00 09/30/16 21:59 (Zofran Inj) 4 mg Q6H PRN IVP 09/29/16 22:00 09/30/16 03:36 (Charissa-Colace) 1 tab BID PO 09/30/16 09:00 (Milk Of Magnesia Liq) 30 ml Q12H PRN PO 09/29/16 22:00 (Senokot) 17.2 mg Q12H PRN PO 09/29/16 22:00 (Dulcolax Supp) 10 mg DAILY PRN RECTAL 09/29/16 22:00 (Lactulose Liq) 30 ml DAILY PRN PO 09/29/16 22:00 (VANCOMYCIN for oral use only) 250 mg QID PO 09/30/16 09:00 10/01/16 20:21 Heparin Sodium (Porcine) 5000 units 5,000 units Q8H SQ 10/01/16 00:00 10/01/16 18:33 (NS 1000 ml Inj) 1,000 ml @ 0 mls/hr Q0M PRN IV 09/30/16 09:57 09/30/16 14:40 Heparin Sodium (Porcine) 8000 units 8,000 units UNSCH PRN IVF 09/30/16 10:00 Sodium Chloride 1,000 ml @ 200 mls/hr Q5H PRN IV 09/30/16 09:57 (NS 1000 ml Inj) 1,000 ml @ 0 mls/hr Q0M PRN IV 09/30/16 09:57 (Mannitol Inj) 12.5 gm UNSCH PRN IV 09/30/16 10:00 (Albumin 25% Inj) 25 gm UNSCH PRN IV 09/30/16 10:00 (NS Flush) 5 ml UNSCH PRN IV FLUSH 09/30/16 10:00 (Heparin Inj) UNSCH PRN .XX 09/30/16 10:00 09/30/16 14:40 (Gentamicin (Dialysis) Inj) 20 mg UNSCH PRN IV 09/30/16 10:00 09/30/16 14:40 (Zofran Inj) 4 mg UNSCH PRN IV 09/30/16 10:00 (Tylenol) 650 mg UNSCH PRN PO 09/30/16 10:00 (Benadryl) 25 mg UNSCH PRN PO 09/30/16 10:00 (Nitrostat Sl) 0.4 mg UNSCH PRN SL 09/30/16 10:00 (Catapres) 0.1 mg UNSCH PRN PO 09/30/16 10:00 (Gelfoam 12 Mm/7 Mm Top) 1 foam UNSCH PRN TOP 09/30/16 10:00 Family History reviewed and NC Social History reviewed and NC to current ID problems. Physical Exam Vital Signs Vital Signs Date Time Temp Pulse Resp B/P Pulse Ox O2 Delivery O2 Flow Rate FiO2 10/01/16 12:07 95.8 108 18 103/64 100 10/01/16 07:53 97.5 88 18 95/53 98 10/01/16 04:24 97.3 77 18 101/67 96 10/01/16 00:20 97.3 85 18 99/60 98 09/30/16 21:00 85 09/30/16 20:00 97.8 50 18 105/59 98 09/30/16 17:29 91 09/30/16 15:58 96.3 74 18 113/76 99 Physical Exam GENERAL: Thin built poorly-nourished, in no apparent distress. SKIN: No rashes, ecchymoses or lesions. Cool and dry. HEAD: Atraumatic. Normocephalic. No temporal or scalp tenderness. EYES: Pupils equal round and reactive. Extraocular motions intact. No scleral icterus. No injection or drainage. ENT: Nose without bleeding, purulent drainage or septal hematoma. Throat without erythema, tonsillar hypertrophy or exudate. Uvula midline. Airway patent. NECK: Trachea midline. Supple, nontender, no meningeal signs. CARDIOVASCULAR: RRR. RESPIRATORY: Clear to auscultation. Breath sounds equal bilaterally. No wheezes , rales, or rhonchi. GASTROINTESTINAL: Abdomen soft, non-tender, nondistended. MUSCULOSKELETAL: Extremities without clubbing, cyanosis, or edema. No joint tenderness, effusion, or edema noted. No calf tenderness. Negative Homans sign bilaterally. NEUROLOGICAL: Awake and alert. Grossly non focal Psych: cooperative IV line sites with no e.o infection. Laboratory Date/Time Procedure Status Source Growth 09/30/16 02:00 Stool Pus (YULY) - Final Complete Stool Stool MODERATE WBC'S 09/30/16 02:00 - Final Complete Stool Stool 09/29/16 21:33 Aerobic Blood Culture - Preliminary Resulted Blood Peripheral NO GROWTH IN 2 DAYS 09/29/16 21:33 Anaerobic Blood Culture - Preliminary Resulted Blood Peripheral NO GROWTH IN 2 DAYS 09/29/16 19:38 Urine Culture - Preliminary Resulted Urine Clean Catch Gram Negative Baldo Gram Positive Cocci Result Diagram: 09/30/16 0738 09/30/16 0730 Imaging Last Impressions Abdomen/Pelvis CT 09/29/16 1916 Signed Impressions: Service Date/Time: Thursday, September 29, 2016 19:27 - CONCLUSION: 1. Abnormal bowel gas pattern with apparent diffuse colonic wall thickening and inflammatory change. There are multiple loops of nondilated air-containing small bowel with multiple air-fluid levels. The findings are most characteristic of colitis and are nonspecific. The sensitivity of this exam is limited by the lack of oral and intravenous contrast. 2. Small right pleural effusion. 3. Mild to moderate amount of ascitic fluid greatest in the right side of the abdomen and pelvis. Rodrigo Paris MD Assessment and Plan Assessment and Plan Cdiff Colitis present on admission Abnormal urine, asymptomatic Leucocytosis present on admission: cdiff infection related. Recs: No systemic antibiotics unless symptomatic or new sepsis or approved by ID. Continue oral vanco has responded to treatment. Advance diet per primary team. Reassess need for beard. Follow cultures Follow clinically. Hopefully home in am if tolerates diet and continues to improve. Shey Sánchez MD Oct 01, 2016 15:12
--- NOTE | 2016-10-01 17:17 | HHI.PR ---
Subjective Remarks Patient laying in bed, no abdominal pain no guarding or rebound, no nausea or vomiting She did have to bowel movement which was watery Continue on vancomycin by mouth Reviewed CT abdomen and discuss with ID Objective Vitals Vital Signs Date Time Temp Pulse Resp B/P Pulse Ox O2 Delivery O2 Flow Rate FiO2 10/01/16 15:48 97.0 89 18 93/66 100 10/01/16 12:07 95.8 108 18 103/64 100 10/01/16 07:53 97.5 88 18 95/53 98 10/01/16 04:24 97.3 77 18 101/67 96 10/01/16 00:20 97.3 85 18 99/60 98 09/30/16 21:00 85 09/30/16 20:00 97.8 50 18 105/59 98 09/30/16 17:29 91 I/O 09/30/16 09/30/16 09/30/16 10/01/16 10/01/16 10/01/16 07:00 15:00 23:00 07:00 15:00 23:00 Intake Total 1189 ml 240 ml 240 ml Output Total 100 ml 1300 ml 50 ml 400 ml Balance 1089 ml 240 ml -1300 ml -50 ml -160 ml Intake Oral 480 ml 240 ml 240 ml IV Total 709 ml Output Urine Total 100 ml 100 ml 50 ml 400 ml Hemodialysis 1200 ml # Voids 1 # Bowel Movements 4 1 2 2 2 Result Diagram: 09/30/16 0738 09/30/16 0730 Objective Remarks GENERAL: This is a well-nourished, well-developed patient, in no apparent distress. SKIN: No rashes, warm and dry HEAD: Atraumatic. Normocephalic. EYES: Pupils equal round and reactive. Extraocular motions intact. No scleral icterus. ENT: Nose without bleeding, or drainage, Airway patent. NECK: Trachea midline. Supple CARDIOVASCULAR: Regular rate and rhythm without murmurs, gallops, or rubs. RESPIRATORY: Fair air entry bilaterally. No wheezes, rales, or rhonchi. GASTROINTESTINAL: Abdomen soft, non-tender, nondistended. Positive bowel sounds MUSCULOSKELETAL: Extremities without clubbing, cyanosis, or edema. Pedal pulses appreciated NEUROLOGICAL: Awake and alert. Moves all extremity. Normal speech.no focal neurological deficit A/P Problem List: (1) Sepsis ICD Code: A41.9 Status: Acute (2) C. difficile colitis ICD Code: A04.7 Status: Acute Assessment and Plan 10/01:2 watery bowel movement, no abdominal pain no fever or chills, discussed with ID, concerned about multiple air-fluid loop on CT, eventually decided on monitoring, will consider surgery consult if clinically worsen Nephrology consult reviewed A/P: Sepsis due to Resistant C. difficile colitis - Toxin Epiderm 027 - Vancomycin 250 mg by mouth 4 times a day - Special contact isolation - Continuous cardiac telemetry to monitor for cardiac arrhythmias - Clear liquid diet End-stage renal disease requiring hemodialysis - Consult nephrology, Dr. Fong - assistance appreciated - Monitor I's and O's strictly DVT prophylaxis - Heparin 5000 units subq q8h Problem Qualifiers (1) Sepsis: Qualified Code: A41.9 - Sepsis, due to unspecified organism Fercho Jolley MD Oct 01, 2016 17:17
--- NOTE | 2016-10-01 17:40 | HHI.NPPN ---
Subjective Additional Remarks Feels well today Objective Data Data 09/30/16 10/01/16 19:00 07:00 Intake Total 240 ml Output Total 1200 ml 150 ml Balance -960 ml -150 ml Intake Oral 240 ml Output Urine Total 150 ml Hemodialysis 1200 ml # Voids 1 # Bowel Movements 1 4 Vital Signs Date Time Temp Pulse Resp B/P Pulse Ox O2 Delivery O2 Flow Rate FiO2 10/01/16 15:48 97.0 89 18 93/66 100 10/01/16 12:07 95.8 108 18 103/64 100 10/01/16 07:53 97.5 88 18 95/53 98 10/01/16 04:24 97.3 77 18 101/67 96 10/01/16 00:20 97.3 85 18 99/60 98 09/30/16 21:00 85 09/30/16 20:00 97.8 50 18 105/59 98 -: 09/30/16 0738 09/30/16 0730 Physical Exam General Appearance: Well Developed, Well Nourished, No Acute Distress Eyes Eye Exam: Pupils Equal Throat Throat Exam: Oral Mucosa [place] & Moist Neck Neck Exam: Neck Supple Pulmonary Resp Exam: Clear Bilaterally Cardiology CV Exam: Regular, Normal Sinus Rhythm, Good Perfusion Gastrointestinal/Abdomen GI Exam: Soft, Non-Tender, Bowel Sounds Present Genitourinary Exam: Clear Urine Integumentary Skin Exam: Warm, Dry, Intact Extremeties Extremities Exam: No Edema Neurologic Neuro Exam: Alert, Awake, Oriented, Speech Clear Assessment/Plan Problem List: (1) ESRD (end stage renal disease) on dialysis Plan: ESRD TTS - HD done yesterday, plan next HD Sunday. Vital signs, electrolytes stable. Patient has indwelling beard for prostate issues - plan for outpatient evaluation in October. (2) Colitis Plan: The patient had an episode of abdominal discomfort and nausea after drinking a protein shake that had been sitting on the counter for some time. He reports these symptoms have fully resolved and he is feeling much better at this point. Recent C. Diff- continue antibiotics per ID. Patient feels well. Continue supplemental nepro for malnutrition Yo Ramon MD Oct 01, 2016 17:40
[2016-10-01] MEDS: ACETAMINOPHEN 325 MG TAB PO PRN (23:24)
[2016-10-02] VITALS (8 sets, daily range): BP systolic 102–123; BP diastolic 56–69; PULSE 56–100; RESP 20; TEMP 95.8–98.7; O2SAT 96–100
[2016-10-02] MEDS: HEPARIN SODIUM - SQ 10,000 UNITS/ML VIAL SQ SCH ×2 (08:37→16:05)
[2016-10-02] MEDS: VANCOMYCIN 500 MG VIAL (FOR ORAL USE ONLY) PO SCH ×4 (08:38→21:00)
[2016-10-02] MEDS: DOCUSATE SODIUM 50 MG/SENNA 8.6 MG TAB PO SCH ×2 (09:00→21:00)
[2016-10-02] MEDS: SODIUM CHLORIDE 0.9% FLUSH 10 ML FLUSH IV FLUSH SCH ×2 (09:00→21:00)
[2016-10-02] MEDS: SODIUM CHLOR 0.9% 1000 ML INJ 1,000 ML IV SCH ×2 (09:30→20:00)
[2016-10-02] MEDS ORDERED: VANC500I3 PO (15:51)
--- NOTE | 2016-10-02 16:05 | HHI.PR ---
Subjective Remarks Patient stable and bed, seen by GI plan to discharge him if he tolerate diet, he scheduled for hemodialysis today I discussed with the patient taken off his [place] however he refused he stated he want take it off until he sees urology I explained to him the risk of infection, and possibly we can do a voiding trial and if he doesn't needed he can keep it out until seeing urology but patient refused and insisted on keeping it in Objective Vitals Vital Signs Date Time Temp Pulse Resp B/P Pulse Ox O2 Delivery O2 Flow Rate FiO2 10/02/16 12:00 96.1 56 20 109/69 100 10/02/16 09:00 88 10/02/16 08:00 97.0 84 20 114/66 98 10/02/16 04:00 97.4 67 20 108/66 96 10/02/16 00:00 97.1 78 20 105/66 98 10/01/16 21:40 98.8 87 17 108/67 96 10/01/16 20:30 87 I/O 10/01/16 10/01/16 10/01/16 10/02/16 10/02/16 10/02/16 07:00 15:00 23:00 07:00 15:00 23:00 Intake Total 240 ml 400 ml 1200 ml Output Total 50 ml 400 ml 1 ml 2 ml Balance -50 ml -160 ml 399 ml -2 ml 1200 ml Intake Oral 240 ml 400 ml IV Total 1200 ml Output Urine Total 50 ml 400 ml 0 ml Stool Total 1 ml 2 ml # Bowel Movements 2 2 0 Result Diagram: 09/30/16 0738 09/30/16 0730 Objective Remarks GENERAL: This is a well-nourished, well-developed patient, in no apparent distress. SKIN: No rashes, warm and dry HEAD: Atraumatic. Normocephalic. EYES: Pupils equal round and reactive. Extraocular motions intact. No scleral icterus. ENT: Nose without bleeding, or drainage, Airway patent. NECK: Trachea midline. Supple CARDIOVASCULAR: Regular rate and rhythm without murmurs, gallops, or rubs. RESPIRATORY: Fair air entry bilaterally. No wheezes, rales, or rhonchi. GASTROINTESTINAL: Abdomen soft, non-tender, nondistended. Positive bowel sounds MUSCULOSKELETAL: Extremities without clubbing, cyanosis, or edema. Pedal pulses appreciated NEUROLOGICAL: Awake and alert. Moves all extremity. Normal speech.no focal neurological deficit A/P Problem List: (1) Sepsis ICD Code: A41.9 Status: Acute (2) C. difficile colitis ICD Code: A04.7 Status: Acute Assessment and Plan 10/01:2 watery bowel movement, no abdominal pain no fever or chills, discussed with ID, concerned about multiple air-fluid loop on CT, eventually decided on monitoring, will consider surgery consult if clinically worsen Nephrology consult reviewed 10/02: Continue current care, advance diet or GI recommendation, discussed with ID can be going on by mouth Vanco, HD scheduled for tomorrow, patient refused to take Elmore out A/P: Sepsis due to Resistant C. difficile colitis - Toxin Epiderm 027 - Vancomycin 250 mg by mouth 4 times a day - Special contact isolation - Continuous cardiac telemetry to monitor for cardiac arrhythmias - Clear liquid diet End-stage renal disease requiring hemodialysis - Consult nephrology, Dr. Fong - assistance appreciated - Monitor I's and O's strictly DVT prophylaxis - Heparin 5000 units subq q8h Problem Qualifiers (1) Sepsis: Qualified Code: A41.9 - Sepsis, due to unspecified organism Fercho Jolley MD Oct 02, 2016 16:05
--- NOTE | 2016-10-02 17:17 | HHI.IDPN ---
Subjective Subjective Remarks is a 61 y/o CM with PMHx of ESRD on HD using AV fistula on Sun. 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 The patient was admitted after he had complaints of abdominal pain, nausea and vomiting. The patient initially attributed his symptoms to a protein drink he had. He was unsure of what the etiology for these symptoms was and he came to the emergency room for further evaluation of ongoing abdominal discomfort. The patient does have a recent history of C. diff and given the gastric symptoms as well as the concern of possible C. diff, the patient was admitted for further evaluation. The patient was admitted with the primary team and was started on vancomycin p.o. and contact isolation with a clear liquid diet. At this point, the patient reports he is feeling much better and feels back to baseline. He reports his abdominal symptoms has improved. He has been afebrile without any fevers or chills otherwise. A CT of the abdomen was done which showed diffuse colonic wall thickening with inflammatory changes with findings of nonspecific colitis. He had a mild to moderate amount of ascites fluid present as well. At the time of my evaluation, the patient is resting in bed comfortably and has no acute complaints. ID consulted for mment of recurrent Cdiff. Overnight events reviewed Denies any fever Denies any chills nausea vomiting Diarrhea improved stool now better formed. Antibiotics Vancomycin oral Lines Line sites with no evidence of infection. Past Medical History Reviewed. Allergies: Coded Allergies: No Known Allergies (Unverified , 09/29/16) Objective . Vital Signs Date Time Temp Pulse Resp B/P Pulse Ox O2 Delivery O2 Flow Rate FiO2 10/02/16 16:00 95.8 60 20 123/56 99 10/02/16 12:00 96.1 56 20 109/69 100 10/02/16 09:00 88 10/02/16 08:00 97.0 84 20 114/66 98 10/02/16 04:00 97.4 67 20 108/66 96 10/02/16 00:00 97.1 78 20 105/66 98 10/01/16 21:40 98.8 87 17 108/67 96 10/01/16 20:30 87 10/01/16 10/01/16 10/02/16 14:59 22:59 06:59 Intake Total 240 ml 400 ml Output Total 400 ml 1 ml 2 ml Balance -160 ml 399 ml -2 ml Intake Oral 240 ml 400 ml Output Urine Total 400 ml 0 ml Stool Total 1 ml 2 ml # Bowel Movements 2 0 . Microbiology Date/Time Procedure Status Source Growth 09/29/16 19:38 Urine Culture - Final Complete Urine Clean Catch Stenotrophomonas Maltophilia 09/29/16 21:25 Aerobic Blood Culture - Preliminary Resulted Blood Peripheral NO GROWTH IN 3 DAYS 09/29/16 21:25 Anaerobic Blood Culture - Preliminary Resulted Blood Peripheral NO GROWTH IN 3 DAYS 09/29/16 21:33 Aerobic Blood Culture - Preliminary Resulted Blood Peripheral NO GROWTH IN 3 DAYS 09/29/16 21:33 Anaerobic Blood Culture - Preliminary Resulted Blood Peripheral NO GROWTH IN 3 DAYS 09/30/16 02:00 - Final Complete Stool Stool 09/30/16 02:00 Stool Pus (YULY) - Final Complete Stool Stool MODERATE WBC'S Imaging Last Impressions Abdomen/Pelvis CT 09/29/16 191 Signed Impressions: Service Date/Time: Thursday, September 29, 2016 19:27 - CONCLUSION: 1. Abnormal bowel gas pattern with apparent diffuse colonic wall thickening and inflammatory change. There are multiple loops of nondilated air-containing small bowel with multiple air-fluid levels. The findings are most characteristic of colitis and are nonspecific. The sensitivity of this exam is limited by the lack of oral and intravenous contrast. 2. Small right pleural effusion. 3. Mild to moderate amount of ascitic fluid greatest in the right side of the abdomen and pelvis. Rodrigo Paris MD Physical Exam GENERAL: Thin built poorly-nourished, in no apparent distress. SKIN: No rashes, ecchymoses or lesions. Cool and dry. HEAD: Atraumatic. Normocephalic. No temporal or scalp tenderness. EYES: Pupils equal round and reactive. Extraocular motions intact. No scleral icterus. No injection or drainage. ENT: Nose without bleeding, purulent drainage or septal hematoma. Throat without erythema, tonsillar hypertrophy or exudate. Uvula midline. Airway patent. NECK: Trachea midline. Supple, nontender, no meningeal signs. CARDIOVASCULAR: RRR. RESPIRATORY: Clear to auscultation. Breath sounds equal bilaterally. No wheezes , rales, or rhonchi. GASTROINTESTINAL: Abdomen soft, non-tender, nondistended. MUSCULOSKELETAL: Extremities without clubbing, cyanosis, or edema. No joint tenderness, effusion, or edema noted. No calf tenderness. Negative Homans sign bilaterally. NEUROLOGICAL: Awake and alert. Grossly non focal Psych: cooperative IV line sites with no e.o infection. Assessment & Plan Remarks Cdiff Colitis present on admission Abnormal urine, asymptomatic Leucocytosis present on admission: cdiff infection related. Recs: No systemic antibiotics unless symptomatic or new sepsis or approved by ID. Continue oral vanco has responded to treatment. Advance diet per primary team. Reassess need for beard. Follow cultures Follow clinically. Okay to discharge on oral vancomycin for a three-week course. Will sign off please call if any change in clinical conditions. Shey Sánchez MD Oct 02, 2016 17:17
--- NOTE | 2016-10-02 19:11 | HHI.NPPN ---
Subjective Additional Remarks Feels well today Objective Data Data 10/01/16 10/02/16 19:00 07:00 Intake Total 240 ml 400 ml Output Total 400 ml 3 ml Balance -160 ml 397 ml Intake Oral 240 ml 400 ml Output Urine Total 400 ml 0 ml Stool Total 3 ml # Bowel Movements 2 0 Vital Signs Date Time Temp Pulse Resp B/P Pulse Ox O2 Delivery O2 Flow Rate FiO2 10/02/16 16:00 95.8 60 20 123/56 99 10/02/16 12:00 96.1 56 20 109/69 100 10/02/16 09:00 88 10/02/16 08:00 97.0 84 20 114/66 98 10/02/16 04:00 97.4 67 20 108/66 96 10/02/16 00:00 97.1 78 20 105/66 98 10/01/16 21:40 98.8 87 17 108/67 96 10/01/16 20:30 87 -: 09/30/16 0738 09/30/16 0730 Physical Exam General Appearance: Well Developed, Well Nourished, No Acute Distress Eyes Eye Exam: Pupils Equal Throat Throat Exam: Oral Mucosa [place] & Moist Neck Neck Exam: Neck Supple Pulmonary Resp Exam: Clear Bilaterally Cardiology CV Exam: Regular, Normal Sinus Rhythm, Good Perfusion Gastrointestinal/Abdomen GI Exam: Soft, Non-Tender, Bowel Sounds Present Genitourinary Exam: Clear Urine Integumentary Skin Exam: Warm, Dry, Intact Extremeties Extremities Exam: No Edema Neurologic Neuro Exam: Alert, Awake, Oriented, Speech Clear Assessment/Plan Problem List: (1) ESRD (end stage renal disease) on dialysis Plan: ESRD TTS - HD done yesterday, plan next HD Sunday. Vital signs, electrolytes stable. Patient has indwelling Elmore for prostate issues - plan for outpatient evaluation in October. growth of Stenotrophomonas\ need ID following (2) Colitis Plan: The patient had an episode of abdominal discomfort and nausea c diff positive on PO vancomycin Continue supplemental nepro for malnutrition Charles Fong MD Oct 02, 2016 19:11
[2016-10-03] VITALS: BP 104/69; PULSE 99; RESP 20; TEMP 98.1; O2SAT 96
[2016-10-03] MEDS: HEPARIN SODIUM - SQ 10,000 UNITS/ML VIAL SQ SCH ×3 (00:45→16:00)
[2016-10-03 01:33] VITALS: PULSE 97
[2016-10-03 04:00] VITALS: BP 118/72; PULSE 101; RESP 20; TEMP 98.3; O2SAT 98
[2016-10-03] MEDS: SODIUM CHLOR 0.9% 1000 ML INJ 1,000 ML IV SCH ×2 (05:52→16:00)
[2016-10-03 08:00] VITALS: BP 120/69; PULSE 96; RESP 20; TEMP 97.2; O2SAT 98
[2016-10-03] MEDS: DOCUSATE SODIUM 50 MG/SENNA 8.6 MG TAB PO SCH (09:00)
[2016-10-03] MEDS: SODIUM CHLORIDE 0.9% FLUSH 10 ML FLUSH IV FLUSH SCH (09:00)
[2016-10-03] MEDS ORDERED: VANC500I3 PO (09:55)
[2016-10-03] MEDS: VANCOMYCIN 500 MG VIAL (FOR ORAL USE ONLY) PO SCH ×3 (10:08→18:39)
[2016-10-03 11:42] VITALS: BP 108/69; PULSE 98; RESP 20; TEMP 96.1; O2SAT 99
[2016-10-03 16:00] VITALS: BP 104/62; PULSE 101; RESP 20; TEMP 98.2; O2SAT 98
--- NOTE | 2016-10-03 16:20 | HHI.PR ---
Subjective Remarks Patient doing well no acute issue is going for hemodialysis today later on, and he can be discharged home on by mouth vancomycin Objective Vitals Vital Signs Date Time Temp Pulse Resp B/P Pulse Ox O2 Delivery O2 Flow Rate FiO2 10/03/16 11:42 96.1 98 20 108/69 99 10/03/16 08:00 97.2 96 20 120/69 98 10/03/16 04:00 98.3 101 20 118/72 98 10/03/16 01:33 97 10/03/16 00:00 98.1 99 20 104/69 96 10/02/16 20:00 98.7 100 20 102/66 97 I/O 10/02/16 10/02/16 10/02/16 10/03/16 10/03/16 10/03/16 07:00 15:00 23:00 07:00 15:00 23:00 Intake Total 1680 ml 2614 ml 1200 ml 1374 ml Output Total 2 ml 875 ml Balance -2 ml 1680 ml 2614 ml 325 ml 1374 ml Intake Oral 480 ml 240 ml IV Total 1200 ml 2374 ml 1200 ml 1374 ml Output Urine Total 875 ml Stool Total 2 ml # Voids 1 # Bowel Movements 2 Result Diagram: 09/30/16 0738 09/30/16 0730 Objective Remarks GENERAL: This is a well-nourished, well-developed patient, in no apparent distress. SKIN: No rashes, warm and dry HEAD: Atraumatic. Normocephalic. EYES: Pupils equal round and reactive. Extraocular motions intact. No scleral icterus. ENT: Nose without bleeding, or drainage, Airway patent. NECK: Trachea midline. Supple CARDIOVASCULAR: Regular rate and rhythm without murmurs, gallops, or rubs. RESPIRATORY: Fair air entry bilaterally. No wheezes, rales, or rhonchi. GASTROINTESTINAL: Abdomen soft, non-tender, nondistended. Positive bowel sounds MUSCULOSKELETAL: Extremities without clubbing, cyanosis, or edema. Pedal pulses appreciated NEUROLOGICAL: Awake and alert. Moves all extremity. Normal speech.no focal neurological deficit A/P Problem List: (1) Sepsis ICD Code: A41.9 Status: Acute (2) C. difficile colitis ICD Code: A04.7 Status: Acute Assessment and Plan 10/01:2 watery bowel movement, no abdominal pain no fever or chills, discussed with ID, concerned about multiple air-fluid loop on CT, eventually decided on monitoring, will consider surgery consult if clinically worsen Nephrology consult reviewed 10/02: Continue current care, advance diet or GI recommendation, discussed with ID can be going on by mouth Vanco, HD scheduled for tomorrow, patient refused to take [place] out 10/03: Discussed with ID, 3 weeks of by mouth vancomycin, patient can be discharged after hemodialysis A/P: Sepsis due to Resistant C. difficile colitis - Toxin Epiderm 027 - Vancomycin 250 mg by mouth 4 times a day - Special contact isolation - Continuous cardiac telemetry to monitor for cardiac arrhythmias - Clear liquid diet End-stage renal disease requiring hemodialysis - Consult nephrology, Dr. Fong - assistance appreciated - Monitor I's and O's strictly DVT prophylaxis - Heparin 5000 units subq q8h Problem Qualifiers (1) Sepsis: Qualified Code: A41.9 - Sepsis, due to unspecified organism Fercho Jolley MD Oct 03, 2016 16:20
--- NOTE | 2016-10-03 16:23 | HHI.DS ---
Discharge Summary Admission Date Sep 29, 2016 at 21:41 Discharge Date: Oct 03, 2016 Admitting Diagnosis sepsis, colitis (1) Sepsis ICD Code: A41.9 (2) C. difficile colitis ICD Code: A04.7 Procedures See below Brief History - From Admission Written by Shilpa Wakefield, acting as scribe for Dr. Luna on 09/30/16 at 06:12. The patient states he is here for a "tummy ache". He states that he drank a weight gain beverage and had bloating for the last 6 days - thought it would go away but it never did. He describes intermittent severe abdominal pain and nausea. Symptoms are worse with eating. Reports 3 episodes of diarrhea while here in the hospital. Denies fever or chills. Recently treated for UTI with both Levaquin and Ciprofloxacin. CBC/BMP: 09/30/16 0738 09/30/16 0730 PE at Discharge GENERAL: This is a well-nourished, well-developed patient, in no apparent distress. SKIN: No rashes, warm and dry HEAD: Atraumatic. Normocephalic. EYES: Pupils equal round and reactive. Extraocular motions intact. No scleral icterus. ENT: Nose without bleeding, or drainage, Airway patent. NECK: Trachea midline. Supple CARDIOVASCULAR: Regular rate and rhythm without murmurs, gallops, or rubs. RESPIRATORY: Fair air entry bilaterally. No wheezes, rales, or rhonchi. GASTROINTESTINAL: Abdomen soft, non-tender, nondistended. Positive bowel sounds MUSCULOSKELETAL: Extremities without clubbing, cyanosis, or edema. Pedal pulses appreciated NEUROLOGICAL: Awake and alert. Moves all extremity. Normal speech.no focal neurological deficit Hospital Course 61 years old male admitted with Sepsis due to Resistant C. difficile colitis - Toxin Epiderm 027 Started on Vancomycin 250 mg by mouth 4 times a day Special contact isolation, cardiac telemetry , ID consulted and recommended 3 weeks of by mouth vancomycin post discharge Patient had Endstage renal disease requiring hemodialysis Consulted nephrology, Dr. Fong - assistance appreciated Monitor I's and O's strictly Pt Condition on Discharge: Fair Discharge Disposition: Discharge Home Discharge Time: <= 30 minutes Discharge Instructions DIET: Follow Instructions for: Heart Healthy Diet Activities you can perform: Weight Bearing as Yomaira New Medications: Vancomycin Inj (Vancomycin Inj) 500 Mg Inj 250 MG PO QID cdiff #84 INJECTION Continued Medications: Calcium Acetate (Phosphate Bin (Calcium Acetate) 667 Mg Cap 667 MG PO TID kidneys #90 CAP Montelukast (Montelukast) 10 Mg Tab 10 MG PO HS #30 Ref 0 TAB Risperidone (Risperdal) 1 Mg Tab 1 MG PO Q12HR psych #60 TAB Fercho Jolley MD Oct 03, 2016 16:23
[2016-10-03] MEDS: HEPARIN SODIUM - IV 10,000 UNITS/10 ML VIAL PRN (17:51)
[2016-10-03] MEDS: GENTAMICIN SULFATE (DIALYSIS USE ONLY) 20 MG/2 ML VIAL IV PRN (17:51)
== END 2016-10-03 20:13 | disposition home or self-care (01) | DRG 871 ==
LOC: NEPE 17:58 → NEDA 21:41 → N05B 23:11 → N05A 23:12
PROVIDERS: ADMIT Hospitalist; ATTEND Hospitalist
PROC: 5A1D60Z (ICD-10-PCS; principal; 2016-09-30)
DX: A41.9 Sepsis, unspecified organism (principal); N18.6 End stage renal disease; A04.7 Enterocolitis due to Clostridium difficile; E46 Unspecified protein-calorie malnutrition; I12.0 Hypertensive chronic kidney disease with stage 5 chronic kidney disease or end stage renal disease; R18.8 Other ascites; Z68.20 Body mass index [BMI] 20.0-20.9, adult; Z87.440 Personal history of urinary (tract) infections; Z99.2 Dependence on renal dialysis; N40.0 Benign prostatic hyperplasia without lower urinary tract symptoms
CPT/HCPCS: 74176; 80053; 81001; 83605; 83690; 85007; 85025; 85027; 87040; 87086; 87205; 87493; 87506; 90935; 96374; J0744; J1580; J1644; J1650; J2405; J7030; J7050

== ENCOUNTER 2016-10-10 17:57 | Inpatient (IN) | payer BC, OTHER ==
[2016-10-10] VITALS (10 sets, daily range): BP systolic 83–117; BP diastolic 51–74; PULSE 116–154; RESP 14–26; TEMP 99.1–100.1; O2SAT 97–99
[~2016-10-10] VITALS: Ht 175.3 cm; Wt 52.0 kg
[~2016-10-10 17:57] MED LIST changes: +VANC500I3 PO
--- NOTE | 2016-10-10 18:50 | PD ---
HPI Chief Complaint: Abnormal Results Time Seen by Provider: 18:46 Travel History International Travel<30 days: No Contact w/Intl Traveler<30days: No Traveled to known affect area: No History of Present Illness HPI 61-year-old male with history of end-stage renal disease on hemodialysis with Dr. Ziegler, hypertension, multiple medical issues, admitted a week ago for C. difficile diarrhea, released but he states he never got prescription to fill his antibiotics, and comes back to the ER today for continued diarrhea several times a day. He states he has been avoiding eating and drinking much due to the diarrhea. He is feeling more fatigued and has been running fevers. He denies any chest pains, shortness of breath, or other issues. Modifying Factors: None Associated Signs & Symptoms: Ongoing diarrhea, fatigue, fevers Risk Factors: C. difficile diarrhea PFSH Past Medical History Hx Anticoagulant Therapy: Yes (HEPARIN W/ DIALYSIS) Anemia: Yes Arthritis: No Asthma: No Autoimmune Disease: No Anxiety: Yes Depression: No Heart Rhythm Problems: No Cancer: No Cardiovascular Problems: Yes High Cholesterol: No Chemotherapy: No Chest Pain: No Congestive Heart Failure: No COPD: No Cerebrovascular Accident: No Diabetes: No Dialysis: Yes (PT STATES STOP TREATMENT IN JULY FOR ISSUES WITH INSURANCE) Diminished Hearing: No Endocrine: No GERD: No Genitourinary: Yes (beard prehospital) Headaches: No Hiatal Hernia: No Heparin Induced Thrombocytopen: No Hypertension: Yes Immune Disorder: No Implanted Vascular Access Dvce: No Kidney Stones: No Musculoskeletal: No Neurologic: No Psychiatric: No Reproductive: No Respiratory: No Migraines: No Radiation Therapy: No Renal Failure: Yes (Pt has end stage renal disease) Seizures: No Sickle Cell Disease: No Sleep Apnea: No Thyroid Disease: No Ulcer: No Past Surgical History Abdominal Surgery: Yes (Hernia repair ) AICD: No Arteriovenous Shunt: No Body Medical Devices: Pt has right sided IJ PermCath for dialysis Cardiac Surgery: No Ear Surgery: No Endocrine Surgery: No Eye Surgery: No Genitourinary Surgery: Yes (Yes - stents placed ureters) Insulin Pump: No Joint Replacement: No Neurologic Surgery: No Oral Surgery: No Pacemaker: No Thoracic Surgery: No Other Surgery: Yes (Dialysis CATHETER RIGHT SIDE OF CHEST, Hernia repair ) Social History Alcohol Use: No Tobacco Use: No Substance Use: No Allergies-Medications (Allergen,Severity, Reaction): Coded Allergies: No Known Allergies (Unverified , 09/29/16) Reported Meds & Prescriptions Reported Meds & Active Scripts Active Vancomycin Inj (Vancomycin HCl) 500 Mg Inj 250 Mg PO QID Risperdal (Risperidone) 1 Mg Tab 1 Mg PO Q12HR Calcium Acetate (Calcium Acetate (Phosphate Bin) 667 Mg Cap 667 Mg PO TID Reported Montelukast (Montelukast Sodium) 10 Mg Tab 10 Mg PO HS Review of Systems Except as stated in HPI: all other systems reviewed are Neg Physical Exam Narrative GENERAL: Well-developed elderly thin -[place] male patient currently in mild distress. SKIN: Focused skin assessment warm/dry. HEAD: Atraumatic. Normocephalic. EYES: Pupils equal and round. No scleral icterus. No injection or drainage. ENT: No nasal bleeding or discharge. Mucous membranes pink and moist. NECK: Trachea midline. No JVD. CARDIOVASCULAR: Regular rate and rhythm. No murmur appreciated. RESPIRATORY: No accessory muscle use. Clear to auscultation. Breath sounds equal bilaterally. GASTROINTESTINAL: Abdomen soft, mild diffuse tenderness without guarding or rebound, nondistended. Hepatic and splenic margins not palpable. MUSCULOSKELETAL: No obvious deformities. No clubbing. No cyanosis. No edema. NEUROLOGICAL: Awake and alert. No obvious cranial nerve deficits. Motor grossly within normal limits. Normal speech. PSYCHIATRIC: Appropriate mood and affect; insight and judgment normal. Data Data Last Documented VS Vital Signs Date Time Temp Pulse Resp B/P Pulse Ox O2 Delivery O2 Flow Rate FiO2 10/10/16 18:28 123 16 99/ 99 Room Air 10/10/16 18:10 99.1 Orders Complete Blood Count With Diff (10/10/16 18:24) Comprehensive Metabolic Panel (10/10/16 18:24) Lactic Acid Sepsis Protocol (10/10/16 18:24) Blood Culture (10/10/16 18:24) Chest, Single Ap (10/10/16 18:24) Blood Glucose (10/10/16 18:24) Ecg Monitoring (10/10/16 18:24) Iv Access Insert/Monitor (10/10/16 18:24) Oximetry (10/10/16 18:24) Oxygen Administration (10/10/16 18:24) Urinalysis - C+S If Indicated (10/10/16 18:26) C Diff Toxin Pcr (10/10/16 18:46) Labs Laboratory Tests Test 10/10/16 18:20 White Blood Count 24.5 TH/MM3 Red Blood Count 3.22 MIL/MM3 Hemoglobin 9.0 GM/DL Hematocrit 28.8 % Mean Corpuscular Volume 89.4 FL Mean Corpuscular Hemoglobin 27.8 PG Mean Corpuscular Hemoglobin 31.1 % Concent Red Cell Distribution Width 18.4 % Platelet Count 196 TH/MM3 Mean Platelet Volume 7.9 FL Neutrophils (%) (Auto) 79.2 % Lymphocytes (%) (Auto) 6.9 % Monocytes (%) (Auto) 13.8 % Eosinophils (%) (Auto) 0.0 % Basophils (%) (Auto) 0.1 % Neutrophils # (Auto) 19.4 TH/MM3 Lymphocytes # (Auto) 1.7 TH/MM3 Monocytes # (Auto) 3.4 TH/MM3 Eosinophils # (Auto) 0.0 TH/MM3 Basophils # (Auto) 0.0 TH/MM3 CBC Comment AUTO DIFF MDM Medical Decision Making Medical Screen Exam Complete: Yes Emergency Medical Condition: Yes Medical Record Reviewed: Yes Differential Diagnosis Diarrhea, weakness, feverscontinue C. difficile diarrhea versus gastroenteritis versus dehydration versus electrolyte abnormalities Narrative Course Lab work ordered for the patient. Physician Communication Physician Communication Case signed out to Dr. prather at 7 PM pending workup. Diagnosis Primary Impression: Colitis Condition: Stable Kayla Soto MD Oct 10, 2016 18:50
[2016-10-10 18:58] LABS: AUTOMATED NEUTROPHIL # 19.4 TH/MM3 (1.8-7.7); BASOPHIL % 0.1 % (0.0-2.0); HEMATOCRIT 28.8 % (39.0-51.0); LYMPH % 6.9 % (9.0-44.0); LYMPHOCYTE # 1.7 TH/MM3 (1.0-4.8); MEAN CELL VOLUME 89.4 FL (80.0-100.0); MEAN CORPUSCULAR HEMOGLOBIN 27.8 PG (27.0-34.0); MEAN CORPUSCULAR HGB CONC 31.1 % (32.0-36.0); MONO % 13.8 % (0.0-8.0); NEUT % 79.2 % (16.0-70.0); PLATELET COUNT 196 TH/MM3 (150-450); RED BLOOD COUNT 3.22 MIL/MM3 (4.50-5.90); RED CELL DISTRIBUTION WIDTH 18.4 % (11.6-17.2); WHITE BLOOD COUNT 24.5 TH/MM3 (4.0-11.0)
[2016-10-10 19:01] LABS: HEMO FLAGS AUTO DIFF
--- NOTE | 2016-10-10 19:02 | RADRPT ---
EXAM DATE/TIME: 10/10/2016 18:24 [facility] COMPARISON: CHEST SINGLE AP, August 28, 2016, 6:03. INDICATIONS : Short of breath. MEDICAL HISTORY : Cardiovascular disease. Hypertension SURGICAL HISTORY : None. ENCOUNTER: Initial ACUITY: 1 day PAIN SCORE: 0/10 LOCATION: Bilateral chest FINDINGS: A single view of the chest demonstrates the lungs to be symmetrically aerated without evidence of mas s, infiltrate or effusion. The cardiomediastinal contours are unremarkable. Osseous structures are intact. A right-sided dialysis catheter is noted. CONCLUSION: No acute disease. Danny Fofana Jr., MD on October 10, 2016 at 18:58 Board Certified Radiologist. This report was verified electronically.
[2016-10-10 19:18] LABS: ANION GAP 9 MEQ/L (5-15); AST (GOT) 7 U/L (15-37); BICARBONATE 25.1 MEQ/L (21.0-32.0); BLOOD UREA NITROGEN 18 MG/DL (7-18); CHLORIDE 106 MEQ/L (98-107); GLOMERULAR FILTRATION RATE 27 ML/MIN (>89); SODIUM (NA) 140 MEQ/L (136-145)
[2016-10-10 19:22] LABS: ALKALINE PHOSPHATASE 152 U/L (45-117); ALT (GPT) 13 U/L (12-78); TOTAL BILIRUBIN ADULT 0.4 MG/DL (0.2-1.0)
[2016-10-10 19:38] LABS: BANDS 4 % (0-6); NEUTROPHIL # MANUAL DIFF 19.6 TH/MM3 (1.8-7.7); POLYS (SEG NEUTROPHILS) 76 % (16-70); WBC DIFF SAMPLE 100
[2016-10-10 19:39] LABS: BACTERIA, URINE MANY /hpf; BLOOD, URINE NEG (NEG); COMMENT (UR) CULTURE INDICATED; CULTURE IF INDICATED CULTURE INDICATED; GLUCOSE,URINE NEG (NEG); KETONE, URINE NEG (NEG); NITRITE,URINE NEG (NEG); PH, URINE 8.5 (5.0-8.5); SQUAMOUS EPITHELIAL CELL URINE <1 /hpf (0-5); URINE COLOR YELLOW (YELLW/STRAW)
[2016-10-10 19:40] LABS: DOHLE BODIES PRESENT (NONE SEEN); PLATELET ESTIMATE SMEAR NORMAL (NORMAL); PLATELET MORPHOLOGY NORMAL (NORMAL); SCAN/DIFF FINAL DIFF MANUAL; TOXIC GRANULATION 1+ (NORMAL)
--- NOTE | 2016-10-10 20:46 | PD ---
Data Data Last Documented VS Vital Signs Date Time Temp Pulse Resp B/P Pulse Ox O2 Delivery O2 Flow Rate FiO2 10/10/16 20:09 126 23 108/68 98 Room Air 10/10/16 18:10 99.1 Orders Complete Blood Count With Diff (10/10/16 18:24) Comprehensive Metabolic Panel (10/10/16 18:24) Lactic Acid Sepsis Protocol (10/10/16 18:24) Blood Culture (10/10/16 18:24) Chest, Single Ap (10/10/16 18:24) Blood Glucose (10/10/16 18:24) Ecg Monitoring (10/10/16 18:24) Iv Access Insert/Monitor (10/10/16 18:24) Oximetry (10/10/16 18:24) Oxygen Administration (10/10/16 18:24) Urinalysis - C+S If Indicated (10/10/16 18:26) C Diff Toxin Pcr (10/10/16 18:46) Urine Culture (10/10/16 18:40) Admit Order (Ed Use Only) (10/10/16 ) Labs Laboratory Tests Test 10/10/16 10/10/16 10/10/16 18:20 18:30 18:40 White Blood Count 24.5 TH/MM3 Red Blood Count 3.22 MIL/MM3 Hemoglobin 9.0 GM/DL Hematocrit 28.8 % Mean Corpuscular Volume 89.4 FL Mean Corpuscular Hemoglobin 27.8 PG Mean Corpuscular Hemoglobin 31.1 % Concent Red Cell Distribution Width 18.4 % Platelet Count 196 TH/MM3 Mean Platelet Volume 7.9 FL Neutrophils (%) (Auto) 79.2 % Lymphocytes (%) (Auto) 6.9 % Monocytes (%) (Auto) 13.8 % Eosinophils (%) (Auto) 0.0 % Basophils (%) (Auto) 0.1 % Neutrophils # (Auto) 19.4 TH/MM3 Lymphocytes # (Auto) 1.7 TH/MM3 Monocytes # (Auto) 3.4 TH/MM3 Eosinophils # (Auto) 0.0 TH/MM3 Basophils # (Auto) 0.0 TH/MM3 CBC Comment AUTO DIFF Differential Total Cells 100 Counted Neutrophils % (Manual) 76 % Band Neutrophils % 4 % Lymphocytes % 4 % Monocytes % 16 % Neutrophils # (Manual) 19.6 TH/MM3 Differential Comment FINAL DIFF MANUAL Toxic Granulation 1+ Dohle Bodies PRESENT Platelet Estimate NORMAL Platelet Morphology Comment NORMAL Sodium Level 140 MEQ/L Potassium Level 5.0 MEQ/L Chloride Level 106 MEQ/L Carbon Dioxide Level 25.1 MEQ/L Anion Gap 9 MEQ/L Blood Urea Nitrogen 18 MG/DL Creatinine 2.92 MG/DL Estimat Glomerular Filtration 27 ML/MIN Rate Random Glucose 95 MG/DL Calcium Level 7.9 MG/DL Total Bilirubin 0.4 MG/DL Aspartate Amino Transf 7 U/L (AST/SGOT) Alanine Aminotransferase 13 U/L (ALT/SGPT) Alkaline Phosphatase 152 U/L Total Protein 6.4 GM/DL Albumin 1.9 GM/DL Lactic Acid Level 1.7 mmol/L Urine Color YELLOW Urine Turbidity HAZY Urine pH 8.5 Urine Specific [place] 1.016 Urine Protein 100 mg/dL Urine Glucose (UA) NEG mg/dL Urine Ketones NEG mg/dL Urine Occult Blood NEG Urine Nitrite NEG Urine Bilirubin NEG Urine Urobilinogen LESS THAN 2.0 MG/DL Urine Leukocyte Esterase MOD Urine RBC 5 /hpf Urine WBC 84 /hpf Urine Squamous Epithelial <1 /hpf Cells Urine Bacteria MANY /hpf Microscopic Urinalysis Comment CULTURE INDICATED MDM Supervised Visit with LISA: Yes Interpretation(s) LABS: CBC remarkable for leukocytosis and 24,000 white count, hemoglobin 9.0 CMP remarkable for creatinine 2.92, electrolytes are otherwise okay Lactate 1.7 UA was some pyuria Chest x-ray: No acute disease Narrative Course 61-year-old male with a history of schizophrenia and recent admission for C. difficile colitis presents to the emergency department sent by his doctor. He apparently has not taken any of his outpatient oral vancomycin. He's having continued diarrhea symptoms, 3-4 times a day, associated anytime he eats or drinks anything. He is not retracting for couple days. He did go to dialysis. He was hypotensive on arrival but improved with some IV fluid hydration. He does have a significant white count elevation. We'll plan on admission for monitoring for any worsening sepsis, IV fluid hydration, isolation, oral vancomycin, reassess. He did have dialysis today. Diagnosis Primary Impression: Colitis Condition: Stable Julio Grady MD Oct 10, 2016 20:46
--- NOTE | 2016-10-10 20:57 | HHI.HP ---
HPI Service [facility] Hospitalists Primary Care Physician Celena Chaudhary MD Admission Diagnosis C. difficile colitis, dehydration Chief Complaint: diarrhea, fatigue Travel History International Travel<30 Days: No Contact w/Intl Traveler <30 Da: No Traveled to Known Affected Are: No Sepsis Criteria SIRS Criteria (2 or more): Heart rate over 90, WBC > 77152, < 4000 or > 10% bands Sepsis Criteria (SIRS+source): Infect source susp/known Severe Sepsis (+one): Hypotension History of Present Illness 61-year-old male with end-stage renal disease on hemodialysis with Dr. Fong, hypertension and multiple other medical issues who was admitted a week ago for C. difficile diarrhea, released on October 03 but he states he never got prescription to fill his antibiotics, and comes back to the ER today for continued diarrhea several times a day. He states he has been avoiding eating and drinking much due to the diarrhea. He is feeling more fatigued and has been running fevers. He was seen by Dr Chaudhary today who directed him to ER as he wasn't eating and hadn't been taking his abx. He denies any chest pains, shortness of breath, or other issues. Has been attending dialysis sessions. ER eval remarkable for white count of 24,000 but normal lactic acid. He is also been tachycardic and was somewhat hypotensive initially. He seems to have responded to IV fluid challenge. Review of Systems Constitutional: COMPLAINS OF: Diaphoretic episodes, Fatigue, Fever, Chills, Dizziness, Change in appetite Endocrine: DENIES: Heat/cold intolerance, Polydipsia, Polyuria, Polyphagia Eyes: DENIES: Blurred vision, Diplopia, Eye inflammation, Eye pain, Vision loss , Photosensitivity, Double Vision Ears, nose, mouth, throat: DENIES: Tinnitus, Hearing loss, Vertigo, Nasal discharge, Oral lesions, Throat pain, Hoarseness, Ear Pain, Running Nose, Epistaxis, Sinus Pain, Toothache, Odynophagia Respiratory: DENIES: Apneas, Cough, Snoring, Wheezing, Hemoptysis, Sputum production, Shortness of breath Cardiovascular: COMPLAINS OF: Dyspnea on Exertion, Lower Extremity Edema, DENIES: Chest pain, Palpitations, Syncope, PND, Orthopnea, Claudication Gastrointestinal: COMPLAINS OF: Diarrhea Musculoskeletal: COMPLAINS OF: Joint pain Neurologic: DENIES: Abnormal gait, Headache, Localized weakness, Paresthesias, Seizures, Speech Problems, Tremor, Poor Balance Past Family Social History Past Medical History End-stage renal disease requiring hemodialysis since May 2016 Hypertension Benign prostatic hypertrophy History of UTI with urosepsis Apparent psychosis due to UTI Past Surgical History Vas-Cath placement Port placement Reported Medications Vancomycin Inj (Vancomycin HCl) 500 Mg Inj 250 Mg PO QID Risperdal (Risperidone) 1 Mg Tab 1 Mg PO Q12HR Calcium Acetate (Calcium Acetate (Phosphate Bin) 667 Mg Cap 667 Mg PO TID Montelukast (Montelukast Sodium) 10 Mg Tab 10 Mg PO HS Allergies: Coded Allergies: No Known Allergies (Unverified , 09/29/16) Family History Noncontributory Social History Moved here from [facility] 2 mos ago No tobacco, Denies EtOH or illicit drug use 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 SKIN: No rashes, ecchymoses or lesions. xerosis HEAD: Atraumatic. Normocephalic. No temporal or scalp tenderness. EYES: Pupils equal round and reactive. Extraocular motions intact. No scleral icterus. No injection or drainage. ENT: Nose without bleeding, purulent drainage or septal hematoma. Airway patent. NECK: Trachea midline. No JVD or lymphadenopathy. Supple, nontender, no meningeal signs. CARDIOVASCULAR: Regular rate and rhythm, tachycardic without gallops, or rubs. RESPIRATORY: Clear to auscultation. Breath sounds equal bilaterally. No wheezes , rales, or rhonchi. GASTROINTESTINAL: Abdomen soft, non-tender, nondistended. No hepato-splenomegaly , or palpable masses. No guarding. MUSCULOSKELETAL: Extremities without clubbing, cyanosis 1+ edema in feet. No joint tenderness, effusion, or edema noted. No calf tenderness. NEUROLOGICAL: Awake and alert. Cranial nerves II through XII intact. Motor and sensory grossly within normal limits. Five out of 5 muscle strength in all muscle groups. Normal speech. Laboratory Laboratory Tests Test 10/10/16 10/10/16 10/10/16 18:20 18:30 18:40 White Blood Count 24.5 Red Blood Count 3.22 Hemoglobin 9.0 Hematocrit 28.8 Mean Corpuscular Volume 89.4 Mean Corpuscular Hemoglobin 27.8 Mean Corpuscular Hemoglobin 31.1 Concent Red Cell Distribution Width 18.4 Platelet Count 196 Mean Platelet Volume 7.9 Neutrophils (%) (Auto) 79.2 Lymphocytes (%) (Auto) 6.9 Monocytes (%) (Auto) 13.8 Eosinophils (%) (Auto) 0.0 Basophils (%) (Auto) 0.1 Neutrophils # (Auto) 19.4 Lymphocytes # (Auto) 1.7 Monocytes # (Auto) 3.4 Eosinophils # (Auto) 0.0 Basophils # (Auto) 0.0 CBC Comment AUTO DIFF Differential Total Cells 100 Counted Neutrophils % (Manual) 76 Band Neutrophils % 4 Lymphocytes % 4 Monocytes % 16 Neutrophils # (Manual) 19.6 Differential Comment FINAL DIFF MANUAL Toxic Granulation 1+ Dohle Bodies PRESENT Platelet Estimate NORMAL Platelet Morphology Comment NORMAL Sodium Level 140 Potassium Level 5.0 Chloride Level 106 Carbon Dioxide Level 25.1 Anion Gap 9 Blood Urea Nitrogen 18 Creatinine 2.92 Estimat Glomerular Filtration 27 Rate Random Glucose 95 Calcium Level 7.9 Total Bilirubin 0.4 Aspartate Amino Transf 7 (AST/SGOT) Alanine Aminotransferase 13 (ALT/SGPT) Alkaline Phosphatase 152 Total Protein 6.4 Albumin 1.9 Lactic Acid Level 1.7 Urine Color YELLOW Urine Turbidity HAZY Urine pH 8.5 Urine Specific [place] 1.016 Urine Protein 100 Urine Glucose (UA) NEG Urine Ketones NEG Urine Occult Blood NEG Urine Nitrite NEG Urine Bilirubin NEG Urine Urobilinogen LESS THAN 2.0 Urine Leukocyte Esterase MOD Urine RBC 5 Urine WBC 84 Urine Squamous Epithelial <1 Cells Urine Bacteria MANY Microscopic Urinalysis Comment CULTURE INDICATED Date/Time Procedure Status Source Growth 10/10/16 18:40 Urine Culture Received Urine Clean Catch Pending 10/10/16 18:30 Aerobic Blood Culture Received Blood Peripheral Pending 10/10/16 18:30 Anaerobic Blood Culture Received Blood Peripheral Pending Result Diagram: 10/10/16181910/10/16 182 Imaging Last 72 hours Impressions Chest X-Ray 10/10/161823 Signed Impressions: Service Date/Time: Monday, October 10, 2016 18:24 - CONCLUSION: No acute disease. Danny Fofana Jr., MD Septic Shock Reassessment Heart: Regular rate and rhythm Lungs: Clear Skin: Dry Peripheral Pulses: Bounding Right Radial Bounding Left Radial Bounding Right Posterior Tibial Bounding Left Posterior Tibial Capillary Refill: Brisk Assessment and Plan Problem List: (1) C. difficile colitis Status: Acute Plan: resume vancomycin by mouth Resistant strain noted. Hydrate (2) Sepsis Status: Acute Plan: likely colitis source resume abx. (3) ESRD (end stage renal disease) on dialysis Status: Chronic Plan: consult Dr Fong (4) Tachycardia Status: Acute Plan: gentle hydration. Monitor (5) Anemia Status: Chronic Plan: likely a/w ESRD follow h/h Code Status full Discussed Condition With pt and ER provider Physician Certification 2 Midnight Certification Type: Admission for Inpatient Services Order for Inpatient Services The services are ordered in accordance with Medicare regulations or non- Medicare payer requirements, as applicable. In the case of services not specified as inpatient-only, they are appropriately provided as inpatient services in accordance with the 2-midnight benchmark. Estimated LOS (days): 2 days is the estimated time the patient will need to remain in the hospital, assuming treatment plan goals are met and no additional complications. Post-Hospital Plan: Not yet determined Alexey Anderson MD PhD Oct 10, 2016 20:57
[2016-10-10] MEDS ORDERED: SODIUM CHLOR 0.9% 1000 ML INJ 1,000 ML IV SCH (21:15)
[2016-10-10] MEDS ORDERED: FERR325T2 PO (21:26)
[2016-10-10] MEDS ORDERED: TAMS0.4C4 PO (21:26)
[2016-10-11] VITALS (7 sets, daily range): BP systolic 96–113; BP diastolic 58–68; PULSE 74–120; RESP 17–20; TEMP 95.9–99.4; O2SAT 96–100
[2016-10-11 06:52] LABS: AUTOMATED NEUTROPHIL # 15.6 TH/MM3 (1.8-7.7); BASOPHIL % 0.1 % (0.0-2.0); HEMATOCRIT 24.4 % (39.0-51.0); LYMPH % 7.5 % (9.0-44.0); LYMPHOCYTE # 1.5 TH/MM3 (1.0-4.8); MEAN CELL VOLUME 90.6 FL (80.0-100.0); MEAN CORPUSCULAR HEMOGLOBIN 27.8 PG (27.0-34.0); MEAN CORPUSCULAR HGB CONC 30.7 % (32.0-36.0); MONO % 12.9 % (0.0-8.0); NEUT % 79.5 % (16.0-70.0); PLATELET COUNT 169 TH/MM3 (150-450); RED CELL DISTRIBUTION WIDTH 18.5 % (11.6-17.2); WHITE BLOOD COUNT 19.6 TH/MM3 (4.0-11.0)
[2016-10-11 06:54] LABS: HEMO FLAGS AUTO DIFF
[2016-10-11 07:17] LABS: ALT (GPT) 11 U/L (12-78); ANION GAP 10 MEQ/L (5-15); AST (GOT) 6 U/L (15-37); BICARBONATE 21.4 MEQ/L (21.0-32.0); BLOOD UREA NITROGEN 24 MG/DL (7-18); CHLORIDE 112 MEQ/L (98-107); GLOMERULAR FILTRATION RATE 23 ML/MIN (>89); POTASSIUM 4.7 MEQ/L (3.5-5.1); SODIUM (NA) 143 MEQ/L (136-145)
[2016-10-11 07:18] LABS: ALKALINE PHOSPHATASE 95 U/L (45-117); TOTAL BILIRUBIN ADULT 0.3 MG/DL (0.2-1.0)
[2016-10-11 07:57] LABS: SCAN/DIFF AUTO DIFF CONFIRMED; TOXIC VACUOLATION PRESENT (NONE SEEN)
[2016-10-11] MEDS: FERROUS SULFATE 325 MG (65 MG ELEMENTAL IRON) TAB PO SCH (10:50)
[2016-10-11] MEDS: CALCIUM ACETATE 667 MG CAP PO SCH ×3 (10:50→19:05)
[2016-10-11] MEDS: TAMSULOSIN HCL 0.4 MG CAP PO SCH (10:50)
[2016-10-11] MEDS: risperiDONE 1 MG TAB PO SCH ×2 (10:51→22:31)
[2016-10-11] MEDS: VANCOMYCIN 500 MG VIAL (FOR ORAL USE ONLY) PO SCH ×4 (10:51→22:30)
--- NOTE | 2016-10-11 11:05 | HHI.PR ---
Subjective Remarks Pt reports that he has had 4 loose BMs since admission He had not been eating much of anything over the last 4-5 days because any oral intake would cause diarrhea. Pt has had a very complicated recent medical history He reports that back in May he was hospitalized in [place] with acute renal failure which he attributes to longstanding prostate issues and was started on HD. Pt then moved to [facility]. He has had several admission in the last 2 months for UTI and was seen by Urology and recommended for outpt cystoscopy. He states that he has an appt in October with the Urologist. He has an indwelling Beard catheter to help with draining the bladder. Renal US in 07/2016 noted distended urinary bladder with bilateral hydronephrosis ?chronic ARMIJO vs. neurogenic bladder He has been following with Nephrology, Dr. Fong, for his -Sun HD and states that he has been compliant with this. During his most recent admission he was found to be Epid 027 C. diff positive and was treated with oral Vancomycin. Pt reportedly had some clinical improvement but upon discharge he left with hospital without his antibiotic prescription. Pt states that over the last week he has continued to have diarrhea but over the last 4 days it has been worse and he has been unable to eat or drink much of anything due to the diarrhea. Pt had a fever at admission of 100.1, he was hypotensive and tachycardic. WBC count was 24.5. Pt has been resumed on Vancomycin 250mg po QID He has received IVF overnight BP has improved, still somewhat tachycardic. Objective Vitals Vital Signs Date Time Temp Pulse Resp B/P Pulse Ox O2 Delivery O2 Flow Rate FiO2 10/11/16 08:00 95.9 119 20 110/67 98 10/11/16 07:31 99.4 74 18 113/68 97 10/11/16 05:25 119 10/10/16 23:36 116 17 117/74 97 Room Air 10/10/16 21:30 127 24 105/64 99 Room Air 10/10/16 20:09 126 23 108/68 98 Room Air 10/10/16 20:00 120 16 105/69 98 Room Air 10/10/16 19:30 128 26 113/66 99 Room Air 10/10/16 19:00 125 24 110/64 98 10/10/16 18:28 123 16 99/ 99 Room Air 10/10/16 18:28 99 10/10/16 18:15 133 22 83/57 98 10/10/16 18:10 99.1 138 14 94/61 97 10/10/16 18:01 100.1 154 22 87/51 98 Result Diagram: 10/11/16 0621 10/11/16620 Other Results Laboratory Tests Test 10/10/16 10/10/16 10/10/16 10/11/16 18:20 18:30 18:40 06:21 White Blood Count 24.5 TH/MM3 19.6 TH/MM3 Red Blood Count 3.22 MIL/MM3 2.70 MIL/MM3 Hemoglobin 9.0 GM/DL 7.5 GM/DL Hematocrit 28.8 % 24.4 % Mean Corpuscular Volume 89.4 FL 90.6 FL Mean Corpuscular Hemoglobin 27.8 PG 27.8 PG Mean Corpuscular Hemoglobin 31.1 % 30.7 % Concent Red Cell Distribution Width 18.4 % 18.5 % Platelet Count 196 TH/MM3 169 TH/MM3 Mean Platelet Volume 7.9 FL 7.7 FL Neutrophils (%) (Auto) 79.2 % 79.5 % Lymphocytes (%) (Auto) 6.9 % 7.5 % Monocytes (%) (Auto) 13.8 % 12.9 % Eosinophils (%) (Auto) 0.0 % 0.0 % Basophils (%) (Auto) 0.1 % 0.1 % Neutrophils # (Auto) 19.4 TH/MM3 15.6 TH/MM3 Lymphocytes # (Auto) 1.7 TH/MM3 1.5 TH/MM3 Monocytes # (Auto) 3.4 TH/MM3 2.5 TH/MM3 Eosinophils # (Auto) 0.0 TH/MM3 0.0 TH/MM3 Basophils # (Auto) 0.0 TH/MM3 0.0 TH/MM3 CBC Comment AUTO DIFF AUTO DIFF Differential Total Cells 100 Counted Neutrophils % (Manual) 76 % Band Neutrophils % 4 % Lymphocytes % 4 % Monocytes % 16 % Neutrophils # (Manual) 19.6 TH/MM3 Differential Comment FINAL DIFF AUTO DIFF MANUAL CONFIRMED Toxic Granulation 1+ Dohle Bodies PRESENT Platelet Estimate NORMAL Platelet Morphology Comment NORMAL Sodium Level 140 MEQ/L 143 MEQ/L Potassium Level 5.0 MEQ/L 4.7 MEQ/L Chloride Level 106 MEQ/L 112 MEQ/L Carbon Dioxide Level 25.1 MEQ/L 21.4 MEQ/L Anion Gap 9 MEQ/L 10 MEQ/L Blood Urea Nitrogen 18 MG/DL 24 MG/DL Creatinine 2.92 MG/DL 3.28 MG/DL Estimat Glomerular Filtration 27 ML/MIN 23 ML/MIN Rate Random Glucose 95 MG/DL 83 MG/DL Calcium Level 7.9 MG/DL 7.5 MG/DL Total Bilirubin 0.4 MG/DL 0.3 MG/DL Aspartate Amino Transf 7 U/L 6 U/L (AST/SGOT) Alanine Aminotransferase 13 U/L 11 U/L (ALT/SGPT) Alkaline Phosphatase 152 U/L 95 U/L Total Protein 6.4 GM/DL 4.9 GM/DL Albumin 1.9 GM/DL 1.4 GM/DL Lactic Acid Level 1.7 mmol/L Urine Color YELLOW Urine Turbidity HAZY Urine pH 8.5 Urine Specific [place] 1.016 Urine Protein 100 mg/dL Urine Glucose (UA) NEG mg/dL Urine Ketones NEG mg/dL Urine Occult Blood NEG Urine Nitrite NEG Urine Bilirubin NEG Urine Urobilinogen LESS THAN 2.0 MG/DL Urine Leukocyte Esterase MOD Urine RBC 5 /hpf Urine WBC 84 /hpf Urine Squamous Epithelial <1 /hpf Cells Urine Bacteria MANY /hpf Microscopic Urinalysis Comment CULTURE INDICATED Toxic Vacuolation PRESENT Imaging Last 72 hours Impressions Chest X-Ray 10/10/164 Signed Impressions: Service Date/Time: Monday, October 10, 2016 18:24 - CONCLUSION: No acute disease. Danny Fofana Jr., MD Objective Remarks General: Thin male in NAD, AAOx3 Chest: Dialysis cath in right chest, CTA Cardiac: Regular, tachy Abd: +BS, soft ND/NT Ext: No edema A/P Problem List: (1) C. difficile colitis Status: Acute Plan: - Patient is a 61 y/o male with ESRD on HD (), recurrent UTIs, obstructive uropathy, and chronic anemia. - Pt has had a very complicated recent medical history. He reports that back in May he was hospitalized in [place] with acute renal failure which he attributes to longstanding prostate issues and was started on HD. - Pt then moved to [facility]. He has had several admission in the last 2 months for UTI and was seen by Urology and recommended for outpt cystoscopy. He states that he has an appt in October with the Urologist. He has an indwelling Beard catheter to help with draining the bladder. - He has been following with Nephrology, Dr. Fong, for his HD and states that he has been compliant with this. - Pt has had recurrent UTIs with cultures growing, Stenotrophomonas Maltophilia (09/29), Pseudomonas aeruginosa/Enterobacter cloacae/GBS (08/28), Pseudomonas aeruginosa/Enterobacter Sp (08/24) - During his most recent admission he was found to be Epid 027 C. diff positive (09/30/16) and was treated with oral Vancomycin. - Last Ct Abd/pelvis (09/29/16) --> Abnormal bowel gas pattern with apparent diffuse colonic wall thickening and inflammatory change, multiple loops of nondilated air-containing small bowel with multiple air-fluid levels, findings most characteristic of colitis. - Pt reportedly had some clinical improvement but upon discharge he left with hospital without his antibiotic prescription. - Pt states that over the last week he has continued to have diarrhea but over the last 4 days it has been worse and he has been unable to eat or drink much of anything due to the diarrhea. - Pt had a fever at admission of 100.1, he was hypotensive and tachycardic. WBC count was 24.5 at admission, now down to 19.6. - Pt has been resumed on Vancomycin 250mg po QID - He has received IVF overnight - BP has improved, still somewhat tachycardic. - Diet as tolerated, add Nepro with each meal. - Monitor clinical status closely - Supportive care (2) Sepsis Status: Acute Plan: - See above. - Likely colitis source - Resume abx. (3) ESRD (end stage renal disease) on dialysis Status: Chronic Plan: - Nephrology is consulted, Dr Fong - Pt is on HD schedule. - Renal US in 07/2016 noted distended urinary bladder with bilateral hydronephrosis ?chronic ARMIJO vs. neurogenic bladder (4) Tachycardia Status: Acute Plan: - Cont. gentle hydration. - Monitor (5) Anemia Status: Chronic Plan: - H/H at admission was 9.0/28.8 but likely hemoconcentrated due to dehydration - Repeat labs today with Hgb 7.5/Hct 24.2 - Will discuss with Nephrology as to whether or not the pt needs to be transfused now. - No active bleeding noted. Assessment and Plan Patient examined. Assessment and plan formulated with Afua Mejia PA-C. I agree with the above. c.diff colitis. pt was recently discharged and failed to get meds for c.diff. now with alot of diarrhea and dehydration. symptomatic anemia. gentle ivf and blood tomorrow with HD. indwelling beard for urine retention and bph. Afua Mejia Oct 11, 2016 11:05 Neo Hopper MD Oct 11, 2016 16:34
[2016-10-11] MEDS ORDERED: SODIUM CHLOR 0.9% 1000 ML INJ 1,000 ML IV SCH (14:30)
[2016-10-11 15:34] LABS: C. DIFF EPI 027 PRESUMPTIVE POSITIVE (NEGATIVE); C. DIFF TOXIN PCR POSITIVE (NEGATIVE)
[2016-10-11] MEDS ORDERED: SODIUM CHLOR 0.9% 1000 ML INJ 1,000 ML IV PRN ×3 (17:16)
--- NOTE | 2016-10-11 17:26 | PD.CONS ---
HPI Service Nephrology Consult Requested By Dr. Anderson Reason for Consult ESRD Primary Care Physician Celena Chaudhary MD History of Present Illness Patient is a 61-year-old with the prostate enlargement, he do straight catheterization had obstructive uropathy and [place] in the past he was supposed to see urology here with discharge on 10/03/16 after being treated for C. difficile colitis he claims that he did not hot die picker his discharge prescriptions and forgot all about it, he came back with increasing diarrhea and recurrence of C. difficile colitis He has history of noncompliance he has a permacath on the right side goes on dialysis Sunday, and Saturdays Review of Systems Constitutional: COMPLAINS OF: Fatigue Gastrointestinal: COMPLAINS OF: Abdominal pain, Diarrhea Past Family Social History Allergies: Coded Allergies: No Known Allergies (Unverified , 09/29/16) Past Medical History ESRD Plan obstructive uropathy History of hypertension Currently hypotensive BPH Requires self catheterization Anemia Severe UTI Psychosis - Past Surgical History History of PermCath Reported Medications Reported Meds & Active Scripts Active Vancomycin Inj (Vancomycin HCl) 500 Mg Inj 250 Mg PO QID Risperdal (Risperidone) 1 Mg Tab 1 Mg PO Q12HR Calcium Acetate (Calcium Acetate (Phosphate Bin) 667 Mg Cap 667 Mg PO TID Reported Tamsulosin (Tamsulosin HCl) 0.4 Mg Cap 0.4 Mg PO DAILY Ferrous Sulfate DR (Ferrous Sulfate) 325 Mg Tabdr 325 Mg PO DAILY Active Ordered Medications Current Medications Medications (Trade) Dose Ordered Sig/Tiffany Route Start Time Stop Time Status Last Admin (Phoslo) 667 mg TID PO 10/11/16 09:00 10/11/16 14:00 (risperDAL) 1 mg Q12HR PO 10/11/16 09:00 10/11/16 10:51 (VANCOMYCIN for oral use only) 250 mg QID PO 10/11/16 09:00 10/11/16 14:00 (Ferrous Sulfate) 325 mg DAILY PO 10/11/16 09:00 10/11/16 10:50 Tamsulosin HCl 0.4 mg 0.4 mg DAILY PO 10/11/16 09:00 10/11/16 10:50 (NS 1000 ml Inj) 1,000 ml @ 42 mls/hr [id number] IV 10/11/16 14:30 10/12/16 14:18 10/11/16 14:46 Family History Noncontributory Social History Denies smoking or alcohol Physical Exam Vital Signs Vital Signs Date Time Temp Pulse Resp B/P Pulse Ox O2 Delivery O2 Flow Rate FiO2 10/11/16 15:39 98.9 120 17 96/58 100 10/11/16 12:00 96.0 95 20 100/68 99 10/11/16 08:00 95.9 119 20 110/67 98 10/11/16 07:31 99.4 74 18 113/68 97 10/11/16 05:25 119 10/10/16 23:36 116 17 117/74 97 Room Air 10/10/16 21:30 127 24 105/64 99 Room Air 10/10/16 20:09 126 23 108/68 98 Room Air 10/10/16 20:00 120 16 105/69 98 Room Air 10/10/16 19:30 128 26 113/66 99 Room Air 10/10/16 19:00 125 24 110/64 98 10/10/16 18:28 123 16 99/ 99 Room Air 10/10/16 18:28 99 10/10/16 18:15 133 22 83/57 98 10/10/16 18:10 99.1 138 14 94/61 97 10/10/16 18:01 100.1 154 22 87/51 98 Physical Exam GENERAL: Well-nourished, well-developed patient. SKIN: Warm and dry. HEAD: Normocephalic. EYES: No scleral icterus. No injection or drainage. NECK: Supple, trachea midline. No JVD or lymphadenopathy. CARDIOVASCULAR: Tachycardia RESPIRATORY: Breath sounds equal bilaterally. No accessory muscle use. GASTROINTESTINAL: Abdomen soft, non-tender, nondistended. EXTREMITIES: No cyanosis, or edema. NEUROLOGICAL: Awake, alert, and oriented x 3. Non-focal. Laboratory Laboratory Tests Test 10/10/16 10/10/16 10/10/16 10/11/16 18:20 18:30 18:40 06:21 White Blood Count 24.5 19.6 Red Blood Count 3.22 2.70 Hemoglobin 9.0 7.5 Hematocrit 28.8 24.4 Mean Corpuscular Volume 89.4 90.6 Mean Corpuscular Hemoglobin 27.8 27.8 Mean Corpuscular Hemoglobin 31.1 30.7 Concent Red Cell Distribution Width 18.4 18.5 Platelet Count 196 169 Mean Platelet Volume 7.9 7.7 Neutrophils (%) (Auto) 79.2 79.5 Lymphocytes (%) (Auto) 6.9 7.5 Monocytes (%) (Auto) 13.8 12.9 Eosinophils (%) (Auto) 0.0 0.0 Basophils (%) (Auto) 0.1 0.1 Neutrophils # (Auto) 19.4 15.6 Lymphocytes # (Auto) 1.7 1.5 Monocytes # (Auto) 3.4 2.5 Eosinophils # (Auto) 0.0 0.0 Basophils # (Auto) 0.0 0.0 CBC Comment AUTO DIFF AUTO DIFF Differential Total Cells 100 Counted Neutrophils % (Manual) 76 Band Neutrophils % 4 Lymphocytes % 4 Monocytes % 16 Neutrophils # (Manual) 19.6 Differential Comment FINAL DIFF AUTO DIFF MANUAL CONFIRMED Toxic Granulation 1+ Dohle Bodies PRESENT Platelet Estimate NORMAL Platelet Morphology Comment NORMAL Sodium Level 140 143 Potassium Level 5.0 4.7 Chloride Level 106 112 Carbon Dioxide Level 25.1 21.4 Anion Gap 9 10 Blood Urea Nitrogen 18 24 Creatinine 2.92 3.28 Estimat Glomerular Filtration 27 23 Rate Random Glucose 95 83 Calcium Level 7.9 7.5 Total Bilirubin 0.4 0.3 Aspartate Amino Transf 7 6 (AST/SGOT) Alanine Aminotransferase 13 11 (ALT/SGPT) Alkaline Phosphatase 152 95 Total Protein 6.4 4.9 Albumin 1.9 1.4 Lactic Acid Level 1.7 Urine Color YELLOW Urine Turbidity HAZY Urine pH 8.5 Urine Specific [place] 1.016 Urine Protein 100 Urine Glucose (UA) NEG Urine Ketones NEG Urine Occult Blood NEG Urine Nitrite NEG Urine Bilirubin NEG Urine Urobilinogen LESS THAN 2.0 Urine Leukocyte Esterase MOD Urine RBC 5 Urine WBC 84 Urine Squamous Epithelial <1 Cells Urine Bacteria MANY Microscopic Urinalysis Comment CULTURE INDICATED Toxic Vacuolation PRESENT Test 10/11/16 10:30 Stool C. difficile Toxin (PCR) POSITIVE Stl C. difficile Toxin PRESUMPTIVE Epiderm 027 POSITIVE Date/Time Procedure Status Source Growth 10/10/16 18:40 Urine Culture - Preliminary Resulted Urine Clean Catch Gram Negative Baldo 10/10/16 18:30 Aerobic Blood Culture - Preliminary Resulted Blood Peripheral NO GROWTH IN 1 DAY 10/10/16 18:30 Anaerobic Blood Culture - Preliminary Resulted Blood Peripheral NO GROWTH IN 1 DAY Result Diagram: 10/11/1621 10/11/1621 Imaging Last Impressions Chest X-Ray 10/10/16 1824 Signed Impressions: Service Date/Time: Monday, October 10, 2016 18:24 - CONCLUSION: No acute disease. Danny Fofana Jr., MD Assessment and Plan Problem List: (1) ESRD (end stage renal disease) on dialysis Plan: Patient is going to need hemodialysis tomorrow we will arrange that, his blood pressure is low I will start him on midodrine 10 mg 3 times a day He is on vancomycin by mouth for C. difficile (2) C. difficile colitis Plan: Been treated with oral vancomycin Charles Fong MD Oct 11, 2016 17:26
[2016-10-11] MEDS ORDERED: MANNITOL 12.5 GM/50 ML VIAL IV PRN (17:30)
[2016-10-11] MEDS ORDERED: SODIUM CHLORIDE 0.9% FLUSH 10 ML FLUSH IV FLUSH PRN (17:30)
[2016-10-11] MEDS ORDERED: HEPARIN SODIUM - IV 10,000 UNITS/10 ML VIAL IVF PRN (17:30)
[2016-10-11] MEDS ORDERED: ALBUMIN HUMAN 25% 25 GM/100 ML BAGP IV PRN (17:30)
[2016-10-11] MEDS ORDERED: NITROGLYCERIN 0.4 MG SL 25 TABS/BTL SL PRN (17:30)
[2016-10-11] MEDS ORDERED: ACETAMINOPHEN 325 MG TAB PO PRN (17:30)
[2016-10-11] MEDS ORDERED: GELATIN 12 MM/7 MM FOAM TOP PRN (17:30)
[2016-10-11] MEDS ORDERED: ONDANSETRON HCL 4 MG/2 ML VIAL IV PRN (17:30)
[2016-10-11] MEDS ORDERED: diphenhydrAMINE HCL 25 MG CAP PO PRN (17:30)
[2016-10-11] MEDS ORDERED: cloNIDine HCL 0.1 MG TAB PO PRN (17:30)
[2016-10-11] MEDS ORDERED: MIDODRINE 5 MG TAB PO ONE (18:30)
[2016-10-12] VITALS (13 sets, daily range): BP systolic 97–102; BP diastolic 57–66; PULSE 77–123; RESP 16–20; TEMP 96.2–99; O2SAT 96–100
[2016-10-12] MEDS: MIDODRINE 5 MG TAB PO SCH ×3 (07:34→17:46)
[2016-10-12] MEDS: CALCIUM ACETATE 667 MG CAP PO SCH ×3 (09:00→17:46)
[2016-10-12] MEDS: VANCOMYCIN 500 MG VIAL (FOR ORAL USE ONLY) PO SCH ×4 (09:00→22:19)
[2016-10-12] MEDS: FERROUS SULFATE 325 MG (65 MG ELEMENTAL IRON) TAB PO SCH ×2 (09:00→14:34)
--- NOTE | 2016-10-12 11:01 | HHI.NPPN ---
Subjective History of Present Illness 61 year old with ESRD and C diff colitis Objective Data Data 10/11/16 10/12/16 19:00 07:00 Intake Total 340 ml 100 ml Output Total 125 ml Balance 215 ml 100 ml Intake Oral Supplement 100 ml IV Total 340 ml Output Urine Total 125 ml # Voids 0 # Bowel Movements 8 Vital Signs Date Time Temp Pulse Resp B/P Pulse Ox O2 Delivery O2 Flow Rate FiO2 10/12/16 08:02 96.2 116 18 98/62 100 10/12/16 07:47 21 10/12/16 04:40 116 10/12/16 04:12 97.3 119 16 98/60 97 10/12/16 01:08 97.5 109 17 102/66 98 10/11/16 20:27 97.8 105 17 100/59 96 10/11/16 17:40 21 10/11/16 15:39 98.9 120 17 96/58 100 10/11/16 12:00 96.0 95 20 100/68 99 10/11/16 12:00 119 -: 10/11/16 0621 10/11/16 0621 Physical Exam General Appearance: Well Developed Neck Neck Exam: Neck Supple Pulmonary Resp Exam: Clear Bilaterally, Breath Sounds Equal Cardiology CV Exam: Regular, Normal Sinus Rhythm Gastrointestinal/Abdomen GI Exam: Soft, Non-Tender, Bowel Sounds Present Extremeties Extremities Exam: No Edema Assessment/Plan Problem List: (1) ESRD (end stage renal disease) on dialysis Plan: Patient BP was low received 500 cc NS during dialysis UF + 500 cc so far He is on vancomycin by mouth for C. difficile (2) C. difficile colitis Plan: Been treated with oral vancomycin (3) Anemia Plan: on Charles Payne MD Oct 12, 2016 11:01
[2016-10-12] MEDS: HEPARIN SODIUM - IV 10,000 UNITS/10 ML VIAL PRN (11:11)
[2016-10-12] MEDS: EPOETIN ALFA 10,000 UNITS/ML VIAL IV PRN (11:12)
[2016-10-12] MEDS: GENTAMICIN SULFATE (DIALYSIS USE ONLY) 20 MG/2 ML VIAL IV PRN (11:12)
[2016-10-12] MEDS: TAMSULOSIN HCL 0.4 MG CAP PO SCH (14:34)
[2016-10-12] MEDS: risperiDONE 1 MG TAB PO SCH ×2 (14:34→22:20)
--- NOTE | 2016-10-12 15:53 | HHI.PR ---
Subjective Remarks doing ok diarrhea slowing no dizziness with standing Objective Vitals heart reg lung cta abd s/nt ext no edema Vital Signs Date Time Temp Pulse Resp B/P Pulse Ox O2 Delivery O2 Flow Rate FiO2 10/12/16 13:57 96.4 123 20 100/57 98 10/12/16 13:40 96.8 121 18 99/59 97 10/12/16 08:02 96.2 116 18 98/62 100 10/12/16 07:47 21 10/12/16 04:40 116 10/12/16 04:12 97.3 119 16 98/60 97 10/12/16 01:08 97.5 109 17 102/66 98 10/11/16 20:27 97.8 105 17 100/59 96 10/11/16 17:40 21 10/11/16 10/11/16 10/12/16 15:00 23:00 07:00 Intake Total 340 ml 100 ml Output Total 125 ml Balance 215 ml 100 ml Intake Oral Supplement 100 ml IV Total 340 ml Output Urine Total 125 ml # Voids 0 # Bowel Movements 8 Result Diagram: 10/11/16 0621 10/11/16 0621 Imaging Last 72 hours Impressions Chest X-Ray 10/10/16 1824 Signed Impressions: Service Date/Time: Monday, October 10, 2016 18:24 - CONCLUSION: No acute disease. Danny Fofana Jr., MD A/P Problem List: (1) C. difficile colitis Status: Acute Plan: - Patient is a 61 y/o male with ESRD on HD (), recurrent UTIs, obstructive uropathy, and chronic anemia. - Pt has had a very complicated recent medical history. He reports that back in May he was hospitalized in [place] with acute renal failure which he attributes to longstanding prostate issues and was started on HD. - Pt then moved to [facility]. He has had several admission in the last 2 months for UTI and was seen by Urology and recommended for outpt cystoscopy. He states that he has an appt in October with the Urologist. He has an indwelling [place] catheter to help with draining the bladder. - He has been following with Nephrology, Dr. Fong, for his HD and states that he has been compliant with this. - Pt has had recurrent UTIs with cultures growing, Stenotrophomonas Maltophilia (09/29), Pseudomonas aeruginosa/Enterobacter cloacae/GBS (08/28), Pseudomonas aeruginosa/Enterobacter Sp (08/24) - During his most recent admission he was found to be Epid 027 C. diff positive (09/30/16) and was treated with oral Vancomycin. - Last Ct Abd/pelvis (09/29/16) --> Abnormal bowel gas pattern with apparent diffuse colonic wall thickening and inflammatory change, multiple loops of nondilated air-containing small bowel with multiple air-fluid levels, findings most characteristic of colitis. - Pt reportedly had some clinical improvement but upon discharge he left with hospital without his antibiotic prescription. - Pt states that over the last week he has continued to have diarrhea but over the last 4 days it has been worse and he has been unable to eat or drink much of anything due to the diarrhea. - Pt had a fever at admission of 100.1, he was hypotensive and tachycardic. WBC count was 24.5 at admission, now down to 19.6. - Pt has been resumed on Vancomycin 250mg po QID giving a unit of blood for anemia related to chronic illness. gentle ivf. plan for d/c home tomorrrow if stable tomorrow. (2) ESRD (end stage renal disease) on dialysis Status: Chronic Plan: - Nephrology is consulted, Dr Fong - Pt is on HD schedule. - Renal US in 07/2016 noted distended urinary bladder with bilateral hydronephrosis ?chronic ARMIJO vs. neurogenic bladder (3) Tachycardia Status: Acute Plan: - Cont. gentle hydration. - Monitor (4) Anemia Status: Chronic Plan: - H/H at admission was 9.0/28.8 but likely hemoconcentrated due to dehydration - Repeat labs today with Hgb 7.5/Hct 24.2 - Will discuss with Nephrology as to whether or not the pt needs to be transfused now. - No active bleeding noted. Neo Hopper MD Oct 12, 2016 15:53
[2016-10-13] VITALS (7 sets, daily range): BP systolic 98–116; BP diastolic 59–69; PULSE 86–115; RESP 14–18; TEMP 97.5–98.6; O2SAT 95–99
[2016-10-13] MEDS: MIDODRINE 5 MG TAB PO SCH ×3 (06:18→17:00)
[2016-10-13] MEDS: TAMSULOSIN HCL 0.4 MG CAP PO SCH (11:46)
[2016-10-13] MEDS: FERROUS SULFATE 325 MG (65 MG ELEMENTAL IRON) TAB PO SCH (11:46)
[2016-10-13] MEDS: VANCOMYCIN 500 MG VIAL (FOR ORAL USE ONLY) PO SCH ×4 (11:46→20:59)
[2016-10-13] MEDS: CALCIUM ACETATE 667 MG CAP PO SCH ×3 (11:46→18:22)
[2016-10-13] MEDS: risperiDONE 1 MG TAB PO SCH ×2 (11:47→20:59)
[2016-10-13 14:49] LABS: AUTOMATED NEUTROPHIL # 16.6 TH/MM3 (1.8-7.7); BASOPHIL % 0.1 % (0.0-2.0); EOSINOPHIL % 0.2 % (0.0-4.0); HEMATOCRIT 30.7 % (39.0-51.0); LYMPH % 12.5 % (9.0-44.0); LYMPHOCYTE # 2.7 TH/MM3 (1.0-4.8); MEAN CELL VOLUME 90.3 FL (80.0-100.0); MEAN CORPUSCULAR HEMOGLOBIN 27.9 PG (27.0-34.0); MEAN CORPUSCULAR HGB CONC 30.9 % (32.0-36.0); MONO % 10.2 % (0.0-8.0); PLATELET COUNT 169 TH/MM3 (150-450); RED CELL DISTRIBUTION WIDTH 18.4 % (11.6-17.2); WHITE BLOOD COUNT 21.5 TH/MM3 (4.0-11.0)
[2016-10-13 14:54] LABS: HEMO FLAGS AUTO DIFF
[2016-10-13 15:35] LABS: BANDS 5 % (0-6); NEUTROPHIL # MANUAL DIFF 20.4 TH/MM3 (1.8-7.7); POLYS (SEG NEUTROPHILS) 90 % (16-70); WBC DIFF SAMPLE 100
[2016-10-13 15:36] LABS: KERATOCYTES 1+ (NORMAL); OVALOCYTES 1+ (NORMAL); PLATELET ESTIMATE SMEAR NORMAL (NORMAL); PLATELET MORPHOLOGY NORMAL (NORMAL); SCAN/DIFF FINAL DIFF MANUAL
--- NOTE | 2016-10-13 15:59 | HHI.PR ---
Subjective Remarks diarrhea better. Objective Vitals heart reg lung cta abd s/nt ext permcath. Vital Signs Date Time Temp Pulse Resp B/P Pulse Ox O2 Delivery O2 Flow Rate FiO2 10/13/16 15:41 97.5 112 15 98/59 98 10/13/16 11:54 97.9 90 17 103/66 99 10/13/16 08:37 98.6 86 14 101/66 98 10/13/16 06:23 98.3 104 17 102/62 95 10/13/16 05:22 18 10/13/16 01:15 115 10/12/16 23:37 98.2 77 17 98/58 96 10/12/16 20:26 97 10/12/16 19:28 98.0 98 17 97/61 97 10/12/16 17:04 99.0 102 18 98/60 99 10/12/16 16:15 120 Result Diagram: 10/13/16 1430 10/11/16 0621 Imaging Last 72 hours Impressions Chest X-Ray 10/10/16 1824 Signed Impressions: Service Date/Time: Monday, October 10, 2016 18:24 - CONCLUSION: No acute disease. Danny Fofana Jr., MD A/P Problem List: (1) C. difficile colitis Status: Acute Plan: - Patient is a 61 y/o male with ESRD on HD (), recurrent UTIs, obstructive uropathy, and chronic anemia. - Pt has had a very complicated recent medical history. He reports that back in May he was hospitalized in [place] with acute renal failure which he attributes to longstanding prostate issues and was started on HD. - Pt then moved to [facility]. He has had several admission in the last 2 months for UTI and was seen by Urology and recommended for outpt cystoscopy. He states that he has an appt in October with the Urologist. He has an indwelling Beard catheter to help with draining the bladder. - He has been following with Nephrology, Dr. Fong, for his HD and states that he has been compliant with this. - Pt has had recurrent UTIs with cultures growing, Stenotrophomonas Maltophilia (09/29), Pseudomonas aeruginosa/Enterobacter cloacae/GBS (08/28), Pseudomonas aeruginosa/Enterobacter Sp (08/24) - During his most recent admission he was found to be Epid 027 C. diff positive (09/30/16) and was treated with oral Vancomycin. - Last Ct Abd/pelvis (09/29/16) --> Abnormal bowel gas pattern with apparent diffuse colonic wall thickening and inflammatory change, multiple loops of nondilated air-containing small bowel with multiple air-fluid levels, findings most characteristic of colitis. - Pt reportedly had some clinical improvement but upon discharge he left with hospital without his antibiotic prescription. - Pt states that over the last week he has continued to have diarrhea but over the last 4 days it has been worse and he has been unable to eat or drink much of anything due to the diarrhea. - Pt had a fever at admission of 100.1, he was hypotensive and tachycardic. WBC count was 24.5 at admission, now down to 19.6. - Pt has been resumed on Vancomycin 250mg po QID given a unit of blood for anemia related to chronic illness wbc still elevated. ecoli on urine cx. change out beard and recheck. hoping to avoid abx. (2) ESRD (end stage renal disease) on dialysis Status: Chronic Plan: - Nephrology is consulted, Dr Fong - Pt is on HD schedule. - Renal US in 07/2016 noted distended urinary bladder with bilateral hydronephrosis ?chronic ARMIJO vs. neurogenic bladder (3) Tachycardia Status: Acute Plan: - Cont. gentle hydration. - Monitor (4) Anemia Status: Chronic Plan: see above Neo Hopper MD Oct 13, 2016 15:59
[2016-10-13 16:26] LABS: BICARBONATE 29.6 MEQ/L (21.0-32.0); MAGNESIUM 2.1 MG/DL (1.5-2.5); POTASSIUM 4.2 MEQ/L (3.5-5.1)
[2016-10-13 17:10] LABS: CALCIUM-PROTEIN CORRECTED 8.6 MG/DL (8.5-10.1)
--- NOTE | 2016-10-13 19:24 | HHI.NPPN ---
Subjective History of Present Illness 61 year old with ESRD and C diff colitis Objective Data Data Vital Signs Date Time Temp Pulse Resp B/P Pulse Ox O2 Delivery O2 Flow Rate FiO2 10/13/16 15:41 97.5 112 15 98/59 98 10/13/16 11:54 97.9 90 17 103/66 99 10/13/16 08:37 98.6 86 14 101/66 98 10/13/16 06:23 98.3 104 17 102/62 95 10/13/16 05:22 18 10/13/16 01:15 115 10/12/16 23:37 98.2 77 17 98/58 96 10/12/16 20:26 97 10/12/16 19:28 98.0 98 17 97/61 97 -: 10/13/16 1430 10/13/16 1548 Physical Exam General Appearance: Well Developed Neck Neck Exam: Neck Supple Pulmonary Resp Exam: Clear Bilaterally, Breath Sounds Equal Cardiology CV Exam: Regular, Normal Sinus Rhythm Gastrointestinal/Abdomen GI Exam: Soft, Non-Tender, Bowel Sounds Present Extremeties Extremities Exam: No Edema Assessment/Plan Problem List: (1) ESRD (end stage renal disease) on dialysis Plan: Patient next hemodialysis tomorrow He is on vancomycin by mouth for C. difficile (2) C. difficile colitis Plan: Been treated with oral vancomycin (3) Anemia Plan: on Charles Payne MD Oct 13, 2016 19:24
[2016-10-14] VITALS (7 sets, daily range): BP systolic 100–118; BP diastolic 63–71; PULSE 59–119; RESP 17–18; TEMP 97.8–98; O2SAT 96–98
[2016-10-14] MEDS: MIDODRINE 5 MG TAB PO SCH ×2 (06:36→13:18)
[2016-10-14 08:59] LABS: AUTOMATED NEUTROPHIL # 11.9 TH/MM3 (1.8-7.7); BASOPHIL % 0.2 % (0.0-2.0); EOSINOPHIL % 0.2 % (0.0-4.0); LYMPHOCYTE # 1.5 TH/MM3 (1.0-4.8); MEAN CELL VOLUME 91.3 FL (80.0-100.0); MEAN CORPUSCULAR HEMOGLOBIN 28.8 PG (27.0-34.0); MEAN CORPUSCULAR HGB CONC 31.5 % (32.0-36.0); MONO % 11.8 % (0.0-8.0); NEUT % 77.8 % (16.0-70.0); PLATELET COUNT 180 TH/MM3 (150-450); RED BLOOD COUNT 3.28 MIL/MM3 (4.50-5.90); RED CELL DISTRIBUTION WIDTH 18.1 % (11.6-17.2); WHITE BLOOD COUNT 15.3 TH/MM3 (4.0-11.0)
[2016-10-14] MEDS: TAMSULOSIN HCL 0.4 MG CAP PO SCH (09:00)
[2016-10-14] MEDS: VANCOMYCIN 500 MG VIAL (FOR ORAL USE ONLY) PO SCH ×2 (09:00→13:18)
[2016-10-14] MEDS: CALCIUM ACETATE 667 MG CAP PO SCH ×2 (09:00→13:18)
[2016-10-14] MEDS: risperiDONE 1 MG TAB PO SCH (09:00)
[2016-10-14 09:04] LABS: HEMO FLAGS AUTO DIFF
[2016-10-14 09:44] LABS: BANDS 6 % (0-6); MYELOCYTES 2 % (0-0); NEUTROPHIL # MANUAL DIFF 13.5 TH/MM3 (1.8-7.7); POLYS (SEG NEUTROPHILS) 80 % (16-70); TOXIC GRANULATION 2+ (NORMAL); WBC DIFF SAMPLE 100
[2016-10-14 09:45] LABS: SCAN/DIFF FINAL DIFF MANUAL
[2016-10-14] MEDS: EPOETIN ALFA 10,000 UNITS/ML VIAL IV PRN (11:06)
[2016-10-14] MEDS: HEPARIN SODIUM - IV 10,000 UNITS/10 ML VIAL PRN (11:07)
[2016-10-14] MEDS: GENTAMICIN SULFATE (DIALYSIS USE ONLY) 20 MG/2 ML VIAL IV PRN (11:07)
--- NOTE | 2016-10-14 12:04 | HHI.NPPN ---
Subjective History of Present Illness 61 year old with ESRD and C diff colitis Objective Data Data Vital Signs Date Time Temp Pulse Resp B/P Pulse Ox O2 Delivery O2 Flow Rate FiO2 10/14/16 07:15 119 10/14/16 04:32 116 10/14/16 03:48 98.0 104 17 118/71 98 10/14/16 00:03 98.0 100 17 100/64 98 10/14/16 00:00 114 10/13/16 20:20 97.9 104 18 116/69 98 10/13/16 15:41 97.5 112 15 98/59 98 -: 10/14/16 0824 10/13/16 1548 Physical Exam General Appearance: Well Developed Neck Neck Exam: Neck Supple Pulmonary Resp Exam: Clear Bilaterally, Breath Sounds Equal Cardiology CV Exam: Regular, Normal Sinus Rhythm Gastrointestinal/Abdomen GI Exam: Soft, Non-Tender, Bowel Sounds Present Extremeties Extremities Exam: No Edema Assessment/Plan Problem List: (1) ESRD (end stage renal disease) on dialysis Plan: Patient hemodialysis HF UF minimal QB 250 low He is on vancomycin by mouth for C. difficile (2) C. difficile colitis Plan: Been treated with oral vancomycin (3) Anemia Plan: on Charles Payne MD Oct 14, 2016 12:04
[2016-10-14] MEDS: FERROUS SULFATE 325 MG (65 MG ELEMENTAL IRON) TAB PO SCH (13:18)
--- NOTE | 2016-10-14 14:40 | HHI.PR ---
Subjective Remarks doing well eager for d/c Objective Vitals heart reg lung cta abd abd s/nt ext no edema Vital Signs Date Time Temp Pulse Resp B/P Pulse Ox O2 Delivery O2 Flow Rate FiO2 10/14/16 13:15 97.8 96 18 110/63 96 10/14/16 07:15 119 10/14/16 04:32 116 10/14/16 03:48 98.0 104 17 118/71 98 10/14/16 00:03 98.0 100 17 100/64 98 10/14/16 00:00 114 10/13/16 20:20 97.9 104 18 116/69 98 10/13/16 15:41 97.5 112 15 98/59 98 Result Diagram: 10/14/16 0824 10/13/16 1548 Imaging Last 72 hours Impressions Chest X-Ray 10/10/16 1824 Signed Impressions: Service Date/Time: Monday, October 10, 2016 18:24 - CONCLUSION: No acute disease. Danny Fofana Jr., MD A/P Problem List: (1) C. difficile colitis Status: Acute Plan: - Patient is a 61 y/o male with ESRD on HD (), recurrent UTIs, obstructive uropathy, and chronic anemia. - Pt has had a very complicated recent medical history. He reports that back in May he was hospitalized in [place] with acute renal failure which he attributes to longstanding prostate issues and was started on HD. - Pt then moved to [facility]. He has had several admission in the last 2 months for UTI and was seen by Urology and recommended for outpt cystoscopy. He states that he has an appt in October with the Urologist. He has an indwelling Beard catheter to help with draining the bladder. - He has been following with Nephrology, Dr. Fong, for his HD and states that he has been compliant with this. - Pt has had recurrent UTIs with cultures growing, Stenotrophomonas Maltophilia (09/29), Pseudomonas aeruginosa/Enterobacter cloacae/GBS (08/28), Pseudomonas aeruginosa/Enterobacter Sp (08/24) - During his most recent admission he was found to be Epid 027 C. diff positive (09/30/16) and was treated with oral Vancomycin. - Last Ct Abd/pelvis (09/29/16) --> Abnormal bowel gas pattern with apparent diffuse colonic wall thickening and inflammatory change, multiple loops of nondilated air-containing small bowel with multiple air-fluid levels, findings most characteristic of colitis. - Pt reportedly had some clinical improvement but upon discharge he left with hospital without his antibiotic prescription. - Pt states that over the last week he has continued to have diarrhea but over the last 4 days it has been worse and he has been unable to eat or drink much of anything due to the diarrhea. - Pt had a fever at admission of 100.1, he was hypotensive and tachycardic. WBC count was 24.5 at admission, now down to 19.6. - Pt has been resumed on Vancomycin 250mg po QID given a unit of blood for anemia related to chronic illness beard exchanged and wbc down. no fever or chills d/c and f/u. (2) ESRD (end stage renal disease) on dialysis Status: Chronic Plan: - Nephrology is consulted, Dr Fong - Pt is on HD schedule. - Renal US in 07/2016 noted distended urinary bladder with bilateral hydronephrosis ?chronic ARMIJO vs. neurogenic bladder (3) Tachycardia Status: Acute Plan: - Cont. gentle hydration. - Monitor (4) Anemia Status: Chronic Plan: see above Neo Hopper MD Oct 14, 2016 14:40
[2016-10-14] MEDS ORDERED: VANC500I3 PO ×2 (14:44→14:49)
--- NOTE | 2016-10-14 14:45 | HHI.DCPOC ---
Discharge Care Plan Diagnosis: (1) C. difficile colitis (2) ESRD (end stage renal disease) on dialysis (3) Obstructive uropathy (4) Anemia Goals to Promote Your Health * To prevent worsening of your condition and complications * To maintain your health at the optimal level Directions to Meet Your Goals Take your medications as prescribed Follow your dietary instruction Follow activity as directed Keep your appointments as scheduled Take your immunizations and boosters as scheduled If your symptoms worsen call your PCP, if no PCP go to Urgent Care Center or Emergency Room Smoking is Dangerous to Your Health. Avoid second hand smoke Call the 24-hour hour crisis hotline for domestic abuse at Neo Hopper MD Oct 14, 2016 14:45
== END 2016-10-14 16:21 | disposition home or self-care (01) | DRG 871 ==
LOC: NEPC 17:57 → NEDA 20:20 → NEPHCDU 10-11 02:48
PROVIDERS: ADMIT Hospitalist; ATTEND Hospitalist
PROC: 30233N1 Transfusion of Nonautologous Red Blood Cells into Peripheral Vein, Percutaneous Approach (ICD-10-PCS; principal; 2016-10-12)
PROC: 5A1D60Z (ICD-10-PCS; 2016-10-12)
DX: A41.9 Sepsis, unspecified organism (principal); N18.6 End stage renal disease; A04.7 Enterocolitis due to Clostridium difficile; N13.30 Unspecified hydronephrosis; I12.0 Hypertensive chronic kidney disease with stage 5 chronic kidney disease or end stage renal disease; F20.9 Schizophrenia, unspecified; E86.0 Dehydration; F41.9 Anxiety disorder, unspecified; N40.1 Benign prostatic hyperplasia with lower urinary tract symptoms; D63.1 Anemia in chronic kidney disease; Z99.2 Dependence on renal dialysis
CPT/HCPCS: 36430; 71010; 80048; 80053; 81001; 83605; 83735; 84155; 85007; 85025; 85027; 86850; 86900; 86901; 86920; 87040; 87077; 87086; 87186; 87493; 90935; 96374; 96375; J1580; J1644; J7030; P9016; Q4081

== ENCOUNTER → 2016-11-27 | Day surgery (SDC) | payer OTHER ==
[~2016-11-27] VITALS: Ht 175.3 cm; Wt 58.7 kg
[~2016-11-27] MED LIST changes: +CEPH-459 PO; +CHLORHEXIDINE GLUCONATE 2 % 1 PACK (2 CLOTHS) TOPICAL PRN; +DO NOT ADM ANY ANTICOAGULANT DRUGS PRN; +FERR325T2 PO; +FUROSEMIDE 40 MG/4 ML VIAL ONE; +INSULIN HUMAN REGULAR 1,000 UNITS/10 ML VIAL SQ PRN; +IOHEXOL 350 MG/ML 50 ML BTL (for RAD DIAG) IVCONTRAST ONE; +LACTATED RINGER'S 1000 ML IV PRN; +METOPROLOL TARTRATE 25 MG TAB PO PRN; -MONT10TA4 PO; +ONDANSETRON HCL 4 MG/2 ML VIAL IV PUSH ONE; +ONDANSETRON HCL 4 MG/2 ML VIAL IV PUSH PRN; +PERC5TAB12 PO; +PHENYLEPH/NS 1000 MCG/10 ML SYR IV ONE; +POVIDONE IODINE 5% (ANTISEPSIS KIT) 4 APPLICATIONS EACH NARE PRN; +PROPOFOL 200 MG/20 ML AMP IV ONE; +SODIUM CHLORID 0.9% 500 ML IV PRN; +TAMS0.4C4 PO; -VANC500I3 PO; +ceFAZolin 1,000 MG/NS 100 ML IV SCH; +ePHEDrine/NS 25 MG/5 ML SYR IV ONE; +oxyCODONE/ACETAMINOPHEN 5 MG/325 MG TAB PO PRN
[2016-11-27 08:26] LABS: AUTOMATED NEUTROPHIL # 4.8 TH/MM3 (1.8-7.7); BASOPHIL # 0.1 TH/MM3 (0-0.2); BASOPHIL % 0.9 % (0.0-2.0); EOSINOPHIL # 4.1 TH/MM3 (0-0.4); EOSINOPHIL % 25.8 % (0.0-4.0); HEMATOCRIT 35.6 % (39.0-51.0); LYMPH % 34.9 % (9.0-44.0); LYMPHOCYTE # 5.5 TH/MM3 (1.0-4.8); MEAN CELL VOLUME 99.9 FL (80.0-100.0); MEAN CORPUSCULAR HEMOGLOBIN 30.7 PG (27.0-34.0); MEAN CORPUSCULAR HGB CONC 30.7 % (32.0-36.0); NEUT % 30.4 % (16.0-70.0); PLATELET COUNT 208 TH/MM3 (150-450); RED BLOOD COUNT 3.56 MIL/MM3 (4.50-5.90); RED CELL DISTRIBUTION WIDTH 19.2 % (11.6-17.2); WHITE BLOOD COUNT 15.8 TH/MM3 (4.0-11.0)
[2016-11-27 08:30] LABS: HEMO FLAGS AUTO DIFF
[2016-11-27 09:19] LABS: EOSINOPHILS 28 % (0-4); NEUTROPHIL # MANUAL DIFF 4.7 TH/MM3 (1.8-7.7); PLATELET ESTIMATE SMEAR NORMAL (NORMAL); PLATELET MORPHOLOGY NORMAL (NORMAL); POLYS (SEG NEUTROPHILS) 30 % (16-70); SCAN/DIFF FINAL DIFF MANUAL; WBC DIFF SAMPLE 100
[2016-11-27 09:58] LABS: BICARBONATE 18.6 MEQ/L (21.0-32.0); POTASSIUM 5.6 MEQ/L (3.5-5.1)
--- NOTE | 2016-11-27 12:43 | PD.OP ---
Operative Report Date of Surgery: Nov 27, 2016 Preoperative Diagnosis: (1) BPH (benign prostatic hypertrophy) with urinary obstruction Postoperative Diagnosis: (1) BPH (benign prostatic hypertrophy) with urinary obstruction Procedure: Cystoscopy, bilateral retrograde pyelograms and transurethral resection of the prostate Anesthesia: General Surgeon: [facility] Rn(s): None Operation and Findings: Indication for procedure: Case of a pleasant 61-year-old gentleman with chronic kidney disease on hemodialysis who was recently seen as inpatient consult for urinary retention and bilateral hydro-nephrosis. Patient has been managed with an indwelling Elmore and presents now for further urologic workup to include cystoscopy, bilateral retrograde pyelograms and possible transurethral resection of the prostate. Operative procedure in detail: Patient was brought to the operating room suite and placed supine on the cystoscopy table. He was then placed and general endotracheal anesthesia. He was then repositioned in the dorsolithotomy position and prepped and draped in normal sterile fashion. After appropriate timeout was undertaken I proceeded with cystoscopic evaluation utilizing the rigid cystoscope with the 20 Lao sheath and the 30 lens. Urethra was patent without stricture formation. The prostatic urethra was obstructing with enlargement of the median lobe. The lateral lobes were nonobstructing. Further passive cystoscope within the urinary bladder revealed both right and left ureteral orifices in correct anatomic position with clear reflux bilaterally. The bladder was markedly trabeculated with cellule formation. I next proceeded with performing bilateral retrograde pyelogram studies utilizing a 6 Lao open-ended ureteral catheter. There was prompt filling and drainage of the collecting systems bilaterally without evidence of filling defects or obstruction. I next exchanged the cystoscope for the resectoscope with the bipolar cutting loop and the patient underwent a transurethral resection of the median lobe of the prostate. Care was taken to avoid resection of tissue vicinity of the ureteral orifices or beyond the veru montanum thus preserving the integrity of the external sphincter. Once the obstructing tissue was resected the elic evacuator was used to collect the resected prostatic tissue which was sent off to pathology. Careful inspection was made for active bleeding and none was noted. A 20 Lao 30 cc Elmore catheter was then placed and connected to gravity drainage. The patient tolerated the procedures without complications and was transferred to the PACU in satisfactory condition. Duke Elizondo MD Nov 27, 2016 12:43
[2016-11-27 13:57] VITALS: BP 130/81; PULSE 87; RESP 18; TEMP 98.6; O2SAT 100
== END | disposition home or self-care (01) ==
LOC: HSDC 07:24
PROVIDERS: ATTEND Urology
DX: N40.1 Benign prostatic hyperplasia with lower urinary tract symptoms (principal); N13.8 Other obstructive and reflux uropathy; N18.6 End stage renal disease; R33.9 Retention of urine, unspecified; N13.30 Unspecified hydronephrosis; Z99.2 Dependence on renal dialysis; Z01.818 Encounter for other preprocedural examination
CPT/HCPCS: 00914; 52601; 74420; 80048; 85007; 85027; 88305; C1769; J0690; J1940; J2370; J2405; J3010; J7120; Q9967